=== PATIENT | male | born 1955 | race Caucasian/White ===

== ENCOUNTER → 2016-06-13 | Outpatient (CLI) | payer BC ==
[~2016-06-13] MED LIST: ALBU1AER9 INH; ALLO100T PO; AMLH/550 PO; ASPI81TA28 PO; ATOR-24 PO; CHOL1000 PO; CLOP1TAB15 PO; GLC500 PO; LVMI SC; MELO7.5T5 PO; METO25TA3 PO; MULT-506 PO; NTRGSL/4 UT; NVLGI/PEN SC; VALS320T PO
[2016-06-13 12:22] LABS: BASO % 0.7 %; BASO ABS # 0.06 K/uL (0-0.2); COMPLETE YES; EOS % 3.4 %; HEMATOCRIT 40.4 % (42-52); IG% 0.4 %; LYMPH ABS # 2.65 K/uL (1.2-3.4); MEAN CELL VOLUME 89.4 fL (80-100); MEAN CORPUSCULAR HEMOGLOBIN 29.6 pg (25-34); MEAN CORPUSCULAR HGB CONC 33.2 g/dl (32-36); MEAN PLATELET VOLUME 10.9 fL (7.4-10.4); MONO % 8.9 %; NEUT % 57.6 %; PLATELET COUNT 237 K/uL (130-400); RED BLOOD COUNT 4.52 M/uL (4.7-6.1); WHITE BLOOD COUNT 9.15 K/uL (4.8-10.8)
[2016-06-13 12:54] LABS: ESTIMATED AVERAGE GLUCOSE 220 mg/dl; HA1C FLAG Normal (Normal)
[2016-06-13 13:14] LABS: ALT/SGPT 28 U/L (12-78); AST/SGOT 17 U/L (15-37); BLOOD UREA NITROGEN 23 mg/dl (7-18); BUN/CREATININE RATIO 19.4 (10-20); CALCIUM 8.9 mg/dl (8.5-10.1); CARBON DIOXIDE 30 mmol/L (21-32); CHLORIDE 103 mmol/L (98-107); CHOLESTEROL 147 mg/dl (0-200); GLUCOSE 266 mg/dl (70-99); POTASSIUM 4.8 mmol/L (3.5-5.1); SODIUM 139 mmol/L (136-145); TRIGLYCERIDES 235 mg/dl (0-150); VERY LOW DENSITY LIPOPROT CALC 47 mg/dl
[2016-06-13 13:19] LABS: ALKALINE PHOSPHATASE 118 U/L (45-117); CHOLESTEROL/HDL RATIO 3.6; FERRITIN 101.1 ng/ml (8.0-388.0); HDL CHOLESTEROL 41 mg/dl; LDL CHOLESTEROL CALCULATED 59 mg/dl; TOTAL IRON BINDING CAPACITY 211 mcg/dl (250-450)
== END | disposition home or self-care (01) ==
LOC: C.LABBFT 08:28
PROVIDERS: ATTEND Internal Medicine
DX: E11.65 Type 2 diabetes mellitus with hyperglycemia (principal); Z11.59 Encounter for screening for other viral diseases; D64.9 Anemia, unspecified; I25.10 Atherosclerotic heart disease of native coronary artery without angina pectoris

== ENCOUNTER → 2016-10-17 | Outpatient (CLI) | payer BC ==
[2016-10-17 09:54] LABS: ESTIMATED AVERAGE GLUCOSE 206 mg/dl; HA1C FLAG Normal (Normal)
== END | disposition home or self-care (01) ==
LOC: C.LAB1850 07:49
PROVIDERS: ATTEND Nurse Practitioner Family
DX: E11.65 Type 2 diabetes mellitus with hyperglycemia (principal)

== ENCOUNTER → 2016-11-19 | Outpatient (CLI) | payer BC ==
[~2016-11-19] VITALS: Ht 171.5 cm; Wt 139.0 kg
[2016-11-19 12:27] VITALS: BP 125/80; PULSE 92; Ht 171.5 cm; Wt 139.0 kg
== END | disposition home or self-care (01) ==
LOC: C.NEUR 12:00
PROVIDERS: ATTEND Internal Medicine Pulmonary Disease
DX: G47.30 Sleep apnea, unspecified (principal); R09.02 Hypoxemia; I27.2 Other secondary pulmonary hypertension; M19.90 Unspecified osteoarthritis, unspecified site; N40.0 Benign prostatic hyperplasia without lower urinary tract symptoms; I25.10 Atherosclerotic heart disease of native coronary artery without angina pectoris; I50.9 Heart failure, unspecified; E11.9 Type 2 diabetes mellitus without complications; E78.5 Hyperlipidemia, unspecified; I10 Essential (primary) hypertension; I25.5 Ischemic cardiomyopathy; Z87.442 Personal history of urinary calculi; E66.9 Obesity, unspecified; Z90.89 Acquired absence of other organs; Z98.61 Coronary angioplasty status; Z83.3 Family history of diabetes mellitus; Z82.49 Family history of ischemic heart disease and other diseases of the circulatory system; Z80.42 Family history of malignant neoplasm of prostate; M10.9 Gout, unspecified

== ENCOUNTER → 2017-02-12 | Outpatient (CLI) | payer BC ==
[~2017-02-12] MED LIST changes: +ALL60 PO; +APIX1TAB3 PO; +BENZ100C7 PO; +CEFT1INJ26 IV; +CRDCD180 PO; +DVN80 PO; +FURO-85 PO; +INSDGIPEN SC; +INSU32MI13 SQ; +LCTX PO; +LSX40 PO; +MCRK20 PO; +METF-841 PO; +METO-479 PO; +MGNO400 PO; +PRED1SUS17 OPL; +TRIA1SPR4 NAE; +VNTHFA/IN INH
[2017-02-12 12:28] LABS: BASO % 0.7 %; BASO ABS # 0.07 K/uL (0-0.2); EOS % 3.5 %; EOS ABS # 0.36 K/uL (0-0.5); HEMATOCRIT 40.5 % (42-52); HEMOGLOBIN 13.2 g/dL (14.0-18.0); IG# 0.04 K/uL (0.00-0.02); LYMPH % 27.1 %; LYMPH ABS # 2.81 K/uL (1.2-3.4); MEAN CELL VOLUME 90.6 fL (80-100); MEAN CORPUSCULAR HEMOGLOBIN 29.5 pg (25-34); MEAN CORPUSCULAR HGB CONC 32.6 g/dl (32-36); MEAN PLATELET VOLUME 10.5 fL (7.4-10.4); MONO % 8.9 %; MONO ABS # 0.92 K/uL (0.11-0.59); NEUT % 59.4 %; NEUT ABS # 6.18 K/uL (1.4-6.5); PLATELET COUNT 264 K/uL (130-400); RED CELL DISTRIBUTION WIDTH CV 14.8 % (11.5-14.5); RED CELL DISTRIBUTION WIDTH SD 48.9 fL (36.4-46.3); WHITE BLOOD COUNT 10.38 K/uL (4.8-10.8)
[2017-02-12 13:15] LABS: HEMOGLOBIN A1C 8.8 % (4.5-5.6)
== END | disposition home or self-care (01) ==
LOC: C.LABBFT 07:54
PROVIDERS: ATTEND Nurse Practitioner Family
DX: Z12.5 Encounter for screening for malignant neoplasm of prostate (principal); D72.829 Elevated white blood cell count, unspecified; E11.65 Type 2 diabetes mellitus with hyperglycemia

== ENCOUNTER 2017-06-19 12:51 | Inpatient (IN) | payer BC ==
[~2017-06-19] VITALS: Ht 172.7 cm; Wt 126.6 kg
[~2017-06-19 12:51] MED LIST changes: -ALL60 PO; -APIX1TAB3 PO; -BENZ100C7 PO; -CEFT1INJ26 IV; -CRDCD180 PO; -DVN80 PO; -FURO-85 PO; -INSDGIPEN SC; -INSU32MI13 SQ; -LCTX PO; -LSX40 PO; -MCRK20 PO; -METF-841 PO; -METO-479 PO; -MGNO400 PO; -PRED1SUS17 OPL; -TRIA1SPR4 NAE; -VNTHFA/IN INH
[2017-06-19] MEDS ORDERED: SODIUM CHLORIDE 0.9% 1000ML 1,000 ML IV STA ×2 (13:15→14:35)
[2017-06-19] MEDS ORDERED: KETOROLAC TROMETHAMINE 30 MG/ML VIAL IV STA (13:20)
[2017-06-19] MEDS ORDERED: OPTIRAY 320 IV PRN (13:30)
[2017-06-19 13:56] LABS: BASO % 0.2 %; BASO ABS # 0.03 K/uL (0-0.2); EOS % 0.1 %; EOS ABS # 0.01 K/uL (0-0.5); HEMATOCRIT 37.1 % (42-52); HEMOGLOBIN 13.2 g/dL (14.0-18.0); IG# 0.07 K/uL (0.00-0.02); LYMPH ABS # 2.12 K/uL (1.2-3.4); MEAN CELL VOLUME 86.5 fL (80-100); MEAN CORPUSCULAR HEMOGLOBIN 30.8 pg (25-34); MEAN CORPUSCULAR HGB CONC 35.6 g/dl (32-36); MONO ABS # 1.27 K/uL (0.11-0.59); NEUT % 75.2 %; NEUT ABS # 10.65 K/uL (1.4-6.5); PLATELET COUNT 216 K/uL (130-400); RED CELL DISTRIBUTION WIDTH CV 15.9 % (11.5-14.5); RED CELL DISTRIBUTION WIDTH SD 50.4 fL (36.4-46.3); WHITE BLOOD COUNT 14.15 K/uL (4.8-10.8)
[2017-06-19 14:06] LABS: ISTAT CREATININE 1.3 mg/dl (0.6-1.3); ISTAT IONIZED CALCIUM 1.18 mmol/l (1.12-1.32); ISTAT POTASSIUM 3.9 mEq/L (3.3-5.0)
[2017-06-19] MEDS ORDERED: PRED1SUS17 OPL (14:07)
[2017-06-19] MEDS ORDERED: METF-841 PO (14:07)
[2017-06-19] MEDS ORDERED: AMLH/550 PO (14:07)
[2017-06-19] MEDS ORDERED: FURO-85 PO (14:07)
[2017-06-19] MEDS ORDERED: VNTHFA/IN INH (14:08)
[2017-06-19 14:15] LABS: ALBUMIN 2.9 gm/dl (3.4-5.0); CALCIUM 9.6 mg/dl (8.5-10.1); CREATININE 1.37 mg/dl (0.60-1.40); POTASSIUM 3.9 mmol/L (3.5-5.1)
--- NOTE | 2017-06-19 14:17 | DIAGNOSTIC IMAGING REPORT ---
CHEST ONE VIEW PORTABLE HISTORY: fever COMPARISON: Chest 01/29/2013. FINDINGS: There are low lung volumes. The heart remains top normal in size. Mild central pulmonary vascular congestion without overt edema. No focal lung consolidations. No pleural effusions. No pneumothorax. IMPRESSION: Mild central pulmonary vascular congestion without overt edema. Electronically signed by: Vinicius Gaitan M.D. 06/19/2017 2:16 PM Dictated Date/Time: 06/19/2017 2:07 PM
[2017-06-19 14:23] LABS: CKMB 4.8 ng/ml (0.5-3.6); TOTAL PROTEIN 7.8 gm/dl (6.4-8.2)
[2017-06-19 14:27] LABS: INFLUENZA B ANTIGEN Neg for Influ B (NEG)
[2017-06-19] MEDS ORDERED: LEVAQUIN 750MG / 150ML D5W IV STA (14:28)
--- NOTE | 2017-06-19 14:42 | DIAGNOSTIC IMAGING REPORT ---
CT SCAN OF THE CHEST WITH IV CONTRAST CLINICAL HISTORY: Trauma. Fall with left-sided chest wall pain. COMPARISON STUDY: Chest x-ray dated 06/19/2017. Chest CT dated 01/29/2013. TECHNIQUE: Following the IV administration of 103 cc of Optiray 320, CT scan of the thorax was performed from the thoracic inlet to the upper abdomen. Images are reviewed in the axial, sagittal, and coronal planes. IV contrast was administered without complication. A dose lowering technique was utilized adhering to the principles of ALARA. CT DOSE: 1127.07 mGy.cm FINDINGS: Thyroid: Imaged portions of the thyroid gland are normal in size and attenuation. Thoracic aorta: There is atherosclerotic calcification of the thoracic aorta, which is normal in caliber and demonstrates standard 3-vessel arch anatomy. No dissection is seen. Pulmonary vasculature: The pulmonary trunk is normal in caliber. There are no filling defects identified in the central pulmonary vessels to indicate pulmonary embolus. Note that this examination was not protocoled for evaluation of the pulmonary arteries. Heart: The heart is mildly enlarged and without pericardial effusion. The coronary arteries are densely calcified. Lungs and pleural spaces: The trachea and central airways are clear. There is no airspace consolidation, pleural effusion, or pneumothorax. Numerous tiny scattered calcified granulomas are observed. There is a 9 mm right lower lobe pulmonary nodule seen on image #175. Mild air trapping is present in the upper lobes. Mediastinum: There is no mediastinal hematoma or lymphadenopathy. Shante: Clear. Axillae: There is no axillary lymphadenopathy. Upper abdomen: There is a small hiatal hernia. The liver appears steatotic. Skeletal structures: The skeletal structures are osteopenic. The bony thorax appears intact. Advanced arthritic change is seen in the shoulders. Mild degenerative change is noted throughout the thoracic spine. No lytic or blastic bony lesions are seen. IMPRESSION: 1. There is no airspace consolidation, pleural effusion, or pneumothorax. 2. No acute posttraumatic abnormality is identified. 3. Mild cardiomegaly. 4. There is a 9 mm pathologically indeterminant right lower lobe pulmonary nodule. This was not clearly seen on the 2013 examination; however, pleural effusions on the prior study may have obscured this region. Follow-up as per the Fleischner criteria is recommended. See below. 5. Additional findings as above. Please refer to below summary of Fleischner criteria recommendations for follow-up of incidental CT nodules (H MacMahon, Guidelines for management of small pulmonary nodules detected on CT scans: A statement from the Fleischner Society, Radiology 237: [id number].) SOLID NODULES Solitary nodule size: <6 mm * low risk patients: no follow-up needed * high risk patients: optional CT at 12 months Solitary nodule size: 6-8 mm * low risk patients: follow-up at 6-12 months, then consider further follow-up at 18-24 months * high risk patients: initial follow-up CT at 6-12 months and then at 18-24 months if no change Solitary nodule size: >8 mm * either low or high risk patients - consider follow-up CT at 3 months, and/or CT-PET, and/or biopsy Multiple nodules size: <6 mm * low risk patients: no routine follow-up * high risk patients: optional CT at 12 months Multiple nodules size: 6-8 mm * low risk patients: follow-up at 3-6 months, then consider further follow-up at 18-24 months * high risk patients: follow-up at 3-6 months, then at 18-24 months if no change Multiple nodules size: >8 mm * low risk patients: follow-up at 3-6 months, then consider further follow-up at 18-24 months * high risk patients: follow-up at 3-6 months, then at 18-24 months if no change Note: newly detected indeterminate nodule in persons 35 years of age or older. * low risk patients: minimal or absent history of smoking and/or other known risk factors * high risk patients: history of smoking or of other known risk factors (e.g. first degree relative with lung cancer, or exposure to asbestos, radon, uranium) * if a nodule up to 8 mm is partly solid or is ground glass further follow-up is required after 24 months to exclude possible slow growing adenocarcinoma (JUAN) SUBSOLID NODULES Solitary pure ground-glass nodule * nodule size <6 mm - no CT follow-up required * nodule size >=6 mm - follow-up CT at 6-12 months, then every 2 years until 5 years Solitary part-solid nodule * nodule size <6 mm - no CT follow-up required * nodule size >=6 mm - follow-up CT at 3-6 months. If unchanged, and solid component remains <6 mm, then annual follow-up for 5 years Multiple subsolid nodules * nodule size <6 mm - follow-up CT at 3-6 months, consider further follow-up at 2 and 4 years if stable * nodule size >=6 mm - follow-up CT at 3-6 months, subsequent management based on the most suspicious nodule(s) Electronically signed by: Howard Conrad M.D. 06/19/2017 2:41 PM Dictated Date/Time: 06/19/2017 2:32 PM
[2017-06-19] MEDS ORDERED: MAGNESIUM HYDROXIDE SUSP 30 ML UDC PO PRN (15:45)
[2017-06-19] MEDS ORDERED: POLYETHYLENE (MIRALAX) 17 GM PACK PO PRN (15:45)
[2017-06-19] MEDS ORDERED: GLUCOSE 40% GEL 15 GM TUBE PO PRN (15:45)
[2017-06-19] MEDS ORDERED: ALUMINUM/MAGNESIUM/SIMETH (MAALOX MAX) 30 ML UDC PO PRN (15:45)
[2017-06-19] MEDS ORDERED: GLUCOSE 10 TABS/TUBE PO PRN (15:45)
[2017-06-19] MEDS ORDERED: NITROGLYCERIN 0.4 MG SL PER TAB CHARGE SL PRN (15:45)
[2017-06-19] MEDS ORDERED: GLUCAGON FOR INJ 1 MG VIAL SQ PRN (15:45)
[2017-06-19] MEDS ORDERED: ALBUTEROL HFA 8 GM INHALER INH PRN (15:45)
[2017-06-19] MEDS ORDERED: ZOLPIDEM TARTRATE 5 MG TAB PO PRN ×2 (15:45)
[2017-06-19] MEDS ORDERED: NITROGLYCERIN 0.4 MG SL PER TAB CHARGE UT PRN (15:45)
[2017-06-19] MEDS ORDERED: DEXTROSE 50% 50 ML SYR IV PRN (15:45)
--- NOTE | 2017-06-19 16:39 | History and Physical ---
History & Physical Date & Time of Service: Jun 19, 2017 at 16:26 Chief Complaint: Dizziness,High Temp,Shingles Primary Care Physician: Loki Matias M.D. History of Present Illness Source: patient, family, spouse 61 years old man with past medical history of diabetes mellitus, hypertension, obstructive sleep apnea, dyslipidemia, diastolic congestive heart failure, CVA and recent shingles 2 weeks ago. 4 days ago patient started having productive cough with yellowish sputum. Intermittent high-grade fever up to 103 at home. Denies any significant shortness of breath, diarrhea, blood in the stool, burning sensation in the urine or blood. About 2 weeks ago he was treated for scalp shingles that might have affected his left eye, as per patient he received all the appropriate treatment oral and eyedrops. Due to his intermittent fever and cough patient started having generalized weakness. Last night he tried to use the bathroom and he fell in the bathtub and states therefore few hours. Patient is not aware of what happened. He is not sure if he passed out or lost consciousness. But he remembers waking up after that and dragging himself back to bed. Denies any focal weakness or tingling or numbness. His brought him to the ER today and he was found to have A. fib new onset with rapid ventricular response. 57 y/o M with PMH significant for DM, HTN, recently dx DEANDRE, and hyperlipidemia, who was admitted on 01/29 for SOB. Visual disturbances: Consult neurology and Order MRI, Continue Heparin gtt for now SOB: Diastolic CHF exacerbation, improved with additional lasix dosing last night WBC WNL, afebrile CXR neg + ddimer with CTA neg for PE CTA does show mild pleural effusion with clinical findings suggestive of CHF given orthopnea and increasing ZULETA, LE swelling, scant crackles Trop elevated at 0.75 without EKG changes, serials essentially the same BNP slightly elevated at 361 ECHO with EF 20-25% and wall motion abnormalities that are difficult to fully assess given pt's body habitus Cardiology is planning for cath today given dye received prior to admission for CTA. Med adjustments noted LDL is surprisingly WNL at 62 with HDL 40 DM: BS stable Monitor on home insulin, SSI, restart metformin HTN: Stable, continue home meds DEANDRE: Awaiting CPAP at home Discussed importance of treating this daily with pt, who is in agreement Able to tolerate overnight Past Medical/Surgical History Medical Problems: (1) A-fib (2) A-fib (3) Acute coronary syndrome (4) Diabetes (5) High cholesterol (6) Hypertension (7) Hypoglycemia (8) Kidney stones (9) Shortness of breath (10) SOB (shortness of breath) Family History Diabetes mellitus FH: cancer Hypertension Social History Smoking Status: Former Smoker Drug Use: none Immunizations History of Influenza Vaccine: No History of Tetanus Vaccine?: Yes History of Pneumococcal: No History of Hepatitis B Vaccine: No Allergies Coded Allergies: No Known Allergies (Verified , 01/25/16) Home Medications Scheduled Allopurinol (Zyloprim), 100 MG PO QAM Amiloride/Hctz (Amiloride/Hydrochlorothia 5-50 mg), 1 TAB PO DAILY Aspirin (Aspirin Ec), 81 MG PO HS Atorvastatin (Lipitor), 40 MG PO HS Cholecalciferol (Vitamin D3), 2,000 TAB PO QAM Clopidogrel (Plavix), 75 MG PO QAM Furosemide (Lasix), 20 MG PO DAILY Insulin Aspart (Novolog Flexpen), UNITS SC UD Meloxicam (Mobic), 7.5 MG PO BID Metformin HCl (Metformin HCl ER), 1,000 MG PO BID Metoprolol Succ (Toprol Xl) (Toprol-Xl), 25 MG PO QAM Multivitamin (Multivitamin), 1 TAB PO QAM Prednisolone Acetate (Ophth) (Prednisolone Acetate), 1 DROP OPL QID Valsartan (Diovan), 320 MG PO QAM Scheduled PRN Albuterol Hfa (Ventolin Hfa), 2 PUFFS INH Q4 PRN for SOB/Wheezing Nitroglycerin (Nitrostat), 0.4 MG UT PRN PRN for Chest Pain Review of Systems Review of system Constitutional: Positive for fatigue, high-grade fever and chills Eyes: no blurring of vision / no eye pain / no discharge / no redness ENT: no hearing loss / no epistaxis /no swallowing problems Respiratory: Positive for productive cough as mentioned in HPI/ no SOB / no hemoptysis Cardiovascular: no Chest pain / no lower extremity edema / no palpitation Abdomen: no pain / no nausea / no vomiting / no constipation Musculoskeletal: no joint pain / no muscle pain / no joint swelling Genitourinary: no dysuria / no incontinence / no urinary retention Neurologic: no focal weakness / no numbness/tingling / no ataxia, positive for syncope and slight confusion Psychiatric: no depression symptoms / no anxiety / no insomnia Endocrine: no excessive thirst / no excessive urination Hematologic: no abnormal bleeding / no bruising / no LN swelling Skin: No rash / no pallor Physical Exam Vital Signs Date Time Temp Pulse Resp B/P (MAP) Pulse Ox O2 Delivery O2 Flow Rate FiO2 06/19/17 16:01 120/76 06/19/17 15:51 124 40 06/19/17 15:31 103/70 06/19/17 15:21 104 33 06/19/17 15:01 105/78 06/19/17 14:51 191 38 92 06/19/17 14:38 101/75 06/19/17 14:02 100/72 06/19/17 13:51 122 26 86 06/19/17 13:37 101 06/19/17 12:52 36.8 93 20 106/67 98 Room Air Physical examination General patient appears to be in mild acute distress HEENT: Atraumatic , normocephalic /no jaundice /no pallor /anicteric /no dry mucous membrane /normal external ear inspection Neck: Supple /no swelling /central trach Heart: S1/S2 irregular irregularity/no murmur Lungs: Clear to auscultation bilaterally/normal chest with expansion/no rhonchi/ no rales/no wheezing/no use of accessory muscles of respiration Abdomen: Soft/nontender/no guarding/no rebound/no organomegaly/no pulsatile mass Musculoskeletal: No swelling/no edema/no tenderness/normal range of motion Neuro exam: Awake alert oriented 3 but slightly forgetful and slightly confused about the sequence of events/cranial nerves II through XII appear to be intact/sensation intact/moves all extremities/no abnormal movements Psychiatric evaluation: No depressed mood/normal affect Skin: No rash on exposed skin area/no erythema Extremity: Normal pulse/no pitting edema/no clubbing or cyanosis Endocrine/lymphatic: No obvious lymphadenopathy /no lymphedema Diagnostics Laboratory Results Results Past 24 Hours Test 06/19/17 13:30 06/19/17 13:51 06/19/17 13:55 06/19/17 14:00 Range/Units White Blood Count 14.15 4.8-10.8 K/uL Red Blood Count 4.29 4.7-6.1 M/uL Hemoglobin 13.2 14.0-18.0 g/dL Hematocrit 37.1 42-52 % Mean Corpuscular Volume 86.5 80-100 fL Mean Corpuscular Hemoglobin 30.8 25-34 pg Mean Corpuscular Hemoglobin Concent 35.6 32-36 g/dl Platelet Count 216 130-400 K/uL Mean Platelet Volume 10.0 7.4-10.4 fL Neutrophils (%) (Auto) 75.2 % Lymphocytes (%) (Auto) 15.0 % Monocytes (%) (Auto) 9.0 % Eosinophils (%) (Auto) 0.1 % Basophils (%) (Auto) 0.2 % Neutrophils # (Auto) 10.65 1.4-6.5 K/uL Lymphocytes # (Auto) 2.12 1.2-3.4 K/uL Monocytes # (Auto) 1.27 0.11-0.59 K/uL Eosinophils # (Auto) 0.01 0-0.5 K/uL Basophils # (Auto) 0.03 0-0.2 K/uL RDW Standard Deviation 50.4 36.4-46.3 fL RDW Coefficient of Variation 15.9 11.5-14.5 % Immature Granulocyte % (Auto) 0.5 % Immature Granulocyte # (Auto) 0.07 0.00-0.02 K/uL Prothrombin Time 10.5 9.0-12.0 SECONDS Prothromb Time International Ratio 1.0 0.9-1.1 Sodium Level 133 136-145 mmol/L Potassium Level 3.9 3.5-5.1 mmol/L Chloride Level 97 98-107 mmol/L Carbon Dioxide Level 29 21-32 mmol/L Anion Gap 7.0 14.0 16-25 mmol/L Blood Urea Nitrogen 20 7-18 mg/dl Creatinine 1.37 0.60-1.40 mg/dl Est Creatinine Clear Calc Drug Dose 64.3 ml/min Estimated GFR () 63.2 Estimated GFR (Non- 54.5 BUN/Creatinine Ratio 14.5 10-20 Random Glucose 114 70-99 mg/dl Calcium Level 9.6 8.5-10.1 mg/dl Magnesium Level 1.4 1.8-2.4 mg/dl Total Bilirubin 0.6 0.2-1 mg/dl Direct Bilirubin 0.2 0-0.2 mg/dl Aspartate Amino Transf (AST/SGOT) 30 15-37 U/L Alanine Aminotransferase (ALT/SGPT) 37 12-78 U/L Alkaline Phosphatase 94 45-117 U/L Total Creatine Kinase 532 39-308 U/L Creatine Kinase MB 4.8 0.5-3.6 ng/ml Creatine Kinase MB Ratio 0.9 0-3.0 Troponin I 0.475 0-0.045 ng/ml Total Protein 7.8 6.4-8.2 gm/dl Albumin 2.9 3.4-5.0 gm/dl Bedside Lactic Acid Venous 2.21 0.90-1.70 mmol/L Bedside Hemoglobin 12.6 14.0-18.0 g/dl Bedside Hematocrit 37 42-52 % Bedside Sodium 134 135-144 mEq/L Bedside Potassium 3.9 3.3-5.0 mEq/L Bedside Chloride 95 101-112 mEq/L Bedside Total CO2 30 24-31 mEq/l Bedside Blood Urea Nitrogen 21 7-18 mg/dl Bedside Creatinine 1.3 0.6-1.3 mg/dl Bedside Glucose (other) 128 70-99 mg/dl Bedside Ionized Calcium (Fabiola) 1.18 1.12-1.32 mmol/l Influenza Type A Antigen Neg for Influ A NEG Influenza Type B Antigen Neg for Influ B NEG Test 06/19/17 14:20 Range/Units Urine Color DK YELLOW Urine Appearance CLEAR CLEAR Urine pH 5.0 4.5-7.5 Urine Specific [place] 1.032 1.000-1.030 Urine Protein NEG NEG Urine Glucose (UA) 3+ NEG Urine Ketones TRACE NEG Urine Occult Blood NEG NEG Urine Nitrite NEG NEG Urine Bilirubin NEG NEG Urine Urobilinogen NEG NEG Urine Leukocyte Esterase NEG NEG Urine WBC (Auto) 1-5 0-5 /hpf Urine RBC (Auto) 0-4 0-4 /hpf Urine Hyaline Casts (Auto) 1-5 0-5 /lpf Urine Epithelial Cells (Auto) 5-10 0-5 /lpf Urine Bacteria (Auto) NEG NEG Microbiology Results 06/19/17 Blood Culture, Received Pending 06/19/17 Blood Culture, Received Pending Diagnostic Radiology CT chest showed right lower lobe pulmonary nodule 9 mm EKG EKG showed new onset atrial fibrillation with ST-T wave changes Impression Assessment and Plan 61 years old man with past medical history of diabetes mellitus, hypertension, obstructive sleep apnea, dyslipidemia, diastolic congestive heart failure, CVA and recent shingles 2 weeks ago. 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 difficile Fall/generalized weakness IV fluid hydration Hold blood pressure meds Physical and occupational therapy evaluation Diabetes mellitus type 2 Hold oral hypoglycemics Start patient on sliding scale insulin Obstructive sleep apnea Patient can use his CPAP machine, he uses 2 L of oxygen at night with it His will bring the machine today DVT prophylaxis heparin drip for atrial fibrillation Discussed CODE STATUS status with patient and his , patient is full code Resuscitation Status VTE Prophylaxis Will order VTE Prophylaxis: Yes
[2017-06-19] MEDS ORDERED: HEPARIN SOD 5000 UNIT/0.5 ML CARP ONE (17:22)
[2017-06-19] MEDS ORDERED: HEPARIN 25000 UNIT/500 ML D5W ONE (17:22)
[2017-06-19] MEDS ORDERED: MAGNESIUM OXIDE 400 MG TAB PO ONE (17:30)
--- NOTE | 2017-06-19 17:50 | DIAGNOSTIC IMAGING REPORT ---
CT OF THE HEAD WITHOUT CONTRAST CLINICAL HISTORY: FALL / TRAUMA COMPARISON STUDY: Head CT February 03, 2013. CT DOSE: 687.98 mGy.cm TECHNIQUE: Helical axial images of the head were obtained without IV contrast. Automated exposure control was utilized for the study. A dose lowering technique was utilized adhering to the principles of ALARA. FINDINGS: No acute intracranial hemorrhage, midline shift or mass effect is present. Ventricular system is normal. The basilar cisterns are patent. There are no extra-axial collections. An old infarct within the right occipital lobe is again noted. There are no findings to suggest acute dural sinus thrombosis or acute territorial infarct. Mild white matter hypodensity likely reflect small vessel disease. There is no calvarial fracture. IMPRESSION: 1. No acute intracranial findings. 2. No calvarial fracture. 3. Old right occipital lobe infarct. Electronically signed by: Jeremiah Davis M.D. 06/19/2017 5:49 PM Dictated Date/Time: 06/19/2017 5:46 PM
[2017-06-19] MEDS: INSULIN ASPART 100 UNITS/ML 3 ML PEN SC SCH ×2 (18:30→21:00)
[2017-06-19 18:37] VITALS: BMI 44.6
[2017-06-19 18:41] VITALS: BP 149/74; PULSE 104; TEMP 38.3; O2SAT 90
[2017-06-19] MEDS: ONDANSETRON INJ 2 MG/ML 2 ML VIAL IV PRN (19:08)
[2017-06-19] MEDS: SODIUM CHLORIDE 0.9% 1000ML 1,000 ML IV SCH (19:11)
[2017-06-19] MEDS: PrednisoLONE ACET 1% OP SUSP 5 ML BTL OPL SCH ×2 (19:12→22:21)
--- NOTE | 2017-06-19 19:24 | EMERGENCY ROOM VISIT NOTE ---
History Report prepared by Db: Cezar Hamm Under the Supervision of: Dr. Jose Tate D.O. First contact with patient: 13:02 Chief Complaint: FEVER Stated Complaint: DIZZINESS,HIGH TEMP,SHINGLES History of Present Illness The patient is a 61 year old male who presents to the Emergency Room with complaints of constant pain to the left side of his chest that began last night following a falling accident. The patient states that he fell last night while trying to use the restroom and believes that the fall was due to him being weak secondary to the high fever he has had. The pain in the left chest is worsened with movement on the left arm/shoulder. The at bedside notes that the fever was 103.8 at its worse. During the fall he also injured the right ankle. The patient was nauseous yesterday and has been trying to vomit, but only dry heaves. This nausea is resolved at this point. He is coughing, which has been present for several days. The patient notes that he had Shingles 3 weeks ago. This was present on the left side of his head and in the left eye. 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 He is on PLAVIX currently. Source of History: patient Onset: Last night Position: chest (left) Symptom Intensity: 103.8 severity of fever. Quality: other (Pain from traumatic fall) Timing: constant Modifying Factors (Worsening): movement (of left arm and shoulder) Associated Symptoms: + fevers, + nausea Review of Systems See HPI for pertinent positives & negatives. A total of 10 systems reviewed and were otherwise negative. Past Medical & Surgical Medical Problems: (1) A-fib (2) A-fib (3) Diabetes (4) Heart disease Diabetes Heart disease Family History Diabetes mellitus FH: cancer Hypertension Social History Smoking Status: Former Smoker Alcohol Use: none Drug Use: none Current/Historical Medications Scheduled Allopurinol (Zyloprim), 100 MG PO QAM Amiloride/Hctz (Amiloride/Hydrochlorothia 5-50 mg), 1 TAB PO DAILY Aspirin (Aspirin Ec), 81 MG PO HS Atorvastatin (Lipitor), 40 MG PO HS Cholecalciferol (Vitamin D3), 2,000 TAB PO QAM Clopidogrel (Plavix), 75 MG PO QAM Furosemide (Lasix), 20 MG PO DAILY Insulin Aspart (Novolog Flexpen), UNITS SC UD Meloxicam (Mobic), 7.5 MG PO BID Metformin HCl (Metformin HCl ER), 1,000 MG PO BID Metoprolol Succ (Toprol Xl) (Toprol-Xl), 25 MG PO QAM Multivitamin (Multivitamin), 1 TAB PO QAM Prednisolone Acetate (Ophth) (Prednisolone Acetate), 1 DROP OPL QID Valsartan (Diovan), 320 MG PO QAM Scheduled PRN Albuterol Hfa (Ventolin Hfa), 2 PUFFS INH Q4 PRN for SOB/Wheezing Nitroglycerin (Nitrostat), 0.4 MG UT PRN PRN for Chest Pain Allergies Coded Allergies: No Known Allergies (Verified , 01/25/16) Physical Exam Vital Signs Date Time Temp Pulse Resp B/P (MAP) Pulse Ox O2 Delivery O2 Flow Rate FiO2 06/19/17 15:31 103/70 06/19/17 15:21 104 33 06/19/17 15:01 105/78 06/19/17 14:51 191 38 92 06/19/17 14:38 101/75 06/19/17 14:02 100/72 06/19/17 13:51 122 26 86 06/19/17 13:37 101 06/19/17 12:52 36.8 93 20 106/67 98 Room Air Physical Exam GENERAL: Sitting up in bed, alert, ill-appearing, dry non-productive cough, well nourished, moderately distress, non-toxic EYE EXAM: normal conjunctiva. OROPHARYNX: no exudate, no erythema, lips, buccal mucosa, and tongue normal and mucous membranes are moist NECK: supple, no nuchal rigidity, no adenopathy, non-tender CHEST: TTP over left side LUNGS: Clear to auscultation. Normal chest wall mechanics. Dry non-productive cough. HEART: Tachycardic and irregularly irregular. no murmurs, S1 normal and S2 normal ABDOMEN: abdomen soft, non-tender, normo-active bowel sounds, no masses, no rebound or guarding. BACK: Back is symmetrical on inspection and there is no deformity, no midline tenderness, no CVA tenderness. SKIN: no rashes and no bruising UPPER EXTREMITIES: upper extremities are grossly normal. LOWER EXTREMITIES: There is mild erythema just above the right ankle. The right second toe is with surrounding erythema. NEURO EXAM: Normal sensorium, cranial nerves II-XII grossly intact, normal speech, no gross weakness of arms, no gross weakness of legs. Medical Decision & Procedures ER Provider Diagnostic Interpretation: Radiology results as stated below per my review and the radiologist's interpretation: CT SCAN OF THE CHEST WITH IV CONTRAST CLINICAL HISTORY: Trauma. Fall with left-sided chest wall pain. COMPARISON STUDY: Chest x-ray dated 06/19/2017. Chest CT dated 01/29/2013. TECHNIQUE: Following the IV administration of 103 cc of Optiray 320, CT scan of the thorax was performed from the thoracic inlet to the upper abdomen. Images are reviewed in the axial, sagittal, and coronal planes. IV contrast was administered without complication. A dose lowering technique was utilized adhering to the principles of ALARA. CT DOSE: 1127.07 mGy.cm FINDINGS: Thyroid: Imaged portions of the thyroid gland are normal in size and attenuation. Thoracic aorta: There is atherosclerotic calcification of the thoracic aorta, which is normal in caliber and demonstrates standard 3-vessel arch anatomy. No dissection is seen. Pulmonary vasculature: The pulmonary trunk is normal in caliber. There are no filling defects identified in the central pulmonary vessels to indicate pulmonary embolus. Note that this examination was not protocoled for evaluation of the pulmonary arteries. Heart: The heart is mildly enlarged and without pericardial effusion. The coronary arteries are densely calcified. Lungs and pleural spaces: The trachea and central airways are clear. There is no airspace consolidation, pleural effusion, or pneumothorax. Numerous tiny scattered calcified granulomas are observed. There is a 9 mm right lower lobe pulmonary nodule seen on image #175. Mild air trapping is present in the upper lobes. Mediastinum: There is no mediastinal hematoma or lymphadenopathy. Shante: Clear. Axillae: There is no axillary lymphadenopathy. Upper abdomen: There is a small hiatal hernia. The liver appears steatotic. Skeletal structures: The skeletal structures are osteopenic. The bony thorax appears intact. Advanced arthritic change is seen in the shoulders. Mild degenerative change is noted throughout the thoracic spine. No lytic or blastic bony lesions are seen. IMPRESSION: 1. There is no airspace consolidation, pleural effusion, or pneumothorax. 2. No acute posttraumatic abnormality is identified. 3. Mild cardiomegaly. 4. There is a 9 mm pathologically indeterminant right lower lobe pulmonary nodule. This was not clearly seen on the 2013 examination; however, pleural effusions on the prior study may have obscured this region. Follow-up as per the Fleischner criteria is recommended. See below. 5. Additional findings as above. Please refer to below summary of Fleischner criteria recommendations for follow-up of incidental CT nodules (Taty Medrano, Guidelines for management of small pulmonary nodules detected on CT scans: A statement from the Fleischner Society, Radiology 237: [phone].) SOLID NODULES Solitary nodule size: <6 mm * low risk patients: no follow-up needed * high risk patients: optional CT at 12 months Solitary nodule size: 6-8 mm * low risk patients: follow-up at 6-12 months, then consider further follow-up at 18-24 months * high risk patients: initial follow-up CT at 6-12 months and then at 18-24 months if no change Solitary nodule size: >8 mm * either low or high risk patients - consider follow-up CT at 3 months, and/or CT-PET, and/or biopsy Multiple nodules size: <6 mm * low risk patients: no routine follow-up * high risk patients: optional CT at 12 months Multiple nodules size: 6-8 mm * low risk patients: follow-up at 3-6 months, then consider further follow-up at 18-24 months * high risk patients: follow-up at 3-6 months, then at 18-24 months if no change Multiple nodules size: >8 mm * low risk patients: follow-up at 3-6 months, then consider further follow-up at 18-24 months * high risk patients: follow-up at 3-6 months, then at 18-24 months if no change Note: newly detected indeterminate nodule in persons 35 years of age or older. * low risk patients: minimal or absent history of smoking and/or other known risk factors * high risk patients: history of smoking or of other known risk factors (e.g. first degree relative with lung cancer, or exposure to asbestos, radon, uranium) * if a nodule up to 8 mm is partly solid or is ground glass further follow-up is required after 24 months to exclude possible slow growing adenocarcinoma (JUAN) SUBSOLID NODULES Solitary pure ground-glass nodule * nodule size <6 mm - no CT follow-up required * nodule size >=6 mm - follow-up CT at 6-12 months, then every 2 years until 5 years Solitary part-solid nodule * nodule size <6 mm - no CT follow-up required * nodule size >=6 mm - follow-up CT at 3-6 months. If unchanged, and solid component remains <6 mm, then annual follow-up for 5 years Multiple subsolid nodules * nodule size <6 mm - follow-up CT at 3-6 months, consider further follow-up at 2 and 4 years if stable * nodule size >=6 mm - follow-up CT at 3-6 months, subsequent management based on the most suspicious nodule(s) Electronically signed by: Howard Conrad M.D. 06/19/2017 2:41 PM Dictated Date/Time: 06/19/2017 2:32 PM CHEST ONE VIEW PORTABLE HISTORY: fever COMPARISON: Chest 01/29/2013. FINDINGS: There are low lung volumes. The heart remains top normal in size. Mild central pulmonary vascular congestion without overt edema. No focal lung consolidations. No pleural effusions. No pneumothorax. IMPRESSION: Mild central pulmonary vascular congestion without overt edema. Electronically signed by: Vinicius Gaitan M.D. 06/19/2017 2:16 PM Dictated Date/Time: 06/19/2017 2:07 PM Laboratory Results 06/19/17 13:30 Red Blood Count 4.29, Mean Corpuscular Volume 86.5, Mean Corpuscular Hemoglobin 30.8, Mean Corpuscular Hemoglobin Concent 35.6, Mean Platelet Volume 10.0, Neutrophils (%) (Auto) 75.2, Lymphocytes (%) (Auto) 15.0, Monocytes (%) (Auto) 9.0, Eosinophils (%) (Auto) 0.1, Basophils (%) (Auto) 0.2, Neutrophils # (Auto) 10.65, Lymphocytes # (Auto) 2.12, Monocytes # (Auto) 1.27, Eosinophils # (Auto) 0.01, Basophils # (Auto) 0.03 06/19/17 13:30 Test 06/19/17 13:30 06/19/17 13:51 06/19/17 13:55 06/19/17 14:00 White Blood Count 14.15 K/uL (4.8-10.8) Red Blood Count 4.29 M/uL (4.7-6.1) Hemoglobin 13.2 g/dL (14.0-18.0) Hematocrit 37.1 % (42-52) Mean Corpuscular Volume 86.5 fL (80-100) Mean Corpuscular Hemoglobin 30.8 pg (25-34) Mean Corpuscular Hemoglobin Concent 35.6 g/dl (32-36) Platelet Count 216 K/uL (130-400) Mean Platelet Volume 10.0 fL (7.4-10.4) Neutrophils (%) (Auto) 75.2 % Lymphocytes (%) (Auto) 15.0 % Monocytes (%) (Auto) 9.0 % Eosinophils (%) (Auto) 0.1 % Basophils (%) (Auto) 0.2 % Neutrophils # (Auto) 10.65 K/uL (1.4-6.5) Lymphocytes # (Auto) 2.12 K/uL (1.2-3.4) Monocytes # (Auto) 1.27 K/uL (0.11-0.59) Eosinophils # (Auto) 0.01 K/uL (0-0.5) Basophils # (Auto) 0.03 K/uL (0-0.2) RDW Standard Deviation 50.4 fL (36.4-46.3) RDW Coefficient of Variation 15.9 % (11.5-14.5) Immature Granulocyte % (Auto) 0.5 % Immature Granulocyte # (Auto) 0.07 K/uL (0.00-0.02) Prothrombin Time 10.5 SECONDS (9.0-12.0) Prothromb Time International Ratio 1.0 (0.9-1.1) Est Creatinine Clear Calc Drug Dose 64.3 ml/min Estimated GFR () 63.2 Estimated GFR (Non- 54.5 BUN/Creatinine Ratio 14.5 (10-20) Calcium Level 9.6 mg/dl (8.5-10.1) Magnesium Level 1.4 mg/dl (1.8-2.4) Total Bilirubin 0.6 mg/dl (0.2-1) Direct Bilirubin 0.2 mg/dl (0-0.2) Aspartate Amino Transf (AST/SGOT) 30 U/L (15-37) Alanine Aminotransferase (ALT/SGPT) 37 U/L (12-78) Alkaline Phosphatase 94 U/L (45-117) Total Creatine Kinase 532 U/L (39-308) Creatine Kinase MB 4.8 ng/ml (0.5-3.6) Creatine Kinase MB Ratio 0.9 (0-3.0) Troponin I 0.475 ng/ml (0-0.045) Total Protein 7.8 gm/dl (6.4-8.2) Albumin 2.9 gm/dl (3.4-5.0) Procalcitonin 0.39 ng/ml (0-0.5) Thyroxine (T4) 6.0 mcg/dl (4.5-10.9) Bedside Lactic Acid Venous 2.21 mmol/L (0.90-1.70) Bedside Hemoglobin 12.6 g/dl (14.0-18.0) Bedside Hematocrit 37 % (42-52) Bedside Sodium 134 mEq/L (135-144) Bedside Potassium 3.9 mEq/L (3.3-5.0) Bedside Chloride 95 mEq/L (101-112) Bedside Total CO2 30 mEq/l (24-31) Anion Gap 14.0 mmol/L (16-25) Bedside Blood Urea Nitrogen 21 mg/dl (7-18) Bedside Creatinine 1.3 mg/dl (0.6-1.3) Bedside Glucose (other) 128 mg/dl (70-99) Bedside Ionized Calcium (Fabiola) 1.18 mmol/l (1.12-1.32) Influenza Type A Antigen Neg for Influ A (NEG) Influenza Type B Antigen Neg for Influ B (NEG) Test 06/19/17 14:20 Urine Color DK YELLOW Urine Appearance CLEAR (CLEAR) Urine pH 5.0 (4.5-7.5) Urine Specific [place] 1.032 (1.000-1.030) Urine Protein NEG (NEG) Urine Glucose (UA) 3+ (NEG) Urine Ketones TRACE (NEG) Urine Occult Blood NEG (NEG) Urine Nitrite NEG (NEG) Urine Bilirubin NEG (NEG) Urine Urobilinogen NEG (NEG) Urine Leukocyte Esterase NEG (NEG) Urine WBC (Auto) 1-5 /hpf (0-5) Urine RBC (Auto) 0-4 /hpf (0-4) Urine Hyaline Casts (Auto) 1-5 /lpf (0-5) Urine Epithelial Cells (Auto) 5-10 /lpf (0-5) Urine Bacteria (Auto) NEG (NEG) Laboratory results per my review. Medications Administered Medications (Trade) Dose Ordered Sig/Wojciech Route Start Time Stop Time Status Last Admin Dose Admin Sodium Chloride 1,000 ml @ 999 mls/hr Q1H1M STAT IV 06/19/17 13:15 06/19/17 14:15 DC 06/19/17 13:59 999 MLS/HR Ketorolac Tromethamine (Toradol Inj) 10 mg NOW STAT IV 06/19/17 13:20 06/19/17 13:21 DC 06/19/17 14:36 10 MG Levofloxacin (Levaquin / D5W) 750 mg NOW STAT IV 06/19/17 14:28 06/19/17 14:30 DC 06/19/17 14:28 750 MG Sodium Chloride 1,000 ml @ 75 mls/hr [id number] IV 06/19/17 15:36 07/19/17 15:35 06/19/17 19:11 75 MLS/HR Ondansetron HCl (Zofran Inj) 4 mg Q6H PRN IV 06/19/17 15:45 07/19/17 15:44 06/19/17 19:08 4 MG ECG Per My Interpretation Indication: chest pain, weakness Rate (beats per minute): 108 Rhythm: atrial fibrillation (RVR) Findings: nonspecific-ST abn (Lateral), PAC, Q waves (Septal), other (LAD) Comparison ECG Date: 01/31/2013 Change: A-fib is new ED Course ED COURSE: Vital signs were reviewed and showed normal vitals. The patients medical record was reviewed The above diagnostic studies were performed and reviewed. ED treatments and interventions as stated above. 1304: The patient was evaluated in room C12B. A complete history and physical examination was performed. 1315: Ordered Sodium Chloride 1000 mL @ 999 mL/hr IV. 1320: Ordered Toradol 10 mg IV. 1419: I checked on the patient at this time he is doing well. 1428: Ordered Levofloxacin 750 mg IV. 1435: Ordered Sodium Chloride 1000 mL @ 999 mL/hr IV. 1458: I discussed the case with Dr. [place] [facility] [place] He will evaluate the patient for further treatment 1503: Upon reevaluation, the patient is resting in bed.I discussed my findings with the patient and he understands and agrees with the treatment plan. Based on the patients age, coexisting illnesses, exam and lab findings the decision to treat as an inpatient was made. The patient remained stable while under my care. The patient appeared well at the time of discharge. Medical Decision Differential diagnosis includes etiologies such as sepsis, UTI, pneumonia, metabolic, electrolyte abnormalities, cardiac sources, intracerebral event, toxicologic, neurologic, as well as others were entertained. Pt is a 61 y/o with fevers and recurrent fall along with a cough. Denies RAM. WBC 14 along with mild elevated trop and new Afib w/ RVR. HR controls with fluids in the 100s. UA neg and flu neg. CXR unremarkable along with CT for fall. Favor elevated trop 2/2 demand and infection. No signs of meningitis. Given Levaquin and fluids. Admitted to IM. Medication Reconcilliation Current Medication List: was personally reviewed by me Blood Pressure Screening Patient's blood pressure: Normal blood pressure Consults Time Called: [phone] Consulting Physician: Dr. Destiny STROUD Hospitalist Returned Call: [phone] I discussed the case with Dr. Destiny STROUD Hospitalist. He will evaluate the patient for further treatment Impression Primary Impression: Bronchitis Additional Impressions: Cellulitis of toe Leukocytosis Elevated troponin Scribe Attestation The scribe's documentation has been prepared under my direction and personally reviewed by me in its entirety. I confirm that the note above accurately reflects all work, treatment, procedures, and medical decision making performed by me. Departure Information Dispostion Being Evaluated By Hospitalist Referrals Loki Matias M.D. (PCP) Patient Instructions My [facility] Problem Qualifiers Additional Impressions: Cellulitis of toe Laterality: unspecified laterality Qualified Codes: L03.039 - Cellulitis of unspecified toe Leukocytosis Leukocytosis type: unspecified Qualified Codes: D72.829 - Elevated white blood cell count, unspecified
[2017-06-19 19:35] VITALS: BP 122/76; PULSE 103; TEMP 38.6; O2SAT 92
[2017-06-19] MEDS: ACETAMINOPHEN 325 MG TAB PO PRN (19:57)
[2017-06-19] MEDS: LACTOBACILLUS ACIDOPHILUS (FLORANEX) TAB PO SCH (19:57)
[2017-06-19] MEDS ORDERED: VANCOMYCIN CONSULT ACTIVE PRN (20:45)
[2017-06-19] MEDS ORDERED: ASPIRIN 81 MG ECTAB PO SCH (21:00)
[2017-06-19] MEDS ORDERED: VANCOMYCIN IV 2,750 MG in SODIUM CHLORIDE 0.9% 500ML 500 ML IV ONE (21:30)
[2017-06-19 22:00] VITALS: TEMP 37.3
[2017-06-19] MEDS: ATORVASTATIN 20 MG TAB PO SCH (22:22)
[2017-06-19] MEDS: HEPARIN 25,000 UNIT/500ML D5W 500 ML IV SCH (22:30)
[2017-06-19 23:40] VITALS: BP 138/92; PULSE 110; TEMP 37.8; O2SAT 98
[2017-06-19 23:58] LABS: PTT PATIENT 35.5 SECONDS (21.0-31.0)
[2017-06-20] VITALS (10 sets, daily range): BP systolic 108–152; BP diastolic 69–83; PULSE 101–191; TEMP 36.6–39.4; O2SAT 90–95; Ht 172.7 cm; Wt 126.6 kg
[2017-06-20] MEDS ORDERED: HEPARIN IV BOLUS 4,500 UNIT in SYRINGE 0 ML IV ONE ×2 (03:00→09:30)
[2017-06-20 03:45] LABS: BASO % 0.3 %; BASO ABS # 0.04 K/uL (0-0.2); EOS % 0.1 %; EOS ABS # 0.01 K/uL (0-0.5); HEMATOCRIT 34.2 % (42-52); HEMOGLOBIN 11.7 g/dL (14.0-18.0); IG# 0.08 K/uL (0.00-0.02); LYMPH % 14.5 %; LYMPH ABS # 2.16 K/uL (1.2-3.4); MEAN CORPUSCULAR HEMOGLOBIN 29.8 pg (25-34); MEAN CORPUSCULAR HGB CONC 34.2 g/dl (32-36); MEAN PLATELET VOLUME 10.4 fL (7.4-10.4); MONO % 13.5 %; MONO ABS # 2.01 K/uL (0.11-0.59); NEUT % 71.1 %; NEUT ABS # 10.56 K/uL (1.4-6.5); PLATELET COUNT 187 K/uL (130-400); RED CELL DISTRIBUTION WIDTH CV 15.9 % (11.5-14.5); RED CELL DISTRIBUTION WIDTH SD 51.1 fL (36.4-46.3); WHITE BLOOD COUNT 14.86 K/uL (4.8-10.8)
[2017-06-20 04:19] LABS: ALBUMIN 2.4 gm/dl (3.4-5.0); CALCIUM 8.8 mg/dl (8.5-10.1); CREATININE 1.23 mg/dl (0.60-1.40); POTASSIUM 4.4 mmol/L (3.5-5.1)
[2017-06-20] MEDS ORDERED: PNEUMOCOCCAL POLYSACCHARIDES 25 MCG/0.5 ML VIAL/SYR IM. ONE (04:30)
[2017-06-20] MEDS ORDERED: PNEUMOCOCCAL ADMINISTRATION CHARGE ONE (04:30)
[2017-06-20 04:56] LABS: TOTAL PROTEIN 6.8 gm/dl (6.4-8.2)
[2017-06-20] MEDS: SODIUM CHLORIDE 0.9% 1000ML 1,000 ML IV SCH ×2 (04:56→21:30)
[2017-06-20 07:18] LABS: HEMOGLOBIN A1C 8.5 % (4.5-5.6)
[2017-06-20] MEDS: INSULIN ASPART 100 UNITS/ML 3 ML PEN SC SCH ×4 (08:25→21:41)
[2017-06-20] MEDS: ACETAMINOPHEN 325 MG TAB PO PRN ×2 (08:26→15:46)
--- NOTE | 2017-06-20 08:26 | Clinical Documentation Query ---
MUNIRA Segovia : CLINICAL DOCUMENTATION QUERIES QUERY 1 OF 4 Patient is a 61 year old male admitted for evaluation of left sided chest pain that began after a fall. Noted to be febrile to 103.8 F at home in the presence of a cough productive of yellow sputum. ED evaluation revealed new onset atrial fibrillation with RVR. In addition to fever and tachycardia, patient was tachypneic with neutrophilic leukocytosis with elevated granulocytes and lactic acidemia. Documentation included "SIRS present on admission/ cough/productive sputum /Fever ". SIRS due to a suspected infection has no meaning in ICD 10 coding languange. If this is meant to be sepsis (SIRS + infection), explicit documentation should occur. Thank you. In your clinical opinion is this patient being managed for: (x ) Sepsis, POA, due to pneumonia and Staph bacteremia ( ) Not Agree ( ) Other explanation of clinical findings (Please Explain. If no explanation given, this would be considered a no response.) ( ) Unable to determine ( ) Need to Discuss (Please call CDS via extension or qliq. If no interaction occurs this is considered a no response.) The medical record reflects the following clinical findings, treatment, and risk factors. Clinical Indicators: As above Treatment: Sputum culture, radiology, IV antibiotics, serial labs, vitals, telemetry Risk Factors: Age, DM, CVA history QUERY 2 OF 4 H&P documentation includes the following: Please note that the following documentation was "cut and pasted" verbatim from a 2012 admission. WBC demonstrates leukocytosis. He was febrile. Chest radiograph demonstrated mild pulmonary vascular congestion. No CT of the chest performed (or D-Dimer). Reported trop incorrect. No BNP performed. No Lasix administered. EKG with changes of new onset Afib with RVR. Echo with LVEF of 20-25% on this visit with documentation of "chronic diastolic CHF". As appropriate, please eliminate the following documentation from the record. SOB: Diastolic CHF exacerbation, improved with additional lasix dosing last night WBC WNL, afebrile CXR neg + ddimer with CTA neg for PE CTA does show mild pleural effusion with clinical findings suggestive of CHF given orthopnea and increasing ZULETA, LE swelling, scant crackles Trop elevated at 0.75 without EKG changes, serials essentially the same BNP slightly elevated at 361 ECHO with EF 20-25% and wall motion abnormalities that are difficult to fully assess given pt's body habitus Cardiology is planning for cath today given dye received prior to admission for CTA. Med adjustments noted LDL is surprisingly WNL at 62 with HDL 40 YIKES! That is not in my current notes-Dr. Maher QUERY 3 OF 4 BMI noted to be 44.7 kg/m*m. In order to capture this clinical data, a diagnosis related to this must be explicitly documented by the provider. As appropriate, consider documentation as suggested below. Thank you. In your clinical opinion is this patient being managed for: (x ) Obesity, BMI 44.7 kg/m*m ( ) Not Agree ( ) Other explanation of clinical findings (Please Explain. If no explanation given, this would be considered a no response.) ( ) Unable to determine ( ) Need to Discuss (Please call CDS via extension or qliq. If no interaction occurs this is considered a no response.) The medical record reflects the following clinical findings, treatment, and risk factors. Clinical Indicators: As above Treatment: Diabetes diet Risk Factors: DM, caloric intake > caloric expenditure QUERY 4 OF 4 Admission CK, CK-MB, and troponin of 532, 4.8, and 0.475. EKG read as atrial fibrillation with RVR, non-specific ST abnormalities laterally, septal Q waves. He is on Heparin IV, Lopressor, Plavix, and being monitored on telemetry with a pending cardiology consultation and echocardiogram. As appropriate, consider capture of this clinical information as suggested below. Thank you. In your clinical opinion is this patient being managed for: (x ) Myocardial demand ischemia versus Type 2 NV ( ) Not Agree ( ) Other explanation of clinical findings (Please Explain. If no explanation given, this would be considered a no response.) ( ) Unable to determine ( ) Need to Discuss (Please call CDS via extension or qliq. If no interaction occurs this is considered a no response.) The medical record reflects the following clinical findings, treatment, and risk factors. Clinical Indicators: As above Treatment: He is on Heparin IV, Lopressor, Plavix, and being monitored on telemetry with a pending cardiology consultation and echocardiogram Risk Factors: Age, hypertension, hyperlipidemia, known CAD, gender, atrial fibrillation with RVR, known CAD, possible sepsis, DM Please clarify and document your clinical opinion in the progress notes and discharge summary. Terms such as "probable", "suspected", "likely", "questionable", "possible", or "still to be ruled out" are acceptable. IF IN AGREEMENT, YOU MUST DOCUMENT ABOVE DIAGNOSTIC STATEMENT IN DAILY PROGRESS NOTES AND DISCHARGE SUMMARY. This document is not part of the patient's record. Thank You, Aldo Caldwell RN [phone]
[2017-06-20] MEDS: LACTOBACILLUS ACIDOPHILUS (FLORANEX) TAB PO SCH ×3 (08:27→16:54)
[2017-06-20] MEDS: PrednisoLONE ACET 1% OP SUSP 5 ML BTL OPL SCH ×4 (08:27→21:26)
[2017-06-20] MEDS: CLOPIDOGREL BISULFATE 75 MG TAB PO SCH (08:28)
[2017-06-20] MEDS: ALLOPURINOL 100 MG TAB PO SCH (08:29)
[2017-06-20 08:36] LABS: PTT PATIENT 39.4 SECONDS (21.0-31.0)
[2017-06-20] MEDS ORDERED: METOPROLOL SUCC 25MG EXT REL TAB PO SCH (09:00)
[2017-06-20] MEDS ORDERED: PERFLUTREN LIPID MICROSPHERE (DEFINITY) IV ONE (10:17)
--- NOTE | 2017-06-20 11:55 | CARDIOLOGY CONSULTATION ---
DATE OF CONSULTATION: 06/20/2017 REQUESTING PHYSICIAN: Fahad Zuñiga M.D. SUPPLY CHAIN INTERN: Bob Flores D.O., [facility]. REASON FOR CONSULTATION: New-onset atrial fibrillation with rapid ventricular response. Dear Dr. Dixon, Thank you for requesting cardiology consultation on Chris with regards to his new-onset atrial fibrillation. As you know, he is a very pleasant 61-year-old gentleman, who over the last 2 weeks was diagnosed with shingles on his scalp which subsequently led to shingles across his face and ocular shingles as well. He has been evaluated by dermatology and ophthalmology and was treated with antiviral agents. He describes over the last 2 weeks, feeling quite poorly. He is having fevers and chills and rigors. He has been eating very little and he notes all he has been able to drink has been some water. He has felt so poorly that he has been for the most part in bed. If he sits in a chair, he feels lightheaded and dizzy. He has had at least 2 falls, one in a chair where he became weak and lightheaded and dizzy, the second episode which led him to the Emergency Room, involved him going to the bathroom, he was sitting on the toilet. He notes while sitting there, he became lightheaded and dizzy and he fell forward and hit his chest on the tub. He was down for an extended period of time and he is unsure how long it was. He notes he did not hit his head. He has chest discomfort since the fall, but before the fall, he denied any chest pain or chest pressure. He today in the hospital denies any lightheadedness or dizziness. He is still diaphoretic. He denies any shortness of breath, PND or orthopnea. He sleeps with CPAP and oxygen on a regular basis. He has had a cough over the last number of days. He notes he is starting to bring up some greenish sputum. He still feels warm. He denies any lower extremity edema. In fact, he notes his weight has been declining as he has not been eating very much. He denies any bleeding, bruising, dark stools or black stools. He denies any TIA or stroke like symptoms. The rest of review of system is otherwise negative. PAST MEDICAL HISTORY: 1. Ischemic cardiomyopathy with an ejection fraction in the range of 45% with hypokinesis of the basal inferior, inferolateral and anterolateral cano. 2. Dilated right ventricle, normal RV function. 3. Type 2 diastolic dysfunction with elevated left atrial pressures by echo, 08/2016. 4. Coronary artery disease, status post cardiac catheterization, 02/01/2013 with a 30-40% narrowing in the proximal RCA; severe aneurysmal diffusely diseased mid RCA with a 75% stenosis and a 95% stenosis in the distal RCA; luminal irregularities of a nondominant circ which is then totally occluded after the AV groove. 5. LAD disease with a 70% ostial lesion in a small diagonal branch. 6. Morbid obesity. 7. Diabetes mellitus type 2. 8. Hypertension. 9. Hyperlipidemia. 10. History of renal stones. 11. Left lower quadrant visual field cut secondary to a stroke during his cardiac catheterization in 2012. 12. Shingles. 13. Sleep apnea and obesity hypoventilation syndrome, tolerating CPAP with O2. MEDICATIONS: Reviewed in the inpatient chart. ALLERGIES: No known drug allergies. 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 He lives with his . He denies any tobacco or alcohol. FAMILY HISTORY: Dad of prostate cancer. Mom had hypertension. PHYSICAL EXAMINATION: GENERAL: He is awake, alert, oriented x3. He does appear diaphoretic. VITAL SIGNS: His heart rate is 132, respirations 26, blood pressure 108/80. He is 93% on 2 liters. HEENT: Mildly reduced carotid upstrokes, no evidence of carotid bruits. Jugular venous pressure could not be assessed due to his neck size. His sclerae is anicteric. His hearing is normal. LUNGS: Clear to auscultation bilaterally. No rales, rhonchi or wheezing. HEART: Irregular rate and rhythm. No appreciable murmurs, rubs or gallops. His PMI could not be palpated due to his chest wall size. ABDOMEN: Soft, nontender, nondistended. Positive bowel sounds. EXTREMITIES: No clubbing, cyanosis or edema. PSYCHIATRIC: His affect appeared appropriate. LABORATORY STUDIES: White count of 14.86, hemoglobin 11.7, platelet count of 187. Troponin is trending down from 0.475 to 0.372. Hemoglobin A1c is 8.5. Sodium 132, BUN 17, creatinine 1.23. PTT is 39.4. Rapid flu is negative. Head CT was negative for an acute bleed. CT of his chest, no evidence of pulmonary emboli, mild cardiomegaly without pericardial effusions, 9 mm right lower lobe nodule. IMPRESSION: 1. New-onset atrial fibrillation with rapid ventricular response with a CHADS2-VASc score of 4. 2. Ischemic cardiomyopathy with an ejection fraction in the range of 45% with wall motion abnormalities as discussed above from 08/2016. 3. Type 2 diastolic dysfunction with elevated left atrial pressures. 4. Cardiac catheterization, 02/01/2013, as discussed above, for medical therapy given his previous stroke with his cardiac catheterization in 2012. 5. Recent episode of shingles with associated fevers, chills and rigors. 6. Hypertension. As I discussed with Chris, at this point, he seems asymptomatic with regards to his atrial fibrillation. He has no palpitations or heart failure symptoms. I would recommend a rate control strategy. We will increase his metoprolol and change to 25 mg t.i.d. and it can be up titrated as necessary to control his heart rate, hopefully as his fever improves, his heart rate will come down as well. Given his elevated CHADS2-VASc score, he does need to be anticoagulated. At this point, I would stop his aspirin as he should not be on triple therapy. He was started on heparin. He should remain on Plavix. Once he is stable, his heparin can be switched to NOAC like apixaban 5 mg twice a day. An echocardiogram will be attempted as was discussed with the director television, he has an extremely difficult study even with the use of contrast. His last echo from 08/2016 is discussed above. If we are trying to assess for endocarditis, his echo will be incredibly difficult. He is currently on antibiotics, although he continues to have fevers. We will continue to follow him with you. I will sign him out to the [facility] cardiology group over the weekend as I am not production quality analyst. Thank you for allowing us to participate in his care.
--- NOTE | 2017-06-20 11:59 | Pharmacy Progress Note ---
Pharmacy Abx Initial Consult Date of Service Jun 20, 2017. Pharmacy Dosing Scope Date of Consult: 06/20/17 Consultation requested by: Dr. Zuñiga Pharmacy is consulted to initiate Vancomycin IV dosing therapy, order appropriate labs and adjust drug dose/frequency. Objective Height (Feet): 5 Height (Inches): 8.00 Weight (Kilograms): 133.200 Vital Signs (Past 12Hrs) Vital Signs Past 12 Hours Date Time Temp Pulse Resp B/P (MAP) Pulse Ox O2 Delivery O2 Flow Rate FiO2 06/20/17 09:30 37.9 06/20/17 07:35 39.4 132 26 108/80 (89) 93 Nasal Cannula 2.0 06/20/17 04:00 36.6 103 20 152/69 (96) 91 BiPAP 06/20/17 04:00 Room Air 06/20/17 00:00 Room Air Lab Results (24Hrs) Laboratory Tests (24 Hours) Test 06/19/17 13:30 06/20/17 03:35 Procalcitonin 0.39 ng/ml (0-0.5) Total Creatine Kinase 532 U/L (39-308) H Lactic Acid Level 2.0 mmol/L (0.4-2.0) White Blood Count 14.86 K/uL (4.8-10.8) H Red Blood Count 3.93 M/uL (4.7-6.1) L Hemoglobin 11.7 g/dL (14.0-18.0) L Hematocrit 34.2 % (42-52) L Mean Corpuscular Volume 87.0 fL (80-100) Mean Corpuscular Hemoglobin 29.8 pg (25-34) Mean Corpuscular Hemoglobin Concent 34.2 g/dl (32-36) Platelet Count 187 K/uL (130-400) Mean Platelet Volume 10.4 fL (7.4-10.4) Neutrophils (%) (Auto) 71.1 % Lymphocytes (%) (Auto) 14.5 % Monocytes (%) (Auto) 13.5 % Eosinophils (%) (Auto) 0.1 % Basophils (%) (Auto) 0.3 % Neutrophils # (Auto) 10.56 K/uL (1.4-6.5) H Lymphocytes # (Auto) 2.16 K/uL (1.2-3.4) Monocytes # (Auto) 2.01 K/uL (0.11-0.59) H Eosinophils # (Auto) 0.01 K/uL (0-0.5) Basophils # (Auto) 0.04 K/uL (0-0.2) Micro Results Date/Time Source Procedure Growth Status 06/19/17 13:43 Blood Blood Culture Pending Received 06/19/17 13:30 Blood Blood Culture - Preliminary Gram Positive Cocci Resulted Assessment & Plan Assessment 61 year old male presented with fever, fatigue, and productive sputum. * Chest CT negative for pneumonia. Patient started on Levaquin for bronchitis. * Vancomycin IV was added to regimen last evening. * 1/2 BC resulted as GPC Plan Vanc + Levaquin for treatment of GPC bacteremia, bronchitis. Vancomycin IV * Loading dose: 2750 mg (20.7 mg/kg) * Maintenance dose: 1500 mg IV (11 mg/kg) every 12 hours * Less than traditional dose selected due to accumulation of drug with BMI ~ 44.7 * Goal trough level for possible bacteremia : 15 to 20 mcg/mL * Trough level will be ordered if vancomycin is continued beyond 48 hours * currently ordered with indication of EMPIRIC and will d/c after 49 hours Levaquin - not pharmacy consult Pharmacy will continue to follow and will adjust dose/frequency as necessary. Thank you.
[2017-06-20] MEDS: VANCOMYCIN IV 1,500 MG in SODIUM CHLORIDE 0.9% 500ML 500 ML IV SCH (12:33)
[2017-06-20] MEDS: METOPROLOL TARTRATE 25 MG TAB PO SCH ×2 (12:34→21:27)
--- NOTE | 2017-06-20 13:10 | ECHOCARDIOGRAM REPORT ---
*NOTICE TO RECEIVING [employer] This information is strictly Confidential and protected under [place] law. [place] law prohibits you from making any further disclosure of this information unless further disclosure is expressly permitted by the written consent of the person to whom it pertains or is authorized by law. A general authorization for the release of medical or other information is not sufficient for this purpose. Hospital accepts no responsibility if the information is made available to any other person, INCLUDING THE PATIENT. Interpretation Summary * Name: KARISSA STEPHENS Study Date: 06/20/2017 10:01 AM BP: 152/69 mmHg * Patient Location: C.2T\S\E220\S\1 HR: 144 * : 1955 (M/d/yyyy) Gender: Male Height: 60 in * Age: 61 yrs Ethnicity: CA Weight: 288 lb * Ordering Physician: Fahad Spencer * Referring Physician: Self, Referred * Performed By: Tomeka Forrest RDCS * * Reason For Study: Atrial Fibrillation * BSA: 2.2 m2 * -- Conclusions -- * Image quality was limited * The patient was in rapid atrial fibrillation during the study * Grossly, the overall LV systolic function appears to be mildly reduced. * There is not appear to be severe valvular disease * The left atrium is mildly dilated. Procedure Details * A complete two-dimensional transthoracic echocardiogram was performed (2D, M-mode, Doppler and color flow Doppler). * The study was technically difficult. * There were technical limitations due to patient'spoor positioning * A contrast injection of Definity was performed to improve assessment of LV function. * Contrast was injected into an intravenous site in the left arm. * One vial of Definity ultrasound contrast was diluted in normal saline to a total volume of 10 ml. A total of '2' ml of solution was administered during imaging. * Lot # [id number] of Definity utilized for procedure. * Expiration date . * The attending nurse who injected the contrast agent was Loki Bennett RN. Left Ventricle * The left ventricle is grossly normal size. * Ejection Fraction = 45-50%. Right Ventricle * The right ventricle is not well visualized. Atria * The left atrium is mildly dilated. Mitral Valve * The mitral valve is grossly normal. * There is no mitral regurgitation noted. Tricuspid Valve * The tricuspid valve is not well visualized. Aortic Valve * The aortic valve is not well visualized. * There is no significant aortic regurgitation. Pulmonic Valve * The pulmonic valve is not well visualized. MMode 2D Measurements and Calculations LVIDd 5.0 cm LVIDs 3.6 cm FS 27.3 % EDV(Teich) 115.6 ml ESV(Teich) 54.5 ml EF(Teich) 52.9 % EDV(cubed) 121.5 ml ESV(cubed) 46.7 ml EF(cubed) 61.5 % SV(Teich) 61.1 ml SI(Teich) 28.0 ml/m\S\2 SV(cubed) 74.7 ml SI(cubed) 34.3 ml/m\S\2 Ao root diam 2.9 cm Ao root area 6.8 cm\S\2 LA dimension 4.3 cm LA/Ao 1.5 LVAd ap4 49.0 cm\S\2 LVLd ap4 10.0 cm EDV(MOD-sp4) 200.5 ml EDV(sp4-el) 203.9 ml LVAs ap4 31.9 cm\S\2 LVLs ap4 8.7 cm ESV(MOD-sp4) 99.2 ml ESV(sp4-el) 99.3 ml EF(MOD-sp4) 50.5 % EF(sp4-el) 51.3 % LVAd ap2 41.4 cm\S\2 LVLd ap2 9.9 cm EDV(MOD-sp2) 139.8 ml EDV(sp2-el) 146.3 ml LVAs ap2 26.5 cm\S\2 LVLs ap2 8.5 cm ESV(MOD-sp2) 70.4 ml ESV(sp2-el) 69.7 ml EF(MOD-sp2) 49.7 % EF(sp2-el) 52.4 % LVLd %diff -0.53 % EDV(MOD-bp) 166.9 ml LVLs %diff -2.08 % ESV(MOD-bp) 83.5 ml EF(MOD-bp) 50.0 % SV(MOD-sp4) 101.4 ml SI(MOD-sp4) 46.5 ml/m\S\2 SV(MOD-sp2) 69.4 ml SI(MOD-sp2) 31.9 ml/m\S\2 SV(MOD-bp) 83.5 ml SI(MOD-bp) 38.3 ml/m\S\2 SV(sp4-el) 104.6 ml SI(sp4-el) 48.0 ml/m\S\2 SV(sp2-el) 76.6 ml SI(sp2-el) 35.1 ml/m\S\2 Doppler Measurements and Calculations MV E max thaddeus 101.2 cm/sec MV dec time 0.16 sec Ao V2 max 152.4 cm/sec Ao max PG 9.4 mmHg Ao max PG (full) 4.4 mmHg LV V1 max PG 5.0 mmHg LV V1 max 111.1 cm/sec PA V2 max 78.3 cm/sec PA max PG 2.5 mmHg TR max thaddeus 98.9 cm/sec
[2017-06-20] MEDS ORDERED: LEVOFLOXACIN / D5W 500 MG in PREMIXED IN D5W 100 ML IV SCH (14:00)
[2017-06-20] MEDS: HEPARIN 25,000 UNIT/500ML D5W 500 ML IV SCH (15:11)
[2017-06-20 15:51] LABS: PTT PATIENT 46.4 SECONDS (21.0-31.0)
[2017-06-20] MEDS ORDERED: HEPARIN IV BOLUS 3,000 UNIT in SYRINGE 0 ML IV ONE (16:30)
[2017-06-20] MEDS ORDERED: LIDODERM (LIDOCAINE) PATCH 5% TD ONE (17:31)
[2017-06-20 18:37] LABS: INFLUENZA A PCR Neg for Influ A (NEG); INFLUENZA B PCR Neg for Influ B (NEG)
--- NOTE | 2017-06-20 20:38 | Hospitalist Progress Note ---
Hospitalist Progress Note Date of Service Jun 20, 2017. (Bhavya Angeles PA-C) Subjective Pt evaluation today including: conversation w/ patient, conversation w/ family , physical exam, chart review, lab review, review of studies, review of inpatient medication list Patient seen and evaluated. Remains in A Fib with RVR but will trend down to low 100s. Still running fevers. However looks generally well. Is having a cough and will treat for pneumonia. Having some L sided chest pain and coughing a lot with deep breaths which is worsening his pain. Constitutional: + fever, No chills Respiratory: + cough, No shortness of breath Cardiovascular: + chest pain (L sided) Abdomen: No pain, No nausea Musculoskeletal: No swelling, No calf pain Male : No dysuria Heme: No abnormal bleeding/bruising Skin: No rash (Bhavya Angeles, PHIC) Medications Current Inpatient Medications Medications (Trade) Dose Ordered Sig/Wojciech Route Start Time Stop Time Status Last Admin Dose Admin Ioversol (Optiray 320) 100 ml UD PRN IV 06/19/17 13:30 06/23/17 13:29 Albuterol (Ventolin Hfa Inhaler) 2 puffs Q4 PRN INH 06/19/17 15:45 07/19/17 15:44 Allopurinol (Zyloprim Tab) 100 mg QAM PO 06/20/17 09:00 07/20/17 08:59 06/20/17 08:29 100 MG Atorvastatin Calcium (Lipitor Tab) 40 mg HS PO 06/19/17 21:00 07/19/17 20:59 06/19/17 22:22 40 MG Clopidogrel Bisulfate (plAVix TAB) 75 mg QAM PO 06/20/17 09:00 07/20/17 08:59 06/20/17 08:28 75 MG Prednisolone Acetate (Pred Forte 1% Oph Susp) 1 drops QID OPL 06/19/17 17:00 06/26/17 16:59 06/20/17 16:54 1 DROPS Sodium Chloride 1,000 ml @ 75 mls/hr [id number] IV 06/19/17 15:36 07/19/17 15:35 06/19/17 19:11 75 MLS/HR Acetaminophen (Tylenol Tab) 650 mg Q4H PRN PO 06/19/17 15:45 07/19/17 15:44 06/20/17 15:46 650 MG Al Hydrox/Mg Hydrox/Simethicone (Maalox Max Susp) 15 ml Q4H PRN PO 06/19/17 15:45 07/19/17 15:44 Magnesium Hydroxide (Milk Of Magnesia Susp) 30 ml Q12H PRN PO 06/19/17 15:45 07/19/17 15:44 Zolpidem Tartrate (Ambien Tab) 5 mg HSZ PRN PO 06/19/17 15:45 07/19/17 15:44 Zolpidem Tartrate (Ambien Tab) 5 mg HSZ PRN PO 06/19/17 15:45 07/19/17 15:44 Ondansetron HCl (Zofran Inj) 4 mg Q6H PRN IV 06/19/17 15:45 07/19/17 15:44 06/19/17 19:08 4 MG Nitroglycerin (Nitrostat Tab) 0.4 mg UD PRN SL 06/19/17 15:45 07/19/17 15:44 Polyethylene (Miralax Powder Packet) 17 gm DAILY PRN PO 06/19/17 15:45 07/19/17 15:44 Insulin Aspart (novoLOG ASPART) SLIDING SCALE If C... ACHS SC 06/19/17 18:30 07/19/17 18:29 06/20/17 16:57 9 UNITS Glucose (Glucose 40% Gel) 15-30 GRAMS 15 GRAMS... UD PRN PO 06/19/17 15:45 07/19/17 15:44 Glucose (Glucose Chew Tab) 4-8 Tablets 4 Tabl... UD PRN PO 06/19/17 15:45 07/19/17 15:44 Dextrose (Dextrose 50% 50ML Syringe) 25-50ML OF 50% DW IV FOR... UD PRN IV 06/19/17 15:45 07/19/17 15:44 Glucagon (Glucagon Inj) 1 mg UD PRN SQ 06/19/17 15:45 07/19/17 15:44 Lactobacillus Acidophilus (Floranex Tab) 4 tab TIDM PO 06/19/17 17:56 07/19/17 17:59 06/20/17 16:54 4 TAB Levofloxacin 500 mg/Prmx 100 ml @ 100 mls/hr Q24H IV 06/20/17 14:00 06/25/17 14:59 06/20/17 15:46 100 MLS/HR Heparin Sodium/ Dextrose 500 ml @ 28 mls/hr [id number] IV 06/19/17 19:45 07/19/17 19:44 06/20/17 15:11 26 MLS/HR Miscellaneous Information (Consult) 1 ea UD PRN N/A 06/19/17 20:45 07/19/17 20:44 Metoprolol Tartrate (Lopressor Tab) 25 mg TID PO 06/20/17 14:00 07/20/17 13:59 06/20/17 12:34 25 MG Vancomycin HCl 1500 mg/Sodium Chloride 530 ml @ 200 mls/hr Q12H IV 06/20/17 12:00 06/21/17 21:30 06/20/17 12:33 200 MLS/HR Insulin Glargine (Lantus Solostar Pen) 12 units BID SC 06/20/17 21:00 07/20/17 20:59 Lidocaine (Lidoderm Patch 5%) 1 patch QAM TD 06/21/17 09:00 07/21/17 08:59 Miscellaneous (Remove Lidoderm Patch) 1 ea DAILY@21 N/A 06/20/17 23:00 07/20/17 22:59 (Bhavya Angeles, PAAkilahC) Objective Vital Signs Date Time Temp Pulse Resp B/P (MAP) Pulse Ox O2 Delivery O2 Flow Rate FiO2 06/20/17 20:01 37.1 06/20/17 19:01 38.0 121 24 118/83 (95) 95 Room Air 06/20/17 17:02 37.2 06/20/17 16:00 Nasal Cannula 2.0 06/20/17 15:34 39.4 191 22 122/78 (93) 92 Nasal Cannula 3.0 06/20/17 12:00 Nasal Cannula 2.0 06/20/17 11:25 37.9 114 20 115/70 (85) 90 Room Air 06/20/17 09:30 37.9 06/20/17 08:00 Nasal Cannula 2.0 06/20/17 07:35 39.4 132 26 108/80 (89) 93 Nasal Cannula 2.0 06/20/17 04:00 36.6 103 20 152/69 (96) 91 BiPAP 06/20/17 04:00 Room Air 06/20/17 00:00 Room Air 06/19/17 23:40 37.8 110 20 138/92 (107) 98 BiPAP 06/19/17 22:00 37.3 (Bhavya Angeles PA-C) Physical Exam General Appearance: WD/WN, no apparent distress Eyes: sclerae normal ENT: hearing grossly normal Neck: supple, no JVD, trachea midline Respiratory/Chest: no respiratory distress, no accessory muscle use, + crackles (fine at bases b/l - difficulty exam 2/2 coughing) Cardiovascular: + irregularly irregular Abdomen: normal bowel sounds, non tender, soft Extremities: no pedal edema, no calf tenderness Neurologic/Psychiatric: alert, oriented x 3 (Bhavya Angeles PA-C) Laboratory Results Last 24 Hours Test 06/19/17 21:27 06/19/17 23:32 06/20/17 03:35 06/20/17 04:38 Troponin I 0.445 ng/ml 0.427 ng/ml Activated Partial Thromboplast Time 35.5 SECONDS Partial Thromboplastin Ratio 1.4 White Blood Count 14.86 K/uL Red Blood Count 3.93 M/uL Hemoglobin 11.7 g/dL Hematocrit 34.2 % Mean Corpuscular Volume 87.0 fL Mean Corpuscular Hemoglobin 29.8 pg Mean Corpuscular Hemoglobin Concent 34.2 g/dl Platelet Count 187 K/uL Mean Platelet Volume 10.4 fL Neutrophils (%) (Auto) 71.1 % Lymphocytes (%) (Auto) 14.5 % Monocytes (%) (Auto) 13.5 % Eosinophils (%) (Auto) 0.1 % Basophils (%) (Auto) 0.3 % Neutrophils # (Auto) 10.56 K/uL Lymphocytes # (Auto) 2.16 K/uL Monocytes # (Auto) 2.01 K/uL Eosinophils # (Auto) 0.01 K/uL Basophils # (Auto) 0.04 K/uL RDW Standard Deviation 51.1 fL RDW Coefficient of Variation 15.9 % Immature Granulocyte % (Auto) 0.5 % Immature Granulocyte # (Auto) 0.08 K/uL Sodium Level 132 mmol/L Potassium Level 4.4 mmol/L Chloride Level 97 mmol/L Carbon Dioxide Level 28 mmol/L Anion Gap 7.0 mmol/L Blood Urea Nitrogen 17 mg/dl Creatinine 1.23 mg/dl Est Creatinine Clear Calc Drug Dose 81.9 ml/min Estimated GFR () 72.0 Estimated GFR (Non- 62.1 BUN/Creatinine Ratio 14.1 Random Glucose 215 mg/dl Estimated Average Glucose 197 mg/dl Hemoglobin A1c 8.5 % Lactic Acid Level 2.0 mmol/L Calcium Level 8.8 mg/dl Total Bilirubin 0.6 mg/dl Aspartate Amino Transf (AST/SGOT) 27 U/L Alanine Aminotransferase (ALT/SGPT) 32 U/L Alkaline Phosphatase 83 U/L Total Protein 6.8 gm/dl Albumin 2.4 gm/dl Globulin 4.4 gm/dl Albumin/Globulin Ratio 0.5 Triglycerides Level 85 mg/dl Cholesterol Level 66 mg/dl HDL Cholesterol 34 mg/dl LDL Cholesterol, Calculated 15 mg/dl VLDL Cholesterol, Calculated 17 mg/dl Cholesterol/HDL Ratio 1.9 Bedside Glucose 199 mg/dl Test 06/20/17 06:51 06/20/17 08:04 06/20/17 08:10 06/20/17 11:29 Bedside Glucose 247 mg/dl 324 mg/dl Troponin I 0.372 ng/ml Activated Partial Thromboplast Time 39.4 SECONDS Partial Thromboplastin Ratio 1.5 Test 06/20/17 15:23 06/20/17 16:18 06/20/17 17:50 06/20/17 20:03 Activated Partial Thromboplast Time 46.4 SECONDS Partial Thromboplastin Ratio 1.8 Troponin I 0.360 ng/ml Bedside Glucose 292 mg/dl Influenza Type A (RT-PCR) Neg for Influ A Influenza Type B (RT-PCR) Neg for Influ B (Bhavya Angeles, PAAkilahC) Assessment and Plan 61 years old man with past medical history of diabetes mellitus, hypertension, obstructive sleep apnea, dyslipidemia, diastolic congestive heart failure, CVA and recent shingles 2 weeks ago. Presented with fever, generalized fatigue, fall and yellow productive sputum, was found in ED to have positive troponin and new onset atrial fibrillation New Onset Atrial Fibrillation with RVR: Asymptomatic - Elevated troponins related to demand from RVR however trending down - no CP other than musculoskeletal from fall - Heparin gtt currently - did discuss long-term anticoagulation and stated he never had to think about this and will give him time to take in the information -- Did check Rx for Eliquis and will be no co-pay and no authorization necessary - Stop ASA and continue Plavix 75 mg daily - Metoprolol 25 mg TID and will increase as necessary - Cardiology following - recommendations given as above SIRS - Possible Viral? Pneumonia? - No direct source identified however continues to be febrile with leukocytosis ; BCx x 1 with gram + cocci and will obtain new cultures - Area of recent shingles without cellulitis; small scab on top of head but healing - Procalcitonin negative - Levofloxacin 500 mg daily and Vancomycin Chronic Diastolic CHF: - Will need to monitor for volume overload - appearing rather compensated at this time Fall with Generalized Weakness 2/2 Infection vs RVR: - Lidocaine patch for rib pain T2DM with Hyperglycemia: - Hold Metformin and cover with Lantus 12 units BID and SSI DEANDRE on CPAP: - May use own CPAP DVT Prophylaxis: Heparin Code Status: FULL RESUSCITATION Continued [facility] stay due to: multiple IV medications needed Discharge planning: home (Bhavya Angeles PA-C) Reviewed: Pt Seen/Exam by Me (Conchita Maher MD) History Physician Warning Coordination Meteorologist Supervision Note: I interviewed and examined the patient. Discussed with PRANAV Angeles and agree with findings and plan as documented in the note. Any exceptions or clarifications are listed here: Pt having a lot of productive sputum, some pain in left chest wall with coughing. Remains in Afib on tele Vitals and tele reviewed NAD, resting with CPAP on irreg irreg no mgr, rates mildly tachycardic +crackles at left base, otherwise fairly clear, breathing unlabored Ext no edema 61 yo male here with SIRS, likely LLL PNA, rapid a-fib -check CXR in AM to see if PNA fluffs out but seems to be most likely source -BCxs need to be followed to see if contaminant or true infection continue Vanc and Levaquin for now -follow CBC -continue metoprolol increased dose, heparin gtt for Afib, appreciate Cardiology consult Documented By: Conchita Maher (Conchita Maher MD) Assessment/Plan This patient is a 61-year-old male with past medical history of diabetes mellitus type II, hypertension, obstructive sleep apnea on CPAP, dyslipidemia, chronic diastolic congestive heart failure, CVA and recent shingles 2 weeks ago. Presented with fever, sepsis, generalized fatigue, fall and yellow productive sputum, was found in ED to have positive troponin and new onset atrial fibrillation. New Onset Atrial Fibrillation with RVR/Demand ischemia: still with uncontrolled rates, remains on heparin gtt - Elevated troponins related to demand from RVR however trending down - no CP other than musculoskeletal from fall - dc Heparin gtt and start Eliquis tonight - Stop ASA and continue Plavix 75 mg daily so as to avoid triple therapy - continue Metoprolol 25 mg TID and will increase as necessary - Cardiology following - recommendations appreciated-consider digoxin vs increasing metoprolol dose Sepsis/LLL pneumonia/acute hypoxic respiratory failure/Staphylococcus aureus bacteremia-all of his household contacts had a recent viral illness and he started having fevers 1 week ago along with cold symptoms. His fevers then worsened and cough has progressively worsened with productive sputum. Growing Staphylococcus aureus in 1 out of 2 blood culture sets from admission, repeat blood culture so far no growth. Chest CT on admission without pneumonia, however after IV fluid hydration, chest x-ray this morning has fluffed out a left lower lobe pneumonia. Possibly has a Staphylococcus aureus post viral pneumonia. Leukocytosis actually slightly worse today at 16 up from 14. Fevers are starting to defervesce. He is weaned off oxygen. Area of recent shingles without cellulitis; small scab on top of head but healing so not likely to be the source Procalcitonin negative interestingly -Follow-up sensitivity and blood cultures and follow repeat blood cultures -Continue treatment with Levaquin but increase to 750 mg IV daily for pneumonia dosing, continue vancomycin until sensitivities back on the Staphylococcus aureus -Consult infectious disease for Staph bacteremia-appreciate further recommendations -Transthoracic echocardiogram with poor visualization of the valves-consider KHALIDA to rule out SBE- will discuss with cardiology -Follow CBC -start tessalon pearls for cough, Mucinex to break up sputum -start Levalbuterol nebs for wheezing -encouraged deep breathing as he is splinting on exam Chest wall pain-s/p fall with contusion -continue tylenol prn pain, lidocaine patch Chronic combined Systolic and Diastolic CHF:ECHO with mildly reduced LV function but poor images - Will need to monitor for volume overload - appearing rather compensated at this time Fall with Generalized Weakness 2/2 Infection/Sepsis vs RVR: - treating both as above -PT/OT evals T2DM with Hyperglycemia:improved today - Holding Metformin and covering with Lantus 12 units BID and SSI DEANDRE on CPAP: - May use own CPAP DVT Prophylaxis: Heparin gtt, Eliquis Code Status: FULL RESUSCITATION (Conchita Maher MD)
[2017-06-20] MEDS: ATORVASTATIN 20 MG TAB PO SCH (21:27)
[2017-06-20] MEDS: INSULIN GLARGINE SOLOSTAR 100 UNITS/ML 3 ML PEN SC SCH (21:41)
[2017-06-20 23:21] LABS: PTT PATIENT 52.7 SECONDS (21.0-31.0)
[2017-06-21] VITALS (9 sets, daily range): BP systolic 91–158; BP diastolic 51–94; PULSE 98–167; TEMP 36.8–37.9; O2SAT 89–97
[2017-06-21] MEDS: VANCOMYCIN IV 1,500 MG in SODIUM CHLORIDE 0.9% 500ML 500 ML IV SCH ×2 (01:00→13:19)
[2017-06-21 06:13] LABS: BASO % 0.2 %; BASO ABS # 0.03 K/uL (0-0.2); EOS % 0.1 %; EOS ABS # 0.01 K/uL (0-0.5); HEMATOCRIT 32.2 % (42-52); HEMOGLOBIN 10.7 g/dL (14.0-18.0); IG# 0.08 K/uL (0.00-0.02); LYMPH % 11.7 %; LYMPH ABS # 1.88 K/uL (1.2-3.4); MEAN CELL VOLUME 86.3 fL (80-100); MEAN CORPUSCULAR HEMOGLOBIN 28.7 pg (25-34); MEAN CORPUSCULAR HGB CONC 33.2 g/dl (32-36); MEAN PLATELET VOLUME 9.9 fL (7.4-10.4); MONO % 8.1 %; NEUT % 79.4 %; NEUT ABS # 12.74 K/uL (1.4-6.5); PLATELET COUNT 199 K/uL (130-400); RED CELL DISTRIBUTION WIDTH CV 16.3 % (11.5-14.5); RED CELL DISTRIBUTION WIDTH SD 51.6 fL (36.4-46.3); WHITE BLOOD COUNT 16.04 K/uL (4.8-10.8)
[2017-06-21 06:41] LABS: PTT PATIENT 49.9 SECONDS (21.0-31.0)
[2017-06-21 06:50] LABS: CALCIUM 8.5 mg/dl (8.5-10.1); CREATININE 1.15 mg/dl (0.60-1.40); POTASSIUM 3.9 mmol/L (3.5-5.1)
[2017-06-21] MEDS: INSULIN ASPART 100 UNITS/ML 3 ML PEN SC SCH ×4 (08:48→21:35)
[2017-06-21] MEDS: LACTOBACILLUS ACIDOPHILUS (FLORANEX) TAB PO SCH ×3 (08:49→17:28)
[2017-06-21] MEDS: INSULIN GLARGINE SOLOSTAR 100 UNITS/ML 3 ML PEN SC SCH ×2 (08:49→21:34)
[2017-06-21] MEDS: PrednisoLONE ACET 1% OP SUSP 5 ML BTL OPL SCH ×4 (08:50→21:24)
[2017-06-21] MEDS: METOPROLOL TARTRATE 25 MG TAB PO SCH ×3 (08:50→21:28)
[2017-06-21] MEDS: ALLOPURINOL 100 MG TAB PO SCH (08:51)
[2017-06-21] MEDS: CLOPIDOGREL BISULFATE 75 MG TAB PO SCH (08:51)
[2017-06-21] MEDS: LIDODERM (LIDOCAINE) PATCH 5% TD SCH (08:53)
--- NOTE | 2017-06-21 09:51 | DIAGNOSTIC IMAGING REPORT ---
CHEST 2 VIEWS ROUTINE CLINICAL HISTORY: fever, r/o pneumonia fever COMPARISON STUDY: 06/19/2017 FINDINGS: Small parenchymal infiltrate left base. Mild stable cardiomegaly. Lungs otherwise appear clear. IMPRESSION: Small parenchymal infiltrate left base. The above report was generated using voice recognition software. It may contain grammatical, syntax or spelling errors. Electronically signed by: Tom Hays M.D. 06/21/2017 9:50 AM Dictated Date/Time: 06/21/2017 9:50 AM
[2017-06-21] MEDS: MAGNESIUM SULFATE 1GM / D5W 100 ML IV SCH ×2 (10:16→12:20)
--- NOTE | 2017-06-21 10:59 | Cardiology Follow-Up ---
Subjective Date of Service: Jun 21, 2017. Pt evaluation today including: conversation w/ patient, physical exam, chart review, lab review, review of studies, review of inpatient medication list History of Present Illness This morning the patient claims to be feeling well. He states that his breathing is adequate. He has no symptoms of orthopnea and felt quite comfortable breathing lying flat in bed. He is not aware of any palpitations or rapid heartbeats. He has not describe any chest discomfort other than that associated with his initial injury in the left axilla area. He has been ambulatory around the room to a slight degree. He has an element of dyspnea associated with activity. Social History Smoking Status: Former Smoker History of Alcohol Use: No Review of Systems Respiratory: + cough, No shortness of breath Cardiac: + chest pain (L sided) Objective Vital Signs Past 12 Hours Date Time Temp Pulse Resp B/P (MAP) Pulse Ox O2 Delivery O2 Flow Rate FiO2 06/21/17 09:00 36.8 105/65 (78) 06/21/17 08:00 Nasal Cannula 2.0 06/21/17 07:41 37.7 100 18 91/58 (69) 89 CPAP 06/21/17 04:28 36.9 125 20 103/51 (68) 97 BiPAP 06/21/17 04:00 CPAP 06/20/17 23:59 CPAP 06/20/17 23:10 37.1 101 18 114/74 (87) 94 BiPAP Last Recorded Weight-Kilograms: 133.200 Physical Exam The patient is alert and oriented. Mood and affect appeared normal. He answered all questions appropriately. Obese HEENT: Pupils are equal and reactive to light and accommodation. Extraocular movements are intact. The sclerae are anicteric. Neuro: Cranial nerves intact Neck: Patient's neck is supple. He has palpable carotid pulses bilaterally without bruits on auscultation. There is no evidence of jugular venous distention. The thyroid is not enlarged. Lungs: Clear to auscultation bilaterally. He has good air movement without use of accessory muscles. No rales wheezes or rhonchi. Cardiac: Heart demonstrates an irregular rate and rhythm. Normal S1 and S2. No murmurs on examination. Pulses: The patient has palpable radial pulses bilaterally that are equal in intensity Extremities: There was no evidence of hypoperfusion. There is no cyanosis or clubbing. Mild peripheral edema bilateral. Skin: I did not appreciate any rashes on examination today. Data Laboratory Results: Last 24 Hours Test 06/20/17 11:29 06/20/17 15:23 06/20/17 16:18 06/20/17 17:50 Bedside Glucose 324 mg/dl 292 mg/dl Activated Partial Thromboplast Time 46.4 SECONDS Partial Thromboplastin Ratio 1.8 Troponin I 0.360 ng/ml Influenza Type A (RT-PCR) Neg for Influ A Influenza Type B (RT-PCR) Neg for Influ B Test 06/20/17 19:59 06/20/17 20:30 06/20/17 22:42 06/21/17 05:59 Bedside Glucose 320 mg/dl Lyme Disease IgG Antibody NEG Lyme Disease IgM Antibody NEG Activated Partial Thromboplast Time 52.7 SECONDS 49.9 SECONDS Partial Thromboplastin Ratio 2.0 1.9 White Blood Count 16.04 K/uL Red Blood Count 3.73 M/uL Hemoglobin 10.7 g/dL Hematocrit 32.2 % Mean Corpuscular Volume 86.3 fL Mean Corpuscular Hemoglobin 28.7 pg Mean Corpuscular Hemoglobin Concent 33.2 g/dl Platelet Count 199 K/uL Mean Platelet Volume 9.9 fL Neutrophils (%) (Auto) 79.4 % Lymphocytes (%) (Auto) 11.7 % Monocytes (%) (Auto) 8.1 % Eosinophils (%) (Auto) 0.1 % Basophils (%) (Auto) 0.2 % Neutrophils # (Auto) 12.74 K/uL Lymphocytes # (Auto) 1.88 K/uL Monocytes # (Auto) 1.30 K/uL Eosinophils # (Auto) 0.01 K/uL Basophils # (Auto) 0.03 K/uL RDW Standard Deviation 51.6 fL RDW Coefficient of Variation 16.3 % Immature Granulocyte % (Auto) 0.5 % Immature Granulocyte # (Auto) 0.08 K/uL Sodium Level 131 mmol/L Potassium Level 3.9 mmol/L Chloride Level 99 mmol/L Carbon Dioxide Level 25 mmol/L Anion Gap 7.0 mmol/L Blood Urea Nitrogen 16 mg/dl Creatinine 1.15 mg/dl Est Creatinine Clear Calc Drug Dose 87.7 ml/min Estimated GFR () 78.1 Estimated GFR (Non- 67.4 BUN/Creatinine Ratio 13.6 Random Glucose 189 mg/dl Calcium Level 8.5 mg/dl Magnesium Level 1.4 mg/dl Test 06/21/17 06:51 Bedside Glucose 187 mg/dl Imaging: Chest x-ray today did not reveal any evidence of pulmonary edema Telemetry reviewed: Atrial fibrillation with poorly controlled rates Echocardiogram yesterday was difficult to interpret due to image quality. Slightly reduced LV systolic function without notable valvular heart disease Assessment and Plan 1. Atrial fibrillation: Patient is asymptomatic. He has received 3 doses metoprolol tartrate since yesterday evening. We may need to be more aggressive with respect to his beta-lalo dose. Additionally, we could add digoxin. Diltiazem appears to be relatively contraindicated due to his mild ischemic cardiomyopathy. He has been maintained on heparin infusion currently. This could easily be switched to oral anticoagulation at the discretion of the primary team. 2. Ischemic cardiomyopathy: He appears to be well compensated currently. No evidence pulmonary vascular congestion on exam. No symptoms of orthopnea. 3. Coronary artery disease: Patient does have very mildly elevated cardiac biomarkers. This is in the setting of fever and rapid heart rates. I do not feel this represents an acute coronary syndrome. Control of his heart rate and supportive care is indicated.
[2017-06-21] MEDS ORDERED: VANCOMYCIN TROUGH ONE (11:30)
[2017-06-21] MEDS ORDERED: LEVOFLOXACIN / D5W 750 MG in PREMIXED IN D5W 150 ML IV SCH (14:00)
[2017-06-21] MEDS ORDERED: BENZONATATE 100MG CAP PO ONE (15:17)
--- NOTE | 2017-06-21 15:18 | Hospitalist Progress Note ---
Hospitalist Progress Note Date of Service Jun 21, 2017. Subjective Pt evaluation today including: conversation w/ patient, conversation w/ family , conversation w/ [employer] infrastructure consultant (Infectious disease, cardiology) Patient has complaints of a bad cough that causes pain in the left side of his chest where he hit it on the bathtub the other day. He had some rapid A. fib to the 160s at times in the last 24 hours, but currently is improved, some PVCs. Remains febrile but temperatures are starting to decrease. He is growing Staphylococcus aureus on his blood cultures with sensitivity still pending. All Other Systems: Reviewed and Negative Objective Vital Signs Date Time Temp Pulse Resp B/P (MAP) Pulse Ox O2 Delivery O2 Flow Rate FiO2 06/21/17 11:38 37.6 110 18 104/71 (82) 91 Room Air 06/21/17 09:00 36.8 105/65 (78) 06/21/17 08:00 Nasal Cannula 2.0 06/21/17 07:41 37.7 100 18 91/58 (69) 89 CPAP 06/21/17 04:28 36.9 125 20 103/51 (68) 97 BiPAP 06/21/17 04:00 CPAP 06/20/17 23:59 CPAP 06/20/17 23:10 37.1 101 18 114/74 (87) 94 BiPAP 06/20/17 20:01 37.1 06/20/17 20:00 Nasal Cannula 2.0 06/20/17 19:01 38.0 121 24 118/83 (95) 95 Room Air 06/20/17 17:02 37.2 06/20/17 16:00 Nasal Cannula 2.0 06/20/17 15:34 39.4 191 22 122/78 (93) 92 Nasal Cannula 3.0 Physical Exam General Appearance: WD/WN, no apparent distress, + obese Eyes: normal inspection, sclerae normal ENT: hearing grossly normal Neck: trachea midline Respiratory/Chest: no respiratory distress, no accessory muscle use, + decreased breath sounds (Diminished throughout with mild expiratory wheezes scattered, positive crackles at the left base) Cardiovascular: no murmur, + tachycardia (Mild), + irregularly irregular Abdomen: normal bowel sounds, non tender, soft Extremities: normal inspection, no pedal edema, no calf tenderness Neurologic/Psychiatric: alert, normal mood/affect, oriented x 3 Skin: normal color, warm/dry, no rash Laboratory Results Last 24 Hours Test 06/20/17 15:23 06/20/17 16:18 06/20/17 17:50 06/20/17 19:59 Activated Partial Thromboplast Time 46.4 SECONDS Partial Thromboplastin Ratio 1.8 Troponin I 0.360 ng/ml Bedside Glucose 292 mg/dl 320 mg/dl Influenza Type A (RT-PCR) Neg for Influ A Influenza Type B (RT-PCR) Neg for Influ B Test 06/20/17 20:30 06/20/17 22:42 06/21/17 05:59 06/21/17 06:51 Lyme Disease IgG Antibody NEG Lyme Disease IgM Antibody NEG Activated Partial Thromboplast Time 52.7 SECONDS 49.9 SECONDS Partial Thromboplastin Ratio 2.0 1.9 White Blood Count 16.04 K/uL Red Blood Count 3.73 M/uL Hemoglobin 10.7 g/dL Hematocrit 32.2 % Mean Corpuscular Volume 86.3 fL Mean Corpuscular Hemoglobin 28.7 pg Mean Corpuscular Hemoglobin Concent 33.2 g/dl Platelet Count 199 K/uL Mean Platelet Volume 9.9 fL Neutrophils (%) (Auto) 79.4 % Lymphocytes (%) (Auto) 11.7 % Monocytes (%) (Auto) 8.1 % Eosinophils (%) (Auto) 0.1 % Basophils (%) (Auto) 0.2 % Neutrophils # (Auto) 12.74 K/uL Lymphocytes # (Auto) 1.88 K/uL Monocytes # (Auto) 1.30 K/uL Eosinophils # (Auto) 0.01 K/uL Basophils # (Auto) 0.03 K/uL RDW Standard Deviation 51.6 fL RDW Coefficient of Variation 16.3 % Immature Granulocyte % (Auto) 0.5 % Immature Granulocyte # (Auto) 0.08 K/uL Sodium Level 131 mmol/L Potassium Level 3.9 mmol/L Chloride Level 99 mmol/L Carbon Dioxide Level 25 mmol/L Anion Gap 7.0 mmol/L Blood Urea Nitrogen 16 mg/dl Creatinine 1.15 mg/dl Est Creatinine Clear Calc Drug Dose 87.7 ml/min Estimated GFR () 78.1 Estimated GFR (Non- 67.4 BUN/Creatinine Ratio 13.6 Random Glucose 189 mg/dl Calcium Level 8.5 mg/dl Magnesium Level 1.4 mg/dl Bedside Glucose 187 mg/dl Test 06/21/17 11:10 06/21/17 11:14 Bedside Glucose 286 mg/dl Vancomycin Level Trough 11.3 mcg/ml Diagnostic Results Chest x-ray images personally reviewed by me today and shows left lower lobe infiltrate Assessment and Plan This patient is a 61-year-old male with past medical history of diabetes mellitus type II, hypertension, obstructive sleep apnea on CPAP, dyslipidemia, chronic diastolic congestive heart failure, CVA and recent shingles 2 weeks ago. Presented with fever, sepsis, generalized fatigue, fall and yellow productive sputum, was found in ED to have positive troponin and new onset atrial fibrillation. New Onset Atrial Fibrillation with RVR/Demand ischemia: still with uncontrolled rates, remains on heparin gtt - Elevated troponins related to demand from RVR however trending down - no CP other than musculoskeletal from fall - dc Heparin gtt and start Eliquis tonight - Stop ASA and continue Plavix 75 mg daily so as to avoid triple therapy - continue Metoprolol 25 mg TID and will increase as necessary - Cardiology following - recommendations appreciated-consider digoxin vs increasing metoprolol dose Sepsis/LLL pneumonia/acute hypoxic respiratory failure/Staphylococcus aureus bacteremia-all of his household contacts had a recent viral illness and he started having fevers 1 week ago along with cold symptoms. His fevers then worsened and cough has progressively worsened with productive sputum. Growing Staphylococcus aureus in 1 out of 2 blood culture sets from admission, repeat blood culture so far no growth. Chest CT on admission without pneumonia, however after IV fluid hydration, chest x-ray this morning has fluffed out a left lower lobe pneumonia. Possibly has a Staphylococcus aureus post viral pneumonia. Leukocytosis actually slightly worse today at 16 up from 14. Fevers are starting to defervesce. He is weaned off oxygen. Area of recent shingles without cellulitis; small scab on top of head but healing so not likely to be the source Procalcitonin negative interestingly -Follow-up sensitivity and blood cultures and follow repeat blood cultures -Continue treatment with Levaquin but increase to 750 mg IV daily for pneumonia dosing, continue vancomycin until sensitivities back on the Staphylococcus aureus -Consult infectious disease for Staph bacteremia-appreciate further recommendations -Transthoracic echocardiogram with poor visualization of the valves-consider KHALIDA to rule out SBE- will discuss with cardiology -Follow CBC -start tessalon pearls for cough, Mucinex to break up sputum -start Levalbuterol nebs for wheezing -encouraged deep breathing as he is splinting on exam Chest wall pain-s/p fall with contusion -continue tylenol prn pain, lidocaine patch Chronic combined Systolic and Diastolic CHF:ECHO with mildly reduced LV function but poor images - Will need to monitor for volume overload - appearing rather compensated at this time Fall with Generalized Weakness 2/2 Infection/Sepsis vs RVR: - treating both as above -PT/OT evals T2DM with Hyperglycemia:improved today - Holding Metformin and covering with Lantus 12 units BID and SSI DEANDRE on CPAP: - May use own CPAP DVT Prophylaxis: Heparin gtt, Eliquis Code Status: FULL RESUSCITATION
--- NOTE | 2017-06-21 15:53 | Pharmacy Progress Note ---
Pharmacy Antibiotic Prog Note Date of Service Jun 21, 2017. Subjective The patient is currently receiving vancomycin 1500 mg iv q 12 hrs The patient is currently on day # 3 of IV therapy. Objective Height (Feet): 5 Height (Inches): 8.00 Weight (Kilograms): 133.200 Levels: Item Value Date Time Vancomycin Level Trough 11.3 mcg/ml 06/21/17 1114 Lab Results (24hrs): Test 06/20/17 17:50 06/20/17 20:30 06/20/17 22:42 06/21/17 05:59 Influenza Type A (RT-PCR) Neg for Influ A (NEG) Influenza Type B (RT-PCR) Neg for Influ B (NEG) Lyme Disease IgG Antibody NEG (NEG) Lyme Disease IgM Antibody NEG (NEG) Activated Partial Thromboplast Time 52.7 SECONDS (21.0-31.0) 49.9 SECONDS (21.0-31.0) Partial Thromboplastin Ratio 2.0 1.9 White Blood Count 16.04 K/uL (4.8-10.8) Red Blood Count 3.73 M/uL (4.7-6.1) Hemoglobin 10.7 g/dL (14.0-18.0) Hematocrit 32.2 % (42-52) Mean Corpuscular Volume 86.3 fL (80-100) Mean Corpuscular Hemoglobin 28.7 pg (25-34) Mean Corpuscular Hemoglobin Concent 33.2 g/dl (32-36) Platelet Count 199 K/uL (130-400) Mean Platelet Volume 9.9 fL (7.4-10.4) Neutrophils (%) (Auto) 79.4 % Lymphocytes (%) (Auto) 11.7 % Monocytes (%) (Auto) 8.1 % Eosinophils (%) (Auto) 0.1 % Basophils (%) (Auto) 0.2 % Neutrophils # (Auto) 12.74 K/uL (1.4-6.5) Lymphocytes # (Auto) 1.88 K/uL (1.2-3.4) Monocytes # (Auto) 1.30 K/uL (0.11-0.59) Eosinophils # (Auto) 0.01 K/uL (0-0.5) Basophils # (Auto) 0.03 K/uL (0-0.2) RDW Standard Deviation 51.6 fL (36.4-46.3) RDW Coefficient of Variation 16.3 % (11.5-14.5) Immature Granulocyte % (Auto) 0.5 % Immature Granulocyte # (Auto) 0.08 K/uL (0.00-0.02) Sodium Level 131 mmol/L (136-145) Potassium Level 3.9 mmol/L (3.5-5.1) Chloride Level 99 mmol/L (98-107) Carbon Dioxide Level 25 mmol/L (21-32) Anion Gap 7.0 mmol/L (3-11) Blood Urea Nitrogen 16 mg/dl (7-18) Creatinine 1.15 mg/dl (0.60-1.40) Est Creatinine Clear Calc Drug Dose 87.7 ml/min Estimated GFR () 78.1 Estimated GFR (Non- 67.4 BUN/Creatinine Ratio 13.6 (10-20) Random Glucose 189 mg/dl (70-99) Calcium Level 8.5 mg/dl (8.5-10.1) Magnesium Level 1.4 mg/dl (1.8-2.4) Test 06/21/17 06:51 06/21/17 11:10 06/21/17 11:14 Bedside Glucose 187 mg/dl (70-99) 286 mg/dl (70-99) Vancomycin Level Trough 11.3 mcg/ml (SEE COMMENT) Micro Results: Item Value Date Time Blood Culture Received 06/20/172035 Blood Pending Blood Culture Received 06/20/172031 Blood Pending Blood Culture - Preliminary Resulted 06/19/17 1343 Blood NO GROWTH TO DATE. Blood Culture - Preliminary Resulted 06/19/17 1330 Blood Staphylococcus Aureus MRSA DNA Surveillance Screen - Final Complete 06/20/17 1650 Nasal Specimen Negative for MRSA by DNA Probe Assessment & Plan Patient started on vancomycin and levaquin for possible pneumonia, now with 1/2 blood cultures positive for staph aureus prelim - sensitivities pending. Repeat blood cultures are pending. ID is consulted to follow the patient. Vancomycin: * Trough level today came back subtherapeutic at ~11 mcg/ml (goal 15-20 mcg/ml for bacteremia) - level drawn slightly before steady state, so true trough may be slightly higher * Will adjust vancomycin to 1750 mg iv q 12 hrs to achieve a slightly higher trough level * Will plan to obtain a trough prior to the 2200 dose on 06/22 to ensure therapeutic - will monitor closely, patient at risk for drug accumulation due to elevated BMI >35 kg/m2 Pharmacy will continue to follow and will adjust dose/frequency as necessary. Thank you
[2017-06-21] MEDS ORDERED: LEVALBUTEROL 1.25MG/3ML NEB INH ONE (16:27)
--- NOTE | 2017-06-21 17:42 | Medical Consult ---
Consultation Date of Consultation: Jun 21, 2017. Attending Physician: Conchita Maher MD Reason for Consultation: Fever, unknown source, Staph bacteremia History of Present Illness 61-year-old male with history of diabetes mellitus, hypertension, sleep apnea, diastolic congestive heart failure, prior CVA, was well until several weeks ago when he developed herpes zoster involving his left forehead and eye. He was treated with Valtrex, but subsequently developed fever as high as 103, increasing weakness, and cough. Symptoms worsened, patient fell in the bathtub , and was brought to the hospital for further management. He was found to be in atrial fibrillation with rapid response. Now being seen by Cardiology for rate control. Patient now with positive blood culture from admission cultures, growing Staph aureus, sensitivities pending. Patient currently receiving IV vancomycin. Apart from his recent zoster, no obvious recent skin infections. Has had echocardiogram which was poor study, no obvious significant valvular disease seen. Past Medical/Surgical History Medical Problems: (1) Bronchitis Status: Acute (2) Cellulitis of toe Status: Acute (3) Diabetes Status: Chronic (4) Elevated troponin Status: Acute (5) Heart disease Status: Chronic (6) Leukocytosis Status: Acute Medical Problems: (1) A-fib (2) A-fib (3) Diabetes (4) Heart disease Family History Diabetes mellitus FH: cancer Hypertension Social History Smoking Status: Former Smoker Drug Use: none Allergies Coded Allergies: No Known Allergies (Verified , 01/25/16) Current Inpatient Medications Current Inpatient Medications Medications (Trade) Dose Ordered Sig/Wojciech Route Start Time Stop Time Status Last Admin Dose Admin Ioversol (Optiray 320) 100 ml UD PRN IV 06/19/17 13:30 06/23/17 13:29 Albuterol (Ventolin Hfa Inhaler) 2 puffs Q4 PRN INH 06/19/17 15:45 07/19/17 15:44 Allopurinol (Zyloprim Tab) 100 mg QAM PO 06/20/17 09:00 07/20/17 08:59 06/21/17 08:51 100 MG Atorvastatin Calcium (Lipitor Tab) 40 mg HS PO 06/19/17 21:00 07/19/17 20:59 06/20/17 21:27 40 MG Clopidogrel Bisulfate (plAVix TAB) 75 mg QAM PO 4/27/18 09:00 07/20/17 08:59 06/21/17 08:51 75 MG Prednisolone Acetate (Pred Forte 1% Oph Susp) 1 drops QID OPL 06/19/17 17:00 06/26/17 16:59 06/21/17 17:29 1 DROPS Acetaminophen (Tylenol Tab) 650 mg Q4H PRN PO 06/19/17 15:45 07/19/17 15:44 06/20/17 15:46 650 MG Al Hydrox/Mg Hydrox/Simethicone (Maalox Max Susp) 15 ml Q4H PRN PO 06/19/17 15:45 07/19/17 15:44 Magnesium Hydroxide (Milk Of Magnesia Susp) 30 ml Q12H PRN PO 06/19/17 15:45 07/19/17 15:44 Zolpidem Tartrate (Ambien Tab) 5 mg HSZ PRN PO 06/19/17 15:45 07/19/17 15:44 Zolpidem Tartrate (Ambien Tab) 5 mg HSZ PRN PO 06/19/17 15:45 07/19/17 15:44 Ondansetron HCl (Zofran Inj) 4 mg Q6H PRN IV 06/19/17 15:45 07/19/17 15:44 06/19/17 19:08 4 MG Nitroglycerin (Nitrostat Tab) 0.4 mg UD PRN SL 06/19/17 15:45 07/19/17 15:44 Polyethylene (Miralax Powder Packet) 17 gm DAILY PRN PO 06/19/17 15:45 07/19/17 15:44 Insulin Aspart (novoLOG ASPART) SLIDING SCALE If C... ACHS SC 06/19/17 18:30 07/19/17 18:29 06/21/17 17:31 4 UNITS Glucose (Glucose 40% Gel) 15-30 GRAMS 15 GRAMS... UD PRN PO 06/19/17 15:45 07/19/17 15:44 Glucose (Glucose Chew Tab) 4-8 Tablets 4 Tabl... UD PRN PO 06/19/17 15:45 07/19/17 15:44 Dextrose (Dextrose 50% 50ML Syringe) 25-50ML OF 50% DW IV FOR... UD PRN IV 06/19/17 15:45 5/26/18 15:44 Glucagon (Glucagon Inj) 1 mg UD PRN SQ 06/19/17 15:45 07/19/17 15:44 Lactobacillus Acidophilus (Floranex Tab) 4 tab TIDM PO 06/19/17 17:56 07/19/17 17:59 06/21/17 17:28 4 TAB Heparin Sodium/ Dextrose 500 ml @ 28 mls/hr [id number] IV 06/19/17 19:45 06/21/17 21:00 06/20/17 15:11 26 MLS/HR Miscellaneous Information (Consult) 1 ea UD PRN N/A 06/19/17 20:45 07/19/17 20:44 Metoprolol Tartrate (Lopressor Tab) 25 mg TID PO 06/20/17 14:00 07/20/17 13:59 06/21/17 14:52 25 MG Insulin Glargine (Lantus Solostar Pen) 12 units BID SC 06/20/17 21:00 07/20/17 20:59 06/21/17 08:49 12 UNITS Lidocaine (Lidoderm Patch 5%) 1 patch QAM TD 06/21/17 09:00 07/21/17 08:59 06/21/17 08:53 1 PATCH Miscellaneous (Remove Lidoderm Patch) 1 ea DAILY@21 N/A 06/20/17 23:00 07/20/17 22:59 06/20/17 00:30 1 EA Levofloxacin 750 mg/Prmx 150 ml @ 100 mls/hr Q24H IV 06/21/17 14:00 06/26/17 15:29 06/21/17 16:07 100 MLS/HR Benzonatate (Tessalon Perles Cap) 100 mg TID PO 06/21/17 21:00 07/21/17 20:59 Vancomycin HCl 1750 mg/Sodium Chloride 535 ml @ 200 mls/hr Q12H IV 06/21/17 22:00 07/04/17 21:59 Levalbuterol (Xopenex 1.25MG/ 3ML Neb) 1.25 mg Q6R INH 06/21/17 21:00 07/21/17 20:59 Guaifenesin (Mucinex Contr Rel Tab) 1,200 mg Q12 PO 06/21/17 21:00 07/21/17 20:59 Apixaban (Eliquis Tab) 5 mg BID PO 06/21/17 21:00 07/21/17 20:59 Review of Systems Constitutional: + fever, + chills, + weakness Eyes: + redness ENT: No problem reported Respiratory: + cough, + shortness of breath Cardiovascular: No problem reported Abdomen: No problem reported Musculoskeletal: No problem reported Genitourinary - Male: No problem reported Neurologic: No problem reported Psychiatric: No problem reported Endocrine: No problem reported Hematologic / Lymphatic: No problem reported Integumentary: No problem reported Allergic / Immunologic: No problem reported Physical Exam Date Time Temp Pulse Resp B/P (MAP) Pulse Ox O2 Delivery O2 Flow Rate FiO2 06/21/17 16:00 Room Air 06/21/17 15:42 37.6 167 22 117/66 (83) 93 Room Air 06/21/17 12:00 Nasal Cannula 2.0 06/21/17 11:38 37.6 110 18 104/71 (82) 91 Room Air 06/21/17 09:00 36.8 105/65 (78) 06/21/17 08:00 Nasal Cannula 2.0 06/21/17 07:41 37.7 100 18 91/58 (69) 89 CPAP 06/21/17 04:28 36.9 125 20 103/51 (68) 97 BiPAP 06/21/17 04:00 CPAP 06/20/17 23:59 CPAP 06/20/17 23:10 37.1 101 18 114/74 (87) 94 BiPAP 06/20/17 20:01 37.1 06/20/17 20:00 Nasal Cannula 2.0 06/20/17 19:01 38.0 121 24 118/83 (95) 95 Room Air General Appearance: WD/WN, no apparent distress Head: normocephalic, atraumatic Eyes: normal inspection, EOMI, sclerae normal ENT: normal ENT inspection, hearing grossly normal, pharynx normal Neck: supple, no adenopathy, thyroid normal, trachea midline Respiratory/Chest: chest non-tender, no respiratory distress, no accessory muscle use, + rales (Left base) Cardiovascular: no gallop, no murmur, + irregularly irregular Abdomen/GI: normal bowel sounds, non tender, soft, no organomegaly Back: normal inspection, no CVA tenderness Extremities/Musculoskelatal: no calf tenderness, normal capillary refill, non- tender Neurologic/Psych: alert, normal mood/affect, oriented x 3 Skin: normal color, warm/dry, no rash Lymphatic: no adenopathy Laboratory Results Date/Time Source Procedure Growth Status 06/20/17 20:36 Blood Blood Culture Pending Received 06/20/17 20:32 Blood Blood Culture Pending Received Last 24 Hours Test 06/20/17 17:50 06/20/17 19:59 06/20/17 20:30 06/20/17 22:42 Influenza Type A (RT-PCR) Neg for Influ A Influenza Type B (RT-PCR) Neg for Influ B Bedside Glucose 320 mg/dl Lyme Disease IgG Antibody NEG Lyme Disease IgM Antibody NEG Activated Partial Thromboplast Time 52.7 SECONDS Partial Thromboplastin Ratio 2.0 Test 06/21/17 05:59 06/21/17 06:51 06/21/17 11:10 06/21/17 11:14 White Blood Count 16.04 K/uL Red Blood Count 3.73 M/uL Hemoglobin 10.7 g/dL Hematocrit 32.2 % Mean Corpuscular Volume 86.3 fL Mean Corpuscular Hemoglobin 28.7 pg Mean Corpuscular Hemoglobin Concent 33.2 g/dl Platelet Count 199 K/uL Mean Platelet Volume 9.9 fL Neutrophils (%) (Auto) 79.4 % Lymphocytes (%) (Auto) 11.7 % Monocytes (%) (Auto) 8.1 % Eosinophils (%) (Auto) 0.1 % Basophils (%) (Auto) 0.2 % Neutrophils # (Auto) 12.74 K/uL Lymphocytes # (Auto) 1.88 K/uL Monocytes # (Auto) 1.30 K/uL Eosinophils # (Auto) 0.01 K/uL Basophils # (Auto) 0.03 K/uL RDW Standard Deviation 51.6 fL RDW Coefficient of Variation 16.3 % Immature Granulocyte % (Auto) 0.5 % Immature Granulocyte # (Auto) 0.08 K/uL Activated Partial Thromboplast Time 49.9 SECONDS Partial Thromboplastin Ratio 1.9 Sodium Level 131 mmol/L Potassium Level 3.9 mmol/L Chloride Level 99 mmol/L Carbon Dioxide Level 25 mmol/L Anion Gap 7.0 mmol/L Blood Urea Nitrogen 16 mg/dl Creatinine 1.15 mg/dl Est Creatinine Clear Calc Drug Dose 87.7 ml/min Estimated GFR () 78.1 Estimated GFR (Non- 67.4 BUN/Creatinine Ratio 13.6 Random Glucose 189 mg/dl Calcium Level 8.5 mg/dl Magnesium Level 1.4 mg/dl Bedside Glucose 187 mg/dl 286 mg/dl Vancomycin Level Trough 11.3 mcg/ml Test 06/21/17 16:30 Bedside Glucose 243 mg/dl RUN DATE: 06/21/17 [facility] LAB PAGE 1 RUN TIME: 1202 Specimen Inquiry PATIENT: KARISSA STEPHENS LOC: [facility] U # : [id number] AGE/SX: 61/M ROOM: E220 REG : 06/19/[address]: Conchita Maher MD : [id number] BED: 1 DIS : STATUS: ADM IN TLOC: SPEC #: [id number] GABRIELLA: 06/19/17 STATUS: RES REQ #: [id number] RECD: 06/19/17135 [facility] DR: Jose Tate DO SOURCE: BLOOD ENTR: 06/19/17-[address] [facility] [address]: Loki Matias M.D. [facility]: ORDERED: BLOOD CULTURE Procedure Result Verified Site BLD CULT Preliminary 06/21/17-1202 Organism 1 STAPHYLOCOCCUS AUREUS SENS SENSITIVITY TO FOLLOW Phoned Positive Blood Culture Gram Stain Report to LOKI KHAN on 06/20/17 At 1115 By [facility]. Results were verbalized back to [facility]. [~ rep ct add3]] CHEST 2 VIEWS ROUTINE CLINICAL HISTORY: fever, r/o pneumonia fever COMPARISON STUDY: 06/19/2017 FINDINGS: Small parenchymal infiltrate left base. Mild stable cardiomegaly. Lungs otherwise appear clear. IMPRESSION: Small parenchymal infiltrate left base. The above report was generated using voice recognition software. It may contain grammatical, syntax or spelling errors. Electronically signed by: Tom Hays M.D. 06/21/2017 9:50 AM Dictated Date/Time: 06/21/2017 9:50 AM Assessment & Plan 61-year-old male with Staph aureus bacteremia, possible sources include secondary infection of recent shingles or possible secondary bacterial infection of viral respiratory tract infection. Otherwise no localizing signs or symptoms. Patient will be continued on vancomycin, I will add cefazolin pending sensitivities results. Follow-up blood cultures are pending. Will adjust once final culture results are available. I suspect patient will require KHALIDA to better define potential valvular disease. Will discuss with all involved. Will follow.
[2017-06-21] MEDS: LEVALBUTEROL 1.25MG/3ML NEB INH SCH (18:50)
[2017-06-21] MEDS: CEFAZOLIN IV 2,000 MG in SYRINGE 0 ML IV SCH (19:25)
[2017-06-21] MEDS: APIXABAN 2.5 MG TAB PO SCH (21:28)
[2017-06-21] MEDS: BENZONATATE 100MG CAP PO SCH (21:29)
[2017-06-21] MEDS: GUAIFENESIN 600 MG TABCR PO SCH (21:29)
[2017-06-21] MEDS: ATORVASTATIN 20 MG TAB PO SCH (21:30)
[2017-06-21] MEDS: VANCOMYCIN IV 1,750 MG in SODIUM CHLORIDE 0.9% 500ML 500 ML IV SCH (22:38)
[2017-06-21] MEDS: ACETAMINOPHEN 325 MG TAB PO PRN (23:50)
[2017-06-22] VITALS (15 sets, daily range): BP systolic 96–131; BP diastolic 65–92; PULSE 78–208; TEMP 36.9–37.7; O2SAT 89–99
[2017-06-22] MEDS: LEVALBUTEROL 1.25MG/3ML NEB INH SCH ×5 (02:20→20:08)
[2017-06-22] MEDS: CEFAZOLIN IV 2,000 MG in SYRINGE 0 ML IV SCH ×3 (03:13→18:29)
[2017-06-22] MEDS ORDERED: HEPARIN 25000 UNIT/500 ML D5W ONE (03:40)
[2017-06-22] MEDS: HEPARIN 25,000 UNIT/500ML D5W 500 ML IV SCH (03:43)
[2017-06-22 06:04] LABS: HEMATOCRIT 30.2 % (42-52); HEMOGLOBIN 10.1 g/dL (14.0-18.0); MEAN CELL VOLUME 86.5 fL (80-100); MEAN CORPUSCULAR HEMOGLOBIN 28.9 pg (25-34); MEAN CORPUSCULAR HGB CONC 33.4 g/dl (32-36); MEAN PLATELET VOLUME 9.7 fL (7.4-10.4); PLATELET COUNT 215 K/uL (130-400); RED CELL DISTRIBUTION WIDTH CV 16.2 % (11.5-14.5); RED CELL DISTRIBUTION WIDTH SD 51.2 fL (36.4-46.3); WHITE BLOOD COUNT 12.07 K/uL (4.8-10.8)
[2017-06-22 06:18] LABS: PTT PATIENT 44.3 SECONDS (21.0-31.0)
[2017-06-22 06:35] LABS: CREATININE 1.13 mg/dl (0.60-1.40)
[2017-06-22] MEDS: INSULIN ASPART 100 UNITS/ML 3 ML PEN SC SCH ×4 (08:04→21:48)
[2017-06-22] MEDS: INSULIN GLARGINE SOLOSTAR 100 UNITS/ML 3 ML PEN SC SCH ×2 (08:05→21:47)
[2017-06-22] MEDS: APIXABAN 2.5 MG TAB PO SCH ×2 (08:07→21:38)
[2017-06-22] MEDS: PrednisoLONE ACET 1% OP SUSP 5 ML BTL OPL SCH ×4 (08:07→21:37)
[2017-06-22] MEDS: LACTOBACILLUS ACIDOPHILUS (FLORANEX) TAB PO SCH ×3 (08:07→17:21)
[2017-06-22] MEDS: METOPROLOL TARTRATE 25 MG TAB PO SCH (08:08)
[2017-06-22] MEDS: GUAIFENESIN 600 MG TABCR PO SCH ×2 (08:08→21:41)
[2017-06-22] MEDS: CLOPIDOGREL BISULFATE 75 MG TAB PO SCH (08:08)
[2017-06-22] MEDS: BENZONATATE 100MG CAP PO SCH ×3 (08:08→21:42)
[2017-06-22] MEDS: ALLOPURINOL 100 MG TAB PO SCH (08:09)
[2017-06-22] MEDS: LIDODERM (LIDOCAINE) PATCH 5% TD SCH (08:09)
[2017-06-22] MEDS: VANCOMYCIN IV 1,750 MG in SODIUM CHLORIDE 0.9% 500ML 500 ML IV SCH (09:21)
[2017-06-22 09:27] LABS: CALCIUM 8.3 mg/dl (8.5-10.1); CREATININE 1.15 mg/dl (0.60-1.40); POTASSIUM 3.8 mmol/L (3.5-5.1)
[2017-06-22] MEDS ORDERED: POTASSIUM CHLORIDE 20 MEQ TABCR PO STA (09:37)
[2017-06-22] MEDS: MAGNESIUM SULFATE 1GM / D5W 100 ML IV SCH ×2 (10:22→11:17)
[2017-06-22] MEDS ORDERED: SACCHAROMYCES BOUL (FLORASTOR) 250 MG CAP PO ONE (12:59)
[2017-06-22] MEDS ORDERED: HYDROCODONE/HOMATROPINE SYRUP 5MG/1.5MG 5ML UDP PO PRN (13:00)
--- NOTE | 2017-06-22 13:03 | Hospitalist Progress Note ---
Hospitalist Progress Note Date of Service Jun 22, 2017. Subjective Pt evaluation today including: conversation w/ patient Still having profuse cough that throws him into coughing fits. Says the Rm Calderon helped a little bit. No further fevers now. Remains in rapid atrial fibrillation on telemetry. Denies chest pain other than the musculoskeletal chest pain from his fall that hurts every time he coughs. He and his note that he has gained weight and feels like he is filling up with fluid. All Other Systems: Reviewed and Negative Objective Vital Signs Date Time Temp Pulse Resp B/P (MAP) Pulse Ox O2 Delivery O2 Flow Rate FiO2 06/22/17 12:03 37.7 208 18 124/75 (91) 99 Nasal Cannula 06/22/17 12:00 Room Air 06/22/17 08:00 Room Air 06/22/17 07:53 37.5 119 18 131/92 (105) 95 Room Air 06/22/17 07:01 85 20 97 Nasal Cannula 3.0 06/22/17 04:28 36.9 186 24 114/73 (87) 97 Nasal Cannula 3.0 06/22/17 04:00 97 Nasal Cannula 3.0 100 06/22/17 02:20 92 22 97 Nasal Cannula 3.0 06/22/17 00:02 37.5 105 20 96/65 (75) 06/22/17 00:01 96 Room Air 2.0 06/21/17 23:42 37.4 98 20 135/94 (108) 93 Room Air 06/21/17 20:00 96 Nasal Cannula 2.0 06/21/17 19:33 37.9 101 22 158/84 (108) 96 Nasal Cannula 2.0 100 06/21/17 18:54 103 22 97 Nasal Cannula 3.0 06/21/17 16:00 Room Air 06/21/17 15:42 37.6 167 22 117/66 (83) 93 Room Air Physical Exam General Appearance: + mild distress (With coughing), + obese Eyes: normal inspection, sclerae normal ENT: hearing grossly normal Neck: trachea midline Respiratory/Chest: no accessory muscle use, + decreased breath sounds (At the bases), + crackles (At the left base) Cardiovascular: no murmur, + tachycardia, + irregularly irregular Abdomen: normal bowel sounds, non tender, soft Extremities: no calf tenderness, + swelling (Trace pitting edema in the legs bilaterally) Neurologic/Psychiatric: alert, normal mood/affect, oriented x 3 Skin: normal color, warm/dry, no rash Laboratory Results Last 24 Hours Test 06/21/17 16:30 06/21/17 20:05 06/22/17 05:54 06/22/17 07:00 Bedside Glucose 243 mg/dl 308 mg/dl 194 mg/dl White Blood Count 12.07 K/uL Red Blood Count 3.49 M/uL Hemoglobin 10.1 g/dL Hematocrit 30.2 % Mean Corpuscular Volume 86.5 fL Mean Corpuscular Hemoglobin 28.9 pg Mean Corpuscular Hemoglobin Concent 33.4 g/dl RDW Standard Deviation 51.2 fL RDW Coefficient of Variation 16.2 % Platelet Count 215 K/uL Mean Platelet Volume 9.7 fL Activated Partial Thromboplast Time 44.3 SECONDS Partial Thromboplastin Ratio 1.7 Creatinine 1.13 mg/dl Est Creatinine Clear Calc Drug Dose 86.3 ml/min Estimated GFR () 79.7 Estimated GFR (Non- 68.8 Test 06/22/17 08:40 06/22/17 11:28 Sodium Level 130 mmol/L Potassium Level 3.8 mmol/L Chloride Level 97 mmol/L Carbon Dioxide Level 24 mmol/L Anion Gap 9.0 mmol/L Blood Urea Nitrogen 17 mg/dl Creatinine 1.15 mg/dl Est Creatinine Clear Calc Drug Dose 88.9 ml/min Estimated GFR () 78.1 Estimated GFR (Non- 67.4 BUN/Creatinine Ratio 14.6 Random Glucose 221 mg/dl Calcium Level 8.3 mg/dl Magnesium Level 1.6 mg/dl Bedside Glucose 238 mg/dl Assessment and Plan This patient is a 61-year-old male with past medical history of diabetes mellitus type II, hypertension, obstructive sleep apnea on CPAP, dyslipidemia, chronic diastolic congestive heart failure, CVA and recent shingles 2 weeks ago. Presented with fever, sepsis, generalized fatigue, fall and yellow productive sputum, was found in ED to have positive troponin and new onset atrial fibrillation. New Onset Atrial Fibrillation with RVR/myocardial demand ischemia: still with uncontrolled rates, now on Eliquis for anticoagulation - Elevated troponins related to demand from RVR however trending down - no CP other than musculoskeletal from fall -Continue Eliquis 5 mg's p.o. twice daily - Stopped ASA and continue Plavix 75 mg daily so as to avoid triple therapy -Discussed with cardiology today-increase metoprolol to 50 mg p.o. twice daily and start diltiazem drip - Cardiology following - recommendations appreciated Sepsis POA/LLL pneumonia/acute hypoxic respiratory failure/Staphylococcus aureus bacteremia-all of his household contacts had a recent viral illness and he started having fevers 1 week ago along with cold symptoms. His fevers then worsened and cough has progressively worsened with productive sputum. Growing Staphylococcus aureus in 1 out of 2 blood culture sets from admission, repeat blood culture again with Staphylococcus species. Chest CT on admission without pneumonia, however after IV fluid hydration, a repeat chest x-ray 2 days later has fluffed out a left lower lobe pneumonia. Possibly has a Staphylococcus aureus post viral pneumonia. Leukocytosis finally improving. Fevers are starting to defervesce. He is weaned off oxygen. Area of recent shingles without cellulitis; small scab on top of head but healing so not likely to be the source Procalcitonin negative, interestingly -Follow-up sensitivity and blood cultures and follow repeat blood cultures again on 06/22 -Continue Levaquin 750 mg IV daily for pneumonia dosing, can consider discontinuing vancomycin but will discuss with ID, continue Ancef as per ID -Consult infectious disease for Staph bacteremia-appreciate further recommendations -Transthoracic echocardiogram with poor visualization of the valves-consider KHALIDA to rule out SBE- discussed with cardiology-will wait until heart rate under better control for better visualization -Follow CBC -Increase Tessalon pearls for cough to 200 mg 3 times daily, continue Mucinex to break up sputum -Add Hycodan as needed at bedtime for cough -start Levalbuterol nebs for wheezing -encouraged deep breathing as he is splinting on exam Chest wall pain-s/p fall with contusion -continue tylenol prn pain, lidocaine patch Acute on chronic combined Systolic and Diastolic CHF:ECHO with mildly reduced LV function but poor images. Now weight is up and appears to be volume overloaded -We will give Lasix 20 mg IV 1 now -Restart home Lasix 20 mrem p.o. daily Fall with Generalized Weakness 2/2 Infection/Sepsis vs RVR: - treating both as above -PT/OT evals T2DM with Hyperglycemia:improved today - Holding Metformin and covering with Lantus 12 units BID and SSI DEANDRE on CPAP: - May use own CPAP Obesity, BMI 44.7 -Encouraged weight loss Pulmonary nodule-seen on CT-needs follow-up CT as per guidelines DVT Prophylaxis: Eliquis Disposition-remain on telemetry due to rapid atrial fibrillation Code Status: FULL RESUSCITATION
[2017-06-22] MEDS ORDERED: FUROSEMIDE INJ 20 MG in SYRINGE 0 ML IV ONE (13:15)
[2017-06-22] MEDS ORDERED: DILTIAZEM BOLUS / DRIP IV STA (13:38)
--- NOTE | 2017-06-22 13:44 | Cardiology Follow-Up ---
Subjective Date of Service: Jun 22, 2017. Pt evaluation today including: conversation w/ patient, conversation w/ family , physical exam, chart review, lab review, review of studies, review of inpatient medication list, conversation w/ attending History of Present Illness Patient's primary complaint this morning is coughing. He has have persistent coughing fits which make him notably short of breath. He has been ambulatory to the bathroom and back with some assistance. He has continued dyspnea. He has not report dizziness or lightheadedness. He does have some left-sided chest discomfort that he attributes to his recent injury. It is difficult for him to take a deep breath as a result. Social History Smoking Status: Former Smoker History of Alcohol Use: No Review of Systems Respiratory: + cough, No shortness of breath Cardiac: + chest pain (L sided) Objective Vital Signs Past 12 Hours Date Time Temp Pulse Resp B/P (MAP) Pulse Ox O2 Delivery O2 Flow Rate FiO2 06/22/17 12:03 37.7 208 18 124/75 (91) 99 Nasal Cannula 06/22/17 12:00 Room Air 06/22/17 08:00 Room Air 06/22/17 07:53 37.5 119 18 131/92 (105) 95 Room Air 06/22/17 07:01 85 20 97 Nasal Cannula 3.0 06/22/17 04:28 36.9 186 24 114/73 (87) 97 Nasal Cannula 3.0 06/22/17 04:00 97 Nasal Cannula 3.0 100 06/22/17 02:20 92 22 97 Nasal Cannula 3.0 Last Recorded Weight-Kilograms: 136.500 Physical Exam The patient is alert and oriented. Mood and affect appeared normal. He answered all questions appropriately. Obese HEENT: Pupils are equal and reactive to light and accommodation. Extraocular movements are intact. The sclerae are anicteric. Neuro: Cranial nerves intact Neck: Patient's neck is supple. He has palpable carotid pulses bilaterally without bruits on auscultation. There is no evidence of jugular venous distention. The thyroid is not enlarged. Lungs: Poor inspiratory effort due to splinting. Some expiratory wheezing. Cardiac: Heart demonstrates an irregular rate and rhythm. Normal S1 and S2. No murmurs on examination. Pulses: The patient has palpable radial pulses bilaterally that are equal in intensity Extremities: There was no evidence of hypoperfusion. There is no cyanosis or clubbing. Mild peripheral edema bilateral. Skin: I did not appreciate any rashes on examination today. Data Laboratory Results: Last 24 Hours Test 06/21/17 16:30 06/21/17 20:05 06/22/17 05:54 06/22/17 07:00 Bedside Glucose 243 mg/dl 308 mg/dl 194 mg/dl White Blood Count 12.07 K/uL Red Blood Count 3.49 M/uL Hemoglobin 10.1 g/dL Hematocrit 30.2 % Mean Corpuscular Volume 86.5 fL Mean Corpuscular Hemoglobin 28.9 pg Mean Corpuscular Hemoglobin Concent 33.4 g/dl RDW Standard Deviation 51.2 fL RDW Coefficient of Variation 16.2 % Platelet Count 215 K/uL Mean Platelet Volume 9.7 fL Activated Partial Thromboplast Time 44.3 SECONDS Partial Thromboplastin Ratio 1.7 Creatinine 1.13 mg/dl Est Creatinine Clear Calc Drug Dose 86.3 ml/min Estimated GFR () 79.7 Estimated GFR (Non- 68.8 Test 06/22/17 08:40 06/22/17 11:28 Sodium Level 130 mmol/L Potassium Level 3.8 mmol/L Chloride Level 97 mmol/L Carbon Dioxide Level 24 mmol/L Anion Gap 9.0 mmol/L Blood Urea Nitrogen 17 mg/dl Creatinine 1.15 mg/dl Est Creatinine Clear Calc Drug Dose 88.9 ml/min Estimated GFR () 78.1 Estimated GFR (Non- 67.4 BUN/Creatinine Ratio 14.6 Random Glucose 221 mg/dl Calcium Level 8.3 mg/dl Magnesium Level 1.6 mg/dl Bedside Glucose 238 mg/dl Telemetry reviewed: Atrial fibrillation with rapid ventricular rate Assessment and Plan 1. Atrial fibrillation: He does not have symptoms related to the primary arrhythmia. He will be very difficult for him to spontaneously convert given his acute and worsening illness. Also has associated high ventricular rates due to coughing fits, dyspnea and a high adrenergic state. In attempt to provide better rate control I think initiating and diltiazem infusion today may be helpful. He could be transitioned to oral calcium channel blockers. This is less than ideal in the setting of a mild cardiomyopathy, but may provide more acute heart rate control and re-evaluated in the outpatient setting once he is feeling better. 2. Ischemic cardiomyopathy: He appears to be well compensated currently. No evidence pulmonary vascular congestion on exam. No symptoms of orthopnea. He is continue on a daily dose of Lasix 3. Coronary artery disease: Patient does have very mildly elevated cardiac biomarkers. Will attempt to provide better rate control with diltiazem infusion lowering his chance for ongoing ischemia. 4. Bacteremia: Patient may have a pneumonia. Hospitalist service and Infectious Disease regulatory consultant feel that a KHALIDA should be performed in order to look for valvular lesions. I think this can be deferred until the patient's pulmonary status has improved.
[2017-06-22] MEDS ORDERED: DILTIAZEM HCL 5 MG/ML 5 ML VIAL BOLUS/OMNI IV SCH (14:00)
[2017-06-22] MEDS: DILTIAZEM HCL INJ 125 MG in DEXTROSE 5% 100ML IV PRN (14:02)
[2017-06-22] MEDS ORDERED: VANCOMYCIN TROUGH ONE (21:30)
[2017-06-22] MEDS: ATORVASTATIN 20 MG TAB PO SCH (21:39)
[2017-06-22] MEDS: METOPROLOL TARTRATE 50 MG TAB PO SCH (21:40)
[2017-06-23] VITALS (14 sets, daily range): BP systolic 102–122; BP diastolic 67–75; PULSE 77–104; TEMP 36.6–37.8; O2SAT 86–98
[2017-06-23] MEDS: ONDANSETRON INJ 2 MG/ML 2 ML VIAL IV PRN (00:27)
[2017-06-23] MEDS: VANCOMYCIN IV 1,750 MG in SODIUM CHLORIDE 0.9% 500ML 500 ML IV SCH ×2 (01:06→11:10)
[2017-06-23] MEDS: LEVALBUTEROL 1.25MG/3ML NEB INH SCH ×4 (02:00→19:33)
[2017-06-23] MEDS: ACETAMINOPHEN 325 MG TAB PO PRN (03:31)
[2017-06-23] MEDS: CEFAZOLIN IV 2,000 MG in SYRINGE 0 ML IV SCH ×3 (03:31→19:43)
[2017-06-23] MEDS: DILTIAZEM HCL INJ 125 MG in DEXTROSE 5% 100ML IV PRN (03:54)
[2017-06-23 07:08] LABS: BASO % 0.2 %; BASO ABS # 0.03 K/uL (0-0.2); EOS % 0.8 %; HEMATOCRIT 29.2 % (42-52); HEMOGLOBIN 9.8 g/dL (14.0-18.0); IG# 0.08 K/uL (0.00-0.02); LYMPH % 14.1 %; LYMPH ABS # 1.76 K/uL (1.2-3.4); MEAN CELL VOLUME 86.1 fL (80-100); MEAN CORPUSCULAR HEMOGLOBIN 28.9 pg (25-34); MEAN CORPUSCULAR HGB CONC 33.6 g/dl (32-36); MEAN PLATELET VOLUME 10.1 fL (7.4-10.4); MONO % 8.4 %; MONO ABS # 1.05 K/uL (0.11-0.59); NEUT % 75.9 %; NEUT ABS # 9.48 K/uL (1.4-6.5); PLATELET COUNT 265 K/uL (130-400); RED CELL DISTRIBUTION WIDTH CV 16.2 % (11.5-14.5); RED CELL DISTRIBUTION WIDTH SD 51.2 fL (36.4-46.3)
[2017-06-23 07:45] LABS: CALCIUM 8.4 mg/dl (8.5-10.1); CREATININE 1.1 mg/dl (0.60-1.40); POTASSIUM 4.1 mmol/L (3.5-5.1)
[2017-06-23] MEDS: LACTOBACILLUS ACIDOPHILUS (FLORANEX) TAB PO SCH ×2 (08:08→11:56)
[2017-06-23] MEDS: GUAIFENESIN 600 MG TABCR PO SCH ×2 (08:08→21:12)
[2017-06-23] MEDS: CLOPIDOGREL BISULFATE 75 MG TAB PO SCH (08:08)
[2017-06-23] MEDS: BENZONATATE 100MG CAP PO SCH ×3 (08:09→21:13)
[2017-06-23] MEDS: INSULIN ASPART 100 UNITS/ML 3 ML PEN SC SCH ×4 (08:10→21:17)
[2017-06-23] MEDS: INSULIN GLARGINE SOLOSTAR 100 UNITS/ML 3 ML PEN SC SCH ×2 (08:11→21:16)
[2017-06-23] MEDS: SACCHAROMYCES BOUL (FLORASTOR) 250 MG CAP PO SCH (08:12)
[2017-06-23] MEDS: FUROSEMIDE 20 MG TAB PO SCH (08:12)
[2017-06-23] MEDS: PrednisoLONE ACET 1% OP SUSP 5 ML BTL OPL SCH ×4 (08:13→21:10)
[2017-06-23] MEDS: APIXABAN 2.5 MG TAB PO SCH ×2 (08:13→21:11)
[2017-06-23] MEDS: METOPROLOL TARTRATE 50 MG TAB PO SCH ×2 (08:14→21:12)
[2017-06-23] MEDS: LIDODERM (LIDOCAINE) PATCH 5% TD SCH (08:14)
[2017-06-23] MEDS: ALLOPURINOL 100 MG TAB PO SCH (08:15)
[2017-06-23] MEDS ORDERED: MAGNESIUM SULFATE 1GM / D5W 100 ML IV STA (08:20)
--- NOTE | 2017-06-23 09:39 | Cardiology Follow-Up ---
Subjective General Date of Service: Jun 23, 2017. Pt evaluation today including: conversation w/ patient, chart review, lab review, review of studies History of Present Illness The patient is a 61 year old male Allergies Coded Allergies: No Known Allergies (Verified , 01/25/16) Social History Smoking Status: Never Smoker Hx Tobacco Use In Past Year?: No Hx Alcohol Use - Type And Amou: No Hx Substance Use - Type And Am: No Problem List Medical Problems: (1) Bronchitis Status: Acute (2) Cellulitis of toe Status: Acute (3) Diabetes Status: Chronic (4) Elevated troponin Status: Acute (5) Heart disease Status: Chronic (6) Leukocytosis Status: Acute Review of Systems Respiratory: + cough, + sputum, + wheezing, No shortness of breath, No dyspnea at rest Cardiac: + chest pain, No edema, No palpitations Physical Exam Vital Signs Last Vital Signs Documentation Date Time Temp Pulse Resp B/P (MAP) Pulse Ox O2 Delivery O2 Flow Rate FiO2 06/23/17 08:14 36.7 97 18 119/71 (87) 93 Room Air 06/23/17 04:00 3.0 06/22/17 04:00 100 Physical Exam Constitutional: General Apperance: heathly-appearing Level of Distress: acutely ill Psychiatric: Mental Status: active & alert, normal mood Lungs: Auscultation: inspiratory wheezing, expiratory wheezing, rhonchi Cardiovascular: Heart Auscultation: no murmurs, no rubs, no gallops, irregular rate rhythm Extremities: no edema Assessment and Plan Assessment and Plan Impressions: 1) New onset Afib--asymptomatic 2) MSSA bacteremia 3) recent episode of scalp and ocular shingles PRIOR CARDIAC HX: 1. Ischemic cardiomyopathy with an ejection fraction in the range of 45% with hypokinesis of the basal inferior, inferolateral and anterolateral cano. 2. Dilated right ventricle, normal RV function. 3. Type 2 diastolic dysfunction with elevated left atrial pressures by echo, 08/2016. 4. Coronary artery disease, status post cardiac catheterization, 02/01/2013 with a 30-40% narrowing in the proximal RCA; severe aneurysmal diffusely diseased mid RCA with a 75% stenosis and a 95% stenosis in the distal RCA; luminal irregularities of a nondominant circ which is then totally occluded after the AV groove. 5. LAD disease with a 70% ostial lesion in a small diagonal branch. Switch cardizem to 30mg PO Q6 and may need higher dose as BP allows Continue BB Apixaban and Plavix If needs KHALIDA will need to be done with anesthesia when stable and they should be consulted prior given his chest wall size and known DEANDRE ?? option if we repeat blood cultures and they are negative then just Tx with 6 weeks of antibiotics Laboratory Results Last 24 Hours Test 06/22/17 11:28 06/22/17 16:13 06/22/17 20:02 06/22/17 21:33 Bedside Glucose 238 mg/dl 257 mg/dl 267 mg/dl Vancomycin Level Trough 14.1 mcg/ml Test 06/23/17 06:28 06/23/17 06:41 06/23/17 06:44 White Blood Count 12.50 K/uL Red Blood Count 3.39 M/uL Hemoglobin 9.8 g/dL Hematocrit 29.2 % Mean Corpuscular Volume 86.1 fL Mean Corpuscular Hemoglobin 28.9 pg Mean Corpuscular Hemoglobin Concent 33.6 g/dl Platelet Count 265 K/uL Mean Platelet Volume 10.1 fL Neutrophils (%) (Auto) 75.9 % Lymphocytes (%) (Auto) 14.1 % Monocytes (%) (Auto) 8.4 % Eosinophils (%) (Auto) 0.8 % Basophils (%) (Auto) 0.2 % Neutrophils # (Auto) 9.48 K/uL Lymphocytes # (Auto) 1.76 K/uL Monocytes # (Auto) 1.05 K/uL Eosinophils # (Auto) 0.10 K/uL Basophils # (Auto) 0.03 K/uL RDW Standard Deviation 51.2 fL RDW Coefficient of Variation 16.2 % Immature Granulocyte % (Auto) 0.6 % Immature Granulocyte # (Auto) 0.08 K/uL Sodium Level 130 mmol/L Potassium Level 4.1 mmol/L Chloride Level 98 mmol/L Carbon Dioxide Level 24 mmol/L Anion Gap 8.0 mmol/L Blood Urea Nitrogen 19 mg/dl Creatinine 1.10 mg/dl Est Creatinine Clear Calc Drug Dose 93.5 ml/min Estimated GFR () 82.4 Estimated GFR (Non- 71.1 BUN/Creatinine Ratio 17.5 Random Glucose 223 mg/dl Calcium Level 8.4 mg/dl Magnesium Level 1.8 mg/dl Bedside Glucose 245 mg/dl
[2017-06-23] MEDS: DILTIAZEM HCL 30 MG TAB PO SCH ×3 (11:56→23:51)
--- NOTE | 2017-06-23 16:59 | Hospitalist Progress Note ---
Hospitalist Progress Note Date of Service Jun 23, 2017. Subjective Pt evaluation today including: conversation w/ patient, conversation w/ family Cough is improved today. Telemetry with Aristides escobar with improved rates and weaned off diltiazem drip after starting p.o. diltiazem this morning. He feels like he is wheezing less. His notes that he is more alert today. He feels like he is not urinating that much today and swelling is only minimally improved. Constitutional: No fever (But some low-grade temperatures) All Other Systems: Reviewed and Negative Objective Vital Signs Date Time Temp Pulse Resp B/P (MAP) Pulse Ox O2 Delivery O2 Flow Rate FiO2 06/23/17 16:00 92 Room Air 06/23/17 15:35 36.7 86 20 109/67 (81) 98 Nasal Cannula 3.0 06/23/17 14:23 86 20 86 Room Air 06/23/17 12:00 92 Room Air 06/23/17 11:29 36.7 90 18 102/71 (81) 94 3.0 06/23/17 08:14 36.7 97 18 119/71 (87) 93 Room Air 06/23/17 08:00 92 Room Air 06/23/17 04:00 92 Room Air 3.0 06/23/17 03:17 37.8 93 18 109/71 (84) 92 06/23/17 00:01 93 Room Air 3.0 06/22/17 23:39 37.2 180 18 124/86 (99) 95 Room Air 06/22/17 20:08 78 20 93 Room Air 06/22/17 20:00 92 Room Air 3.0 06/22/17 19:26 37.7 84 20 131/82 (98) 89 Room Air Physical Exam General Appearance: WD/WN, no apparent distress, + obese Eyes: normal inspection, sclerae normal ENT: pharynx normal (No thrush) Neck: trachea midline Respiratory/Chest: no respiratory distress, no accessory muscle use, + pertinent finding (Improved breath sounds today, only a few faint expiratory wheezes, positive crackles at left base) Cardiovascular: no murmur, + irregularly irregular (With normal rate) Abdomen: normal bowel sounds, non tender, soft Extremities: no calf tenderness, + swelling (2+ pitting edema to the knees bilaterally) Neurologic/Psychiatric: alert, normal mood/affect, oriented x 3 Skin: normal color, warm/dry, no rash Laboratory Results Last 24 Hours Test 06/22/17 20:02 06/22/17 21:33 06/23/17 06:28 06/23/17 06:41 Bedside Glucose 267 mg/dl Vancomycin Level Trough 14.1 mcg/ml White Blood Count 12.50 K/uL Red Blood Count 3.39 M/uL Hemoglobin 9.8 g/dL Hematocrit 29.2 % Mean Corpuscular Volume 86.1 fL Mean Corpuscular Hemoglobin 28.9 pg Mean Corpuscular Hemoglobin Concent 33.6 g/dl Platelet Count 265 K/uL Mean Platelet Volume 10.1 fL Neutrophils (%) (Auto) 75.9 % Lymphocytes (%) (Auto) 14.1 % Monocytes (%) (Auto) 8.4 % Eosinophils (%) (Auto) 0.8 % Basophils (%) (Auto) 0.2 % Neutrophils # (Auto) 9.48 K/uL Lymphocytes # (Auto) 1.76 K/uL Monocytes # (Auto) 1.05 K/uL Eosinophils # (Auto) 0.10 K/uL Basophils # (Auto) 0.03 K/uL RDW Standard Deviation 51.2 fL RDW Coefficient of Variation 16.2 % Immature Granulocyte % (Auto) 0.6 % Immature Granulocyte # (Auto) 0.08 K/uL Sodium Level 130 mmol/L Potassium Level 4.1 mmol/L Chloride Level 98 mmol/L Carbon Dioxide Level 24 mmol/L Anion Gap 8.0 mmol/L Blood Urea Nitrogen 19 mg/dl Creatinine 1.10 mg/dl Est Creatinine Clear Calc Drug Dose 93.5 ml/min Estimated GFR () 82.4 Estimated GFR (Non- 71.1 BUN/Creatinine Ratio 17.5 Random Glucose 223 mg/dl Calcium Level 8.4 mg/dl Magnesium Level 1.8 mg/dl Test 06/23/17 06:44 06/23/17 11:13 06/23/17 16:26 Bedside Glucose 245 mg/dl 301 mg/dl 268 mg/dl Assessment and Plan This patient is a 61-year-old male with past medical history of diabetes mellitus type II, hypertension, obstructive sleep apnea on CPAP, dyslipidemia, chronic diastolic congestive heart failure, CVA and recent shingles 2 weeks ago. Presented with fever, sepsis, generalized fatigue, fall, and yellow productive sputum, was found in ED to have positive troponin and new onset atrial fibrillation. New Onset Atrial Fibrillation with RVR/myocardial demand ischemia: Rates finally controlled and weaned off diltiazem drip, now on Eliquis for anticoagulation - Elevated troponins related to demand from RVR and then trended downward no CP other than musculoskeletal from fall -Continue Eliquis 5 mg's p.o. twice daily for anticoagulation - Stopped ASA and continue Plavix 75 mg daily so as to avoid triple therapy -Continue metoprolol 50 mg p.o. twice daily -Weaned off diltiazem drip and now on diltiazem 30 mg p.o. every 6 hours - Cardiology following - recommendations appreciated Sepsis POA/LLL pneumonia/acute hypoxic respiratory failure/Staphylococcus aureus bacteremia-all of his household contacts had a recent viral illness and he started having fevers 1 week ago along with cold symptoms. His fevers then worsened and cough has progressively worsened with productive sputum. Growing MSSA in 1 out of 2 blood culture sets from admission, repeat blood culture again with Staphylococcus species, sensitivity pending. Chest CT on admission without pneumonia, however after IV fluid hydration, a repeat chest x-ray 2 days later has fluffed out a left lower lobe pneumonia. Possibly has a Staphylococcus aureus post viral pneumonia. Leukocytosis still present and stable from yesterday but improved since admission. Fevers have subsided. Off and on oxygen. Area of recent shingles without cellulitis; small scab on top of head but healing so not likely to be the source Procalcitonin negative, interestingly -Follow-up sensitivity and blood cultures and follow repeat blood cultures again on 06/22 which are no growth to date -Discontinued Levaquin -Will discontinue vancomycin after discussion with infectious disease today -Continue Ancef and will need for at least 2 weeks, possibly 6 weeks if has SBE -Consult infectious disease for Staph bacteremia-appreciate further recommendations -Transthoracic echocardiogram with poor visualization of the valves-consider KHALIDA to rule out SBE-cardiology aware and hopefully this can be accomplished in the next couple of days but cardiology recommends general anesthesia due to DEANDRE -Follow CBC -Continue Tessalon pearls for cough, continue Mucinex to break up sputum -Continue Hycodan as needed at bedtime for cough -Continue levalbuterol nebs for wheezing Chest wall pain-s/p fall with contusion-improving -continue tylenol prn pain, lidocaine patch Acute on chronic combined Systolic and Diastolic CHF:ECHO with mildly reduced LV function but poor images. Now weight is up and appears to be volume overloaded. Had a good response to IV Lasix yesterday, but still 8 L positive and still with lower extremity edema -will again give Lasix 20 mg IV 1 now -Continue Lasix 20 mg p.o. every morning -Can eventually restart his amiloride/HCTZ and valsartan if blood pressures will allow, but will hold off for now given recent increase in metoprolol and adding diltiazem Fall with Generalized Weakness 2/2 Infection/Sepsis vs RVR: - treating both as above -PT/OT evals T2DM with Hyperglycemia, hyperglycemia persists today - Holding Metformin and covering with Lantus and will increase to 15 units BID and SSI was tightened today DEANDRE on CPAP: - May use own CPAP Obesity, BMI 46 -Encouraged weight loss Pulmonary nodule-seen on CT-needs follow-up CT as per guidelines DVT Prophylaxis: Eliquis Disposition-remain on telemetry due to rapid atrial fibrillation Code Status: FULL RESUSCITATION
[2017-06-23] MEDS ORDERED: FUROSEMIDE INJ 20 MG in SYRINGE 0 ML IV ONE (17:00)
--- NOTE | 2017-06-23 20:01 | Infectious Disease Progress Nt ---
Progress Note Date of Service Jun 23, 2017. Subjective Pt evaluation today including: conversation w/ patient, physical exam, chart review, lab review, review of studies, conversation w/ senior consultant, review of inpatient medication list Patient states the cough and shortness of breath has improved somewhat. Remains afebrile. Cultures have grown methicillin sensitive Staph aureus. Follow-up blood cultures are pending. All Other Systems: Reviewed and Negative Medications Current Inpatient Medications Medications (Trade) Dose Ordered Sig/Wojciech Route Start Time Stop Time Status Last Admin Dose Admin Albuterol (Ventolin Hfa Inhaler) 2 puffs Q4 PRN INH 06/19/17 15:45 07/19/17 15:44 Allopurinol (Zyloprim Tab) 100 mg QAM PO 06/20/17 09:00 07/20/17 08:59 06/23/17 08:15 100 MG Atorvastatin Calcium (Lipitor Tab) 40 mg HS PO 06/19/17 21:00 07/19/17 20:59 06/22/17 21:39 40 MG Clopidogrel Bisulfate (plAVix TAB) 75 mg QAM PO 06/20/17 09:00 07/20/17 08:59 06/23/17 08:08 75 MG Prednisolone Acetate (Pred Forte 1% Oph Susp) 1 drops QID OPL 06/19/17 17:00 06/26/17 16:59 06/23/17 17:04 1 DROPS Acetaminophen (Tylenol Tab) 650 mg Q4H PRN PO 06/19/17 15:45 07/19/17 15:44 06/23/17 03:31 650 MG Al Hydrox/Mg Hydrox/Simethicone (Maalox Max Susp) 15 ml Q4H PRN PO 06/19/17 15:45 07/19/17 15:44 Magnesium Hydroxide (Milk Of Magnesia Susp) 30 ml Q12H PRN PO 06/19/17 15:45 07/19/17 15:44 Ondansetron HCl (Zofran Inj) 4 mg Q6H PRN IV 06/19/17 15:45 07/19/17 15:44 06/23/17 00:27 4 MG Nitroglycerin (Nitrostat Tab) 0.4 mg UD PRN SL 06/19/17 15:45 07/19/17 15:44 Polyethylene (Miralax Powder Packet) 17 gm DAILY PRN PO 06/19/17 15:45 07/19/17 15:44 Insulin Aspart (novoLOG ASPART) SLIDING SCALE If C... ACHS SC 06/19/17 18:30 07/19/17 18:29 06/23/17 16:15 13 UNITS Glucose (Glucose 40% Gel) 15-30 GRAMS 15 GRAMS... UD PRN PO 06/19/17 15:45 07/19/17 15:44 Glucose (Glucose Chew Tab) 4-8 Tablets 4 Tabl... UD PRN PO 06/19/17 15:45 07/19/17 15:44 Dextrose (Dextrose 50% 50ML Syringe) 25-50ML OF 50% DW IV FOR... UD PRN IV 06/19/17 15:45 07/19/17 15:44 Glucagon (Glucagon Inj) 1 mg UD PRN SQ 06/19/17 15:45 07/19/17 15:44 Lidocaine (Lidoderm Patch 5%) 1 patch QAM TD 06/21/17 09:00 07/21/17 08:59 06/23/17 08:14 1 PATCH Miscellaneous (Remove Lidoderm Patch) 1 ea DAILY@21 N/A 06/20/17 23:00 07/20/17 22:59 06/20/17 00:30 1 EA Levalbuterol (Xopenex 1.25MG/ 3ML Neb) 1.25 mg Q6R INH 06/21/17 21:00 07/21/17 20:59 06/23/17 19:33 1.25 MG Guaifenesin (Mucinex Contr Rel Tab) 1,200 mg Q12 PO 06/21/17 21:00 07/21/17 20:59 06/23/17 08:08 1,200 MG Apixaban (Eliquis Tab) 5 mg BID PO 06/21/17 21:00 07/21/17 20:59 06/23/17 08:13 5 MG Cefazolin Sodium 2000 mg/Syringe 15 ml @ 3.75 mls/ min Q8H IV 06/21/17 19:00 07/05/17 18:59 06/23/17 19:43 3.75 MLS/MIN Furosemide (Lasix Tab) 20 mg DAILY PO 06/23/17 09:00 07/23/17 08:59 06/23/17 08:12 20 MG Hydrocodone Bit/ Homatropine Methylb (Hycodan Syrup) 5 ml Q6H PRN PO 06/22/17 13:00 07/06/17 12:59 Saccharomyces Boulardii (Florastor Cap) 250 mg DAILY PO 06/23/17 09:00 07/23/17 08:59 06/23/17 08:12 250 MG Benzonatate (Tessalon Perles Cap) 200 mg TID PO 06/22/17 14:00 07/21/17 20:59 06/23/17 13:46 200 MG Metoprolol Tartrate (Lopressor Tab) 50 mg BID PO 06/22/17 21:00 07/20/17 13:59 06/23/17 08:14 50 MG Diltiazem HCl 125 mg/Dextrose 125 ml @ 0 mls/hr Q0M PRN IV 06/22/17 14:00 07/22/17 13:59 06/23/17 03:54 5 MLS/HR Diltiazem HCl (Cardizem Tab) 30 mg Q6 PO 06/23/17 12:00 07/23/17 11:59 06/23/17 17:04 30 MG Insulin Glargine (Lantus Solostar Pen) 15 units BID SC 06/23/17 21:00 07/20/17 20:59 Objective Vital Signs Date Time Temp Pulse Resp B/P (MAP) Pulse Ox O2 Delivery O2 Flow Rate FiO2 06/23/17 19:36 36.6 104 22 122/72 (89) 97 Nasal Cannula 3.0 06/23/17 19:33 77 22 90 Nasal Cannula 3.0 06/23/17 16:00 92 Room Air 06/23/17 15:35 36.7 86 20 109/67 (81) 98 Nasal Cannula 3.0 06/23/17 14:23 86 20 86 Room Air 06/23/17 12:00 92 Room Air 06/23/17 11:29 36.7 90 18 102/71 (81) 94 3.0 06/23/17 08:14 36.7 97 18 119/71 (87) 93 Room Air 06/23/17 08:00 92 Room Air 06/23/17 04:00 92 Room Air 3.0 06/23/17 03:17 37.8 93 18 109/71 (84) 92 06/23/17 00:01 93 Room Air 3.0 06/22/17 23:39 37.2 180 18 124/86 (99) 95 Room Air 06/22/17 20:08 78 20 93 Room Air 06/22/17 20:00 92 Room Air 3.0 Physical Exam General Appearance: WD/WN, no apparent distress Eyes: normal inspection, EOMI, sclerae normal ENT: normal ENT inspection, pharynx normal Neck: supple, no adenopathy, thyroid normal, trachea midline Respiratory/Chest: chest non-tender, no respiratory distress, no accessory muscle use, + rales, + wheezing Cardiovascular: no gallop, no murmur, + irregularly irregular Abdomen: normal bowel sounds, non tender, soft, no organomegaly Extremities: non-tender, normal inspection, normal capillary refill Neurologic/Psychiatric: alert, oriented x 3 Skin: normal color, warm/dry, + pertinent finding (Resolving zoster left forehead) Lymphatic: no adenopathy Laboratory Results Last 24 Hours Test 06/22/17 20:02 06/22/17 21:33 06/23/17 06:28 06/23/17 06:41 Bedside Glucose 267 mg/dl Vancomycin Level Trough 14.1 mcg/ml White Blood Count 12.50 K/uL Red Blood Count 3.39 M/uL Hemoglobin 9.8 g/dL Hematocrit 29.2 % Mean Corpuscular Volume 86.1 fL Mean Corpuscular Hemoglobin 28.9 pg Mean Corpuscular Hemoglobin Concent 33.6 g/dl Platelet Count 265 K/uL Mean Platelet Volume 10.1 fL Neutrophils (%) (Auto) 75.9 % Lymphocytes (%) (Auto) 14.1 % Monocytes (%) (Auto) 8.4 % Eosinophils (%) (Auto) 0.8 % Basophils (%) (Auto) 0.2 % Neutrophils # (Auto) 9.48 K/uL Lymphocytes # (Auto) 1.76 K/uL Monocytes # (Auto) 1.05 K/uL Eosinophils # (Auto) 0.10 K/uL Basophils # (Auto) 0.03 K/uL RDW Standard Deviation 51.2 fL RDW Coefficient of Variation 16.2 % Immature Granulocyte % (Auto) 0.6 % Immature Granulocyte # (Auto) 0.08 K/uL Sodium Level 130 mmol/L Potassium Level 4.1 mmol/L Chloride Level 98 mmol/L Carbon Dioxide Level 24 mmol/L Anion Gap 8.0 mmol/L Blood Urea Nitrogen 19 mg/dl Creatinine 1.10 mg/dl Est Creatinine Clear Calc Drug Dose 93.5 ml/min Estimated GFR () 82.4 Estimated GFR (Non- 71.1 BUN/Creatinine Ratio 17.5 Random Glucose 223 mg/dl Calcium Level 8.4 mg/dl Magnesium Level 1.8 mg/dl Test 06/23/17 06:44 06/23/17 11:13 06/23/17 16:26 Bedside Glucose 245 mg/dl 301 mg/dl 268 mg/dl Assessment and Plan 61-year-old male with methicillin sensitive Staph aureus bacteremia, possible sources include secondary infection of recent shingles or possible secondary bacterial infection of viral respiratory tract infection. Otherwise no localizing signs or symptoms. Patient will be continued on cefazolin. Discussed need for KHALIDA to determine length of IV antibiotics, hopefully to be able to obtain this in the near future. Will follow.
[2017-06-23] MEDS: ATORVASTATIN 20 MG TAB PO SCH (21:11)
[2017-06-24] VITALS (14 sets, daily range): BP systolic 111–132; BP diastolic 61–76; PULSE 63–110; TEMP 36.6–37.4; O2SAT 87–96
[2017-06-24] MEDS: LEVALBUTEROL 1.25MG/3ML NEB INH SCH ×4 (02:20→19:09)
[2017-06-24] MEDS: CEFAZOLIN IV 2,000 MG in SYRINGE 0 ML IV SCH ×3 (03:08→19:39)
[2017-06-24] MEDS: DILTIAZEM HCL 30 MG TAB PO SCH (05:44)
[2017-06-24 06:41] LABS: BASO % 0.5 %; BASO ABS # 0.06 K/uL (0-0.2); EOS % 1.2 %; EOS ABS # 0.16 K/uL (0-0.5); HEMATOCRIT 30.6 % (42-52); HEMOGLOBIN 10.4 g/dL (14.0-18.0); IG# 0.13 K/uL (0.00-0.02); LYMPH ABS # 1.86 K/uL (1.2-3.4); MEAN CORPUSCULAR HEMOGLOBIN 29.2 pg (25-34); MEAN PLATELET VOLUME 9.9 fL (7.4-10.4); MONO % 6.4 %; MONO ABS # 0.85 K/uL (0.11-0.59); NEUT % 76.9 %; NEUT ABS # 10.22 K/uL (1.4-6.5); PLATELET COUNT 312 K/uL (130-400); RED CELL DISTRIBUTION WIDTH CV 16.1 % (11.5-14.5); RED CELL DISTRIBUTION WIDTH SD 50.5 fL (36.4-46.3); WHITE BLOOD COUNT 13.28 K/uL (4.8-10.8)
[2017-06-24 07:21] LABS: CALCIUM 8.3 mg/dl (8.5-10.1); CREATININE 1.13 mg/dl (0.60-1.40); POTASSIUM 3.7 mmol/L (3.5-5.1)
[2017-06-24] MEDS: METOPROLOL TARTRATE 50 MG TAB PO SCH ×2 (07:27→22:31)
[2017-06-24] MEDS: SACCHAROMYCES BOUL (FLORASTOR) 250 MG CAP PO SCH (07:28)
[2017-06-24] MEDS: FUROSEMIDE 20 MG TAB PO SCH (07:28)
[2017-06-24] MEDS: BENZONATATE 100MG CAP PO SCH ×3 (07:28→22:32)
[2017-06-24] MEDS: GUAIFENESIN 600 MG TABCR PO SCH ×2 (07:28→22:30)
[2017-06-24] MEDS: APIXABAN 2.5 MG TAB PO SCH ×2 (07:29→22:31)
[2017-06-24] MEDS: CLOPIDOGREL BISULFATE 75 MG TAB PO SCH (07:29)
[2017-06-24] MEDS: ALLOPURINOL 100 MG TAB PO SCH (07:29)
[2017-06-24] MEDS: PrednisoLONE ACET 1% OP SUSP 5 ML BTL OPL SCH ×4 (07:30→22:29)
[2017-06-24] MEDS: INSULIN ASPART 100 UNITS/ML 3 ML PEN SC SCH ×4 (07:32→21:05)
[2017-06-24] MEDS: LIDODERM (LIDOCAINE) PATCH 5% TD SCH (07:33)
[2017-06-24] MEDS: INSULIN GLARGINE SOLOSTAR 100 UNITS/ML 3 ML PEN SC SCH ×2 (07:33→22:34)
[2017-06-24] MEDS ORDERED: POTASSIUM CHLORIDE 20 MEQ TABCR PO STA (07:55)
[2017-06-24] MEDS ORDERED: FUROSEMIDE INJ 20 MG in SYRINGE 0 ML IV ONE (08:00)
[2017-06-24] MEDS: MAGNESIUM SULFATE 1GM / D5W 100 ML IV SCH ×2 (08:47→09:07)
--- NOTE | 2017-06-24 10:00 | Cardiology Follow-Up ---
Subjective General Date of Service: June 24, 2017. Pt evaluation today including: conversation w/ patient, chart review, lab review, review of studies, conversation w/ [employer] consultant History of Present Illness The patient is a 61 year old male Allergies Coded Allergies: No Known Allergies (Verified , 01/25/16) Social History Smoking Status: Never Smoker Hx Tobacco Use In Past Year?: No Hx Alcohol Use - Type And Amou: No Hx Substance Use - Type And Am: No Problem List Medical Problems: (1) Bronchitis Status: Acute (2) Cellulitis of toe Status: Acute (3) Diabetes Status: Chronic (4) Elevated troponin Status: Acute (5) Heart disease Status: Chronic (6) Leukocytosis Status: Acute Review of Systems Respiratory: + cough, + dyspnea on exertion, No shortness of breath, No dyspnea at rest Cardiac: + edema, No chest pain, No palpitations Additional ROS Details: Feels better Concern over right second toe with redness over last three months Physical Exam Vital Signs Last Vital Signs Documentation Date Time Temp Pulse Resp B/P (MAP) Pulse Ox O2 Delivery O2 Flow Rate FiO2 06/24/17 08:00 92 Room Air 06/24/17 07:06 37.3 106 23 121/76 (91) 06/24/17 04:00 2.0 06/22/17 04:00 100 Physical Exam Constitutional: General Apperance: heathly-appearing Level of Distress: acutely ill Psychiatric: Mental Status: active & alert, normal mood Lungs: Auscultation: inspiratory wheezing, expiratory wheezing, rhonchi Cardiovascular: Heart Auscultation: no murmurs, no rubs, no gallops, irregular rate rhythm Abdomen: Bowel Sounds: normal Inspection & Palpation: soft, non-distended, no tenderness, guarding & rebound Extremities: edema (mild) Assessment and Plan Assessment and Plan Impressions: 1) New onset Afib--asymptomatic 2) MSSA bacteremia 3) recent episode of scalp and ocular shingles PRIOR CARDIAC HX: 1. Ischemic cardiomyopathy with an ejection fraction in the range of 45% with hypokinesis of the basal inferior, inferolateral and anterolateral cano. 2. Dilated right ventricle, normal RV function. 3. Type 2 diastolic dysfunction with elevated left atrial pressures by echo, 08/2016. 4. Coronary artery disease, status post cardiac catheterization, 02/01/2013 with a 30-40% narrowing in the proximal RCA; severe aneurysmal diffusely diseased mid RCA with a 75% stenosis and a 95% stenosis in the distal RCA; luminal irregularities of a nondominant circ which is then totally occluded after the AV groove. 5. LAD disease with a 70% ostial lesion in a small diagonal branch. Switch cardizem to CD 180mg daily Continue BB Apixaban and Plavix Agree with dose IV lasix Plan KHALIDA tomorrow with anesthesia in the [facility] at 7 am NPO after MN Risks and benefits of KHALIDA discussed in detail with the patient and consent signed Will need to adjust lantus PM dose while NPO discussed toe with Primary service Laboratory Results Last 24 Hours Test 06/23/17 11:13 06/23/17 16:26 06/23/17 20:11 06/24/17 06:27 Bedside Glucose 301 mg/dl 268 mg/dl 259 mg/dl White Blood Count 13.28 K/uL Red Blood Count 3.56 M/uL Hemoglobin 10.4 g/dL Hematocrit 30.6 % Mean Corpuscular Volume 86.0 fL Mean Corpuscular Hemoglobin 29.2 pg Mean Corpuscular Hemoglobin Concent 34.0 g/dl Platelet Count 312 K/uL Mean Platelet Volume 9.9 fL Neutrophils (%) (Auto) 76.9 % Lymphocytes (%) (Auto) 14.0 % Monocytes (%) (Auto) 6.4 % Eosinophils (%) (Auto) 1.2 % Basophils (%) (Auto) 0.5 % Neutrophils # (Auto) 10.22 K/uL Lymphocytes # (Auto) 1.86 K/uL Monocytes # (Auto) 0.85 K/uL Eosinophils # (Auto) 0.16 K/uL Basophils # (Auto) 0.06 K/uL RDW Standard Deviation 50.5 fL RDW Coefficient of Variation 16.1 % Immature Granulocyte % (Auto) 1.0 % Immature Granulocyte # (Auto) 0.13 K/uL Sodium Level 130 mmol/L Potassium Level 3.7 mmol/L Chloride Level 97 mmol/L Carbon Dioxide Level 27 mmol/L Anion Gap 7.0 mmol/L Blood Urea Nitrogen 20 mg/dl Creatinine 1.13 mg/dl Est Creatinine Clear Calc Drug Dose 91.1 ml/min Estimated GFR () 79.7 Estimated GFR (Non- 68.8 BUN/Creatinine Ratio 17.6 Random Glucose 214 mg/dl Calcium Level 8.3 mg/dl Magnesium Level 1.7 mg/dl Test 06/24/17 07:12 Bedside Glucose 224 mg/dl
--- NOTE | 2017-06-24 10:23 | Hospitalist Progress Note ---
Hospitalist Progress Note Date of Service June 24, 2017. Subjective Pt evaluation today including: conversation w/ patient, conversation w/ coding consultant (Cardiology, infectious disease) Patient feeling much improved today. Cough is less, he is weaned off oxygen. Telemetry with rate controlled A. fib. Remains afebrile. He does report today that he has had an issue with his right toe with callus that was debrided about 3 weeks ago. He has noted increased swelling and pain in the last couple of days. Respiratory: + cough Abdomen: No diarrhea All Other Systems: Reviewed and Negative Objective Vital Signs Date Time Temp Pulse Resp B/P (MAP) Pulse Ox O2 Delivery O2 Flow Rate FiO2 06/24/17 08:00 92 Room Air 06/24/17 07:06 37.3 106 23 121/76 (91) 96 Room Air 06/24/17 06:57 92 20 88 Room Air 06/24/17 04:00 93 Room Air 2.0 06/24/17 03:38 37.4 63 22 125/61 (82) 91 Room Air 06/24/17 02:20 81 20 87 Room Air 06/24/17 00:02 93 Nasal Cannula 2.0 06/23/17 23:38 37.4 98 23 117/75 (89) 93 Room Air 06/23/17 20:00 95 Nasal Cannula 2.0 06/23/17 19:36 36.6 104 22 122/72 (89) 97 Nasal Cannula 3.0 06/23/17 19:33 77 22 90 Nasal Cannula 3.0 06/23/17 16:00 92 Room Air 06/23/17 15:35 36.7 86 20 109/67 (81) 98 Nasal Cannula 3.0 06/23/17 14:23 86 20 86 Room Air 06/23/17 12:00 92 Room Air 06/23/17 11:29 36.7 90 18 102/71 (81) 94 3.0 Physical Exam General Appearance: WD/WN, no apparent distress, + obese Eyes: normal inspection, sclerae normal ENT: hearing grossly normal Neck: trachea midline Respiratory/Chest: no respiratory distress (Overall much improved air movement throughout), no accessory muscle use, + crackles (At the left base), + wheezing (A few scattered expiratory wheezes) Cardiovascular: no murmur, + irregularly irregular (With normal rate) Abdomen: normal bowel sounds, non tender, soft Extremities: + swelling (Legs with 1+ pitting edema bilaterally; right second toe with edema, erythema to the MTP joint and distally, distal toe with crusted callus formation, medial surface with small bloody drainage and scab formation, no purulent drainage) Neurologic/Psychiatric: alert, normal mood/affect, oriented x 3 Skin: normal color, warm/dry Laboratory Results Last 24 Hours Test 06/23/17 11:13 06/23/17 16:26 06/23/17 20:11 06/24/17 06:27 Bedside Glucose 301 mg/dl 268 mg/dl 259 mg/dl White Blood Count 13.28 K/uL Red Blood Count 3.56 M/uL Hemoglobin 10.4 g/dL Hematocrit 30.6 % Mean Corpuscular Volume 86.0 fL Mean Corpuscular Hemoglobin 29.2 pg Mean Corpuscular Hemoglobin Concent 34.0 g/dl Platelet Count 312 K/uL Mean Platelet Volume 9.9 fL Neutrophils (%) (Auto) 76.9 % Lymphocytes (%) (Auto) 14.0 % Monocytes (%) (Auto) 6.4 % Eosinophils (%) (Auto) 1.2 % Basophils (%) (Auto) 0.5 % Neutrophils # (Auto) 10.22 K/uL Lymphocytes # (Auto) 1.86 K/uL Monocytes # (Auto) 0.85 K/uL Eosinophils # (Auto) 0.16 K/uL Basophils # (Auto) 0.06 K/uL RDW Standard Deviation 50.5 fL RDW Coefficient of Variation 16.1 % Immature Granulocyte % (Auto) 1.0 % Immature Granulocyte # (Auto) 0.13 K/uL Sodium Level 130 mmol/L Potassium Level 3.7 mmol/L Chloride Level 97 mmol/L Carbon Dioxide Level 27 mmol/L Anion Gap 7.0 mmol/L Blood Urea Nitrogen 20 mg/dl Creatinine 1.13 mg/dl Est Creatinine Clear Calc Drug Dose 91.1 ml/min Estimated GFR () 79.7 Estimated GFR (Non- 68.8 BUN/Creatinine Ratio 17.6 Random Glucose 214 mg/dl Calcium Level 8.3 mg/dl Magnesium Level 1.7 mg/dl Test 06/24/17 07:12 Bedside Glucose 224 mg/dl Assessment and Plan This patient is a 61-year-old male with past medical history of diabetes mellitus type II, hypertension, obstructive sleep apnea on CPAP, dyslipidemia, chronic diastolic congestive heart failure, CVA and recent shingles 2 weeks ago. Presented with fever, sepsis, generalized fatigue, fall, and yellow productive sputum, was found in ED to have positive troponin and new onset atrial fibrillation. New Onset Atrial Fibrillation with RVR/myocardial demand ischemia: Rates finally controlled and weaned off diltiazem drip and on p.o. diltiazem, now on Eliquis for anticoagulation - Elevated troponins related to demand from RVR and then trended downward no CP other than musculoskeletal from fall -Continue Eliquis 5 mg p.o. twice daily for anticoagulation - Stopped ASA and continue Plavix 75 mg daily so as to avoid triple therapy -Continue metoprolol 50 mg p.o. twice daily -Weaned off diltiazem drip and now on diltiazem 30 mg p.o. every 6 hours- cardiology plans to switch him to long-acting diltiazem today - Cardiology following - recommendations appreciated -Replace magnesium and potassium as needed Sepsis POA/LLL pneumonia/acute hypoxic respiratory failure/Staphylococcus aureus bacteremia/right second toe infection-all of his household contacts had a recent viral illness and he started having fevers 1 week ago along with cold symptoms. His fevers then worsened and cough has progressively worsened with productive sputum. Growing MSSA in 1 out of 2 blood culture sets from admission , repeat blood culture again with Staphylococcus species, sensitivity pending. Chest CT on admission without pneumonia, however after IV fluid hydration, a repeat chest x-ray 2 days later has fluffed out a left lower lobe pneumonia. Possibly has a Staphylococcus aureus post viral pneumonia, versus seeded from staph bacteremia with source of right toe infection. Leukocytosis still present and worsening again to 13 K from yesterday but improved since admission. Fevers have subsided. Off and on oxygen. Area of recent shingles without cellulitis; small scab on top of head but healing so not likely to be the source. Right second toe seems to be the source. Procalcitonin negative, interestingly Overall much improved from a respiratory standpoint -Follow-up sensitivity and blood cultures and follow repeat blood cultures again on 06/22 which are no growth to date -Discontinued Levaquin for pneumonia as is likely staph -discontinued vancomycin after sensitivities came back as MSSA -Check x-ray of right toe, consult orthopedics to see about debridement of the toe -Continue Ancef and will need for at least 2 weeks, possibly 6 weeks if has SBE -Consult infectious disease for Staph bacteremia-appreciate further recommendations -Transthoracic echocardiogram with poor visualization of the valves -Plan for KHALIDA tomorrow morning to rule out SBE -Follow CBC -Continue Tessalon pearls for cough, continue Mucinex to break up sputum -Continue Hycodan as needed at bedtime for cough -Continue levalbuterol nebs for wheezing Chest wall pain-s/p fall with contusion-improving -continue tylenol prn pain, lidocaine patch Acute on chronic combined Systolic and Diastolic CHF:ECHO with mildly reduced LV function but poor images. Now weight is up again and remains volume overloaded. Not as good of a response to IV Lasix yesterday, and still 8 L positive and still with lower extremity edema -will again give Lasix 20 mg IV 1 now -Continue Lasix 20 mg p.o. every morning and dose with IV Lasix as needed -Can eventually restart his amiloride/HCTZ and valsartan if blood pressures will allow, but will hold off for now given recent increase in metoprolol and adding diltiazem Fall with Generalized Weakness 2/2 Infection/Sepsis vs RVR: - treating both as above -PT/OT evals T2DM with Hyperglycemia, hyperglycemia persists today but improved from yesterday - Holding Metformin and covering with Lantus and will increase to 15 units BID and SSI was tightened DEANDRE on CPAP: - May use own CPAP Obesity, BMI 46 -Encouraged weight loss Pulmonary nodule-seen on CT-needs follow-up CT as per guidelines DVT Prophylaxis: Eliquis Disposition-remain on telemetry due to rapid atrial fibrillation Code Status: FULL RESUSCITATION
--- NOTE | 2017-06-24 11:58 | DIAGNOSTIC IMAGING REPORT ---
RIGHT SECOND TOE 3 VIEWS CLINICAL HISTORY: Second toe infection. FINDINGS: 3 views of the right second toe are obtained. No prior studies are available for comparison at the time of dictation. The skeletal structures are well mineralized. No fracture is seen. No bony erosion or periostitis is identified. The second metatarsophalangeal and interphalangeal joints appear preserved. Soft tissue edema is noted in the toe and imaged forefoot. No radiodense foreign body is identified. IMPRESSION: Soft tissues swelling with no acute bony abnormality identified. Electronically signed by: Howard Conrad M.D. 06/24/2017 11:56 AM Dictated Date/Time: 06/24/2017 11:55 AM
[2017-06-24] MEDS: DILTIAZEM HCL 180 MG CAPCR PO SCH (13:22)
--- NOTE | 2017-06-24 14:59 | Infectious Disease Progress Nt ---
Progress Note Date of Service June 24, 2017. Subjective Pt evaluation today including: conversation w/ patient, physical exam, chart review, lab review, review of studies, conversation w/ enterprise resource planning consultant Patient feeling somewhat better with less shortness of breath. Complaining of increasing pain and redness of right 2nd toe over last day or 2. No fever. All Other Systems: Reviewed and Negative Medications Reported Home Medications Medications Dose Route/Sig Max Daily Dose Days Date Category Dose Instructions Ventolin Hfa (Albuterol) 200 Puffs/72399 Mcg Aers 2 Puffs INH Q4 PRN 06/19/17 Reported Prednisolone Acetate (Prednisolone Acetate (Ophth)) 1 % Manjula 1 Drop OPL QID 10 06/19/17 Reported LEFT EYE ONLY FOR ONE WEEK. Lasix (Furosemide) 20 Mg Tab 20 Mg PO DAILY 06/19/17 Reported TAKE DAILY IF NEEDED FOR 30 DAYS Metformin HCl ER (Metformin HCl) 1,000 Mg Tab 1,000 Mg PO BID 06/19/17 Reported Amiloride/Hydrochlorothia 5-50 mg (Amiloride/HCTZ) 1 Ea Tab 1 Tab PO DAILY 06/19/17 Reported Nitrostat (Nitroglycerin) 0.4 Mg Tab 0.4 Mg UT PRN PRN 01/11/16 Reported Lipitor (Atorvastatin Calcium) 40 Mg Tab 40 Mg PO HS 01/11/16 Reported Toprol-Xl (Metoprolol Succinate) 25 Mg Tabcr 25 Mg PO QAM 01/11/16 Reported Diovan (Valsartan) 320 Mg Tab 320 Mg PO QAM 01/11/16 Reported Vitamin D3 (Cholecalciferol) 1,000 Unit Tab 2,000 Tab PO QAM 01/11/16 Reported Mobic (Meloxicam) 7.5 Mg Tab 7.5 Mg PO BID 01/11/16 Reported Novolog Flexpen (Insulin Aspart) 100 Units/Ml Inj Units SC UD 01/11/16 Reported 34 UNITS QAM 34 UNITS NOON 37 UNITS QPM ALL + SLIDING SCALE Plavix (Clopidogrel Bisulfate) 75 Mg Tab 75 Mg PO QAM 01/11/16 Reported Multivitamin (Multivitamins) Tab 1 Tab PO QAM 01/29/13 Reported Aspirin Ec (Aspirin) 81 Mg Tab 81 Mg PO HS 01/29/13 Reported Zyloprim (Allopurinol) 100 Mg Tab 100 Mg PO QAM 01/29/13 Reported Objective Vital Signs Date Time Temp Pulse Resp B/P (MAP) Pulse Ox O2 Delivery O2 Flow Rate FiO2 06/24/17 14:19 74 15 94 Room Air 06/24/17 12:00 92 Room Air 06/24/17 11:00 36.6 88 20 111/70 (84) 93 Room Air 06/24/17 08:00 92 Room Air 06/24/17 07:06 37.3 106 23 121/76 (91) 96 Room Air 06/24/17 06:57 92 20 88 Room Air 06/24/17 04:00 93 Room Air 2.0 06/24/17 03:38 37.4 63 22 125/61 (82) 91 Room Air 06/24/17 02:20 81 20 87 Room Air 06/24/17 00:02 93 Nasal Cannula 2.0 06/23/17 23:38 37.4 98 23 117/75 (89) 93 Room Air 06/23/17 20:00 95 Nasal Cannula 2.0 06/23/17 19:36 36.6 104 22 122/72 (89) 97 Nasal Cannula 3.0 06/23/17 19:33 77 22 90 Nasal Cannula 3.0 06/23/17 16:00 92 Room Air 06/23/17 15:35 36.7 86 20 109/67 (81) 98 Nasal Cannula 3.0 Physical Exam General Appearance: WD/WN, no apparent distress Eyes: normal inspection, EOMI, sclerae normal ENT: normal ENT inspection, pharynx normal Neck: supple, no adenopathy, thyroid normal, trachea midline Respiratory/Chest: chest non-tender, lungs clear, normal breath sounds, no respiratory distress Cardiovascular: no gallop, no murmur, + irregularly irregular Abdomen: normal bowel sounds, non tender, soft, no organomegaly Extremities: non-tender, no calf tenderness Neurologic/Psychiatric: alert, oriented x 3 Skin: normal color, no rash, + pertinent finding (Right 2nd toe erythema and swelling) Lymphatic: no adenopathy Laboratory Results Last 24 Hours Test 06/23/17 16:26 06/23/17 20:11 06/24/17 06:27 06/24/17 07:12 Bedside Glucose 268 mg/dl 259 mg/dl 224 mg/dl White Blood Count 13.28 K/uL Red Blood Count 3.56 M/uL Hemoglobin 10.4 g/dL Hematocrit 30.6 % Mean Corpuscular Volume 86.0 fL Mean Corpuscular Hemoglobin 29.2 pg Mean Corpuscular Hemoglobin Concent 34.0 g/dl Platelet Count 312 K/uL Mean Platelet Volume 9.9 fL Neutrophils (%) (Auto) 76.9 % Lymphocytes (%) (Auto) 14.0 % Monocytes (%) (Auto) 6.4 % Eosinophils (%) (Auto) 1.2 % Basophils (%) (Auto) 0.5 % Neutrophils # (Auto) 10.22 K/uL Lymphocytes # (Auto) 1.86 K/uL Monocytes # (Auto) 0.85 K/uL Eosinophils # (Auto) 0.16 K/uL Basophils # (Auto) 0.06 K/uL RDW Standard Deviation 50.5 fL RDW Coefficient of Variation 16.1 % Immature Granulocyte % (Auto) 1.0 % Immature Granulocyte # (Auto) 0.13 K/uL Sodium Level 130 mmol/L Potassium Level 3.7 mmol/L Chloride Level 97 mmol/L Carbon Dioxide Level 27 mmol/L Anion Gap 7.0 mmol/L Blood Urea Nitrogen 20 mg/dl Creatinine 1.13 mg/dl Est Creatinine Clear Calc Drug Dose 91.1 ml/min Estimated GFR () 79.7 Estimated GFR (Non- 68.8 BUN/Creatinine Ratio 17.6 Random Glucose 214 mg/dl Calcium Level 8.3 mg/dl Magnesium Level 1.7 mg/dl Test 06/24/17 11:13 Bedside Glucose 328 mg/dl Assessment and Plan 61-year-old male with methicillin sensitive Staph aureus bacteremia, possible sources include toe infection versus secondary infection of recent shingles. Patient be continued on IV cefazolin and. KHALIDA tomorrow. Will follow.
[2017-06-24] MEDS: ATORVASTATIN 20 MG TAB PO SCH (22:30)
--- NOTE | 2017-06-24 22:34 | DIAGNOSTIC IMAGING REPORT ---
R LOWER EXT NONJOINT WITHOUT HISTORY: 61 years-old Male ULCER ON TOE chronic ulcer of the second toe. COMPARISON: Radiograph of same day TECHNIQUE: Multiplanar multisequence MRI of the right forefoot was obtained without the use of contrast. FINDINGS: The axial sequences are markedly motion degraded. Axial PD series are nearly nondiagnostic. There is a large T2 hyperintense T1 hypointense lesion involving the lateral plantar margin of the first metatarsal head suggesting a large subcortical cyst with circumscribed sclerotic margins measuring 1.4 x 1.1 x 1.1 cm. Mild first MTP joint degenerative changes with moderate degenerative changes about the hallux sesamoids with the adjacent metatarsal head. There is flexion involving the majority of the interphalangeal joints throughout. There is moderate bone marrow edema involving the second distal phalanx nicely seen on image 18 of series 5 with preserved T1 marrow signal. No acute fracture identified. Mild joint space narrowing with marginal spurring involves the metatarsal and interphalangeal joints. There is extensive subcutaneous edema about the imaged foot which is most pronounced dorsally. Moderate subcutaneous edema about the second digit with 6 mm skin ulcer along the distal margin. No drainable fluid collections. Moderate to extensive edema is noted throughout the intrinsic musculature of the foot. Imaged flexor and extensor tendons appear intact as seen. Lisfranc ligament is identified and appears to be intact. No osteochondral defect of the talar dome. Mild subcortical cystic changes of the medial malleolus and subtalar joint. Small subtalar joint effusion. IMPRESSION: 1. Motion degraded exam. 2. 6 mm skin ulcer of the distal second toe with moderate subcutaneous edema. Additionally, there is moderate bone marrow edema of the second distal phalanx with preserved T1 marrow signal suggesting reactive changes without evidence of osteomyelitis at this time. 3. Extensive subcutaneous edema about the foot, most pronounced dorsally with moderate to extensive edema throughout the intrinsic musculature. Findings are suspicious for cellulitis with myositis. Lymphedema or venous stasis are additional differential considerations. 4. Large T2 hyperintense focus of the first metatarsal head suggests a subcortical cyst. 5. Small subtalar joint effusion. The above report was generated using voice recognition software. It may contain grammatical, syntax or spelling errors. Electronically signed by: Harrison Zhang M.D. 06/24/2017 10:32 PM Dictated Date/Time: 06/24/2017 10:20 PM
[2017-06-25] VITALS (17 sets, daily range): BP systolic 91–130; BP diastolic 57–90; PULSE 57–110; TEMP 36.7–37.2; O2SAT 90–97
[2017-06-25] MEDS: LEVALBUTEROL 1.25MG/3ML NEB INH SCH ×4 (01:45→18:48)
[2017-06-25] MEDS: CEFAZOLIN IV 2,000 MG in SYRINGE 0 ML IV SCH ×3 (02:58→19:31)
[2017-06-25 06:29] LABS: HEMATOCRIT 30.1 % (42-52); HEMOGLOBIN 10.4 g/dL (14.0-18.0); MEAN CELL VOLUME 86.2 fL (80-100); MEAN CORPUSCULAR HEMOGLOBIN 29.8 pg (25-34); MEAN CORPUSCULAR HGB CONC 34.6 g/dl (32-36); MEAN PLATELET VOLUME 9.6 fL (7.4-10.4); PLATELET COUNT 383 K/uL (130-400); RED CELL DISTRIBUTION WIDTH CV 16.3 % (11.5-14.5); RED CELL DISTRIBUTION WIDTH SD 51.1 fL (36.4-46.3); WHITE BLOOD COUNT 15.05 K/uL (4.8-10.8)
[2017-06-25 07:08] LABS: CALCIUM 8.2 mg/dl (8.5-10.1); CREATININE 1.1 mg/dl (0.60-1.40); POTASSIUM 3.9 mmol/L (3.5-5.1)
[2017-06-25 07:23] LABS: BASO % 0.4 %; BASO ABS # 0.06 K/uL (0-0.2); EOS % 1.6 %; EOS ABS # 0.24 K/uL (0-0.5); IG# 0.18 K/uL (0.00-0.02); LYMPH % 15.2 %; LYMPH ABS # 2.29 K/uL (1.2-3.4); MONO % 5.7 %; MONO ABS # 0.86 K/uL (0.11-0.59); NEUT % 75.9 %; NEUT ABS # 11.42 K/uL (1.4-6.5)
[2017-06-25] MEDS ORDERED: PROPOFOL IV EMULSION 10 MG/ML 20 ML VIAL ONE (07:41)
[2017-06-25] MEDS ORDERED: LIDOCAINE HCL 2% 2 ML VIAL (20MG/ML) ONE (07:41)
--- NOTE | 2017-06-25 07:45 | Cardiology Procedure Brief Nt ---
Preliminary Cardiology Note Procedure Date June 25, 2017. Pre-Procedure Diagnosis MSSA Bacteremia R/O Endocarditis Post-Procedure Diagnosis No evidence of vegetations Procedure(s) Performed KHALIDA Painting Machine Operator Sandra Applied Statistician(s) none Estimated Blood Loss none Medication(s) Anesthesia provided by the anesthesia dept Preliminary Findings No vegetations Moderate LV dysfunction Recommendations none Specimens none Complication(s) None (Patient had bloody sputum on floor prior to procedure. Mouth was free of blood pre procedure. Probe passed easily. No blood in suction or on probe at end of procedure.) Disposition
--- NOTE | 2017-06-25 07:55 | Cardiology Follow-Up ---
Subjective General Date of Service: June 25, 2017. Pt evaluation today including: conversation w/ patient, chart review, lab review, review of studies History of Present Illness The patient is a 61 year old male Allergies Coded Allergies: No Known Allergies (Verified , 01/25/16) Social History Smoking Status: Never Smoker Hx Tobacco Use In Past Year?: No Hx Alcohol Use - Type And Amou: No Hx Substance Use - Type And Am: No Problem List Medical Problems: (1) Bronchitis Status: Acute (2) Cellulitis of toe Status: Acute (3) Diabetes Status: Chronic (4) Elevated troponin Status: Acute (5) Heart disease Status: Chronic (6) Leukocytosis Status: Acute Review of Systems Respiratory: + cough, + wheezing, + hemoptysis, No shortness of breath, No dyspnea at rest Cardiac: + edema, No chest pain, No palpitations Additional ROS Details: Blood tinge sputum this am prior to KHALIDA Physical Exam Vital Signs Last Vital Signs Documentation Date Time Temp Pulse Resp B/P (MAP) Pulse Ox O2 Delivery O2 Flow Rate FiO2 06/25/17 07:35 85 18 110/57 96 Nasal Cannula 6 06/25/17 06:55 36.9 06/22/17 04:00 100 Physical Exam Constitutional: General Apperance: heathly-appearing Level of Distress: acutely ill Psychiatric: Mental Status: active & alert, normal mood Lungs: Respiratory effort: no dyspnea Auscultation: expiratory wheezing Cardiovascular: Heart Auscultation: no murmurs, no rubs, no gallops, irregular rate rhythm Abdomen: Bowel Sounds: normal Inspection & Palpation: soft, non-distended, no tenderness, guarding & rebound Extremities: edema (moderate) Assessment and Plan Assessment and Plan Impressions: 1) New onset Afib--asymptomatic 2) MSSA bacteremia 3) recent episode of scalp and ocular shingles PRIOR CARDIAC HX: 1. Ischemic cardiomyopathy with an ejection fraction in the range of 45% with hypokinesis of the basal inferior, inferolateral and anterolateral cano. 2. Dilated right ventricle, normal RV function. 3. Type 2 diastolic dysfunction with elevated left atrial pressures by echo, 08/2016. 4. Coronary artery disease, status post cardiac catheterization, 02/01/2013 with a 30-40% narrowing in the proximal RCA; severe aneurysmal diffusely diseased mid RCA with a 75% stenosis and a 95% stenosis in the distal RCA; luminal irregularities of a nondominant circ which is then totally occluded after the AV groove. 5. LAD disease with a 70% ostial lesion in a small diagonal branch. cardizem to CD 180mg daily Continue BB Apixaban and Plavix Switch lasix to IV today KHALIDA w/o vegetations; LVEF moderately reduced NPO until 11 am then cold liquids -- if tolerated then can eat discussed with Primary service Laboratory Results Last 24 Hours Test 06/24/17 11:13 06/24/17 15:46 06/24/17 20:50 06/25/17 06:19 Bedside Glucose 328 mg/dl 237 mg/dl 320 mg/dl White Blood Count 15.05 K/uL Red Blood Count 3.49 M/uL Hemoglobin 10.4 g/dL Hematocrit 30.1 % Mean Corpuscular Volume 86.2 fL Mean Corpuscular Hemoglobin 29.8 pg Mean Corpuscular Hemoglobin Concent 34.6 g/dl Platelet Count 383 K/uL Mean Platelet Volume 9.6 fL Neutrophils (%) (Auto) 75.9 % Lymphocytes (%) (Auto) 15.2 % Monocytes (%) (Auto) 5.7 % Eosinophils (%) (Auto) 1.6 % Basophils (%) (Auto) 0.4 % Neutrophils # (Auto) 11.42 K/uL Lymphocytes # (Auto) 2.29 K/uL Monocytes # (Auto) 0.86 K/uL Eosinophils # (Auto) 0.24 K/uL Basophils # (Auto) 0.06 K/uL RDW Standard Deviation 51.1 fL RDW Coefficient of Variation 16.3 % Immature Granulocyte % (Auto) 1.2 % Immature Granulocyte # (Auto) 0.18 K/uL Toxic Granulation 1+ Echinocytes 1+ Erythrocyte Sedimentation Rate 80 mm/hr Sodium Level 132 mmol/L Potassium Level 3.9 mmol/L Chloride Level 98 mmol/L Carbon Dioxide Level 27 mmol/L Anion Gap 6.0 mmol/L Blood Urea Nitrogen 17 mg/dl Creatinine 1.10 mg/dl Est Creatinine Clear Calc Drug Dose 93.5 ml/min Estimated GFR () 82.4 Estimated GFR (Non- 71.1 BUN/Creatinine Ratio 15.0 Random Glucose 234 mg/dl Calcium Level 8.2 mg/dl Magnesium Level 1.8 mg/dl C-Reactive Protein 13.90 mg/dl
[2017-06-25] MEDS ORDERED: FUROSEMIDE INJ 40 MG in SYRINGE 0 ML IV ONE (08:00)
--- NOTE | 2017-06-25 08:03 | Anesthesiology Progress Note ---
Anesthesia Post Op Note Date & Time June 25, 2017 at 08:03 Vital Signs Pain Intensity: 0.0 Vital Signs Past 12 Hours Date Time Temp Pulse Resp B/P (MAP) Pulse Ox O2 Delivery O2 Flow Rate FiO2 06/25/17 07:57 37 99 18 122/76 (91) 97 Room Air 06/25/17 07:52 37 99 18 130/76 (94) 97 Room Air 06/25/17 07:42 37 93 18 106/72 (83) 97 Room Air 06/25/17 07:35 85 18 110/57 96 Nasal Cannula 6 06/25/17 07:30 105 20 115/71 97 Nasal Cannula 6 06/25/17 07:25 108 20 107/73 97 Nasal Cannula 6 06/25/17 07:20 110 20 130/84 97 Nasal Cannula 6 06/25/17 06:55 36.9 57 18 117/84 (95) 92 Room Air 06/25/17 06:51 57 20 92 Room Air 06/25/17 04:00 CPAP 3.0 06/25/17 03:48 36.7 93 22 110/85 (93) 97 BiPAP 06/25/17 01:48 90 21 91 BiPAP/CPAP 3.0 06/25/17 00:01 CPAP 3.0 06/24/17 23:38 37.3 88 22 132/71 (91) 93 BiPAP Notes Mental Status: alert / awake / arousable, participated in evaluation Pt Amnestic to Procedure: Yes Nausea / Vomiting: adequately controlled Pain: adequately controlled Airway Patency, RR, SpO2: stable & adequate BP & HR: stable & adequate Hydration State: stable & adequate Anesthetic Complications: no major complications apparent
[2017-06-25] MEDS: INSULIN ASPART 100 UNITS/ML 3 ML PEN SC SCH ×4 (08:19→20:41)
[2017-06-25] MEDS: INSULIN GLARGINE SOLOSTAR 100 UNITS/ML 3 ML PEN SC SCH ×2 (08:20→20:42)
[2017-06-25] MEDS: PrednisoLONE ACET 1% OP SUSP 5 ML BTL OPL SCH ×4 (08:21→20:35)
[2017-06-25] MEDS: LIDODERM (LIDOCAINE) PATCH 5% TD SCH (09:00)
[2017-06-25] MEDS ORDERED: GUAIFENESIN/CODEINE 100MG/10MG 5ML UDC PO PRN (11:00)
[2017-06-25] MEDS: ALLOPURINOL 100 MG TAB PO SCH (11:06)
[2017-06-25] MEDS: FUROSEMIDE 20 MG TAB PO SCH (11:06)
[2017-06-25] MEDS: DILTIAZEM HCL 180 MG CAPCR PO SCH (11:06)
[2017-06-25] MEDS: CLOPIDOGREL BISULFATE 75 MG TAB PO SCH (11:06)
[2017-06-25] MEDS: BENZONATATE 100MG CAP PO SCH ×3 (11:06→20:33)
[2017-06-25] MEDS: SACCHAROMYCES BOUL (FLORASTOR) 250 MG CAP PO SCH (11:07)
[2017-06-25] MEDS: APIXABAN 2.5 MG TAB PO SCH ×2 (11:07→20:34)
[2017-06-25] MEDS: METOPROLOL TARTRATE 50 MG TAB PO SCH ×2 (11:07→20:34)
[2017-06-25] MEDS ORDERED: POTASSIUM CHLORIDE 20 MEQ TABCR PO ONE (11:15)
[2017-06-25] MEDS ORDERED: FEXOFENADINE HCL 60 MG TAB PO ONE (11:15)
[2017-06-25] MEDS ORDERED: TRIAMCINOLONE ACET NASAL SPRAY 10.8ML BTL NAE ONE (11:15)
--- NOTE | 2017-06-25 13:00 | Podiatry Progress Note ---
Subjective Date of Service June 25, 2017. Subjective Pt evaluation today including: conversation w/ patient Pain: No pain to right 2nd digit He denies any o/n events. Denies any NVFC at today's visit. Review of Systems Constitutional: + fever, + chills, + sweats All Other Systems: Reviewed and Negative Objective Vital Signs Date Time Temp Pulse Resp B/P (MAP) Pulse Ox O2 Delivery O2 Flow Rate FiO2 06/25/17 10:55 37.2 99 18 119/70 (86) 90 2.0 06/25/17 08:00 92 Room Air 06/25/17 08:00 36.8 104 20 120/68 (85) 91 Room Air 104 06/25/17 07:57 37 99 18 122/76 (91) 97 Room Air 06/25/17 07:52 37 99 18 130/76 (94) 97 Room Air 06/25/17 07:42 37 93 18 106/72 (83) 97 Room Air 06/25/17 07:35 85 18 110/57 96 Nasal Cannula 6 06/25/17 07:30 105 20 115/71 97 Nasal Cannula 6 06/25/17 07:25 108 20 107/73 97 Nasal Cannula 6 06/25/17 07:20 110 20 130/84 97 Nasal Cannula 6 06/25/17 06:55 36.9 57 18 117/84 (95) 92 Room Air 06/25/17 06:51 57 20 92 Room Air 06/25/17 04:00 CPAP 3.0 06/25/17 03:48 36.7 93 22 110/85 (93) 97 BiPAP 06/25/17 01:48 90 21 91 BiPAP/CPAP 3.0 06/25/17 00:01 CPAP 3.0 06/24/17 23:38 37.3 88 22 132/71 (91) 93 BiPAP 06/24/17 20:00 Room Air 06/24/17 19:34 36.9 110 22 129/75 (93) 93 Room Air 06/24/17 19:12 97 20 91 Room Air 06/24/17 16:00 Nasal Cannula 2.0 06/24/17 15:41 37.2 105 22 118/70 (86) 93 Nasal Cannula 3.0 06/24/17 14:19 74 15 94 Room Air 5/1/18 12:00 92 Room Air Physical Exam General Appearance: no apparent distress Comments: Neurovascular status unchanged from previous visit Right second digit wound in place negative MRI for any concern of osteomyelitis there is reactive marrow edema present likely due to hammertoe deformity. Wound appears stable at this point no significant changes. Cellulitis is well controlled at this time. No purulence malodor caliber or proximal streaking are noted to the right second digit. Laboratory Results Last 24 Hours Test 06/24/17 15:46 06/24/17 20:50 06/25/17 06:19 06/25/17 11:16 Bedside Glucose 237 mg/dl 320 mg/dl 272 mg/dl White Blood Count 15.05 K/uL Red Blood Count 3.49 M/uL Hemoglobin 10.4 g/dL Hematocrit 30.1 % Mean Corpuscular Volume 86.2 fL Mean Corpuscular Hemoglobin 29.8 pg Mean Corpuscular Hemoglobin Concent 34.6 g/dl Platelet Count 383 K/uL Mean Platelet Volume 9.6 fL Neutrophils (%) (Auto) 75.9 % Lymphocytes (%) (Auto) 15.2 % Monocytes (%) (Auto) 5.7 % Eosinophils (%) (Auto) 1.6 % Basophils (%) (Auto) 0.4 % Neutrophils # (Auto) 11.42 K/uL Lymphocytes # (Auto) 2.29 K/uL Monocytes # (Auto) 0.86 K/uL Eosinophils # (Auto) 0.24 K/uL Basophils # (Auto) 0.06 K/uL RDW Standard Deviation 51.1 fL RDW Coefficient of Variation 16.3 % Immature Granulocyte % (Auto) 1.2 % Immature Granulocyte # (Auto) 0.18 K/uL Toxic Granulation 1+ Echinocytes 1+ Erythrocyte Sedimentation Rate 80 mm/hr Sodium Level 132 mmol/L Potassium Level 3.9 mmol/L Chloride Level 98 mmol/L Carbon Dioxide Level 27 mmol/L Anion Gap 6.0 mmol/L Blood Urea Nitrogen 17 mg/dl Creatinine 1.10 mg/dl Est Creatinine Clear Calc Drug Dose 93.5 ml/min Estimated GFR () 82.4 Estimated GFR (Non- 71.1 BUN/Creatinine Ratio 15.0 Random Glucose 234 mg/dl Calcium Level 8.2 mg/dl Magnesium Level 1.8 mg/dl C-Reactive Protein 13.90 mg/dl Assessment and Plan Right second toe cellulitis -Suspicious for source of sepsis. -Cultures of wound still pending, taken last PM after thorough bedside debridement -MRI negative for any osteomyelitis at this time -No plans for surgical intervention -Begin Betadine wet-to-dry dressings with daily changes at this time. Further plans for more aggressive wound therapy in the outpatient setting. -Once final recommendations are made for antibiosis patient is clear for discharge from podiatry standpoint. He should follow-up with me within 1 week of discharge from the hospital. -Please feel free to contact me directly at [phone] with further questions Continued [facility] stay due to: multiple IV medications needed Discharge planning: home
--- NOTE | 2017-06-25 19:59 | Progress Note ---
Subjective Date of Service: June 25, 2017. Subjective Pt evaluation today including: conversation w/ patient, physical exam, chart review, lab review, review of studies (KHALIDA, MRI foot), review of inpatient medication list Pain: denies; has significant neuropathy in feet PO Intake: normal Voiding: no voiding problems tele with uncontrolled a. fib rates his biggest complaint is that of cough, present "for months" he admits to post-nasal drip has significant LE edema - states it is at or near baseline does not have diabetic shoes reports "I have no feeling" in my feet Problem List Medical Problems: (1) Bronchitis Status: Acute (2) Cellulitis of toe Status: Acute (3) Diabetes Status: Chronic (4) Elevated troponin Status: Acute (5) Heart disease Status: Chronic (6) Leukocytosis Status: Acute Review of Systems Constitutional: No fever, No chills Respiratory: + cough, + wheezing, + dyspnea on exertion, No sputum Cardiac: + orthopnea, + edema, No chest pain Abdomen: No pain, No diarrhea Objective Vital Signs Date Time Temp Pulse Resp B/P (MAP) Pulse Ox O2 Delivery O2 Flow Rate FiO2 06/25/17 19:28 37.2 101 20 130/90 (103) 92 Room Air 06/25/17 18:49 98 20 91 Room Air 06/25/17 16:00 Nasal Cannula 2.0 06/25/17 16:00 37.0 97 26 91/62 (72) 96 Nasal Cannula 2.0 06/25/17 14:11 75 20 93 Room Air 06/25/17 12:00 93 06/25/17 12:00 92 Room Air 06/25/17 10:55 37.2 99 18 119/70 (86) 90 2.0 06/25/17 08:00 92 Room Air 06/25/17 08:00 36.8 104 20 120/68 (85) 91 Room Air 104 06/25/17 07:57 37 99 18 122/76 (91) 97 Room Air 06/25/17 07:52 37 99 18 130/76 (94) 97 Room Air 06/25/17 07:42 37 93 18 106/72 (83) 97 Room Air 06/25/17 07:35 85 18 110/57 96 Nasal Cannula 6 06/25/17 07:30 105 20 115/71 97 Nasal Cannula 6 06/25/17 07:25 108 20 107/73 97 Nasal Cannula 6 06/25/17 07:20 110 20 130/84 97 Nasal Cannula 6 06/25/17 06:55 36.9 57 18 117/84 (95) 92 Room Air 06/25/17 06:51 57 20 92 Room Air 06/25/17 04:00 CPAP 3.0 06/25/17 03:48 36.7 93 22 110/85 (93) 97 BiPAP 06/25/17 01:48 90 21 91 BiPAP/CPAP 3.0 06/25/17 00:01 CPAP 3.0 06/24/17 23:38 37.3 88 22 132/71 (91) 93 BiPAP 06/24/17 20:00 Room Air Physical Exam General Appearance: no apparent distress, + obese, + pertinent finding ( coughing) ENT: + nasal congestion, + pharyngeal erythema Neck: + JVD Respiratory/Chest: no respiratory distress, no accessory muscle use, + crackles (bases), + wheezing (extensive b/l ) Cardiovascular: no murmur, + tachycardia, + irregularly irregular Abdomen: normal bowel sounds, non tender, soft, no organomegaly Extremities: + pedal edema (2-3+ b/l legs/feet) Neurologic/Psychiatric: alert, oriented x 3 Skin: + pertinent finding (right 2nd toe - distal ulceration, bone NOT visible ; no purulence; no cellulitis; hammertoe/neuropathic changes most toes b/l feet) Laboratory Results Last 24 Hours Test 06/24/17 20:50 06/25/17 06:00 06/25/17 06:19 06/25/17 11:16 Bedside Glucose 320 mg/dl 235 mg/dl 272 mg/dl White Blood Count 15.05 K/uL Red Blood Count 3.49 M/uL Hemoglobin 10.4 g/dL Hematocrit 30.1 % Mean Corpuscular Volume 86.2 fL Mean Corpuscular Hemoglobin 29.8 pg Mean Corpuscular Hemoglobin Concent 34.6 g/dl Platelet Count 383 K/uL Mean Platelet Volume 9.6 fL Neutrophils (%) (Auto) 75.9 % Lymphocytes (%) (Auto) 15.2 % Monocytes (%) (Auto) 5.7 % Eosinophils (%) (Auto) 1.6 % Basophils (%) (Auto) 0.4 % Neutrophils # (Auto) 11.42 K/uL Lymphocytes # (Auto) 2.29 K/uL Monocytes # (Auto) 0.86 K/uL Eosinophils # (Auto) 0.24 K/uL Basophils # (Auto) 0.06 K/uL RDW Standard Deviation 51.1 fL RDW Coefficient of Variation 16.3 % Immature Granulocyte % (Auto) 1.2 % Immature Granulocyte # (Auto) 0.18 K/uL Toxic Granulation 1+ Echinocytes 1+ Erythrocyte Sedimentation Rate 80 mm/hr Sodium Level 132 mmol/L Potassium Level 3.9 mmol/L Chloride Level 98 mmol/L Carbon Dioxide Level 27 mmol/L Anion Gap 6.0 mmol/L Blood Urea Nitrogen 17 mg/dl Creatinine 1.10 mg/dl Est Creatinine Clear Calc Drug Dose 93.5 ml/min Estimated GFR () 82.4 Estimated GFR (Non- 71.1 BUN/Creatinine Ratio 15.0 Random Glucose 234 mg/dl Calcium Level 8.2 mg/dl Magnesium Level 1.8 mg/dl C-Reactive Protein 13.90 mg/dl Test 06/25/17 16:26 Bedside Glucose 245 mg/dl Assessment and Plan 61yo male - 1. staph aureus (MSSA) septicemia - likely source is the right 2nd toe. Remains on ancef which will cover the staph as well as strep that has grown from culture yesterday (taken by podiatry from the toe). KHALIDA w/o evidence of endocarditis. Most recent blood cultures are negative and he remains afebrile. Appreciate ID, cardiology, podiatry, wound care consultations. 2. right 2nd toe ulceration - no evidence of osteomyelitis on MRI scan. s/p debridement by podiatry 06/24/17. s/p local wound care today by wound care team 06/25/17. Needs diabetic shoes after discharge. 3. acute/chronic systolic/diastolic CHF - agree with IV lasix. Daily weights, fluid restriction, etc. Cont BB. 4. uncontrolled T2DM - increase lantus to 20 units BID. Adjust novolog w/ meals. 5. morbid obesity with BMI 46. 6. LLL pneumonia, community-acquired - previously received 3 days of levaquin; now on ancef. Uncertain if this would provide adequate coverage for lungs. If need be could broaden the ancef to rocephin but will leave ancef for now. 7. CAD - cont statin, plavix, BB. No ischemic sx's at this time. 8. rapid a. fib - defer management to cardiology; remains on BB, CCB, and eliquis. 9. hyponatremia - likely 2nd to diuretic usage; daily BMP. 10. DEANDRE - BIPAP. 11. hyperlipidemia - statin agent. 12. HTN - controlled with current meds. 13. chronic cough - could be due to pulmonary edema, LLL pneumonia, and/or post -nasal drip. Add kym 60mg BID Add nasal steroid Diurese Nebs q6h Robitussin ac q6h prn cough 14. needs PT, OT 15. elevated troponin - likely myocardial demand ischemia in setting of #1 above Continued [facility] stay due to: multiple IV medications needed Discharge planning: uncertain
[2017-06-25] MEDS: ATORVASTATIN 20 MG TAB PO SCH (20:33)
[2017-06-25] MEDS: FEXOFENADINE HCL 60 MG TAB PO SCH (20:33)
[2017-06-26] VITALS (10 sets, daily range): BP systolic 104–136; BP diastolic 67–86; PULSE 47–98; TEMP 36.6–36.9; O2SAT 79–98
[2017-06-26] MEDS: LEVALBUTEROL 1.25MG/3ML NEB INH SCH ×4 (01:58→19:15)
[2017-06-26] MEDS: CEFAZOLIN IV 2,000 MG in SYRINGE 0 ML IV SCH ×3 (02:27→20:24)
[2017-06-26 06:49] LABS: CALCIUM 8.5 mg/dl (8.5-10.1); CREATININE 1.1 mg/dl (0.60-1.40); POTASSIUM 3.8 mmol/L (3.5-5.1)
[2017-06-26] MEDS: CLOPIDOGREL BISULFATE 75 MG TAB PO SCH (07:47)
[2017-06-26] MEDS: BENZONATATE 100MG CAP PO SCH ×3 (07:48→20:24)
[2017-06-26] MEDS: POTASSIUM CHLORIDE 20 MEQ TABCR PO SCH (07:48)
[2017-06-26] MEDS: ALLOPURINOL 100 MG TAB PO SCH (07:48)
[2017-06-26] MEDS: DILTIAZEM HCL 180 MG CAPCR PO SCH (07:48)
[2017-06-26] MEDS: METOPROLOL TARTRATE 50 MG TAB PO SCH ×2 (07:49→20:25)
[2017-06-26] MEDS: SACCHAROMYCES BOUL (FLORASTOR) 250 MG CAP PO SCH (07:49)
[2017-06-26] MEDS: TRIAMCINOLONE ACET NASAL SPRAY 10.8ML BTL NAE SCH (07:49)
[2017-06-26] MEDS: FEXOFENADINE HCL 60 MG TAB PO SCH ×2 (07:49→20:26)
[2017-06-26] MEDS: PrednisoLONE ACET 1% OP SUSP 5 ML BTL OPL SCH ×2 (07:49→13:00)
[2017-06-26] MEDS: APIXABAN 2.5 MG TAB PO SCH ×2 (07:50→20:26)
[2017-06-26] MEDS: INSULIN ASPART 100 UNITS/ML 3 ML PEN SC SCH ×4 (07:54→20:32)
[2017-06-26] MEDS: LIDODERM (LIDOCAINE) PATCH 5% TD SCH (07:57)
[2017-06-26] MEDS: INSULIN GLARGINE SOLOSTAR 100 UNITS/ML 3 ML PEN SC SCH ×2 (07:57→20:33)
[2017-06-26] MEDS: METFORMIN HCL 500 MG TAB PO SCH ×2 (08:23→17:25)
--- NOTE | 2017-06-26 08:56 | Cardiology Follow-Up ---
Subjective General Date of Service: June 26, 2017. Pt evaluation today including: conversation w/ patient, chart review, lab review, review of studies History of Present Illness The patient is a 61 year old male Allergies Coded Allergies: No Known Allergies (Verified , 01/25/16) Social History Smoking Status: Never Smoker Hx Tobacco Use In Past Year?: No Hx Alcohol Use - Type And Amou: No Hx Substance Use - Type And Am: No Problem List Medical Problems: (1) Bronchitis Status: Acute (2) Cellulitis of toe Status: Acute (3) Diabetes Status: Chronic (4) Elevated troponin Status: Acute (5) Heart disease Status: Chronic (6) Leukocytosis Status: Acute Review of Systems Respiratory: + cough, No shortness of breath, No dyspnea at rest Cardiac: + edema, No chest pain, No palpitations Physical Exam Vital Signs Last Vital Signs Documentation Date Time Temp Pulse Resp B/P (MAP) Pulse Ox O2 Delivery O2 Flow Rate FiO2 06/26/17 08:00 92 Room Air 06/26/17 08:00 36.6 87 18 119/86 (97) 2.0 87 06/22/17 04:00 100 Physical Exam Constitutional: General Apperance: heathly-appearing Level of Distress: acutely ill Psychiatric: Mental Status: active & alert, normal mood Lungs: Respiratory effort: no dyspnea Auscultation: expiratory wheezing Cardiovascular: Heart Auscultation: no murmurs, no rubs, no gallops, irregular rate rhythm Abdomen: Bowel Sounds: normal Inspection & Palpation: soft, non-distended, no tenderness, guarding & rebound Extremities: edema (moderate) Assessment and Plan Assessment and Plan Impressions: 1) New onset Afib--asymptomatic 2) MSSA bacteremia 3) recent episode of scalp and ocular shingles PRIOR CARDIAC HX: 1. Ischemic cardiomyopathy with an ejection fraction in the range of 45% with hypokinesis of the basal inferior, inferolateral and anterolateral cano. 2. Dilated right ventricle, normal RV function. 3. Type 2 diastolic dysfunction with elevated left atrial pressures by echo, 08/2016. 4. Coronary artery disease, status post cardiac catheterization, 02/01/2013 with a 30-40% narrowing in the proximal RCA; severe aneurysmal diffusely diseased mid RCA with a 75% stenosis and a 95% stenosis in the distal RCA; luminal irregularities of a nondominant circ which is then totally occluded after the AV groove. 5. LAD disease with a 70% ostial lesion in a small diagonal branch. cardizem to CD 180mg daily Continue BB Apixaban and Plavix Switch lasix to IV today again--watch serum NA KHALIDA w/o vegetations; LVEF moderately reduced Laboratory Results Last 24 Hours Test 06/25/17 11:16 06/25/17 16:26 06/25/17 20:36 06/26/17 05:43 Bedside Glucose 272 mg/dl 245 mg/dl 279 mg/dl Sodium Level 130 mmol/L Potassium Level 3.8 mmol/L Chloride Level 96 mmol/L Carbon Dioxide Level 28 mmol/L Anion Gap 6.0 mmol/L Blood Urea Nitrogen 18 mg/dl Creatinine 1.10 mg/dl Est Creatinine Clear Calc Drug Dose 93.7 ml/min Estimated GFR () 82.4 Estimated GFR (Non- 71.1 BUN/Creatinine Ratio 15.9 Random Glucose 237 mg/dl Calcium Level 8.5 mg/dl Magnesium Level 2.0 mg/dl Test 06/26/17 06:53 Bedside Glucose 233 mg/dl
[2017-06-26] MEDS ORDERED: FUROSEMIDE INJ 40 MG in SYRINGE 0 ML IV ONE (09:30)
[2017-06-26] MEDS ORDERED: FUROSEMIDE INJ 20 MG in SYRINGE 0 ML IV ONE (17:00)
[2017-06-26] MEDS ORDERED: POTASSIUM CHLORIDE 20 MEQ TABCR PO ONE (17:00)
[2017-06-26] MEDS: ACETAMINOPHEN 325 MG TAB PO PRN (19:10)
--- NOTE | 2017-06-26 20:17 | Progress Note ---
Subjective Date of Service: June 26, 2017. Subjective Pt evaluation today including: conversation w/ patient, physical exam, chart review, lab review, conversation w/ project management consultant (ID (Dr Marie)), review of inpatient medication list Pain: none reported PO Intake: improving Voiding: no voiding problems tele with rate-controlled a fib overnight he states "I feel a lot better" just overall feels better w/ more energy and better constitution no fevers/chills still with coughing "fits" but these are less frequent and not as severe nonproductive Problem List Medical Problems: (1) Bronchitis Status: Acute (2) Cellulitis of toe Status: Acute (3) Diabetes Status: Chronic (4) Elevated troponin Status: Acute (5) Heart disease Status: Chronic (6) Leukocytosis Status: Acute Review of Systems Constitutional: No fever, No chills Respiratory: + dyspnea on exertion, + hemoptysis (1x in the last 24 hours), No dyspnea at rest Cardiac: + orthopnea, + edema, No chest pain Abdomen: No pain, No diarrhea Objective Vital Signs Date Time Temp Pulse Resp B/P (MAP) Pulse Ox O2 Delivery O2 Flow Rate FiO2 06/26/17 19:15 56 18 95 Nasal Cannula 3.0 06/26/17 18:36 36.9 82 16 136/78 (97) 90 06/26/17 16:00 Room Air 2.0 06/26/17 14:17 47 18 92 Room Air 06/26/17 12:00 92 Room Air 06/26/17 11:18 36.9 86 20 104/67 (79) 97 Nasal Cannula 3.0 06/26/17 08:00 92 Room Air 06/26/17 08:00 36.6 87 18 119/86 (97) 98 Nasal Cannula 2.0 87 06/26/17 07:20 56 18 91 Nasal Cannula 3.0 06/26/17 04:00 Nasal Cannula 3.0 06/26/17 03:35 36.7 91 23 113/74 (87) 98 Nasal Cannula 3.0 06/26/17 01:59 98 20 79 Room Air 06/25/17 23:59 92 Nasal Cannula 3.0 06/25/17 23:03 37.1 84 20 119/77 (91) 92 Nasal Cannula 3.0 Physical Exam General Appearance: no apparent distress, + obese ENT: pharynx normal Neck: + JVD Respiratory/Chest: no respiratory distress, no accessory muscle use, + wheezing (extensive b/l ) Cardiovascular: no gallop, + irregularly irregular Abdomen: normal bowel sounds, non tender, soft, no organomegaly Extremities: + pedal edema, + swelling (2-3+ b/l, maybe slightly better than previous) Neurologic/Psychiatric: alert, oriented x 3 Skin: + pertinent finding (right 2nd toe - distal tip ulcer stable, no drainage , no erythema) Laboratory Results Last 24 Hours Test 06/25/17 20:36 06/26/17 05:43 06/26/17 06:53 06/26/17 11:40 Bedside Glucose 279 mg/dl 233 mg/dl 239 mg/dl Sodium Level 130 mmol/L Potassium Level 3.8 mmol/L Chloride Level 96 mmol/L Carbon Dioxide Level 28 mmol/L Anion Gap 6.0 mmol/L Blood Urea Nitrogen 18 mg/dl Creatinine 1.10 mg/dl Est Creatinine Clear Calc Drug Dose 93.7 ml/min Estimated GFR () 82.4 Estimated GFR (Non- 71.1 BUN/Creatinine Ratio 15.9 Random Glucose 237 mg/dl Calcium Level 8.5 mg/dl Magnesium Level 2.0 mg/dl Test 06/26/17 16:13 Bedside Glucose 141 mg/dl Assessment and Plan 61yo male - 1. staph aureus (MSSA) septicemia - likely source is the right 2nd toe. Remains on ancef which will cover the staph as well as strep that has grown from 2nd toe culture obtained by podiatry. KHALIDA w/o evidence of endocarditis. Most recent blood cultures are negative and he remains afebrile. Appreciate ID, cardiology, podiatry, wound care consultations. Spoke with Dr. Marie - plan is for 2 weeks of IV ancef (or rocephin), first day would be date of initial negative blood culture (today is thus day #). 2. right 2nd toe ulceration - no evidence of osteomyelitis on MRI scan. s/p debridement by podiatry 06/24/17. s/p local wound care by wound care team. Needs diabetic shoes after discharge. Spoke with podiatry today - appreciate their input and assistance. 3. acute/chronic systolic/diastolic CHF - cont diuresis. Received 40mg IV this am; will give additional 20mg this afternoon at 1700. K/mag supplementation & daily labs. 4. uncontrolled T2DM - increase lantus to 25 units BID. Add back metformin 1gm BID. Cont novolog w/ meals. 5. morbid obesity with BMI 46. 6. LLL pneumonia, community-acquired - previously received 3 days of levaquin; now on ancef. Uncertain if this would provide adequate coverage for lungs. If need be could broaden the ancef to rocephin but will leave ancef for now. Consider repeat cxr in am given his severe cough. 7. CAD - cont statin, plavix, BB. No ischemic sx's at this time. 8. rapid a. fib - improved; remains on BB, CCB, and eliquis. Appreciate cardiology input. 9. hyponatremia - likely 2nd to diuretic usage; daily BMP. 10. DEANDRE - BIPAP. 11. hyperlipidemia - statin agent. 12. HTN - controlled with current meds. 13. chronic cough - likely multifactorial from pulmonary edema, LLL pneumonia, and/or post-nasal drip. Cont kym 60mg BID, nasal steroid, lasix diuresis, nebs, robitussin ac prn. 14. elevated troponin - likely myocardial demand ischemia in setting of #1 above. consent for midline PICC line obtained for #1 above attempted to call pt's today - phone rang, no answer, went to answering machine but I could not leave message will try again tomorrow Continued [facility] stay due to: multiple IV medications needed Discharge planning: uncertain
[2017-06-26] MEDS: ATORVASTATIN 20 MG TAB PO SCH (20:26)
--- NOTE | 2017-06-26 20:51 | Infectious Disease Progress Nt ---
Progress Note Date of Service June 26, 2017. Subjective Pt evaluation today including: conversation w/ patient, physical exam, chart review, lab review, review of studies, conversation w/ commercial sales consultant, review of inpatient medication list Patient feeling better today. More energy. Remains afebrile. All Other Systems: Reviewed and Negative Medications Current Inpatient Medications Medications (Trade) Dose Ordered Sig/Wojciech Route Start Time Stop Time Status Last Admin Dose Admin Albuterol (Ventolin Hfa Inhaler) 2 puffs Q4 PRN INH 06/19/17 15:45 07/19/17 15:44 Allopurinol (Zyloprim Tab) 100 mg QAM PO 06/20/17 09:00 07/20/17 08:59 06/26/17 07:48 100 MG Atorvastatin Calcium (Lipitor Tab) 40 mg HS PO 06/19/17 21:00 07/19/17 20:59 06/26/17 20:26 40 MG Clopidogrel Bisulfate (plAVix TAB) 75 mg QAM PO 06/20/17 09:00 07/20/17 08:59 06/26/17 07:47 75 MG Acetaminophen (Tylenol Tab) 650 mg Q4H PRN PO 06/19/17 15:45 07/19/17 15:44 06/26/17 19:10 650 MG Al Hydrox/Mg Hydrox/Simethicone (Maalox Max Susp) 15 ml Q4H PRN PO 06/19/17 15:45 07/19/17 15:44 Magnesium Hydroxide (Milk Of Magnesia Susp) 30 ml Q12H PRN PO 06/19/17 15:45 07/19/17 15:44 Ondansetron HCl (Zofran Inj) 4 mg Q6H PRN IV 06/19/17 15:45 07/19/17 15:44 06/23/17 00:27 4 MG Nitroglycerin (Nitrostat Tab) 0.4 mg UD PRN SL 06/19/17 15:45 07/19/17 15:44 Polyethylene (Miralax Powder Packet) 17 gm DAILY PRN PO 06/19/17 15:45 07/19/17 15:44 Insulin Aspart (novoLOG ASPART) SLIDING SCALE If C... ACHS SC 06/19/17 18:30 07/19/17 18:29 06/26/17 20:32 5 UNITS Glucose (Glucose 40% Gel) 15-30 GRAMS 15 GRAMS... UD PRN PO 06/19/17 15:45 07/19/17 15:44 Glucose (Glucose Chew Tab) 4-8 Tablets 4 Tabl... UD PRN PO 06/19/17 15:45 07/19/17 15:44 Dextrose (Dextrose 50% 50ML Syringe) 25-50ML OF 50% DW IV FOR... UD PRN IV 06/19/17 15:45 07/19/17 15:44 Glucagon (Glucagon Inj) 1 mg UD PRN SQ 06/19/17 15:45 07/19/17 15:44 Lidocaine (Lidoderm Patch 5%) 1 patch QAM TD 06/21/17 09:00 07/21/17 08:59 06/23/17 08:14 1 PATCH Miscellaneous (Remove Lidoderm Patch) 1 ea DAILY@21 N/A 06/20/17 23:00 07/20/17 22:59 06/25/17 20:35 1 EA Levalbuterol (Xopenex 1.25MG/ 3ML Neb) 1.25 mg Q6R INH 06/21/17 21:00 07/21/17 20:59 06/26/17 19:15 1.25 MG Apixaban (Eliquis Tab) 5 mg BID PO 06/21/17 21:00 07/21/17 20:59 06/26/17 20:26 5 MG Cefazolin Sodium 2000 mg/Syringe 15 ml @ 3.75 mls/ min Q8H IV 06/21/17 19:00 07/05/17 18:59 06/26/17 20:24 3.75 MLS/MIN Furosemide (Lasix Tab) 20 mg DAILY PO 06/23/17 09:00 07/23/17 08:59 Future Hold 06/25/17 11:06 20 MG Hydrocodone Bit/ Homatropine Methylb (Hycodan Syrup) 5 ml Q6H PRN PO 06/22/17 13:00 07/06/17 12:59 Saccharomyces Boulardii (Florastor Cap) 250 mg DAILY PO 06/23/17 09:00 07/23/17 08:59 06/26/17 07:49 250 MG Benzonatate (Tessalon Perles Cap) 200 mg TID PO 06/22/17 14:00 07/21/17 20:59 06/26/17 20:24 200 MG Metoprolol Tartrate (Lopressor Tab) 50 mg BID PO 06/22/17 21:00 07/20/17 13:59 06/26/17 20:25 50 MG Diltiazem HCl (Cardizem Cd Cap) 180 mg QAM PO 06/24/17 13:30 07/24/17 13:29 06/26/17 07:48 180 MG Fexofenadine HCl (Daniella Tab) 60 mg BID PO 06/25/17 21:00 07/25/17 20:59 06/26/17 20:26 60 MG Triamcinolone Acetonide (Nasacort Allergy 24hr) 2 sprays DAILY UJDY 06/26/17 09:00 07/26/17 08:59 06/26/17 07:49 2 SPRAYS Codeine Phosphate/ Guaifenesin (Robitussin-AC Sugar Free Syrup) 5 ml Q6H PRN PO 06/25/17 11:00 07/25/17 10:59 Potassium Chloride (Klor-Con Tab) 20 meq QAM PO 06/26/17 09:00 07/26/17 08:59 06/26/17 07:48 20 MEQ Insulin Glargine (Lantus Solostar Pen) 25 units BID SC 06/26/17 09:00 07/20/17 20:59 06/26/17 20:33 25 UNITS Metformin HCl (Glucophage Tab) 1,000 mg BIDM PO 06/26/17 08:00 07/26/17 07:59 06/26/17 17:25 1,000 MG Objective Vital Signs Date Time Temp Pulse Resp B/P (MAP) Pulse Ox O2 Delivery O2 Flow Rate FiO2 06/26/17 19:15 56 18 95 Nasal Cannula 3.0 06/26/17 18:36 36.9 82 16 136/78 (97) 90 06/26/17 16:00 Room Air 2.0 06/26/17 14:17 47 18 92 Room Air 06/26/17 12:00 92 Room Air 06/26/17 11:18 36.9 86 20 104/67 (79) 97 Nasal Cannula 3.0 06/26/17 08:00 92 Room Air 06/26/17 08:00 36.6 87 18 119/86 (97) 98 Nasal Cannula 2.0 87 06/26/17 07:20 56 18 91 Nasal Cannula 3.0 06/26/17 04:00 Nasal Cannula 3.0 06/26/17 03:35 36.7 91 23 113/74 (87) 98 Nasal Cannula 3.0 06/26/17 01:59 98 20 79 Room Air 06/25/17 23:59 92 Nasal Cannula 3.0 06/25/17 23:03 37.1 84 20 119/77 (91) 92 Nasal Cannula 3.0 Physical Exam General Appearance: WD/WN, no apparent distress Eyes: normal inspection, EOMI, sclerae normal ENT: normal ENT inspection, pharynx normal Neck: supple, no adenopathy, thyroid normal, trachea midline Respiratory/Chest: chest non-tender, lungs clear, normal breath sounds, no respiratory distress Cardiovascular: no gallop, no murmur, + irregularly irregular Abdomen: normal bowel sounds, non tender, soft, no organomegaly Extremities: non-tender, no calf tenderness Neurologic/Psychiatric: alert, oriented x 3 Skin: normal color, no rash, + pertinent finding (Right 2nd toe improved) Lymphatic: no adenopathy Laboratory Results Last 24 Hours Test 06/26/17 05:43 06/26/17 06:53 06/26/17 11:40 06/26/17 16:13 Sodium Level 130 mmol/L Potassium Level 3.8 mmol/L Chloride Level 96 mmol/L Carbon Dioxide Level 28 mmol/L Anion Gap 6.0 mmol/L Blood Urea Nitrogen 18 mg/dl Creatinine 1.10 mg/dl Est Creatinine Clear Calc Drug Dose 93.7 ml/min Estimated GFR () 82.4 Estimated GFR (Non- 71.1 BUN/Creatinine Ratio 15.9 Random Glucose 237 mg/dl Calcium Level 8.5 mg/dl Magnesium Level 2.0 mg/dl Bedside Glucose 233 mg/dl 239 mg/dl 141 mg/dl Test 06/26/17 20:29 Bedside Glucose 208 mg/dl Assessment and Plan 61-year-old male with methicillin sensitive Staph aureus bacteremia, likely a source is infection of right 2nd toe, mali negative for obvious endocarditis. Would give 2 weeks of IV antibiotics. Will continue to follow.
[2017-06-27] VITALS (9 sets, daily range): BP systolic 100–148; BP diastolic 63–92; PULSE 69–109; TEMP 36.6–37.2; O2SAT 90–97
[2017-06-27] MEDS: LEVALBUTEROL 1.25MG/3ML NEB INH SCH ×4 (01:40→19:00)
[2017-06-27] MEDS: CEFAZOLIN IV 2,000 MG in SYRINGE 0 ML IV SCH ×3 (04:07→19:11)
[2017-06-27 06:13] LABS: BASO % 0.2 %; BASO ABS # 0.03 K/uL (0-0.2); EOS % 2.2 %; EOS ABS # 0.27 K/uL (0-0.5); HEMATOCRIT 29.2 % (42-52); HEMOGLOBIN 9.7 g/dL (14.0-18.0); IG# 0.15 K/uL (0.00-0.02); LYMPH % 14.4 %; MEAN CELL VOLUME 88.2 fL (80-100); MEAN CORPUSCULAR HEMOGLOBIN 29.3 pg (25-34); MEAN CORPUSCULAR HGB CONC 33.2 g/dl (32-36); MEAN PLATELET VOLUME 9.2 fL (7.4-10.4); MONO % 6.2 %; MONO ABS # 0.78 K/uL (0.11-0.59); NEUT % 75.8 %; NEUT ABS # 9.49 K/uL (1.4-6.5); PLATELET COUNT 441 K/uL (130-400); RED CELL DISTRIBUTION WIDTH CV 16.6 % (11.5-14.5); RED CELL DISTRIBUTION WIDTH SD 52.8 fL (36.4-46.3); WHITE BLOOD COUNT 12.52 K/uL (4.8-10.8)
[2017-06-27 06:49] LABS: CALCIUM 8.4 mg/dl (8.5-10.1); CREATININE 1.03 mg/dl (0.60-1.40)
--- NOTE | 2017-06-27 07:53 | DIAGNOSTIC IMAGING REPORT ---
CHEST 2 VIEWS ROUTINE CLINICAL HISTORY: ?LLL pneumonia, CHF COMPARISON STUDY: 06/21/2017 FINDINGS: Mild stable cardiomegaly. Slight prominence of basilar parenchymal markings. Mid and upper lungs are clear. Mild stable cardia megaly. IMPRESSION: Improving parenchymal infiltrate left base. Minimal residual. The above report was generated using voice recognition software. It may contain grammatical, syntax or spelling errors. Electronically signed by: Tom Hays M.D. 06/27/2017 7:52 AM Dictated Date/Time: 06/27/2017 7:50 AM
[2017-06-27] MEDS ORDERED: FUROSEMIDE INJ 40 MG in SYRINGE 0 ML IV ONE (08:20)
[2017-06-27] MEDS: INSULIN GLARGINE SOLOSTAR 100 UNITS/ML 3 ML PEN SC SCH ×2 (09:07→21:06)
[2017-06-27] MEDS: INSULIN ASPART 100 UNITS/ML 3 ML PEN SC SCH ×4 (09:07→20:58)
[2017-06-27] MEDS: MAGNESIUM SULFATE 1GM / D5W 100 ML IV SCH ×2 (09:08→11:27)
[2017-06-27] MEDS: TRIAMCINOLONE ACET NASAL SPRAY 10.8ML BTL NAE SCH (09:08)
[2017-06-27] MEDS: APIXABAN 2.5 MG TAB PO SCH ×2 (09:09→21:04)
[2017-06-27] MEDS: FEXOFENADINE HCL 60 MG TAB PO SCH ×2 (09:09→21:04)
[2017-06-27] MEDS: SACCHAROMYCES BOUL (FLORASTOR) 250 MG CAP PO SCH (09:09)
[2017-06-27] MEDS: POTASSIUM CHLORIDE 20 MEQ TABCR PO SCH (09:10)
[2017-06-27] MEDS: BENZONATATE 100MG CAP PO SCH ×3 (09:10→21:03)
[2017-06-27] MEDS: LIDODERM (LIDOCAINE) PATCH 5% TD SCH (09:11)
[2017-06-27] MEDS: DILTIAZEM HCL 180 MG CAPCR PO SCH (09:11)
[2017-06-27] MEDS: ALLOPURINOL 100 MG TAB PO SCH (09:11)
[2017-06-27] MEDS: METOPROLOL TARTRATE 50 MG TAB PO SCH ×2 (09:11→21:03)
[2017-06-27] MEDS: CLOPIDOGREL BISULFATE 75 MG TAB PO SCH (09:11)
--- NOTE | 2017-06-27 09:21 | TEE ---
*NOTICE TO RECEIVING REPUBL[employer] AGENCY This information is strictly Confidential and protected under [place] law. [place] law prohibits you from making any further disclosure of this information unless further disclosure is expressly permitted by the written consent of the person to whom it pertains or is authorized by law. A general authorization for the release of medical or other information is not sufficient for this purpose. Hospital accepts no responsibility if the information is made available to any other person, INCLUDING THE PATIENT. Interpretation Summary * Name: KARISSA STEPHENS Study Date: 06/25/2017 06:50 AM BP: 130/84 mmHg * Patient Location: C.2T\S\E220\S\1 HR: 127 * : 1955 (M/d/yyyy) Gender: Male Height: 68 in * Age: 61 yrs Ethnicity: CA Weight: 304 lb * Ordering Physician: Bob Flores * Referring Physician: Self, Referred * Performed By: Danielle Falcon RDCS * * Reason For Study: Endocarditis * BSA: 2.4 m2 * -- Conclusions -- * The left ventricle is normal in size. * There is normal left ventricular wall thickness. * There is mild to moderate mitral regurgitation. * The basal inferior and basal inferolateral cano are thin and akinetic. * The rest of the LV is globally hypokinetic. * LVEF 35-40% * The right ventricular systolic function is qualitatively normal. * Dilated RV size * The left atrium is moderately dilated. * No evidence of LA or LINDA thrombus. * Low LINDA velocities. * Grade 2 plaque throuhout the aorta * No evidence of vegetations on any of the valves. Procedure Details * The transesophageal portion of this study was personally supervised by the undersigned interpreting physician. * The study was performed in Cardiac Catheterization Lab. * Time out was conducted by the physician, nurse, and anesthesia technician with positive identification of patient and procedure. * Informed consent for Transesophageal Echocardiogram was obtained prior to the procedure. * An intravenous line was placed. A topical anesthetic agent was used for oropharangeal anesthesia. A bite block was inserted. * Sedation performed by the anesthesia department. * The patient's vital signs, including blood pressure, heart rate, pulse oximetry and cardiac rhythm were monitored throughout the procedure . * The posterior oropharynx was anesthetized using a topical anesthetic spray. A bite guard was inserted. * A multifrequency, multiplane transesopheageal echocardiographic endoscope was inserted and manipulated in the standard fashion to achieve multiplane views. * The transesophageal probe was passed without difficulty. * The usual views were obtained; basal, mid-esophageal, transgastric and aortic views. * The patient tolerated the procedure well without evidence of orophangeal or esophageal trauma. * A 2D transesophageal echocardiogram with spectral and color flow Doppler was performed. * Probe #3 utilized for procedure. Start time- 722 End time- 733 220 Propofol used for procedure. 40 lidocane used for procedure. * A 2D transesophageal echocardiogram with Doppler and color flow Doppler was performed. Left Ventricle * The left ventricle is normal in size. * There is normal left ventricular wall thickness. * The basal inferior and basal inferolateral cano are thin and akinetic. The rest of the LV is globally hypokinetic. LVEF 35-40% Right Ventricle * Dilated RV size * The right ventricular systolic function is qualitatively normal. Atria * The left atrium is moderately dilated. * No evidence of LA or LINDA thrombus. Low LINDA velocities. * Right atrial size is normal. Mitral Valve * The mitral valve is grossly normal. * There is mild to moderate mitral regurgitation. Tricuspid Valve * The tricuspid valve is not well visualized, but is grossly normal. * There is mild tricuspid regurgitation. Aortic Valve * The aortic valve is trileaflet. * No aortic regurgitation is present. Pulmonic Valve * The pulmonic valve is not well seen, but is grossly normal. * Trace pulmonic valvular regurgitation. Great Vessels * The aortic root is normal size. * Ascending aorta of normal dimension * Grade 2 plaque throuhout the aorta Pericardium * The pericardium appears normal.
[2017-06-27] MEDS: MAGNESIUM OXIDE 400 MG TAB PO SCH ×2 (11:27→21:03)
[2017-06-27] MEDS: METFORMIN HCL 500 MG TAB PO SCH ×2 (11:28→16:52)
--- NOTE | 2017-06-27 20:47 | DIAGNOSTIC IMAGING REPORT ---
R EXTREMITY NONVASCULAR LIMITED HISTORY: 61 years-old Male ?hematoma RUE; ?pseudoaneurysm acute hematoma of the right upper extremity COMPARISON: None available TECHNIQUE: Multiple real-time sonographic images of the right upper extremity were obtained assessing grayscale appearance and color flow FINDINGS: There is a heterogeneous mixed echogenicity lesion within the bicipital distribution measuring 7.5 x 2.6 cm in a parallel orientation which appears to be intramuscular. No definite pseudoaneurysm identified. IMPRESSION: 7.5 cm heterogeneous lesion within the right bicipital distribution suggests hematoma. The above report was generated using voice recognition software. It may contain grammatical, syntax or spelling errors. Electronically signed by: Harrison Zhang M.D. 06/27/2017 8:45 PM Dictated Date/Time: 06/27/2017 8:44 PM
[2017-06-27] MEDS: ATORVASTATIN 20 MG TAB PO SCH (21:03)
--- NOTE | 2017-06-27 21:48 | Progress Note ---
Subjective Date of Service: June 27, 2017. Subjective Pt evaluation today including: conversation w/ patient, physical exam, chart review, lab review, review of studies (u/s of right arm), review of inpatient medication list Pain: right upper arm from PICC line attempt; very sore PO Intake: normal Voiding: no voiding problems tele with a. fib, most rates <100 main complaint is that of right arm - see above feels much better with less cough states he walked in hallway with therapy and "did fine" - feels he can return home no fever Problem List Medical Problems: (1) Bronchitis Status: Acute (2) Cellulitis of toe Status: Acute (3) Diabetes Status: Chronic (4) Elevated troponin Status: Acute (5) Heart disease Status: Chronic (6) Leukocytosis Status: Acute Review of Systems Constitutional: No fever, No chills Respiratory: + cough, + wheezing, + dyspnea on exertion, No sputum, No dyspnea at rest, No hemoptysis Cardiac: No chest pain Abdomen: No pain, No nausea, No diarrhea Objective Vital Signs Date Time Temp Pulse Resp B/P (MAP) Pulse Ox O2 Delivery O2 Flow Rate FiO2 06/27/17 20:00 Nasal Cannula 2.0 06/27/17 19:02 36.8 86 18 100/63 (75) 96 Nasal Cannula 3.0 06/27/17 19:01 93 18 96 Room Air 06/27/17 16:00 Room Air 06/27/17 15:31 92 18 133/84 (100) 96 Nasal Cannula 3.0 06/27/17 14:07 87 18 93 Room Air 06/27/17 12:00 Room Air 06/27/17 11:17 37.2 87 22 124/79 (94) 92 Room Air 06/27/17 08:00 Room Air 06/27/17 07:08 109 20 90 Nasal Cannula 3.0 06/27/17 04:03 36.6 95 22 126/92 (103) 96 Nasal Cannula 3.0 06/27/17 04:00 Nasal Cannula 3.0 06/27/17 01:40 69 20 97 Nasal Cannula 3.0 06/27/17 00:01 Nasal Cannula 3.0 06/26/17 23:29 36.7 78 24 125/80 (95) 98 Nasal Cannula 3.0 Physical Exam General Appearance: no apparent distress, + obese ENT: pharynx normal Neck: no JVD Respiratory/Chest: no respiratory distress, no accessory muscle use, + crackles (left base), + wheezing (mild exp) Cardiovascular: no gallop, no murmur, + irregularly irregular Abdomen: normal bowel sounds, non tender, soft, no organomegaly Extremities: + pedal edema, + swelling (2+ b/l ) Neurologic/Psychiatric: alert, oriented x 3 Skin: + pertinent finding (suspected hematoma over right anterior upper arm; tender to touch; ecchymoses same region; right 2nd toe - clean, no cellulitis, no drainage) Laboratory Results Last 24 Hours Test 06/27/17 06:05 06/27/17 07:04 06/27/17 11:19 06/27/17 16:36 White Blood Count 12.52 K/uL Red Blood Count 3.31 M/uL Hemoglobin 9.7 g/dL Hematocrit 29.2 % Mean Corpuscular Volume 88.2 fL Mean Corpuscular Hemoglobin 29.3 pg Mean Corpuscular Hemoglobin Concent 33.2 g/dl Platelet Count 441 K/uL Mean Platelet Volume 9.2 fL Neutrophils (%) (Auto) 75.8 % Lymphocytes (%) (Auto) 14.4 % Monocytes (%) (Auto) 6.2 % Eosinophils (%) (Auto) 2.2 % Basophils (%) (Auto) 0.2 % Neutrophils # (Auto) 9.49 K/uL Lymphocytes # (Auto) 1.80 K/uL Monocytes # (Auto) 0.78 K/uL Eosinophils # (Auto) 0.27 K/uL Basophils # (Auto) 0.03 K/uL RDW Standard Deviation 52.8 fL RDW Coefficient of Variation 16.6 % Immature Granulocyte % (Auto) 1.2 % Immature Granulocyte # (Auto) 0.15 K/uL Sodium Level 135 mmol/L Potassium Level 4.0 mmol/L Chloride Level 100 mmol/L Carbon Dioxide Level 31 mmol/L Anion Gap 4.0 mmol/L Blood Urea Nitrogen 17 mg/dl Creatinine 1.03 mg/dl Est Creatinine Clear Calc Drug Dose 99.6 ml/min Estimated GFR () 89.2 Estimated GFR (Non- 76.9 BUN/Creatinine Ratio 16.1 Random Glucose 187 mg/dl Calcium Level 8.4 mg/dl Magnesium Level 1.6 mg/dl Bedside Glucose 197 mg/dl 270 mg/dl 74 mg/dl Assessment and Plan 61yo male - 1. staph aureus (MSSA) septicemia - source -- 2nd toe ulceration on right foot. Remains on ancef which will cover the staph as well as strep that has grown from 2nd toe culture obtained by podiatry. Change to rocephin 2gm daily tomorrow and complete the course with it. KHALIDA w/o evidence of endocarditis. Most recent blood cultures are negative and he remains afebrile. Appreciate ID, cardiology, podiatry, wound care consultations. Spoke with Dr. Marie - plan is for 2 weeks of IV abx; today is day #). 2. right 2nd toe ulceration - no evidence of osteomyelitis on MRI scan. s/p debridement by podiatry 06/24/17. s/p local wound care by wound care team. Needs diabetic shoes after discharge. 3. acute/chronic systolic/diastolic CHF - improving. cont diuresis. lasix 40mg IV x 1 again this am hold po lasix. 4. uncontrolled T2DM - improving but still uncontrolled; increase lantus to 30 units BID. Cont metformin 1gm BID. Cont novolog w/ meals. 5. morbid obesity with BMI 46. 6. LLL pneumonia, community-acquired - stable on cxr today. 7. CAD - cont statin, plavix, BB. No ischemic sx's at this time. 8. rapid a. fib - improved; remains on BB, CCB, and eliquis. Appreciate cardiology input. 9. hyponatremia - resolved. 10. DEANDRE - BIPAP. 11. hyperlipidemia - statin agent. 12. HTN - controlled with current meds. 13. chronic cough - likely multifactorial from pulmonary edema, LLL pneumonia, and/or post-nasal drip. Cont kym 60mg BID, nasal steroid, lasix diuresis, nebs, robitussin ac prn. 14. elevated troponin - likely myocardial demand ischemia in setting of #1 above. 15. hematoma, right arm - u/s confirmed - no evidence of pseudoaneurysm. cold packs x 48 hours then switch to heat elevated arm social work aware of IV abx for home maybe home this weekend? Continued [facility] stay due to: multiple IV medications needed Discharge planning: home with home health, home with IV medication
[2017-06-28] VITALS (10 sets, daily range): BP systolic 103–142; BP diastolic 68–85; PULSE 69–94; TEMP 36.5–37.1; O2SAT 92–97
[2017-06-28] MEDS: ACETAMINOPHEN 325 MG TAB PO PRN ×2 (00:56→18:06)
[2017-06-28] MEDS: LEVALBUTEROL 1.25MG/3ML NEB INH SCH ×4 (01:51→19:05)
[2017-06-28 06:04] LABS: HEMATOCRIT 29.9 % (42-52); HEMOGLOBIN 9.8 g/dL (14.0-18.0); MEAN CELL VOLUME 88.5 fL (80-100); MEAN CORPUSCULAR HGB CONC 32.8 g/dl (32-36); MEAN PLATELET VOLUME 8.9 fL (7.4-10.4); PLATELET COUNT 493 K/uL (130-400); RED CELL DISTRIBUTION WIDTH CV 16.8 % (11.5-14.5); RED CELL DISTRIBUTION WIDTH SD 53.4 fL (36.4-46.3); WHITE BLOOD COUNT 10.77 K/uL (4.8-10.8)
[2017-06-28 06:37] LABS: CALCIUM 8.5 mg/dl (8.5-10.1); CREATININE 0.95 mg/dl (0.60-1.40); POTASSIUM 3.7 mmol/L (3.5-5.1)
[2017-06-28] MEDS ORDERED: FUROSEMIDE INJ 40 MG in SYRINGE 0 ML IV ONE ×2 (07:45→16:30)
[2017-06-28] MEDS: CEFTRIAXONE SOD INJ 2,000 MG in DEXTROSE 5% 50ML 50 ML IV SCH (08:40)
[2017-06-28] MEDS: INSULIN ASPART 100 UNITS/ML 3 ML PEN SC SCH ×4 (08:49→20:56)
[2017-06-28] MEDS: METOPROLOL TARTRATE 50 MG TAB PO SCH ×2 (08:53→20:58)
[2017-06-28] MEDS: MAGNESIUM OXIDE 400 MG TAB PO SCH ×2 (08:53→20:58)
[2017-06-28] MEDS: BENZONATATE 100MG CAP PO SCH ×3 (08:53→20:57)
[2017-06-28] MEDS: POTASSIUM CHLORIDE 20 MEQ TABCR PO SCH (08:53)
[2017-06-28] MEDS: METFORMIN HCL 500 MG TAB PO SCH ×2 (08:54→16:40)
[2017-06-28] MEDS: APIXABAN 2.5 MG TAB PO SCH ×2 (08:54→20:58)
[2017-06-28] MEDS: CLOPIDOGREL BISULFATE 75 MG TAB PO SCH (08:54)
[2017-06-28] MEDS: DILTIAZEM HCL 180 MG CAPCR PO SCH (08:54)
[2017-06-28] MEDS: TRIAMCINOLONE ACET NASAL SPRAY 10.8ML BTL NAE SCH (08:55)
[2017-06-28] MEDS: FEXOFENADINE HCL 60 MG TAB PO SCH ×2 (08:55→20:57)
[2017-06-28] MEDS: SACCHAROMYCES BOUL (FLORASTOR) 250 MG CAP PO SCH (08:55)
[2017-06-28] MEDS: ALLOPURINOL 100 MG TAB PO SCH (08:55)
[2017-06-28] MEDS: LIDODERM (LIDOCAINE) PATCH 5% TD SCH (08:56)
[2017-06-28] MEDS: MAGNESIUM SULFATE 1GM / D5W 100 ML IV SCH ×2 (09:31→11:11)
[2017-06-28] MEDS: INSULIN GLARGINE SOLOSTAR 100 UNITS/ML 3 ML PEN SC SCH ×2 (09:32→20:59)
[2017-06-28] MEDS ORDERED: POTASSIUM CHLORIDE 20 MEQ TABCR PO ONE (16:30)
[2017-06-28] MEDS: ATORVASTATIN 20 MG TAB PO SCH (20:58)
--- NOTE | 2017-06-28 22:12 | Progress Note ---
Subjective Date of Service: June 28, 2017. Subjective Pt evaluation today including: conversation w/ patient, physical exam, chart review, lab review Pain: right arm but improved with cool packs PO Intake: eating 100% meals Voiding: no voiding problems tele - a. fib controlled cough/dyspnea much improved mainly using oxygen w/ sleep only feels good anxious to get home states baseline dry weight is 300 pounds - he is at that weight today Problem List Medical Problems: (1) Bronchitis Status: Acute (2) Cellulitis of toe Status: Acute (3) Diabetes Status: Chronic (4) Elevated troponin Status: Acute (5) Heart disease Status: Chronic (6) Leukocytosis Status: Acute Review of Systems Constitutional: No fever, No chills Respiratory: + cough, No dyspnea on exertion, No dyspnea at rest Cardiac: + edema, No chest pain, No orthopnea, No PND Abdomen: No pain, No diarrhea Objective Vital Signs Date Time Temp Pulse Resp B/P (MAP) Pulse Ox O2 Delivery O2 Flow Rate FiO2 06/28/17 20:00 Nasal Cannula 3.0 Humidified Air 06/28/17 19:35 37.1 91 19 103/73 (83) 96 Nasal Cannula 3.0 06/28/17 19:05 69 18 92 Nasal Cannula 3.0 06/28/17 16:00 Nasal Cannula 3.0 06/28/17 15:37 36.7 88 22 119/68 (85) 94 Room Air 06/28/17 14:21 83 18 95 Nasal Cannula 3.0 06/28/17 12:00 Nasal Cannula 3.0 06/28/17 11:17 36.6 79 20 113/69 (84) 97 Nasal Cannula 3.0 06/28/17 08:00 Nasal Cannula 3.0 06/28/17 07:30 36.5 94 20 142/83 (102) 93 Room Air 06/28/17 07:07 82 18 94 Nasal Cannula 3.0 06/28/17 04:41 36.6 85 20 126/85 (99) 96 Room Air 06/28/17 04:00 Nasal Cannula 2.0 06/28/17 01:51 85 18 96 Room Air 06/28/17 00:00 Nasal Cannula 2.0 06/27/17 23:48 36.7 74 22 148/77 (100) 96 Nasal Cannula 3.0 Physical Exam General Appearance: no apparent distress, + obese ENT: pharynx normal Neck: + JVD Respiratory/Chest: no respiratory distress, no accessory muscle use, + crackles (slight faint rales bases), + pertinent finding (wheezing markedly improved) Cardiovascular: no gallop, + irregularly irregular Abdomen: normal bowel sounds, non tender, soft, no organomegaly Extremities: + pedal edema (2+ b/l ), + pertinent finding (right arm - hematoma unchanged in size; not as tender to touch today) Neurologic/Psychiatric: alert, oriented x 3 Skin: + pertinent finding (right 2nd toe - no cellulitis, shallow ulcer clean, no drainage) Laboratory Results Last 24 Hours Test 06/28/17 05:56 06/28/17 06:39 06/28/17 11:36 06/28/17 16:14 White Blood Count 10.77 K/uL Red Blood Count 3.38 M/uL Hemoglobin 9.8 g/dL Hematocrit 29.9 % Mean Corpuscular Volume 88.5 fL Mean Corpuscular Hemoglobin 29.0 pg Mean Corpuscular Hemoglobin Concent 32.8 g/dl RDW Standard Deviation 53.4 fL RDW Coefficient of Variation 16.8 % Platelet Count 493 K/uL Mean Platelet Volume 8.9 fL Sodium Level 136 mmol/L Potassium Level 3.7 mmol/L Chloride Level 99 mmol/L Carbon Dioxide Level 31 mmol/L Anion Gap 6.0 mmol/L Blood Urea Nitrogen 16 mg/dl Creatinine 0.95 mg/dl Est Creatinine Clear Calc Drug Dose 108.0 ml/min Estimated GFR () 98.3 Estimated GFR (Non- 84.9 BUN/Creatinine Ratio 16.3 Random Glucose 164 mg/dl Calcium Level 8.5 mg/dl Magnesium Level 1.7 mg/dl Bedside Glucose 176 mg/dl 206 mg/dl 115 mg/dl Test 06/28/17 20:45 Bedside Glucose 142 mg/dl Assessment and Plan 61yo male - 1. staph aureus (MSSA) septicemia - source -- 2nd toe ulceration on right foot. Day #7 / 14 of abx (currently on rocephin 2 gm daily). KHALIDA w/o evidence of endocarditis. Most recent blood cultures are negative and he remains afebrile. Appreciate ID, cardiology, podiatry, wound care consultations. 2. right 2nd toe ulceration - no evidence of osteomyelitis on MRI scan. s/p debridement by podiatry 06/24/17. s/p local wound care by wound care team. Needs diabetic shoes after discharge. 3. acute/chronic systolic/diastolic CHF - improving nicely. give lasix 40mg IV BID today and reassess in am. 4. uncontrolled T2DM - finally improving after increase in lantus to 30 units BID. Cont metformin 1gm BID. Cont novolog w/ meals. 5. morbid obesity with BMI 46. 6. LLL pneumonia, community-acquired - finish rocephin course. 7. CAD - cont statin, plavix, BB. No ischemic sx's at this time. 8. a. fib - remains on BB, CCB, and eliquis. Appreciate cardiology input. Overall control is very good. 9. hyponatremia - resolved. 10. DEANDRE - BIPAP. 11. hyperlipidemia - statin agent. 12. HTN - controlled with current meds. 13. chronic cough - likely multifactorial from pulmonary edema, LLL pneumonia, and/or post-nasal drip. Cont kym 60mg BID, nasal steroid, lasix diuresis, nebs, robitussin ac prn. 14. elevated troponin - likely myocardial demand ischemia in setting of #1 above. 15. hematoma, right arm - u/s confirmed - no evidence of pseudoaneurysm. cold packs x 48 hours then switch to heat elevate the arm social work aware of IV abx for home left message for 06/28/17 home tomorrow if euvolemic?? Continued [facility] stay due to: multiple IV medications needed Discharge planning: home with home health, home with IV medication
[2017-06-29] VITALS (9 sets, daily range): BP systolic 124–152; BP diastolic 78–88; PULSE 71–90; TEMP 36.6–37; O2SAT 91–98
[2017-06-29] MEDS: LEVALBUTEROL 1.25MG/3ML NEB INH SCH ×4 (01:47→19:59)
[2017-06-29 07:09] LABS: CALCIUM 8.7 mg/dl (8.5-10.1); CREATININE 0.89 mg/dl (0.60-1.40)
[2017-06-29] MEDS: LIDODERM (LIDOCAINE) PATCH 5% TD SCH (07:32)
[2017-06-29] MEDS: INSULIN ASPART 100 UNITS/ML 3 ML PEN SC SCH ×4 (07:43→21:00)
[2017-06-29] MEDS: TRIAMCINOLONE ACET NASAL SPRAY 10.8ML BTL NAE SCH (07:44)
[2017-06-29] MEDS: INSULIN GLARGINE SOLOSTAR 100 UNITS/ML 3 ML PEN SC SCH ×2 (07:44→21:05)
[2017-06-29] MEDS: POTASSIUM CHLORIDE 20 MEQ TABCR PO SCH (07:44)
[2017-06-29] MEDS: BENZONATATE 100MG CAP PO SCH ×3 (07:44→20:58)
[2017-06-29] MEDS: CEFTRIAXONE SOD INJ 2,000 MG in DEXTROSE 5% 50ML 50 ML IV SCH (07:44)
[2017-06-29] MEDS: DILTIAZEM HCL 180 MG CAPCR PO SCH (07:45)
[2017-06-29] MEDS: SACCHAROMYCES BOUL (FLORASTOR) 250 MG CAP PO SCH (07:45)
[2017-06-29] MEDS: FEXOFENADINE HCL 60 MG TAB PO SCH ×2 (07:45→20:59)
[2017-06-29] MEDS: ALLOPURINOL 100 MG TAB PO SCH (07:45)
[2017-06-29] MEDS: METOPROLOL TARTRATE 50 MG TAB PO SCH ×2 (07:45→20:58)
[2017-06-29] MEDS: CLOPIDOGREL BISULFATE 75 MG TAB PO SCH (07:45)
[2017-06-29] MEDS: MAGNESIUM OXIDE 400 MG TAB PO SCH ×2 (07:45→20:58)
[2017-06-29] MEDS: APIXABAN 2.5 MG TAB PO SCH ×2 (07:46→20:58)
[2017-06-29] MEDS: METFORMIN HCL 500 MG TAB PO SCH ×2 (07:46→17:02)
[2017-06-29] MEDS ORDERED: FUROSEMIDE INJ 40 MG in SYRINGE 0 ML IV ONE (09:30)
[2017-06-29] MEDS: ACETAMINOPHEN 325 MG TAB PO PRN (09:53)
[2017-06-29] MEDS ORDERED: FUROSEMIDE INJ 60 MG in SYRINGE 0 ML IV SCH (17:00)
[2017-06-29] MEDS ORDERED: POTASSIUM CHLORIDE 20 MEQ TABCR PO ONE (17:00)
[2017-06-29] MEDS: ATORVASTATIN 20 MG TAB PO SCH (20:59)
--- NOTE | 2017-06-30 00:43 | Progress Note ---
Subjective Date of Service: June 29, 2017. Subjective Pt evaluation today including: conversation w/ patient, conversation w/ family (, at bedside), physical exam, chart review, lab review, review of inpatient medication list Pain: right arm feeling much better PO Intake: 100% of meals Voiding: no voiding problems tele with NSR this am has had runs of a. fib but even so they have been rate-controlled feels good; cough/dyspnea/wheezing all improved o2 sats in RA about 90% this am thinks that his weight was about 290 pounds recently at home, not 300 pounds she also thinks his feet are usually not swelled, but he states they always are Problem List Medical Problems: (1) Bronchitis Status: Acute (2) Cellulitis of toe Status: Acute (3) Diabetes Status: Chronic (4) Elevated troponin Status: Acute (5) Heart disease Status: Chronic (6) Leukocytosis Status: Acute Review of Systems Constitutional: No fever, No chills Respiratory: + cough, + wheezing, + dyspnea on exertion, No sputum, No dyspnea at rest, No hemoptysis Cardiac: + edema, No chest pain Abdomen: No pain, No diarrhea Objective Vital Signs Date Time Temp Pulse Resp B/P (MAP) Pulse Ox O2 Delivery O2 Flow Rate FiO2 06/29/17 23:59 Nasal Cannula 3.0 06/29/17 23:30 36.7 86 20 127/83 (98) 94 Nasal Cannula 2.0 06/29/17 19:59 72 16 98 Nasal Cannula 2.0 06/29/17 19:43 Nasal Cannula 2.0 06/29/17 16:00 Nasal Cannula 2.0 06/29/17 14:28 71 16 98 Nasal Cannula 2.0 06/29/17 14:03 36.8 90 18 124/78 (93) 94 Room Air 06/29/17 12:00 Nasal Cannula 2.0 06/29/17 11:57 37.0 88 22 140/85 (103) 97 Nasal Cannula 2.0 06/29/17 08:00 Nasal Cannula 2.0 06/29/17 08:00 Nasal Cannula 2.0 06/29/17 07:03 81 18 98 Nasal Cannula 3.0 06/29/17 06:22 36.8 85 22 148/88 (108) 91 Nasal Cannula 3.0 06/29/17 04:44 36.6 85 20 152/79 (103) 94 Nasal Cannula 3.0 06/29/17 04:00 Nasal Cannula 3.0 Humidified Air 06/29/17 01:47 79 18 92 Nasal Cannula 3.0 Physical Exam General Appearance: no apparent distress, + obese ENT: pharynx normal Neck: + JVD Respiratory/Chest: no respiratory distress, no accessory muscle use, + rales ( minimal bases), + wheezing (minimal end-exp) Cardiovascular: regular rate, rhythm, no gallop Abdomen: normal bowel sounds, non tender, soft, no organomegaly Extremities: + pedal edema (2+ b/l, worse right leg) Neurologic/Psychiatric: alert, oriented x 3 Skin: + pertinent finding (right 2nd toe ulceration clean, no odor, no drainage ; no surrounding cellulitis ) Comments: right arm hematoma much better today - less swelling, less warmth, less tenderness; left arm PICC clean Laboratory Results Last 24 Hours Test 06/29/17 06:02 06/29/17 07:21 06/29/17 11:35 06/29/17 16:39 Sodium Level 135 mmol/L Potassium Level 4.0 mmol/L Chloride Level 100 mmol/L Carbon Dioxide Level 32 mmol/L Anion Gap 3.0 mmol/L Blood Urea Nitrogen 12 mg/dl Creatinine 0.89 mg/dl Est Creatinine Clear Calc Drug Dose 110.2 ml/min Estimated GFR () 105.5 Estimated GFR (Non- 91.0 BUN/Creatinine Ratio 13.7 Random Glucose 166 mg/dl Calcium Level 8.7 mg/dl Magnesium Level 1.9 mg/dl Bedside Glucose 179 mg/dl 240 mg/dl 228 mg/dl Test 06/29/17 18:47 06/29/17 20:18 Bedside Glucose 215 mg/dl 140 mg/dl Assessment and Plan 61yo male - 1. staph aureus (MSSA) septicemia - source -- 2nd toe ulceration on right foot. Day #8 / 14 of abx (currently on rocephin 2 gm daily). KHALIDA w/o evidence of endocarditis. Most recent blood cultures are negative and he remains afebrile. Appreciate ID, cardiology, podiatry, wound care consultations. 2. right 2nd toe ulceration - no evidence of osteomyelitis on MRI scan. s/p debridement by podiatry 06/24/17. s/p local wound care by wound care team. Needs diabetic shoes after discharge. 3. acute/chronic systolic/diastolic CHF - improving nicely. lasix 40mg IV BID today reassess clinically and with labs tomorrow PO lasix on hold dry weight is somewhere between 290-300 pounds - uncertain of specific level 4. uncontrolled T2DM - cont lantus to 30 units BID. Cont metformin 1gm BID. Cont novolog w/ meals. re-adjust insulins if still with fsb's >200 5. morbid obesity with BMI 42 6. LLL pneumonia, community-acquired - finish rocephin course. 7. CAD - cont statin, plavix, BB. No ischemic sx's at this time. 8. a. fib - remains on BB, CCB, and eliquis. Appreciate cardiology input. Overall control is very good. He fluctuates between rate-controlled a. fib and NSR. 9. hyponatremia - resolved. 10. DEANDRE - uses NC O2 at night-time 11. hyperlipidemia - statin agent. 12. HTN - controlled with current meds. 13. chronic cough - likely multifactorial from pulmonary edema, LLL pneumonia, and/or post-nasal drip. Cont kym 60mg BID, nasal steroid, lasix diuresis, nebs, robitussin ac prn. 14. elevated troponin - likely myocardial demand ischemia in setting of #1 above. 15. hematoma, right arm - u/s confirmed - no evidence of pseudoaneurysm. IMPROVING. This occurred after PICC line attempt in that arm. switch to heat today elevate the arm social work aware of IV abx for home left message for 06/28/17 and updated her at bedside today transfer to med/surg can d/c home once he is euvolemic or close to such Continued [facility] stay due to: multiple IV medications needed Discharge planning: home with home health, home with IV medication
[2017-06-30 02:06] VITALS: PULSE 72; O2SAT 93
[2017-06-30] MEDS: LEVALBUTEROL 1.25MG/3ML NEB INH SCH ×3 (02:06→14:18)
[2017-06-30 05:37] LABS: CALCIUM 9.2 mg/dl (8.5-10.1); CREATININE 0.99 mg/dl (0.60-1.40); POTASSIUM 4.1 mmol/L (3.5-5.1)
[2017-06-30 07:18] VITALS: PULSE 78; O2SAT 96
[2017-06-30] MEDS ORDERED: MAGNESIUM SULFATE 1GM / D5W 100 ML IV STA (07:44)
[2017-06-30] MEDS: DILTIAZEM HCL 180 MG CAPCR PO SCH (08:22)
[2017-06-30] MEDS: FEXOFENADINE HCL 60 MG TAB PO SCH (08:22)
[2017-06-30] MEDS: LACTOBACILLUS ACIDOPHILUS (FLORANEX) TAB PO SCH ×2 (08:22→12:23)
[2017-06-30] MEDS: METOPROLOL TARTRATE 50 MG TAB PO SCH ×2 (08:22→16:55)
[2017-06-30] MEDS: MAGNESIUM OXIDE 400 MG TAB PO SCH (08:22)
[2017-06-30] MEDS: APIXABAN 2.5 MG TAB PO SCH (08:22)
[2017-06-30] MEDS: ALLOPURINOL 100 MG TAB PO SCH (08:22)
[2017-06-30] MEDS: METFORMIN HCL 500 MG TAB PO SCH (08:22)
[2017-06-30] MEDS: POTASSIUM CHLORIDE 20 MEQ TABCR PO SCH (08:22)
[2017-06-30] MEDS: BENZONATATE 100MG CAP PO SCH ×2 (08:23→14:30)
[2017-06-30] MEDS: CLOPIDOGREL BISULFATE 75 MG TAB PO SCH (08:23)
[2017-06-30] MEDS: INSULIN ASPART 100 UNITS/ML 3 ML PEN SC SCH ×2 (08:32→12:23)
[2017-06-30] MEDS: TRIAMCINOLONE ACET NASAL SPRAY 10.8ML BTL NAE SCH (08:33)
[2017-06-30] MEDS: INSULIN GLARGINE SOLOSTAR 100 UNITS/ML 3 ML PEN SC SCH (08:33)
[2017-06-30] MEDS: LIDODERM (LIDOCAINE) PATCH 5% TD SCH (08:33)
[2017-06-30] MEDS: CEFTRIAXONE SOD INJ 2,000 MG in DEXTROSE 5% 50ML 50 ML IV SCH (09:51)
[2017-06-30 11:48] VITALS: BP 141/88; PULSE 85; TEMP 36.9; O2SAT 92
[2017-06-30 14:20] VITALS: PULSE 60; O2SAT 94
[2017-06-30 15:10] VITALS: BP 132/74; PULSE 85; TEMP 37; O2SAT 94
[2017-06-30] MEDS ORDERED: CEFT1INJ26 IV (15:10)
[2017-06-30] MEDS ORDERED: FUROSEMIDE 40 MG TAB PO ONE (15:15)
[2017-06-30] MEDS ORDERED: LSX40 PO (15:37)
[2017-06-30] MEDS ORDERED: CRDCD180 PO (15:37)
[2017-06-30] MEDS ORDERED: BENZ100C7 PO (15:37)
[2017-06-30] MEDS ORDERED: APIX1TAB3 PO (15:37)
[2017-06-30] MEDS ORDERED: LCTX PO (15:37)
[2017-06-30] MEDS ORDERED: METO-479 PO (15:37)
[2017-06-30] MEDS ORDERED: MGNO400 PO (15:37)
[2017-06-30] MEDS ORDERED: DVN80 PO (15:37)
[2017-06-30] MEDS ORDERED: INSDGIPEN SC (15:37)
[2017-06-30] MEDS ORDERED: TRIA1SPR4 NAE (15:37)
[2017-06-30] MEDS ORDERED: INSU32MI13 SQ (15:37)
[2017-06-30] MEDS ORDERED: NVLGI/PEN SC (15:37)
[2017-06-30] MEDS ORDERED: ALL60 PO (15:37)
[2017-06-30] MEDS ORDERED: MCRK20 PO (15:37)
--- NOTE | 2017-06-30 15:45 | Discharge Instructions ---
Discharge Instructions Date of Service June 30, 2017. Admission Reason for Admission: Rapid atrial fibrillation Discharge Discharge Diagnosis / Problem: Rapid atrial fibrillation, staph bacteremia Discharge Goals Goal(s): Improve disease control, Diagnostic testing, Therapeutic intervention Activity Recommendations Activity Limitations: as noted below Exercise/Sports Limitations: gradually increase as tolerated Shower/Bathe: no limitations . Instructions / Follow-Up Instructions / Follow-Up You were admitted with a rapid irregular heartbeat called atrial fibrillation. You were also started on medications to help control your rapid heartbeat. Some of your other heart medication doses were also adjusted. You were also placed on a blood thinner called Eliquis to help prevent you from having a stroke. He was found to have bacteria growing in your bloodstream from your infected toe, as well as a pneumonia in the left lung. He was treated with antibiotics and should continue the IV antibiotics at home for 5 more days. Please follow-up with Dr. Flores as scheduled for you on 07/09/17 at 2:40 PM. Please follow-up with your family doctor, as well as the manager of hospital within 1 week as scheduled. Call your Primary Care doctor if any of the following symptoms or problems start or get worse: * Shortness of breath or difficulty breathing * Wake up at night short of breath * Chest pain * Cough * Swelling of your hands, feet, or legs * More fatigued or tired with your normal activity * Palpitations - sudden fast heart beats WEIGHT * Weigh yourself every morning after using the bathroom. * Use the same scale. * Wear the same amount of clothing. * Write your weight down on a chart. * Call your Primary Care doctor if you gain more than 2-3 pounds in 1-2 days. MEDICATIONS * Use this discharge instruction sheet for medication instructions. * Take your medications at the time your doctor ordered. * Do not skip a dose of your medicines. * If you miss a dose of medicine, take it as soon as possible, but DO NOT DOUBLE A DOSE. * Read your medicine information when you get home. * Know all of the side effects of your medicine. If in doubt, ask your pharmacist * Call your Primary Care doctor's office if you have any side effects. * Be sure all of your doctors know what medicine and herbs you take (including cold, flu, and herbal medicine). Take the following with you to your follow-up doctor appointments: * Weight Chart * Medication List * List of questions Do not drink excessive alcohol, beer or wine. Current Hospital Diet Patient's current hospital diet: Diabetes Type 2 Diet Discharge Diet Recommended Diet: Low Sodium Diet (2gm Na), Diabetes Type 2 Diet Fluid Restriction: 1800 ml (7 cups) Procedures Procedures Performed: Debridement of right second toe Transesophageal echocardiogram Transthoracic echocardiogram Chest x-ray MRI foot Right upper extremity ultrasound X-ray toes CT chest CT head Pending Studies Studies pending at discharge: no Laboratory Results Hemoglobin A1c Test 06/20/17 03:35 Range/Units Estimated Average Glucose 197 mg/dl Hemoglobin A1c 8.5 H 4.5-5.6 % Lipid Panel Test 06/20/17 03:35 Range/Units Triglycerides Level 85 0-150 mg/dl Cholesterol Level 66 0-200 mg/dl HDL Cholesterol 34 mg/dl Cholesterol/HDL Ratio 1.9 LDL Cholesterol, Calculated 15 mg/dl Medical Emergencies . Who to Call and When: Call 911 or go to the Emergency Room if: * If at any time you feel your situation is an emergency * You have tightness or pain in your chest that does not go away with rest or Nitroglycerin * You are very short of breath even with rest . Non-Emergent Contact Non-Emergency issues call your: Primary Care Provider, Hospital Librarian . . "Provider Documentation" section prepared by Conchita Maher. .
--- NOTE | 2017-06-30 15:52 | Discharge Summary ---
Discharge Summary Date of Service June 30, 2017. Discharge Summary Admission Date: Jun 19, 2017 at 15:47 Discharge Date: June 30, 2017 Discharge Disposition: Home with services Principal Diagnosis: Rapid atrial fibrillation, Staphylococcus aureus bacteremia, PNA Problems/Secondary Diagnoses: This patient is a 61-year-old male with past medical history of diabetes mellitus type II, hypertension, obstructive sleep apnea on CPAP, dyslipidemia, chronic diastolic congestive heart failure, CVA and recent shingles 2 weeks ago. Presented with fever, sepsis, generalized fatigue, fall, and yellow productive sputum, was found in ED to have positive troponin and new onset atrial fibrillation. New Onset Atrial Fibrillation with RVR/myocardial demand ischemia: Rates finally controlled and weaned off diltiazem drip and on p.o. diltiazem, now on Eliquis for anticoagulation - Elevated troponins related to demand from RVR and then trended downward no CP other than musculoskeletal from fall -Continue Eliquis 5 mg p.o. twice daily for anticoagulation - Stopped ASA and continue Plavix 75 mg daily so as to avoid triple therapy -Continue metoprolol 50 mg p.o. twice daily -Weaned off diltiazem drip and now on diltiazem 30 mg p.o. every 6 hours- cardiology plans to switch him to long-acting diltiazem today - Cardiology following - recommendations appreciated -Replace magnesium and potassium as needed Sepsis POA/LLL pneumonia/acute hypoxic respiratory failure/Staphylococcus aureus bacteremia/right second toe infection-all of his household contacts had a recent viral illness and he started having fevers 1 week ago along with cold symptoms. His fevers then worsened and cough has progressively worsened with productive sputum. Growing MSSA in 1 out of 2 blood culture sets from admission , repeat blood culture again with Staphylococcus species, sensitivity pending. Chest CT on admission without pneumonia, however after IV fluid hydration, a repeat chest x-ray 2 days later has fluffed out a left lower lobe pneumonia. Possibly has a Staphylococcus aureus post viral pneumonia, versus seeded from staph bacteremia with source of right toe infection. Leukocytosis still present and worsening again to 13 K from yesterday but improved since admission. Fevers have subsided. Off and on oxygen. Area of recent shingles without cellulitis; small scab on top of head but healing so not likely to be the source. Right second toe seems to be the source. Procalcitonin negative, interestingly Overall much improved from a respiratory standpoint -Follow-up sensitivity and blood cultures and follow repeat blood cultures again on 06/22 which are no growth to date -Discontinued Levaquin for pneumonia as is likely staph -discontinued vancomycin after sensitivities came back as MSSA -Check x-ray of right toe, consult orthopedics to see about debridement of the toe -Continue Ancef and will need for at least 2 weeks, possibly 6 weeks if has SBE -Consult infectious disease for Staph bacteremia-appreciate further recommendations -Transthoracic echocardiogram with poor visualization of the valves -Plan for KHALIDA tomorrow morning to rule out SBE -Follow CBC -Continue Tessalon pearls for cough, continue Mucinex to break up sputum -Continue Hycodan as needed at bedtime for cough -Continue levalbuterol nebs for wheezing Chest wall pain-s/p fall with contusion-improving -continue tylenol prn pain, lidocaine patch Acute on chronic combined Systolic and Diastolic CHF:ECHO with mildly reduced LV function but poor images. Now weight is up again and remains volume overloaded. Not as good of a response to IV Lasix yesterday, and still 8 L positive and still with lower extremity edema -will again give Lasix 20 mg IV 1 now -Continue Lasix 20 mg p.o. every morning and dose with IV Lasix as needed -Can eventually restart his amiloride/HCTZ and valsartan if blood pressures will allow, but will hold off for now given recent increase in metoprolol and adding diltiazem Fall with Generalized Weakness 2/2 Infection/Sepsis vs RVR: - treating both as above -PT/OT evals T2DM with Hyperglycemia, hyperglycemia persists today but improved from yesterday - Holding Metformin and covering with Lantus and will increase to 15 units BID and SSI was tightened DEANDRE on CPAP: - May use own CPAP Obesity, BMI 46 -Encouraged weight loss Pulmonary nodule-seen on CT-needs follow-up CT as per guidelines DVT Prophylaxis: Eliquis Disposition-remain on telemetry due to rapid atrial fibrillation Code Status: FULL RESUSCITATION Immunizations: Have You Had Influenza Vaccine: No History of Tetanus Vaccine?: Yes History of Pneumococcal: No History of Hepatitis B Vaccine: No Medication Reconciliation New Medications: Apixaban (Eliquis) 5 Mg Tab 5 MG PO BID for 30 Days, #60 TAB Ceftriaxone Sodium (Rocephin) 1 Gm Inj 2 GM IV Q24H for 5 Days Last dose on 07/05/17 at 10:00 Insulin Pen Needle (Bd Pen Needle/Carla/Ultra) 1 Mis Mis EA SQ DAILY, #30 Metoprolol Succinate (Toprol Xl) 100 Mg Tab 100 MG PO QAM for 30 Days, #30 TAB Valsartan (Diovan) 80 Mg Tab 1 TAB PO DAILY for 30 Days, #30 TAB 0 Refills Benzonatate (Benzonatate) 100 Mg Cap 200 MG PO TID PRN for Cough for 7 Days, #42 CAP Diltiazem HCl (Diltiazem HCl ER) 180 Mg Capcr 180 MG PO QAM for 30 Days, #30 CAP Fexofenadine HCl (Fexofenadine HCl) 60 Mg Tab 60 MG PO BID for 30 Days, #60 TAB Furosemide (Furosemide) 40 Mg Tab 40 MG PO QAM for 30 Days, #30 TAB Insulin Glargine (Lantus Solostar) 100 Unit/Ml Inj 30 UNITS SC BID for 30 Days, #1 BOX Lactobacillus Acidophilus (Floranex) 1 Tab Tab 4 TAB PO TIDM for 30 Days, #360 TAB Magnesium Oxide (Magnesium-Oxide) 400 Mg Tab 400 MG PO BID for 30 Days, #60 TAB OTC Potassium Chloride (Klor-Con M20) 20 Meq Tabcr 20 MEQ PO QAM for 30 Days, #30 TAB Triamcinolone Acetonide (Nasal (Nasacort Allergy 24Hr) 55 Mcg/Act Spr 2 SPRAYS JUDY DAILY for 30 Days, #1 BTL Changed Medications: Insulin Aspart (Novolog Flexpen) 100 Units/Ml Inj 15 UNITS SC TIDM for 30 Days (Changed from: UNITS; UD; 34 UNITS QAM 34 UNITS NOON 37 UNITS QPM ALL + SLIDING SCALE ) PLUS SLIDING SCALE Continued Medications: Albuterol Hfa (Ventolin Hfa) 200 Puffs/37025 Mcg Aers 2 PUFFS INH Q4 PRN for SOB/Wheezing, #1 INHALER Allopurinol (Zyloprim) 100 Mg Tab 100 MG PO QAM Amiloride/Hctz (Amiloride/Hydrochlorothia 5-50 mg) 1 Ea Tab 1 TAB PO DAILY Atorvastatin (Lipitor) 40 Mg Tab 40 MG PO HS Cholecalciferol (Vitamin D3) 1,000 Unit Tab 2000 TAB PO QAM Clopidogrel (Plavix) 75 Mg Tab 75 MG PO QAM Metformin HCl (Metformin HCl ER) 1,000 Mg Tab 1000 MG PO BID Multivitamin (Multivitamin) Tab 1 TAB PO QAM Nitroglycerin (Nitrostat) 0.4 Mg Tab 0.4 MG UT PRN PRN for Chest Pain Discontinued Medications: Aspirin (Aspirin Ec) 81 Mg Tab 81 MG PO HS Furosemide (Lasix) 20 Mg Tab 20 MG PO DAILY, TAB TAKE DAILY IF NEEDED FOR 30 DAYS Meloxicam (Mobic) 7.5 Mg Tab 7.5 MG PO BID Metoprolol Succ (Toprol Xl) (Toprol-Xl) 25 Mg Tabcr 25 MG PO QAM Prednisolone Acetate (Ophth) (Prednisolone Acetate) 1 % Manjula 1 DROP OPL QID for 10 Days, BTL LEFT EYE ONLY FOR ONE WEEK. Valsartan (Diovan) 320 Mg Tab 320 MG PO QAM Discharge Exam Patient feeling very well, not short of breath except with long periods of ambulation. Denies chest pain. Feels that his leg swelling is decreased from before. Remains afebrile. Review of Systems: Constitutional: No fever Eyes: No problem reported ENT: No problem reported Respiratory: + dyspnea on exertion Cardiovascular: No problem reported Abdomen: No problem reported Musculoskeletal: No problem reported Genitourinary - Male: No problem reported Neurologic: No problem reported Psychiatric: No problem reported Endocrine: No problem reported Hematologic / Lymphatic: No problem reported Integumentary: No problem reported Physical Exam: General Appearance: WD/WN, no apparent distress, + obese Eyes: normal inspection, sclerae normal ENT: hearing grossly normal Neck: trachea midline Respiratory/Chest: lungs clear, normal breath sounds, no respiratory distress, no accessory muscle use Cardiovascular: regular rate, rhythm, + systolic murmur, + pertinent finding (2+ pitting edema of the legs to the knees bilaterally improved from previous) Abdomen / GI: normal bowel sounds, non tender, soft Extremities: + pertinent finding (Right second toe with minimal edema, no erythema, dressing clean dry and intact) Neurologic/Psychiatric: alert, normal mood/affect, oriented x 3 Skin: no rash Hospital Course This patient is a 61-year-old male with past medical history of diabetes mellitus type II, hypertension, obstructive sleep apnea on CPAP, dyslipidemia, chronic diastolic congestive heart failure, CVA and recent shingles 2 weeks ago. Presented with fever, sepsis, generalized fatigue, fall, and yellow productive sputum, was found in ED to have positive troponin and new onset atrial fibrillation. New Onset Atrial Fibrillation with RVR/myocardial demand ischemia: Rates finally controlled and weaned off diltiazem drip and on p.o. diltiazem, now on Eliquis for anticoagulation - Elevated troponins related to demand from RVR and then trended downward no CP other than musculoskeletal from fall -Continue Eliquis 5 mg p.o. twice daily for anticoagulation - Stopped ASA and continue Plavix 75 mg daily so as to avoid triple therapy -Continue metoprolol 50 mg p.o. twice daily -Weaned off diltiazem drip and now on diltiazem 30 mg p.o. every 6 hours- cardiology plans to switch him to long-acting diltiazem today - Cardiology following - recommendations appreciated -Replace magnesium and potassium as needed Sepsis POA/LLL pneumonia/acute hypoxic respiratory failure/Staphylococcus aureus bacteremia/right second toe infection-all of his household contacts had a recent viral illness and he started having fevers 1 week ago along with cold symptoms. His fevers then worsened and cough has progressively worsened with productive sputum. Growing MSSA in 1 out of 2 blood culture sets from admission , repeat blood culture again with Staphylococcus species, sensitivity pending. Chest CT on admission without pneumonia, however after IV fluid hydration, a repeat chest x-ray 2 days later has fluffed out a left lower lobe pneumonia. Possibly has a Staphylococcus aureus post viral pneumonia, versus seeded from staph bacteremia with source of right toe infection. Leukocytosis still present and worsening again to 13 K from yesterday but improved since admission. Fevers have subsided. Off and on oxygen. Area of recent shingles without cellulitis; small scab on top of head but healing so not likely to be the source. Right second toe seems to be the source. Procalcitonin negative, interestingly Overall much improved from a respiratory standpoint -Follow-up sensitivity and blood cultures and follow repeat blood cultures again on 06/22 which are no growth to date -Discontinued Levaquin for pneumonia as is likely staph -discontinued vancomycin after sensitivities came back as MSSA -Check x-ray of right toe, consult orthopedics to see about debridement of the toe -Continue Ancef and will need for at least 2 weeks, possibly 6 weeks if has SBE -Consult infectious disease for Staph bacteremia-appreciate further recommendations -Transthoracic echocardiogram with poor visualization of the valves -Plan for KHALIDA tomorrow morning to rule out SBE -Follow CBC -Continue Tessalon pearls for cough, continue Mucinex to break up sputum -Continue Hycodan as needed at bedtime for cough -Continue levalbuterol nebs for wheezing Chest wall pain-s/p fall with contusion-improving -continue tylenol prn pain, lidocaine patch Acute on chronic combined Systolic and Diastolic CHF:ECHO with mildly reduced LV function but poor images. Now weight is up again and remains volume overloaded. Not as good of a response to IV Lasix yesterday, and still 8 L positive and still with lower extremity edema -will again give Lasix 20 mg IV 1 now -Continue Lasix 20 mg p.o. every morning and dose with IV Lasix as needed -Can eventually restart his amiloride/HCTZ and valsartan if blood pressures will allow, but will hold off for now given recent increase in metoprolol and adding diltiazem Fall with Generalized Weakness 2/2 Infection/Sepsis vs RVR: - treating both as above -PT/OT evals T2DM with Hyperglycemia, hyperglycemia persists today but improved from yesterday - Holding Metformin and covering with Lantus and will increase to 15 units BID and SSI was tightened DEANDRE on CPAP: - May use own CPAP Obesity, BMI 46 -Encouraged weight loss Pulmonary nodule-seen on CT-needs follow-up CT as per guidelines DVT Prophylaxis: Eliquis Disposition-remain on telemetry due to rapid atrial fibrillation Code Status: FULL RESUSCITATION Total Time Spent: Greater than 30 minutes This includes examination of the patient, discharge planning, medication reconciliation, and communication with other providers. Discharge Instructions Please refer to the electronic Patient Visit Report (Discharge Instructions) for additional information. Follow-Up With cardiology within 1-2 weeks With PCP within 1 week With podiatry within 1 week Additional Copies To Bob Flores, ; Trevor Vazquez D.P.M; Loki Matias M.D.
[2017-06-30 15:58] VITALS: BP 132/74; PULSE 85; TEMP 37; O2SAT 94
[2017-07-01] MEDS ORDERED: FUROSEMIDE 40 MG TAB PO SCH (09:00)
== END 2017-06-30 17:16 | disposition home or self-care (01) | DRG 871 ==
LOC: C.EDB 12:52 → C.2T 15:47 → UNDOADMIN 15:47 → ENRESERV 16:04 → C.MED 06-29 13:53
PROVIDERS: ADMIT Internal Medicine; ATTEND Family Medicine
DX: A41.9 Sepsis, unspecified organism (principal); J18.9 Pneumonia, unspecified organism; J96.01 Acute respiratory failure with hypoxia; I50.42 Chronic combined systolic (congestive) and diastolic (congestive) heart failure; Z68.41 Body mass index [BMI] 40.0-44.9, adult; I24.8 Other forms of acute ischemic heart disease; I48.91 Unspecified atrial fibrillation; W19.XXXA Unspecified fall, initial encounter; G47.33 Obstructive sleep apnea (adult) (pediatric); I11.0 Hypertensive heart disease with heart failure; J40 Bronchitis, not specified as acute or chronic; L03.031 Cellulitis of right toe; D72.829 Elevated white blood cell count, unspecified; E78.5 Hyperlipidemia, unspecified; I25.5 Ischemic cardiomyopathy; A49.01 Methicillin susceptible Staphylococcus aureus infection, unspecified site; I25.10 Atherosclerotic heart disease of native coronary artery without angina pectoris; E11.65 Type 2 diabetes mellitus with hyperglycemia; Z79.4 Long term (current) use of insulin; Z86.73 Personal history of transient ischemic attack (TIA), and cerebral infarction without residual deficits; Z79.82 Long term (current) use of aspirin; Z87.891 Personal history of nicotine dependence; Z79.84 Long term (current) use of oral hypoglycemic drugs; Z80.42 Family history of malignant neoplasm of prostate; Z83.3 Family history of diabetes mellitus; Z82.49 Family history of ischemic heart disease and other diseases of the circulatory system

== ENCOUNTER → 2017-07-01 | Day surgery (SDC) | payer BC ==
[~2017-07-01] VITALS: Ht 170.2 cm; Wt 136.2 kg
[~2017-07-01] MED LIST changes: -ALBU1AER9 INH; +ALL60 PO; +ALTEPLASE, RECOMBINANT 1 MG/ML 2 ML VIAL IV PRN; +APIX1TAB3 PO; -ASPI81TA28 PO; +BENZ100C7 PO; +CEFT1INJ26 IV; +CRDCD180 PO; +DVN80 PO; -GLC500 PO; +INSDGIPEN SC; +INSU32MI13 SQ; +LCTX PO; +LSX40 PO; -LVMI SC; +MCRK20 PO; -MELO7.5T5 PO; +METF-841 PO; +METO-479 PO; -METO25TA3 PO; +MGNO400 PO; +TRIA1SPR4 NAE; -VALS320T PO; +VNTHFA/IN INH
[2017-07-01 12:41] VITALS: BP 117/68; PULSE 94; TEMP 36.8; O2SAT 96; Ht 170.2 cm; Wt 136.2 kg
== END | disposition home or self-care (01) ==
LOC: C.MTU 12:28
PROVIDERS: ATTEND Internal Medicine Infectious Disease
DX: A41.2 Sepsis due to unspecified staphylococcus (principal)

== ENCOUNTER → 2017-07-01 | Outpatient (CLI) | payer BC ==
[~2017-07-01] MED LIST changes: -ALTEPLASE, RECOMBINANT 1 MG/ML 2 ML VIAL IV PRN
[2017-07-01 19:48] LABS: HEMATOCRIT 31.9 % (42-52); HEMOGLOBIN 10.4 g/dL (14.0-18.0); MEAN CELL VOLUME 89.9 fL (80-100); MEAN CORPUSCULAR HEMOGLOBIN 29.3 pg (25-34); MEAN CORPUSCULAR HGB CONC 32.6 g/dl (32-36); PLATELET COUNT 528 K/uL (130-400); RED CELL DISTRIBUTION WIDTH CV 16.7 % (11.5-14.5); WHITE BLOOD COUNT 10.84 K/uL (4.8-10.8)
[2017-07-01 19:58] LABS: ALBUMIN 2.4 gm/dl (3.4-5.0); BLOOD UREA NITROGEN 15 mg/dl (7-18); CALCIUM 9.3 mg/dl (8.5-10.1); CARBON DIOXIDE 33 mmol/L (21-32); CREATININE 1.08 mg/dl (0.60-1.40); GLUCOSE 102 mg/dl (70-99); POTASSIUM 3.9 mmol/L (3.5-5.1); SODIUM 138 mmol/L (136-145)
[2017-07-01 20:01] LABS: ALKALINE PHOSPHATASE 98 U/L (45-117); ALT/SGPT 48 U/L (12-78); AST/SGOT 35 U/L (15-37); TOTAL PROTEIN 7.6 gm/dl (6.4-8.2)
== END | disposition home or self-care (01) ==
LOC: C.LABSPEC 09:45
PROVIDERS: ATTEND Internal Medicine Infectious Disease
DX: A04.72 Enterocolitis due to Clostridium difficile, not specified as recurrent (principal)

== ENCOUNTER → 2017-09-29 | Outpatient (CLI) | payer BC ==
[~2017-09-29] MED LIST changes: -APIX1TAB3 PO; -METO-479 PO
[2017-09-29 12:32] LABS: HEMATOCRIT 39.4 % (42-52); HEMOGLOBIN 12.5 g/dL (14.0-18.0); MEAN CELL VOLUME 88.5 fL (80-100); MEAN CORPUSCULAR HEMOGLOBIN 28.1 pg (25-34); MEAN CORPUSCULAR HGB CONC 31.7 g/dl (32-36); MEAN PLATELET VOLUME 10.5 fL (7.4-10.4); PLATELET COUNT 272 K/uL (130-400); RED CELL DISTRIBUTION WIDTH CV 16.1 % (11.5-14.5); WHITE BLOOD COUNT 10.55 K/uL (4.8-10.8)
[2017-09-29 12:55] LABS: HEMOGLOBIN A1C 8.1 % (4.5-5.6)
[2017-09-29 13:03] LABS: ALBUMIN 3.6 gm/dl (3.4-5.0); ALKALINE PHOSPHATASE 124 U/L (45-117); ALT/SGPT 22 U/L (12-78); AST/SGOT 15 U/L (15-37); BLOOD UREA NITROGEN 18 mg/dl (7-18); CALCIUM 9.4 mg/dl (8.5-10.1); CARBON DIOXIDE 32 mmol/L (21-32); CREATININE 1.14 mg/dl (0.60-1.40); GLUCOSE 167 mg/dl (70-99); POTASSIUM 4.1 mmol/L (3.5-5.1); SODIUM 138 mmol/L (136-145); TOTAL PROTEIN 7.5 gm/dl (6.4-8.2)
== END | disposition home or self-care (01) ==
LOC: C.LABBFT 07:51
PROVIDERS: ATTEND Nurse Practitioner
DX: E11.65 Type 2 diabetes mellitus with hyperglycemia (principal)

== ENCOUNTER → 2017-10-08 | Outpatient (CLI) | payer BC ==
--- NOTE | 2017-10-08 09:03 | DIAGNOSTIC IMAGING REPORT ---
CT SCAN OF THE CHEST WITHOUT IV CONTRAST CLINICAL HISTORY: Follow-up pulmonary nodule. COMPARISON STUDY: Chest CT scans dated 06/19/2017 and 01/29/2013. TECHNIQUE: CT scan of the thorax was performed from the thoracic inlet to the upper abdomen. Images are reviewed in the axial, sagittal, and coronal planes. IV contrast was not administered for this examination as per the referring clinician. A dose lowering technique was utilized adhering to the principles of ALARA. CT DOSE: 1039.78 mGy.cm FINDINGS: Thyroid: Imaged portions of the thyroid gland are normal in size and attenuation. Thoracic aorta: There is atherosclerotic calcification of the thoracic aorta, which is normal in caliber and demonstrates standard 3-vessel arch anatomy. Heart: The heart is mildly enlarged and without pericardial effusion. The coronary arteries are densely calcified. Lungs and pleural spaces: Evaluation of the lung parenchyma is modestly degraded by motion artifact. Scattered calcified granulomas are similar to previous, with numerous regular calcifications seen dependently at the lung bases. Subpleural reticulation is noted at both lung bases The trachea and central airways are clear. Clustered foci of nodularity in the right middle lobe seen on image #119 are new from 06/19/2017 and likely inflammatory. The 9 mm right lower lobe nodule seen previously is no longer apparent. No lobar consolidation or pleural effusion is identified. Mediastinum: There is no mediastinal lymphadenopathy. Shante: Not well assessed without IV contrast. Axillae: There is no axillary lymphadenopathy. Upper abdomen: There is a small hiatal hernia. There is evidence of hepatic steatosis. Skeletal structures: The skeletal structures are osteopenic. Advanced arthritic change is present in the shoulders. Degenerative change is also seen throughout the thoracic spine. No lytic or blastic bony lesions are seen. IMPRESSION: 1. There is no lobar consolidation or pleural effusion. 2. The 9 mm right lower lobe pulmonary nodule seen on 06/19/2017 has resolved and was likely on an inflammatory basis. 3. A focus of clustered nodularity right middle lobe is new from 06/19/2017 and likely on an infectious/inflammatory basis. 4. Chronic parenchymal changes are seen at the lung bases. 5. Hepatic steatosis. 6. Mild cardiac enlargement. Electronically signed by: Howard Conrad M.D. 10/08/2017 9:01 AM Dictated Date/Time: 10/08/2017 8:52 AM
== END | disposition home or self-care (01) ==
LOC: C.CTS 08:26
PROVIDERS: ATTEND Internal Medicine
DX: R91.1 Solitary pulmonary nodule (principal); K76.0 Fatty (change of) liver, not elsewhere classified

== ENCOUNTER 2020-08-31 07:55 | Observation (INO) ==
[2020-08-31] MEDS ORDERED: BUPIVACAINE 0.25% 30 ML VIAL ONE ×2 (08:27→08:53)
[2020-08-31] MEDS ORDERED: WATER, STERILE FOR INJ 10 ML VIAL ONE (08:27)
[2020-08-31] MEDS ORDERED: LIDOCAINE 1% LOCAL 20 ML VIAL ONE ×2 (08:27→08:53)
[2020-08-31] MEDS ORDERED: VANCOMYCIN HCL 1000MG/20ML VIAL ONE (08:27)
--- NOTE | 2020-08-31 08:27 | History & Physical Bridge Note ---
Date of Service August 31, 2020 History & Physical Bridge Note I have examined the patient, reviewed the History & Physical and in the interval since the performance of the History & Physical I have noted the following changes of clinical significance: no changes noted
--- NOTE | 2020-08-31 08:28 | Pre Anesthesia Assessment ---
Date of Service August 31, 2020 Pre Sedation Assessment Vital Signs Temp Pulse Resp BP Pulse Ox 08/31/20 08:12 36.6 C 78 22 115/86 96 Cardiovascular + irregularly irregular Respiratory + respiratory effort normal Pre-Sedation Airway Assessment Smoking Status: Never smoker Hx Sleep Apnea: Yes Hx Difficult Intubation: No Short, Thick Neck: Yes Thyromental Distance: < 3.5 Finger Breadths Oral Cavity: + WNL Mallampati Class: III ASA: ASA3 NPO Status Date of Last Intake of Fluids: 08/30/20 Time of Last Intake of Fluids: 21:30 Date of Last Intake of Solid Food: 08/30/20 Time of Last Intake of Solid Foods: 20:30 Procedure Planning Contraindications for Sedation: none Current Medications Reviewed: Yes Notes The planned sedation has been discussed with the patient. Informed Consent was obtained. I have identified the patient, determined the appropriateness of sedation and have assessed the patient immediately prior to the procedure. All medicine(s) and interventions are by my order.
[2020-08-31] MEDS ORDERED: MIDAZOLAM HCL 5 MG/ML 1 ML VIAL ONE (08:41)
[2020-08-31] MEDS ORDERED: fentaNYL citrate 100 MCG/2 ML VIAL ONE (08:41)
[2020-08-31] MEDS ORDERED: oxyCODONE HCL IR 5 MG TAB (IMMEDIATE RELEASE) PO PRN (10:26)
[2020-08-31] MEDS ORDERED: ACETAMINOPHEN 325 MG TAB PO PRN (10:26)
--- NOTE | 2020-08-31 10:26 | Post Anesthesia Assessment ---
Date of Service August 31, 2020 Post Sedation Assessment Vital Signs Temp Pulse Resp BP Pulse Ox 08/31/20 08:12 36.6 C 78 22 115/86 96 Recovery Score Activity: Moves 4 extremities Respiration: Deep Breath/Cough Circulation: +/-20% PreAnes Value Consciousness: Fully Awake Oxygen Saturation: > 92% On Room Air Discharge Sedation Level of Care: Fast Track Phase II Post Sedation Plan On clinical assessment, the patient appears to have tolerated the sedation without complications. Patient is recovering as anticipated. Patient will continue to be monitored by nursing and may be discharged when sedation discharge criteria are met per below protocol. Upon Completions of procedure up to 15 minutes continue every 5 minute vital signs and the P.A.R. score; then discharge to a Phase I or Fast Track to Phase II per the following guidelines: * Discharge Patient to appropriate Phase II area if PAR is 8 or greater or return to pre- procedure baseline. The post - procedure orders will be as directed. * If PAR score is less than 8 or not return to pre-procedure baseline then patient will follow Phase I monitoring till PAR is reached for Phase II. The Phase I may be done in procedure room or may call to secure a Phase I area. * If naloxone or flumazenil are used for reversal, hold in Phase I for continued monitoring from when last reversal dose was given for a minimum of 60 minutes or longer pending the nurse and/or physician discretion of patient condition before discharge to Phase II. Please call the Sedation Physician to re-evaluate and complete post-note for discharge to Phase II area. Do NOT discharge from procedure sedation or Phase 1 until post- sedation evaluation note is complete by procedure /sedation MD Sedation Discharge Instructions to be given to the patient at discharge to home.
--- NOTE | 2020-08-31 10:26 | Electrophysiology Report ---
Date of Service August 31, 2020 Electrophysiology Procedure Electrophysiology Procedure Report procedure performed: Implantation of biventricular ICD staff summer associate: Tristen Monte MD indication: The patient is a 64-year-old gentleman with a history of persistently low ejection fraction. He has [place] heart Association class 2 symptoms. He is on optimal medical therapy. He has an anticipated longevity greater than 1 year. He has not had percutaneous intervention of the coronary in the past 90 days or suffered a myocardial infarction in under 40 days. he also has a QRS complex with a left bundle branch block and duration over 120 milliseconds. Based on this information is felt to be a good candidate for an ICD as primary prevention against sudden cardiac . Left ventricular lead was added for resynchronization therapy. Procedure detail: Patient was informed the risks benefits and alternatives to the intended procedure. He understood which proceed. He was taken to the electrophysiology suite in a fasting state. Conscious sedation was administered per protocol the patient was monitored electrocardiographically throughout today's procedure. The left upper pectoral area was prepped and draped in usual sterile fashion. This area was anesthetized using subcutaneous menstruation of lidocaine solution. An incision was made at the site and carried down to the prepectoralis fascia using sharp dissection. Electrocautery was also employed for dissection as well as for hemostasis. The device pocket was fashioned in the tissues above the pectoralis muscle. Subsequent this maneuver the left axillary vein was accessed twice using modified Seldinger technique. Sheaths were placed over guidewires at this site and initially used to facilitate passage of the right ventricular lead to the right ventricular apex. Adequate sensing threshold parameters were obtained prior to Active fixation of this lead to the endocardial surface. The proximal portion of the lead was then sutured to the prepectoralis fascia using nonabsorbable suture. The remaining sheath was used facilitate passage of the guiding catheter for engagement of the coronary sinus. Once engaged limited coronary sinus venography was performed in order to identify suitable target vessel. Once identified standard catheter and guidewire techniques were employed in order to deliver the pacing lead to the target vessel. Adequate sensing threshold parameters as well as the absence of diaphragmatic stimulation at high output were confirmed prior to removal of the guiding sheath. The proximal portion of lead was then sutured to prepectoralis fascia using nonabsorbable suture. The device pocket was irrigated with an antibiotic solution. The leads were attached to the device and the device and leads and placed in the pocket. The pocket was closed with 3 layers of absorbable suture. Steri-Strips and sterile dressing were applied. The patient tolerated procedure well. There were no immediate complications. Equipment used: New pulse generator: [employer] model number [id number] serial number [id number] S rate atrial port was plugged is the patient is in permanent atrial fibrillation Right ventricular lead: [employer] model number 6935M serial number [id number] coronary sinus lead: [employer] model 4. 298 serial number [id number] measured data right ventricular lead: R-waves measured 13 millivolts. Pacing threshold was 1 volt at 0.5 milliseconds with a pacing impedance of 725 Ohms left ventricular lead: R-waves measured 16 millivolts. Pacing threshold was 1.6 volts at 0.5 milliseconds with a pacing impedance of 507 Ohms impression: Successful implantation of biventricular ICD MN[employer] Electrophysiology codes Pacing Procedure 2: Pacin BiV electrode w/Pacer / ICD implant, add on code ICD Procedure 1: ICD: 98935 Insert single or dual ICD system PG Moderate Sedation Codes Moderate Sedation Codes Procedure 1: Sedation/Anesthesia: 49084 Mod Sedation by the same physician;Init15 Min Child Age 5 & Up Procedure 2: Sedation/Anesthesia: 88937 Mod Sedation by the same physician; Ea [id number] Minutes
[2020-08-31] MEDS ORDERED: GABAPENTIN 100 MG CAP PO PRN (11:56)
[2020-08-31] MEDS ORDERED: ALBUTEROL HFA 8 GM INHALER INH PRN (12:11)
[2020-08-31] MEDS ORDERED: PHARMACY GLYCEMIC MGMT CONSULT SCH (12:20)
[2020-08-31] MEDS ORDERED: GLUCOSE 40% GEL 15 GM TUBE PO PRN (12:30)
[2020-08-31] MEDS ORDERED: GLUCAGON FOR INJ 1 MG VIAL IM PRN (12:30)
[2020-08-31] MEDS ORDERED: GLUCOSE 10 TABS/TUBE PO PRN (12:30)
[2020-08-31] MEDS ORDERED: CARBOHYDRATES FOR HYPOGLYCEMIA PO PRN (12:30)
[2020-08-31] MEDS ORDERED: DEXTROSE 50% 50 ML SYRINGE IV PRN (12:30)
[2020-08-31] MEDS: METOPROLOL SUCC 50MG EXT REL TAB PO SCH (13:21)
[2020-08-31] MEDS: allopurinoL 100 MG TAB PO SCH (13:21)
[2020-08-31] MEDS: MAGNESIUM OXIDE 400 MG TAB PO SCH (13:21)
[2020-08-31] MEDS: FUROSEMIDE 40 MG TAB PO SCH (13:22)
[2020-08-31] MEDS: CLOPIDOGREL BISULFATE 75 MG TAB PO SCH (13:22)
[2020-08-31] MEDS: INSULIN ASPART 100 UNITS/ML 3 ML PEN SC SCH ×3 (13:25→20:30)
--- NOTE | 2020-08-31 14:42 | Pharmacy Report ---
Pharmacy Glycemic Short Note 2 - Date of Service August 31, 2020 - Glycemic Short BSG Results (Last 24 hours): 08/31/20 11:49 POC Glucose 233 H OUTPATIENT ANTIDIABETIC REGIMEN: * Tresiba 100 units SQ HS (pt took last night) * Novolog 26 TID meals * Metformin 1g PO BID * A1c 9.4 08/03/20 ASSESSMENT: * 64 year old male, s/p EP lab, hyperglycemic * Oral agents are not recommended for inpatient use d/t drug interactions, changing PO intake, and difficulty titrating for acute hyper/hypoglycemia. ADA recommends re-initiating outpatient oral agents 1-2 days prior to discharge if/when appropriate if they were held on admission. * Will hold oral agents at this time and utilize SQ basal bolus insulin regimen which is the recommended regimen for inpatient glycemic control, based on home doses and titrate to goal PLAN FOR INPATIENT GLYCEMIC CONTROL: * Hold outpatient oral diabetes medications * Basal insulin * Lantus 100 units SQ HS * Bolus insulin * NovoLog per scale ACHS or Q6hrs while NPO * Goal Range: Low 110 mg/dL - High 140 mg/dL * Correction Factor: 10 mg/dL/unit * Nutritional / Prandial insulin per carb ratio of 1 unit per 3 grams CHO consumed PLAN FOR DISCHARGE: * to be determined
[2020-08-31] MEDS ORDERED: metFORMIN HCL 500 MG TAB PO SCH (17:00)
[2020-08-31] MEDS: ceFAZolin 1000MG 1,000 MG/7.5 ML SYR IV SCH (19:45)
[2020-08-31] MEDS: SACUBITRIL-VALSARTAN 97-103 MG TAB PO SCH (20:29)
[2020-08-31] MEDS ORDERED: METOPROLOL SUCC 25MG EXT REL TAB PO SCH (21:00)
[2020-08-31] MEDS ORDERED: ATORVASTATIN 40 MG TAB PO SCH (21:00)
[2020-08-31] MEDS ORDERED: INSULIN GLARGINE 100 UNIT/ML VIAL SC SCH ×2 (21:00)
[2020-09-01] MEDS: ceFAZolin 1000MG 1,000 MG/7.5 ML SYR IV SCH ×2 (01:26→11:10)
[2020-09-01] MEDS ORDERED: INSULIN ASPART 100 UNITS/ML 3 ML PEN SC SCH (04:30)
--- NOTE | 2020-09-01 06:16 | Electrocardiogram Report ---
Test Reason : Blood Pressure : / mmHG Vent. Rate : 072 BPM Atrial Rate : 000 BPM P-R Int : 000 ms QRS Dur : 140 ms QT Int : 480 ms P-R-T Axes : 000 000 234 degrees QTc Int : 518 ms Ventricular-paced rhythm Abnormal ECG When compared with ECG of 19-JUN-2017 13:42, No significant change Confirmed by Ryan Engle ([id number]) on 09/01/2020 6:16:00 AM Referred By: Avery Monte Confirmed By:Ryan Engle
[2020-09-01] MEDS: METOPROLOL SUCC 50MG EXT REL TAB PO SCH (08:45)
[2020-09-01] MEDS: allopurinoL 100 MG TAB PO SCH (08:46)
[2020-09-01] MEDS: FUROSEMIDE 40 MG TAB PO SCH (08:46)
[2020-09-01] MEDS: MAGNESIUM OXIDE 400 MG TAB PO SCH (08:46)
[2020-09-01] MEDS: CLOPIDOGREL BISULFATE 75 MG TAB PO SCH (08:46)
[2020-09-01] MEDS: SACUBITRIL-VALSARTAN 97-103 MG TAB PO SCH (08:46)
[2020-09-01] MEDS: INSULIN ASPART 100 UNITS/ML 3 ML PEN SC SCH (09:20)
--- NOTE | 2020-09-01 11:00 | XRay Report ---
TWO VIEW CHEST CLINICAL HISTORY: Status post pacemaker implantation. FINDINGS: PA and lateral chest radiographs are compared to study dated 06/19/2017 and correlated with chest CT dated 10/08/2017. A 2-lead cardiac AICD has been implanted and partially obscures the left up per chest. Leads project over the ventricles. The heart is enlarged noting atherosclerotic calcificat ion of the thoracic aorta. The pulmonary vasculature is noncongested. Chronic interstitial thickening is similar to previous. There is bibasilar scarring/atelectasis. No airspace consolidation or pleura l effusion is identified. There is no pneumothorax. The skeletal structures are osteopenic. The bony thorax appears intact. Degenerative change is noted in the shoulders and thoracic spine. IMPRESSION: 1. A 2-lead cardiac AICD has been placed as above. No pneumothorax is seen post procedure. 2. Cardiomegaly with no radiographic evidence of congestive failure. 3. No airspace consolidation or pleural effusion is identified ACT 112: Negative or not required by law. Electronically signed by: Howard Conrad M.D. 09/01/2020 10:59 AM
--- NOTE | 2020-09-01 11:10 | Discharge Summary ---
Date of Service September 01, 2020 Admission HPI Per Admitting Provider the patient is a 64-year-old gentleman with a history of an ischemic cardiomyopathy and permanent atrial fibrillation who was noted to have persistently low ejection fraction despite optimal medical therapy. He continue s to have [place] heart Association class 2-3 symptoms and was felt to be a good candidate for an ICD for primary prevention. He is known to have wide complex QRS was felt to be a good candidate for [employer] based on his symptoms and EKG. Principal Diagnosis q Discharge Exam On the day of discharge the wound was without hematoma. There was a very small skin excoriation. No erythema. No significant ecchymosis. Discharge Data Allergies Allergy/AdvReac Type Severity Reaction Status Date / Time No Known Drug Allergies Allergy Verified 08/08/20 15:02 Procedures Performed Operation Date: 08/31/20 09:00 Actual Procedures p ICD Insertion Single or Dual - Avery Monte MD s Lead LV (No Priopr Implant) - Avery Monte MD s Venogram, Unilateral - Avery Monte MD Ordered Studies 08/31/20 07:15 EP Lab Images for PACS ONCE Hospital Course (1) Ischemic cardiomyopathy: On the day of admission the patient underwent implantation of a biventricular ICD. This involved a right ventricular and coronary sinus lead. No atrial lead was placed as he is currently in permanent atrial fibrillation. Subsequent to the procedure the patient did have some evidence of diaphragmatic stimulation, but this was ameliorated with reprogramming. He continued to have a sense of "thumping" throughout his hospital stay. This was rare and could not be reproduced. This was not suspected to be diaphragmatic stimulation. Possibly a more noticeable contraction of his heartbeat or pacing of the chest wall intermittently. The device was reprogrammed to a longer pulse with in attempt to avoid additional symptoms. On the day of discharge the patient was otherwise feeling well. Device interrogation revealed normal function of both the atrial and ventricular leads. Chest x-ray did not demonstrate any evidence of pneumothorax or complication. Total Time Total Time Spent Total Time Spent (In Minutes): 12 Total Time Includes: Examination of the Patient, Discharge Planning and Medication Reconciliation Discharge Plan Discharge Items Patient Disposition: Home - Self-Care Reason For Visit: Ischemic Cardiomyopathy Discharge Diagnosis: cardiomyopathy Condition on Discharge: Good Activity: Per Instructions section Activity Comment: Do not lift left arm above shoulder behind neck for 6 weeks. Lifting: No more than 10 pounds Bathing: Keep incision dry Bathing Comment: Keep wound dry and Steri-Strips intact until follow-up with Dr Flores Driving/Machine Use: Resume 1 day after discharge Non-emergency contact: Baker Test Call non-emergency contact if: you have any medication questions, your pain is concerning for you, you have a fever, your wound has increased redness and your wound has increased drainage Follow-up/Referrals: Loki Matias III, MD [Primary Care Provider] - Diet: Heart Healthy Addtl Attending Provider Instructions: do not resume Eliquis until September 03 Pending Studies at Discharge: No Stand-Alone Forms: My [facility] Whatser, Smoking Cessation Medications and DC Order Prescriptions: Continued (DME) CPAP Supplies [facility] See Dose Instructions .ROUTE .MEDSUPPLY Qty: 1 RF: 0 furosemide 40 mg tablet 40 mg PO DAILY Qty: 90 RF: 1 (DME) OneTouch Ultra Blue Test Strip Strip See Dose Instructions .ROUTE .MEDSUPPLY Qty: 400 RF: 3 Tresiba FlexTouch U-200 200 unit/mL (3 mL) insulin pen 100 unit SQ HS 90 Days Qty: 45 RF: 3 (DME) pen needle, diabetic [BD Ultra-Fine Short Pen Needle] 31 gauge x 5/16" needle See Dose Instructions .ROUTE .MEDSUPPLY Qty: 400 RF: 3 allopurinol 100 mg tablet See Rx Instructions .ROUTE .COMPLEX Qty: 90 RF: 3 metformin 1,000 mg tablet 1,000 mg PO BID Qty: 180 RF: 3 (DME) lancets [OneTouch UltraSoft Lancets] [facility] See Dose Instructions .ROUTE .MEDSUPPLY Qty: 400 RF: 3 Entresto 97-103 mg tablet 1 tab PO BID RF: 0 nitroglycerin 0.4 mg tablet, sublingual 0.4 mg SL .COMPLEX Qty: 25 RF: 3 furosemide 20 mg tablet 20 mg PO DAILY PRN (Reason: weight gain) Qty: 30 RF: 5 tramadol 100 mg tablet 100 mg PO DAILY RF: 0 atorvastatin 40 mg tablet 40 mg PO HS Qty: 90 RF: 0 loratadine 10 mg tablet 10 mg PO DAILY PRNRF: 0 clopidogrel 75 mg tablet 75 mg PO DAILY Qty: 1 RF: 0 Eliquis 5 mg tablet 5 mg PO BID RF: 0 magnesium oxide 400 mg magnesium capsule 400 mg PO DAILY RF: 0 metoprolol succinate 100 mg tablet extended release 24 hr 100 mg PO DAILY Qty: 30 RF: 0 albuterol sulfate [ProAir HFA] 90 mcg/actuation HFA aerosol inhaler 2 puffs INH Q4H PRNRF: 0 cholecalciferol (vitamin D3) 2,000 unit capsule 2,000 units PO DAILY Qty: 30 RF: 0 gabapentin 100 mg capsule 100 mg PO HS PRNQty: 30 RF: 0 Novolog Flexpen U-100 Insulin 100 unit/mL (3 mL) insulin pen 90 unit SQ .COMPLEX RF: 0 metoprolol succinate 25 mg tablet extended release 24 hr 25 mg PO PM RF: 0 Discharge Orders: Discharge Order (Routine); Ordered 09/01/20 Ordered By: Avery Monte Admission Data Admit Date/Time: 08/31/20 09:23 Attending Provider: Avery Monte Admit Provider: Avery Monte Primary Care Provider: Loki Matias III Coding Level of Care Code 78299 OBS Care - Discharge Diagnoses Ischemic cardiomyopathy I25.5
--- NOTE | 2020-09-01 23:10 | Electrocardiogram Report ---
Test Reason : Blood Pressure : / mmHG Vent. Rate : 111 BPM Atrial Rate : 081 BPM P-R Int : 000 ms QRS Dur : 146 ms QT Int : 304 ms P-R-T Axes : 000 -57 -83 degrees QTc Int : 413 ms Poor data quality, interpretation may be adversely affected Ventricular-paced rhythm Abnormal ECG When compared with ECG of 19-JUN-2017 13:42, Ventricular pacing is now present Confirmed by Ryan Engle ([id number]) on 09/01/2020 11:09:56 PM Referred By: Avery Monte Confirmed By:Ryan Engle
== END 2020-09-01 12:14 | disposition home or self-care (01) ==
LOC: 2S 07:55 → EP 07:55
PROC: EPB.ICD (2020-08-31 09:00)

== ENCOUNTER 2020-11-22 13:33 | Inpatient (IN) ==
[2020-11-22] MEDS ORDERED: dexAMETHasone**PF** 10 MG/ML VIAL IV ONE (14:10)
[2020-11-22 14:31] LABS: Basophils # (auto) 0.02 K/uL (0-0.2); Basophils % (auto) 0.2 %; Eosinophils # (auto) 0.19 K/uL (0-0.5); Eosinophils % (auto) 1.6 %; Hematocrit (blood only) 40.4 % (42-52); Hemoglobin 13.4 g/dL (14.0-18.0); Immature Granulocytes % (auto) 0.8 %; Lymphocytes # (auto) 1.41 K/uL (1.2-3.4); Lymphocytes % (auto) 11.7 %; Mean Corpuscular Hgb Conc 33.2 g/dL (32-36); Mean Corpuscular Volume 87.4 fL (80-100); Mean Platelet Volume 9.9 fL (7.4-10.4); Monocytes # (auto) 0.93 K/uL (0.11-0.59); Monocytes % (auto) 7.7 %; Neutrophils # (auto) 9.45 K/uL (1.4-6.5); Platelet Count 335 K/uL (130-400); RDW Coefficient of Variation 15.9 % (11.5-14.5); RDW Standard Deviation 50.6 fL (36.4-46.3); Red Blood Count 4.62 M/uL (4.7-6.1)
--- NOTE | 2020-11-22 14:33 | XRay Report ---
SINGLE VIEW CHEST CLINICAL HISTORY: Dyspnea FINDINGS: An AP, portable, upright chest radiograph is compared to study dated 09/01/2020. The examinat ion is degraded by portable technique and apical lordotic positioning. A 2-lead cardiac AICD is uncha nged in position. The heart is enlarged noting atherosclerotic calcification of the thoracic aorta. T here is pulmonary vascular congestion with evidence of interstitial edema. Small pleural effusions ar e noted with bibasilar consolidation. No pneumothorax is seen. The skeletal structures are osteopenic . The bony thorax is grossly intact. IMPRESSION: 1. Cardiomegaly and AICD with evidence of congestive failure and interstitial edema. 2. Small pleural effusions with bibasilar consolidation. ACT 112: Negative or not required by law. Electronically signed by: Howard Conrad M.D. 11/22/2020 2:32 PM
[2020-11-22 14:51] LABS: Albumin Level 2.3 gm/dl (3.4-5.0); BUN Creatinine Ratio 23.8 (10-20); Calcium 9.4 mg/dl (8.5-10.1); Creatinine Clr Calc Pharmacy 71.4 ml/min; Est GFR (African American) 64.2 ml/min; Est GFR (Non-African American) 55.4 ml/min; INR 1.1 (0.9-1.1); Magnesium 1.7 mg/dl (1.8-2.4); Partial Thromboplastin Ratio 1.1; Partial Thromboplastin Time 29.1 Seconds (21.0-31.0); Potassium 4.6 mmol/L (3.5-5.1)
[2020-11-22 15:01] LABS: Base Excess VBG 1.6 mEq/L; Oxygen Saturation VBG 66.7 %; pH VBG 7.42 (7.36-7.41)
[2020-11-22 15:03] LABS: Albumin Globulin Ratio 0.4 (0.9-2); Bilirubin,Total 0.7 mg/dl (0.2-1); Globulin 5.3 gm/dl (2.5-4.0); Total Protein 7.6 gm/dl (6.4-8.2); Troponin I 0.304 ng/ml (0-0.045)
[2020-11-22] MEDS: MAGNESIUM SULFATE / D5W 1 GM/100 ML BAG IV SCH ×2 (15:18→17:10)
--- NOTE | 2020-11-22 15:27 | Emergency Department Note ---
Impression & Plan Pneumonia due to 2019 novel coronavirus, CHF (congestive heart failure), Hypoxia ED Provider Note NAME: KARISSA STEPHENS AGE: 65 SEX: M : 1955 ARRIVES VIA: Walk-In INFORMANT: Patient, ED PROVIDER(S): David Marin DO CHIEF COMPLAINT: Shortness of breath HPI: The patient is a 65-year-old male who presented to the emergency department for an evaluation of shortness of breath. The patient has been recently diagnosed with COVID-19. He was exposed to COVID-19 through his significant other who recently tested positive. The patient states he has no cough. He is noticed some shortness of breath especially with exertion. He does note lower extremity swelling but this not new for him. He does have a history of chronic lung use and wears oxygen. He also has a history of coronary artery disease atrial fibrillation and CHF. The patient states he started having worsening symptoms today. He checked his pulse ox and was noted to be low. He presented to the emergency department because of difficulty breathing. He states his symptoms are mildly improved at this time because of rest. He also has increased his supplemental oxygen. ROS: See above HPI for pertinent positives & negatives. A total of 10 systems reviewed and were otherwise negative. PAST MEDICAL HISTORY: See Below PAST SURGICAL HISTORY: See Below FAMILY HISTORY: See Below SOCIAL HISTORY: See Below HOME MEDICATIONS: See Below ALLERGIES: See Below VITALS: See Below PHYSICAL EXAMINATION: GENERAL: The patient is awake and alert. The patient is nonanxious appearing. EYES: The conjunctivae are clear. The pupils are round and reactive. EARS, NOSE, MOUTH AND THROAT: The nose is without any evidence of any deformity. Mucous membranes are moist. Tongue is midline. NECK: The neck is nontender and supple. RESPIRATORY: Diminished breath sounds are noted throughout. Scattered rales were noted in all lung faust. There was mild conversational dyspnea noted. CARDIOVASCULAR: Regular rate and rhythm noted there no murmurs rubs or gallops normal S1 normal S2. GASTROINTESTINAL: The abdomen is soft. Abdomen is nontender. MUSCULOSKELETAL/EXTREMITIES: There is no evidence of gross deformity full range of motion is noted in the hips and shoulders. SKIN: Skin was warm and dry. Pedal edema was noted bilaterally. NEUROLOGIC: Patient is awake alert and oriented x 3. MEDICAL DECISION MAKING: The patient is a six 5-year-old male who presented to the emergency department for an evaluation of shortness of breath. The patient has underlying lung disease which includes CHF as well as oxygen dependency. He recently tested positive for COVID-19 he presented to the emergency department because of ongoing and worsening symptoms. I discussed the patient's laboratory and rad iographic studies with him. I discussed his case with the on-call [facility] hospitalist. They have agreed to evaluate the patient in the emergency department for further management and disposition. The patient was feeling much rest and on supplemental oxygen. Given his age and comorbidities he may not do well. He was given a dose of Decadron. Triage Nursing notes reviewed. Prior medical records reviewed Vital Signs: reviewed and remarkable for hypotension and hypoxia. Differential diagnosis: Reactive airway disease, pneumonia, pneumothorax, COPD, CHF, infections, cardiac ischemia, pulmonary embolism, musculoskeletal, gastrointestinal, as well as other pathologies. ER treatment provided: See below Diagnostics interpreted by me: ECG: EKG was obtained in the emergency department. My interpretation is ventricular paced rhythm at 89 bpm. There were no [place] beats noted. This was compared to a tracing from August [id number]. Paced rhythm was noted on the earli er tracing as well. Cardiac Monitoring: An order was placed for continuous cardiac monitoring. The monitor shows a rate of 70 bpm with paced rhythm. Laboratory studies: As stated above and show below. Imaging studies: See below Consultation(s): I discussed this case with Dr. Latif who is on-call for the [facility] ospitalist group. Past Med/Surg History Medical History Acute coronary syndrome MSSA bacteremia Surgical History History of cardiac catheterization History of colonoscopy (01/25/16) Dr Quintana, 2 tubular adenomas in cecum History of tonsillectomy and adenoidectomy Family History Father Prostate cancer Other Diabetes Hypertension Nephrolithiasis Denies family history of Ovarian cancer Breast cancer Colorectal cancer Social History Smoking Status: Never smoker Second Hand Exposure: No; Hx Alcohol Use: No Hx Substance Use: No Preferred Language: Greenlandic Hearing Ability: Normal Beliefs That Will Affect Care: None marital status: Current Living Situation: Spouse Feels Safe at Home: Yes caffeine: Yes Seatbelt Use: always Assistive Devices: Cane, CPAP and Oxygen - at Night Allergies Allergies Allergy/AdvReac Type Severity Reaction Status Date / Time No Known Drug Allergies Allergy Unknown Verified 11/22/20 16:30 Home Meds Home Medications Medication Instructions Recorded Confirmed albuterol sulfate 90 mcg/actuation 2 puffs INH Q4H PRN gm 09/22/18 11/22/20 aerosol inhaler (ProAir HFA) apixaban 5 mg tablet (Eliquis) 5 mg PO BID 09/22/18 11/22/20 atorvastatin 40 mg tablet 40 mg PO HS #90 tab 09/22/18 11/22/20 cholecalciferol (vitamin D3) 50 2,000 units PO DAILY #30 cap 09/22/18 11/22/20 mcg (2,000 unit) capsule clopidogrel 75 mg tablet 75 mg PO QAM #1 tab 09/22/18 11/22/20 loratadine 10 mg tablet 10 mg PO DAILY PRN tab 09/22/18 11/22/20 magnesium oxide 400 mg PO DAILY cap 09/22/18 11/22/20 metoprolol succinate 100 mg 100 mg PO DAILY #30 tab 09/22/18 11/22/20 tablet,extended release 24 hr sacubitril 97 mg-valsartan 103 mg 1 tab PO BID 10/29/18 11/22/20 tablet (Entresto) gabapentin 100 mg capsule 100 mg PO HS PRN #30 cap 03/26/19 11/22/20 metoprolol succinate 25 mg 25 mg PO PM tab 03/09/20 11/22/20 tablet,extended release 24 hr insulin aspart U-100 100 unit/mL 90 unit SQ .COMPLEX ml 08/03/20 11/22/20 (3 mL) subcutaneous pen (Novolog Flexpen U-100 Insulin aspart) tramadol 100 mg tablet 100 mg PO DAILY 08/03/20 11/22/20 Oxygen Home 09/14/20 11/22/20 allopurinol 100 mg tablet 100 mg PO DAILY 11/22/20 11/22/20 Previous Rx's Medication Instructions Recorded nitroglycerin 0.4 mg sublingual 0.4 mg SL .COMPLEX #25 tab 10/29/18 tablet CPAP Supplies #1 ea 12/17/18 furosemide 40 mg tablet 40 mg PO DAILY #90 tab 12/20/19 blood sugar diagnostic (OneTouch #400 ea 03/24/20 Ultra Blue Test Strip) furosemide 20 mg tablet 20 mg PO DAILY PRN #30 tab 04/03/20 insulin degludec 200 unit/mL (3 100 unit SQ HS 90 Days #45 ml 04/10/20 mL) subcutaneous pen (Tresiba FlexTouch U-200 insulin) BD Ultra-Fine Short Pen Needle 31 #400 ea NS 04/11/20 gauge x 5/16" (pen needle, diabetic) metformin 1,000 mg tablet 1,000 mg PO BID #180 tab 05/29/20 lancets (OneTouch UltraSoft #400 ea 06/29/20 Lancets) mupirocin 2 % topical ointment 1 applic TOPICAL BID #30 g 10/09/20 benzonatate 200 mg capsule 200 mg PO TID PRN #30 cap 11/10/20 hydrocodone-homatropine 5 mg-1.5 5 ml PO Q6H PRN #200 ml 11/17/20 mg/5 mL (5 mL) oral syrup (Hycodan) Results & Data (ED) Vital Signs Vital Signs - 24 hr 11/22/20 13:51 11/22/20 14:12 11/22/20 14:30 Temperature 36.4 C L Temperature Source Skin Pulse Rate 94 H 93 H 89 Pulse Rate from SpO2 Sensor 93 H Respiratory Rate 18 23 25 H Respiratory Effort / Characteristics Blood Pressure 101/63 108/61 99/58 L Blood Pressure Mean 75 76 71 Pulse Oximetry 86 L 92 Oxygen Delivery Method Room Air Oxygen Flow Rate Sepsis Recent Fever Within 48 Hours No Sepsis New/Unexplained Change in Mental Status No Sepsis Action Taken by Nursing No Action Required Oxygen Flow Rate - Titration Pulse Oximetry Post Tiitration 11/22/20 14:37 11/22/20 15:00 11/22/20 15:30 Temperature Temperature Source Pulse Rate 86 81 Pulse Rate from SpO2 Sensor 81 Respiratory Rate 25 H 25 H Respiratory Effort / Characteristics Labored Blood Pressure 93/72 L 95/63 L Blood Pressure Mean 79 73 Pulse Oximetry 89 L 92 Oxygen Delivery Method Nasal Cannula Nasal Cannula Oxygen Flow Rate 3.5 4.5 Sepsis Recent Fever Within 48 Hours Sepsis New/Unexplained Change in Mental Status Sepsis Action Taken by Nursing Oxygen Flow Rate - Titration 4.5 Pulse Oximetry Post Tiitration 93 11/22/20 16:00 11/22/20 16:31 Temperature Temperature Source Pulse Rate 79 78 Pulse Rate from SpO2 Sensor 82 79 Respiratory Rate 17 25 H Respiratory Effort / Characteristics Blood Pressure 74/59 L 103/61 Blood Pressure Mean 64 75 Pulse Oximetry 90 92 Oxygen Delivery Method Nasal Cannula Oxygen Flow Rate 4.5 Sepsis Recent Fever Within 48 Hours Sepsis New/Unexplained Change in Mental Status Sepsis Action Taken by Nursing Oxygen Flow Rate - Titration Pulse Oximetry Post Tiitration Home Medications Current Medication List: was personally reviewed by me Laboratory Data Attestation: I reviewed the patient's lab results. Result diagrams: 11/22/20 14:19 11/22/20 14:19 Lab Results 11/22/20 11/22/20 11/22/20 Range/Units 14:19 14:19 14:19 WBC 12.10 H (4.8-10.8) K/uL RBC 4.62 L (4.7-6.1) M/uL Hgb 13.4 L (14.0-18.0) g/dL Hct 40.4 L (42-52) % MCV 87.4 (80-100) fL MCH 29.0 (25-34) pg MCHC 33.2 (32-36) g/dL RDW Std Deviation 50.6 H (36.4-46.3) fL RDW Coeff of Catarina 15.9 H (11.5-14.5) % Plt Count 335 (130-400) K/uL MPV 9.9 (7.4-10.4) fL Immature Gran % (Auto) 0.8 % Neut % (Auto) 78.0 % Lymph % (Auto) 11.7 % [place] % (Auto) 7.7 % Eos % (Auto) 1.6 % Baso % (Auto) 0.2 % Neut # (Auto) 9.45 H (1.4-6.5) K/uL Lymph # (Auto) 1.41 (1.2-3.4) K/uL [place] # (Auto) 0.93 H (0.11-0.59) K/uL Eos # (Auto) 0.19 (0-0.5) K/uL Baso # (Auto) 0.02 (0-0.2) K/uL Immature Gran # (Auto) 0.10 H (0.00-0.02) K/uL PT 11.0 (9.0-12.0) Seconds INR 1.1 (0.9-1.1) APTT 29.1 (21.0-31.0) Seconds PTT Ratio 1.1 VBG pH (7.36-7.41) VBG pCO2 (38-50) mmHg VBG pO2 mmHg VBG HCO3 mmol/L VBG O2 Saturation % VBG Base Excess mEq/L Barometric Pressure mm/Hg Sodium 135 L (136-145) mmol/L Potassium 4.6 (3.5-5.1) mmol/L Chloride 101 (98-107) mmol/L Carbon Dioxide 27 (21-32) mmol/L Anion Gap 7.0 (3-11) BUN 31 H (7-18) mg/dl Creatinine 1.32 (0.6-1.4) mg/dl Est Cr Clr Drug Dosing 71.4 ml/min Est GFR ( Amer) 64.2 ml/min Est GFR (Non-Af Amer) 55.4 ml/min BUN/Creatinine Ratio 23.8 H (10-20) Glucose 166 H (70-99) mg/dl Calcium 9.4 (8.5-10.1) mg/dl Magnesium 1.7 L (1.8-2.4) mg/dl Total Bilirubin 0.7 (0.2-1) mg/dl AST 25 (15-37) U/L ALT 26 (12-78) U/L Alkaline Phosphatase 108 (45-117) U/L Troponin I 0.304 H* (0-0.045) ng/ml C-Reactive Protein 8.70 H (0-0.29) mg/dl NT-Pro-B Natriuret Pep 2525 H (0-900) pg/ml Total Protein 7.6 (6.4-8.2) gm/dl Albumin 2.3 L (3.4-5.0) gm/dl Globulin 5.3 H (2.5-4.0) gm/dl Albumin/Globulin Ratio 0.4 L (0.9-2) COVID-19 Eval Order SARS-CoV-2 (PCR) (Negative) 11/22/20 11/22/20 11/22/20 Range/Units 14:20 14:20 14:51 WBC (4.8-10.8) K/uL RBC (4.7-6.1) M/uL Hgb (14.0-18.0) g/dL Hct (42-52) % MCV (80-100) fL MCH (25-34) pg MCHC (32-36) g/dL RDW Std Deviation (36.4-46.3) fL RDW Coeff of Catarina (11.5-14.5) % Plt Count (130-400) K/uL MPV (7.4-10.4) fL Immature Gran % (Auto) % Neut % (Auto) % Lymph % (Auto) % [place] % (Auto) % Eos % (Auto) % Baso % (Auto) % Neut # (Auto) (1.4-6.5) K/uL Lymph # (Auto) (1.2-3.4) K/uL [place] # (Auto) (0.11-0.59) K/uL Eos # (Auto) (0-0.5) K/uL Baso # (Auto) (0-0.2) K/uL Immature Gran # (Auto) (0.00-0.02) K/uL PT (9.0-12.0) Seconds INR (0.9-1.1) APTT (21.0-31.0) Seconds PTT Ratio VBG pH 7.42 H (7.36-7.41) VBG pCO2 41 (38-50) mmHg VBG pO2 36 mmHg VBG HCO3 26 mmol/L VBG O2 Saturation 66.7 % VBG Base Excess 1.6 mEq/L Barometric Pressure 732.7 mm/Hg Sodium (136-145) mmol/L Potassium (3.5-5.1) mmol/L Chloride (98-107) mmol/L Carbon Dioxide (21-32) mmol/L Anion Gap (3-11) BUN (7-18) mg/dl Creatinine (0.6-1.4) mg/dl Est Cr Clr Drug Dosing ml/min Est GFR ( Amer) ml/min Est GFR (Non-Af Amer) ml/min BUN/Creatinine Ratio (10-20) Glucose (70-99) mg/dl Calcium (8.5-10.1) mg/dl Magnesium (1.8-2.4) mg/dl Total Bilirubin (0.2-1) mg/dl AST (15-37) U/L ALT (12-78) U/L Alkaline Phosphatase (45-117) U/L Troponin I (0-0.045) ng/ml C-Reactive Protein (0-0.29) mg/dl NT-Pro-B Natriuret Pep (0-900) pg/ml Total Protein (6.4-8.2) gm/dl Albumin (3.4-5.0) gm/dl Globulin (2.5-4.0) gm/dl Albumin/Globulin Ratio (0.9-2) COVID-19 Eval Order Covid19 at [facility] SARS-CoV-2 (PCR) POSITIVE A* (Negative) Administered Medications Discontinued Medications Dexamethasone Sodium Phosphate (DexamethasonePf 10 Mg/Ml Vial) 10 mg IV NOW ONE Stop: 11/22/20 14:11 Last Admin: 11/22/20 14:34 Dose: 10 mg Documented by: [id number] Magnesium Sulfate/Dextrose (Magnesium Sulfate / D5w) 1 gm in 100 mls @ 100 mls/hr IV Q1H PABLO Stop: 11/22/20 16:56 Last Admin: 11/22/20 17:10 Dose: 100 mls/hr Documented by: [id number] Infusion: 11/22/20 17:10 Dose: 100 mls/hr Documented by: [id number] Admin: 11/22/20 15:18 Dose: 100 mls/hr Documented by: [id number] Imaging Data Radiologist's Impression: Chest X-Ray 11/22/20 14:10 SINGLE VIEW CHEST CLINICAL HISTORY: Dyspnea FINDINGS: An AP, portable, upright chest radiograph is compared to study dated 09/01/2020. The examination is degraded by portable technique and apical lordotic positioning. A 2-lead cardiac AICD is unchanged in position. The heart is enlarged noting atherosclerotic calcification of the thoracic aorta. There is pulmonary vascular congestion with evidence of interstitial edema. Small pleural effusions are noted with bibasilar consolidation. No pneumothorax is seen. The skeletal structures are osteopenic. The bony thorax is grossly intact. IMPRESSION: 1. Cardiomegaly and AICD with evidence of congestive failure and interstitial edema. 2. Small pleural effusions with bibasilar consolidation. ACT 112: Negative or not required by law. Electronically signed by: Howard Conrad M.D. 11/22/2020 2:32 PM Discharge Plan Visit Data Chief Complaint: Shortness of Breath/Dyspnea Stated Complaint: COV+, LABORED BREATHING ED Provider: David Marin Discharge Problem: Pneumonia due to 2019 novel coronavirus, CHF (congestive heart failure), Hypoxia Patient Disposition: Admitted As Inpatient Forms Stand Alone Forms: [facility] Prescriptions Prescriptions: No Action (DME) CPAP Supplies Misc See Dose Instructions .ROUTE .MEDSUPPLY Qty: 1 RF: 0 furosemide 40 mg tablet 40 mg PO DAILY Qty: 90 RF: 1 (DME) OneTouch Ultra Blue Test Strip Strip See Dose Instructions .ROUTE .MEDSUPPLY Qty: 400 RF: 3 Tresiba FlexTouch U-200 200 unit/mL (3 mL) insulin pen 100 unit SQ HS 90 Days Qty: 45 RF: 3 (DME) pen needle, diabetic [BD Ultra-Fine Short Pen Needle] 31 gauge x 5/16" needle See Dose Instructions .ROUTE .MEDSUPPLY Qty: 400 RF: 3 metformin 1,000 mg tablet 1,000 mg PO BID Qty: 180 RF: 3 (DME) lancets [OneTouch UltraSoft Lancets] Misc See Dose Instructions .ROUTE .MEDSUPPLY Qty: 400 RF: 3 benzonatate 200 mg capsule 200 mg PO TID PRN (Reason: cough) Qty: 30 RF: 1 hydrocodone-homatropine [Hycodan] 5-1.5 mg/5 mL (5 mL) syrup 5 ml PO Q6H PRN (Reason: cough) Qty: 200 RF: 0 Entresto 97-103 mg tablet 1 tab PO BID RF: 0 nitroglycerin 0.4 mg tablet, sublingual 0.4 mg SL .COMPLEX Qty: 25 RF: 3 (DME) Oxygen Home Liters Per Minute See Rx Instructions .Route RF: 0 furosemide 20 mg tablet 20 mg PO DAILY PRN (Reason: weight gain) Qty: 30 RF: 5 tramadol 100 mg tablet 100 mg PO DAILY RF: 0 mupirocin 2 % ointment 1 applic topical BID Qty: 30 RF: 0 atorvastatin 40 mg tablet 40 mg PO HS Qty: 90 RF: 0 loratadine 10 mg tablet 10 mg PO DAILY PRN (Reason: Allergy Symptoms) RF: 0 clopidogrel 75 mg tablet 75 mg PO QAM Qty: 1 RF: 0 Eliquis 5 mg tablet 5 mg PO BID RF: 0 magnesium oxide 400 mg magnesium capsule 400 mg PO DAILY RF: 0 metoprolol succinate 100 mg tablet extended release 24 hr 100 mg PO DAILY Qty: 30 RF: 0 albuterol sulfate [ProAir HFA] 90 mcg/actuation HFA aerosol inhaler 2 puffs INH Q4H PRN (Reason: Shortness Of Breath Or Wheezing) RF: 0 cholecalciferol (vitamin D3) 2,000 unit capsule 2,000 units PO DAILY Qty: 30 RF: 0 gabapentin 100 mg capsule 100 mg PO HS PRN (Reason: rls) Qty: 30 RF: 0 Novolog Flexpen U-100 Insulin 100 unit/mL (3 mL) insulin pen 90 unit SQ .COMPLEX RF: 0 metoprolol succinate 25 mg tablet extended release 24 hr 25 mg PO PM RF: 0 allopurinol 100 mg tablet 100 mg PO DAILY RF: 0 Referrals Referrals: Loki Matias III, MD [Primary Care Provider] -
--- NOTE | 2020-11-22 16:24 | History & Physical Report ---
Date of Service November 22, 2020 Assessment & Plan (1) Pneumonia due to COVID-19 virus: Plan: Despite clear high risk factors and non-vaccinated status he is doing surprisingly well and feels improving with this illness although requiring 1LPM O2 above his baseline. CRP pending to see if he would benefit from further steroids but given his clinical improvement and diabetes would favor stopping them currently. Mainly needs a bit of optimization of his chronic CHF problems and will hold/reduce Entresto to allow BP to rise enough for increased Lasix dosing to optimize his respiratory system. (2) Acute on chronic combined systolic (congestive) and diastolic (congestive) heart failure: Plan: Hold Entresto to allow BP to rise then will start on Lasix 40mg IV tomorrow Already had 40mg PO today Strict I&Os Daily weights Low Na, fluid restricted diet 1500ml (3) Acute and chronic respiratory failure with hypoxia: Plan: Aim O2 sats > 88% (4) Diabetes type 2, uncontrolled: Plan: HbA1C 9.4 in July, repeat with AM labs Consult pharmacy for glycemic control (5) Severe obstructive sleep apnea: Plan: CPAP HS [id number] (6) Atrial fibrillation: Plan: Permanent, ventricular paced rhythm on EKG Rate controlled with metoprolol Anticoagulation with Eliquis (7) CAD, multiple vessel: Plan: Continue Eliquis, clopidogrel, metoprolol, atorvastatin Holding Entresto as above (8) Ischemic cardiomyopathy: Plan: Continue metoprolol succinate, holding Entresto as above (9) Gout: Plan: Continue allopurinol 100mg PO daily (10) Hypertension: Plan: Relative hypotension in the ER. Hold Entresto but will continue metoprolol succinate (11) BPH (benign prostatic hyperplasia): Plan: On no medications for this Monitor for urine retention Plan: VTE Prophylaxis - Eliquis Diet - Low Na, Heart healthy, fluid restrict 1500ml, T2DM Disposition - admit to PCU Admission and Anticipated Discharge Date Admission Date: November 22, 2020 History of Present Illness Chief Complaint: Shortness of breath Primary Care Provider: Loki Davis chronic hypoxic respiratory failure, severe sleep apnea, pulmonary hypertension, sever nocturnal hypoxia who presents to the ER with known COVID-19 pneumonia and shortness of breath on advice of his PCP office. His initial symptoms started November 08 (diagnosed the following day). Currently on day 15. No prior treatment with monoclonal antibodies but he has been on steroids prescribed by her PCP (although unclear dose or duration). Initially he reports him and his were very sick but he feels he has been slowly improving. Initial symptoms of fever, chills, shortness of breath, cough, mild diarrhea. The nurse from his PCP office called him today and he appeared to be more labored in his breathing therefore was advised to come to the ER. However the patient feels he has been getting better every day. In the ER his CXR is concerning for bilateral viral pneumonia. He is currently requing 4.5LPM O2 to maintain O2 sats (usually on 3LPM at home). He was given 10mg IV dexamethasone. He was referred to Medicine for admission and ongoing management of COVID-19, CHF and hypoxia. Allergies Allergy/AdvReac Type Severity Reaction Status Date / Time No Known Drug Allergies Allergy Unknown Verified 11/22/20 16:30 Home Medications Medication Instructions Recorded Confirmed Type albuterol sulfate 90 mcg/actuation 2 puffs INH Q4H PRN gm 09/22/18 11/22/20 History aerosol inhaler (ProAir HFA) apixaban 5 mg tablet (Eliquis) 5 mg PO BID 09/22/18 11/22/20 History atorvastatin 40 mg tablet 40 mg PO HS #90 tab 09/22/18 11/22/20 History cholecalciferol (vitamin D3) 50 2,000 units PO DAILY #30 cap 09/22/18 11/22/20 History mcg (2,000 unit) capsule clopidogrel 75 mg tablet 75 mg PO QAM #1 tab 09/22/18 11/22/20 History loratadine 10 mg tablet 10 mg PO DAILY PRN tab 09/22/18 11/22/20 History magnesium oxide 400 mg PO DAILY cap 09/22/18 11/22/20 History metoprolol succinate 100 mg 100 mg PO DAILY #30 tab 09/22/18 11/22/20 History tablet,extended release 24 hr nitroglycerin 0.4 mg sublingual 0.4 mg SL .COMPLEX #25 tab 10/29/18 11/22/20 Rx tablet sacubitril 97 mg-valsartan 103 mg 1 tab PO BID 10/29/18 11/22/20 History tablet (Entresto) CPAP Supplies #1 ea 12/17/18 11/22/20 Rx gabapentin 100 mg capsule 100 mg PO HS PRN #30 cap 03/26/19 11/22/20 History furosemide 40 mg tablet 40 mg PO DAILY #90 tab 12/20/19 11/22/20 Rx metoprolol succinate 25 mg 25 mg PO PM tab 03/09/20 11/22/20 History tablet,extended release 24 hr blood sugar diagnostic (OneTouch #400 ea 03/24/20 11/22/20 Rx Ultra Blue Test Strip) furosemide 20 mg tablet 20 mg PO DAILY PRN #30 tab 04/03/20 11/22/20 Rx insulin degludec 200 unit/mL (3 100 unit SQ HS 90 Days #45 ml 04/10/20 11/22/20 Rx mL) subcutaneous pen (Tresiba FlexTouch U-200 insulin) BD Ultra-Fine Short Pen Needle 31 #400 ea NS 04/11/20 10/09/20 Rx gauge x 5/16" (pen needle, diabetic) metformin 1,000 mg tablet 1,000 mg PO BID #180 tab 05/29/20 11/22/20 Rx lancets (OneTouch UltraSoft #400 ea 06/29/20 11/22/20 Rx Lancets) insulin aspart U-100 100 unit/mL 90 unit SQ .COMPLEX ml 08/03/20 11/22/20 History (3 mL) subcutaneous pen (Novolog Flexpen U-100 Insulin aspart) tramadol 100 mg tablet 100 mg PO DAILY 08/03/20 11/22/20 History Oxygen Home 09/14/20 11/22/20 History mupirocin 2 % topical ointment 1 applic TOPICAL BID #30 g 10/09/20 11/22/20 Rx benzonatate 200 mg capsule 200 mg PO TID PRN #30 cap 11/10/20 11/22/20 Rx hydrocodone-homatropine 5 mg-1.5 5 ml PO Q6H PRN #200 ml 11/17/20 11/22/20 Rx mg/5 mL (5 mL) oral syrup (Hycodan) allopurinol 100 mg tablet 100 mg PO DAILY 11/22/20 11/22/20 History Past Med/Surg History Medical History Acute coronary syndrome MSSA bacteremia Surgical History History of cardiac catheterization History of colonoscopy (01/25/16) Dr Quintana, 2 tubular adenomas in cecum History of tonsillectomy and adenoidectomy Family History Father Prostate cancer Other Diabetes Hypertension Nephrolithiasis Denies family history of Ovarian cancer Breast cancer Colorectal cancer Social History Smoking Status: Never smoker Second Hand Exposure: No; Hx Alcohol Use: No Hx Substance Use: No Preferred Language: [place] Hearing Ability: Normal Surgery Consultant Required: No Beliefs That Will Affect Care: None marital status: Current Living Situation: Spouse Other Information That Helps Us Care for You: No Feels Safe at Home: Yes Safety Concerns: Feels Safe At This Time caffeine: Yes Seatbelt Use: always Assistive Devices: Cane, Denture - Upper, Glasses and Oxygen - Continuous Review of Systems Review of Systems: All systems reviewed & are unremarkable except as noted in HPI & below Physical Exam Constitutional: well developed, well nourished and + morbidly obese; no acute distress Eyes: + anicteric sclerae; normal pupil size ENMT: external ear and nose normal, oropharynx normal Neck: trachea midline, no thyromegaly Respiratory: normal respiratory effort and able to speak in complete sen tences; no respiratory distress, does not use accessory muscles and not tachypneic Auscultation: + diminished lung sounds (bibasal) and + rales (thorughout); no wheezes Cardiovascular: Rate/Rhythm: regular rate and regular rhythm Heart Sounds: no murmur Extremities: normal capillary refill and + pedal edema (1+ pre- tibial equal bilaterally); no calf tenderness Gastrointestinal (Abdomen): normal bowel sounds, soft, nontender, no hep atosplenomegaly Musculoskeletal: no cyanosis or clubbing, extremities motor strength 5/5 Skin: no rashes, warm and dry Neurologic: moves all extremities and awake; no focal motor deficits and not confused Psychiatric: A+Ox3, euthymic affect Genitourinary: no CVA tenderness Results & Data Results & Data ([facility]) Vital Signs (Past 12 Hours) Vital Signs Temp Pulse Resp BP Pulse Ox 11/22/20 16:00 79 17 74/59 L 90 11/22/20 15:30 81 25 H 95/63 L 92 11/22/20 15:00 86 25 H 93/72 L 89 L 11/22/20 14:30 89 25 H 99/58 L 11/22/20 14:12 93 H 23 108/61 92 11/22/20 13:51 36.4 C L 94 H 18 101/63 86 L Diagnostic Findings SINGLE VIEW CHEST CLINICAL HISTORY: Dyspnea FINDINGS: An AP, portable, upright chest radiograph is compared to study dated 09/01/2020. The examination is degraded by portable technique and apical lordotic positioning. A 2-lead cardiac AICD is unchanged in position. The heart is enlarged noting atherosclerotic calcification of the thoracic aorta. There is pulmonary vascular congestion with evidence of interstitial edema. Small pleural effusions are noted with bibasilar consolidation. No pneumothorax is seen. The skeletal structures are osteopenic. The bony thorax is grossly intact. IMPRESSION: 1. Cardiomegaly and AICD with evidence of congestive failure and interstitial edema. 2. Small pleural effusions with bibasilar consolidation. Medications Administered ER Medications Given: Dexamethasone 10mg IV Magnesium sulphate 2g IV ECG Indication: SOB/dyspnea Rate (beats per minute): 89 Findings: + paced rhythm (ventricular) Comparison ECG Date: from (August 31, 2020) Change: no significant change Code Status & VTE Plan Code Status Full - as discussed with the patient VTE Prophylaxis Plan VTE Prophylaxis will be ordered: Yes PG Care Time/CCT Total # of Minutes Spent Total Time Spent with Patient: Total time spent is greater than 50% in coordination of care (as documented) at patient's floor/unit and/or counseling patient: Coding Level of Care Code 23864 Initial Inpt Care Lvl 3 Diagnoses Pneumonia due to COVID-19 virus U07.1; J12.82 Acute and chronic respiratory failure with hypoxia J96.21 Diabetes type 2, uncontrolled E11.65 Severe obstructive sleep apnea G47.33 Atrial fibrillation I48.91 BPH (benign prostatic hyperplasia) N40.0 CAD, multiple vessel I25.10 Gout M10.9 Acute on chronic combined systolic (congestive) and diastolic (congestive) heart failure I50.43 Ischemic cardiomyopathy I25.5 Hypertension I10
[2020-11-22 17:07] LABS: C Reactive Protein 8.7 mg/dl (0-0.29)
[2020-11-22] MEDS ORDERED: GABAPENTIN 100 MG CAP PO PRN (18:42)
[2020-11-22] MEDS ORDERED: ACETAMINOPHEN 325 MG TAB PO PRN (18:42)
[2020-11-22] MEDS ORDERED: BENZONATATE 100 MG CAPSULE PO PRN (18:42)
[2020-11-22] MEDS ORDERED: HYDROCODONE HOMATROPINE PO PRN (18:42)
[2020-11-22] MEDS ORDERED: LORATADINE 10 MG TAB PO PRN (18:42)
[2020-11-22] MEDS ORDERED: ONDANSETRON INJ 2 MG/ML 2 ML VIAL IV PRN (18:42)
[2020-11-22] MEDS ORDERED: PHARMACY GLYCEMIC MGMT CONSULT PRN (18:42)
[2020-11-22] MEDS ORDERED: DEXTROSE 50% 50 ML SYRINGE IV PRN (19:30)
[2020-11-22] MEDS ORDERED: CARBOHYDRATES FOR HYPOGLYCEMIA PO PRN (19:30)
[2020-11-22] MEDS ORDERED: GLUCOSE 10 TABS/TUBE PO PRN (19:30)
[2020-11-22] MEDS ORDERED: GLUCOSE 40% GEL 15 GM TUBE PO PRN (19:30)
[2020-11-22] MEDS ORDERED: GLUCAGON FOR INJ 1 MG VIAL IM PRN (19:30)
[2020-11-22] MEDS: ATORVASTATIN 40 MG TAB PO SCH (20:44)
[2020-11-22] MEDS: APIXABAN 5 MG TABLET PO SCH (20:45)
[2020-11-22] MEDS: METOPROLOL SUCC 25MG EXT REL TAB PO SCH (20:45)
[2020-11-22] MEDS: INSULIN ASPART 100 UNITS/ML 3 ML PEN SC SCH (22:24)
[2020-11-22] MEDS: INSULIN GLARGINE 100 UNIT/ML VIAL SC SCH (22:26)
[2020-11-22] MEDS: HYDROcodone/HOMATROPINE SYRUP 5MG/1.5MG 5ML UDP PO PRN (23:03)
[2020-11-22] MEDS ORDERED: SODIUM BICARB 8.4% INJ 50 MEQ/50 ML SYR IV ONE (23:19)
[2020-11-22] MEDS ORDERED: CALCIUM CHLORIDE 10% 10 ML SYR IV ONE (23:19)
[2020-11-22] MEDS ORDERED: SODIUM CHLORIDE 0.9% 10ML FLUSH IV ONE (23:19)
[2020-11-22 23:37] LABS: Appearance Urine Clear (Clear); Bilirubin Urine Negative (Negative); Blood Urine Negative (Negative); Color Urine Yellow; Glucose Urine UA Negative (Negative); Ketones Urine Negative (Negative); Leukocyte Esterase Urine Negative (Negative); Nitrite Urine Negative (Negative); Protein Urine Negative (Negative); Specific Gravity Urine 1.014 (1.000-1.030); Urobilinogen Urine Negative (Negative)
[2020-11-23] MEDS: INSULIN ASPART 100 UNITS/ML 3 ML PEN SC SCH ×6 (01:11→21:41)
--- NOTE | 2020-11-23 05:48 | Electrocardiogram Report ---
Test Reason : Blood Pressure : / mmHG Vent. Rate : 089 BPM Atrial Rate : 234 BPM P-R Int : 000 ms QRS Dur : 110 ms QT Int : 398 ms P-R-T Axes : 000 -53 166 degrees QTc Int : 484 ms Poor data quality, interpretation may be adversely affected Ventricular-paced rhythm Biventricular pacemaker detected Abnormal ECG When compared with ECG of 31-AUG-2020 15:17, Vent. rate has increased BY 17 BPM Confirmed by Ryan Engle ([id number]) on 11/23/2020 5:48:03 AM Referred By: SELF Confirmed By:Ryan Engle
[2020-11-23] MEDS: HYDROcodone/HOMATROPINE SYRUP 5MG/1.5MG 5ML UDP PO PRN (07:15)
[2020-11-23 07:56] LABS: Basophils # (auto) 0.01 K/uL (0-0.2); Basophils % (auto) 0.1 %; Hematocrit (blood only) 38.1 % (42-52); Hemoglobin 12.6 g/dL (14.0-18.0); Immature Granulocytes # (auto) 0.05 K/uL (0.00-0.02); Immature Granulocytes % (auto) 0.4 %; Lymphocytes # (auto) 1.24 K/uL (1.2-3.4); Lymphocytes % (auto) 9.3 %; Mean Corpuscular Hgb Conc 33.1 g/dL (32-36); Mean Corpuscular Volume 87.6 fL (80-100); Mean Platelet Volume 10.1 fL (7.4-10.4); Monocytes # (auto) 0.61 K/uL (0.11-0.59); Monocytes % (auto) 4.6 %; Neutrophils # (auto) 11.48 K/uL (1.4-6.5); Neutrophils % (auto) 85.6 %; Platelet Count 386 K/uL (130-400); RDW Coefficient of Variation 15.9 % (11.5-14.5); RDW Standard Deviation 51.6 fL (36.4-46.3); Red Blood Count 4.35 M/uL (4.7-6.1); White Blood Count 13.39 K/uL (4.8-10.8)
[2020-11-23 08:08] LABS: Estimated Average Glucose 209 mg/dl; Hemoglobin A1C 8.9 % (4.5-5.6)
[2020-11-23 08:22] LABS: BUN Creatinine Ratio 24.9 (10-20); Calcium 9.1 mg/dl (8.5-10.1); Creatinine Clr Calc Pharmacy 66.4 ml/min; Est GFR (African American) 59.8 ml/min; Est GFR (Non-African American) 51.6 ml/min; Potassium 4.8 mmol/L (3.5-5.1)
[2020-11-23 08:23] LABS: C Reactive Protein 6.96 mg/dl (0-0.29)
[2020-11-23] MEDS: INSULIN HUMAN NPH SC SCH (08:30)
[2020-11-23] MEDS ORDERED: FUROSEMIDE 40 MG/4 ML VIAL IV SCH (09:00)
[2020-11-23] MEDS: dexAMETHasone 6 MG in SYRINGE 0 ML IV SCH (09:19)
[2020-11-23] MEDS: CHOLECALCIFEROL 1,000 UNITS 25 MCG TAB PO SCH (09:20)
[2020-11-23] MEDS: CLOPIDOGREL BISULFATE 75 MG TAB PO SCH (09:20)
[2020-11-23] MEDS: FUROSEMIDE 40 MG in SYRINGE 0 ML IV SCH (09:20)
[2020-11-23] MEDS: METOPROLOL SUCC 50MG EXT REL TAB PO SCH (09:21)
[2020-11-23] MEDS: allopurinoL 100 MG TAB PO SCH (09:21)
[2020-11-23] MEDS: APIXABAN 5 MG TABLET PO SCH ×2 (09:21→20:38)
[2020-11-23] MEDS: MAGNESIUM OXIDE 400 MG TAB PO SCH (09:21)
[2020-11-23] MEDS: traMADol HCL 50 MG TABLET PO SCH (09:32)
[2020-11-23] MEDS ORDERED: FUROSEMIDE 40 MG/4 ML VIAL IV ONE (10:30)
--- NOTE | 2020-11-23 10:30 | Hospitalist Progress Note ---
Date of Service November 23, 2020 Assessment & Plan (1) Pneumonia due to COVID-19 virus: Plan: rapidly worsening this is concerning because he is 15 days into illness, completed a full 10 days of dexamethasone at home CRP is 6.8 continue dexamethasone 6mg IV daily no role for immune therapy appreciate pulmonology input will place on CPAP all day today, work to diurese with Lasix q12 guarded prognosis, at high risk of getting intubated in next 24-48 hours (2) Acute on chronic combined systolic (congestive) and diastolic (congestive) heart failure: Plan: Hold Entresto for now Lasix 40mg IV BID place castillo for accurate output and so he can just rest CPAP all day and night today to help offload heart and diurese Strict I&Os Daily weights Low Na, fluid restricted diet 1500ml (3) Acute and chronic respiratory failure with hypoxia: Plan: chronically on 3L, wears CPAP HS with pressure 12 and 3L right now he is on 40L and 80% with saturations 87-88%, working to breath will place on continuous CPAP today, 100% FiO2 initially Lasix BID to keep lungs dry guarded prognosis discussed plan with Dr. Castorena (4) Diabetes type 2, uncontrolled: Plan: HbA1C 9.4 in July, repeat with AM labs Consult pharmacy for glycemic control monitor for hypo and hyperglycemia (5) Severe obstructive sleep apnea: Plan: CPAP HS [id number] (6) Atrial fibrillation: Plan: Permanent, ventricular paced rhythm on EKG Rate controlled with metoprolol Anticoagulation with Eliquis (7) CAD, multiple vessel: Plan: Continue Eliquis, clopidogrel, metoprolol, atorvastatin Holding Entresto as above (8) Ischemic cardiomyopathy: Plan: Continue metoprolol succinate, holding Entresto as above Lasix BID CPAP to help offload heart (9) Gout: Plan: Continue allopurinol 100mg PO daily (10) Hypertension: Plan: Relative hypotension in the ER. Hold Entresto but will continue metoprolol succinate (11) BPH (benign prostatic hyperplasia): Plan: On no medications for this place castillo with plans for aggressive diuresis Plan: VTE Prophylaxis - Eliquis Diet - Low Na, Heart healthy, fluid restrict 1500ml, T2DM Disposition - admit to PCU, guarded prognosis, will depend on how he does for the next 48 hours Admission and Anticipated Discharge Date Admission Date: November 22, 2020 Subjective patient admitted yesterday he confirms he was sick on 11/08 and completed 10 days of dexamethasone at home he is on 3L NC chronically, wears CPAP at night with 12 pressure and 3L, says he has been wearing the CPAP during the day as well he was admitted on 4.5L but quickly required high flow overnight right now he is 40L and 80% with saturations 87-88% eating okay, making urine after Lasix this morning I discussed with Dr. Castorena, he does not qualify for immune therapy due to duration of illness he wants him on CPAP all day and Lasix BID told RN to place castillo so he can lay in bed and focus on breathing with CPAP reviewed chart reviewed labs from admission Cr 1.4 and K is 4.8 Review of Systems Review of Systems: All systems reviewed & are unremarkable except as noted in Subjective Constitutional: + fatigue and + weakness Respiratory: + dyspnea and + dyspnea on exertion Cardiovascular: + edema (legs bilaterally, chronic); no chest pain Physical Exam Physical Exam: General: well developed, well nourished, obese male, mild distress, ill appearing Neck: supple, trachea midline, normal thyroid Lungs: crackles diffusely, + tachypnea, + accessory muscle use, no distress Heart: regular S1 and S2, no murmur, peripheral pulses normal, capillary refill normal, +1 edema bilaterally, more in left leg Abdomen: soft, NT, ND, + BS, no hepatomegaly, normal to percussion Extremities: normal in appearance, no cyanosis, no petechiae, strength is 5/5 bilaterally Neuro: awake, cooperative, moves all extremities, no focal motor deficits, CN II-XII intact, sensation in extremities intact, normal speech Skin: warm, dry, no rash, normal turgor Psych: Awake, alert oriented x 3, euthymic affect Results & Data Results & Data ([facility]) Vital Signs (Past 12 Hours) Vital Signs Temp Pulse Pulse Resp BP Pulse Ox 11/23/20 08:05 36.7 C 76 18 104/78 89 L 11/23/20 07:48 80 20 93 11/23/20 04:30 26 H 90 11/23/20 03:09 36.7 C 80 22 105/70 86 L 11/23/20 00:26 80 21 91 11/23/20 00:04 96 H 09/29/21 23:58 36.8 C 87 18 114/73 88 L Laboratory Results Laboratory Results - last 24 hr 11/22/20 11/22/20 11/22/20 14:19 14:19 14:19 WBC 12.10 H RBC 4.62 L Hgb 13.4 L Hct 40.4 L MCV 87.4 MCH 29.0 MCHC 33.2 RDW Std Deviation 50.6 H RDW Coeff of Catarina 15.9 H Plt Count 335 MPV 9.9 Immature Gran % (Auto) 0.8 Neut % (Auto) 78.0 Lymph % (Auto) 11.7 Archer % (Auto) 7.7 Eos % (Auto) 1.6 Baso % (Auto) 0.2 Neut # (Auto) 9.45 H Lymph # (Auto) 1.41 Archer # (Auto) 0.93 H Eos # (Auto) 0.19 Baso # (Auto) 0.02 Immature Gran # (Auto) 0.10 H PT 11.0 INR 1.1 APTT 29.1 PTT Ratio 1.1 VBG pH VBG pCO2 VBG pO2 VBG HCO3 VBG O2 Saturation VBG Base Excess Barometric Pressure Sodium 135 L Potassium 4.6 Chloride 101 Carbon Dioxide 27 Anion Gap 7.0 BUN 31 H Creatinine 1.32 Est Cr Clr Drug Dosing 71.4 Est GFR ( Amer) 64.2 Est GFR (Non-Af Amer) 55.4 BUN/Creatinine Ratio 23.8 H Glucose 166 H POC Glucose Estimat Average Glucose Hemoglobin A1c Calcium 9.4 Magnesium 1.7 L Total Bilirubin 0.7 AST 25 ALT 26 Alkaline Phosphatase 108 Troponin I 0.304 H* C-Reactive Protein 8.70 H NT-Pro-B Natriuret Pep 2525 H Total Protein 7.6 Albumin 2.3 L Globulin 5.3 H Albumin/Globulin Ratio 0.4 L Procalcitonin Urine Color Urine Appearance Urine pH Ur Specific [place] Urine Protein Urine Glucose (UA) Urine Ketones Urine Blood Urine Nitrite Urine Bilirubin Urine Urobilinogen Ur Leukocyte Esterase COVID-19 Eval Order SARS-CoV-2 (PCR) 11/22/20 11/22/20 11/22/20 14:19 14:20 14:20 WBC RBC Hgb Hct MCV MCH MCHC RDW Std Deviation RDW Coeff of Catarina Plt Count MPV Immature Gran % (Auto) Neut % (Auto) Lymph % (Auto) Archer % (Auto) Eos % (Auto) Baso % (Auto) Neut # (Auto) Lymph # (Auto) Archer # (Auto) Eos # (Auto) Baso # (Auto) Immature Gran # (Auto) PT INR APTT PTT Ratio VBG pH VBG pCO2 VBG pO2 VBG HCO3 VBG O2 Saturation VBG Base Excess Barometric Pressure Sodium Potassium Chloride Carbon Dioxide Anion Gap BUN Creatinine Est Cr Clr Drug Dosing Est GFR ( Amer) Est GFR (Non-Af Amer) BUN/Creatinine Ratio Glucose POC Glucose Estimat Average Glucose Hemoglobin A1c Calcium Magnesium Total Bilirubin AST ALT Alkaline Phosphatase Troponin I C-Reactive Protein NT-Pro-B Natriuret Pep Total Protein Albumin Globulin Albumin/Globulin Ratio Procalcitonin < 0.05 Urine Color Urine Appearance Urine pH Ur Specific [place] Urine Protein Urine Glucose (UA) Urine Ketones Urine Blood Urine Nitrite Urine Bilirubin Urine Urobilinogen Ur Leukocyte Esterase COVID-19 Eval Order Covid19 at [facility] SARS-CoV-2 (PCR) POSITIVE A* 11/22/20 11/22/20 11/22/20 14:51 21:42 23:10 WBC RBC Hgb Hct MCV MCH MCHC RDW Std Deviation RDW Coeff of Catarina Plt Count MPV Immature Gran % (Auto) Neut % (Auto) Lymph % (Auto) Archer % (Auto) Eos % (Auto) Baso % (Auto) Neut # (Auto) Lymph # (Auto) Archer # (Auto) Eos # (Auto) Baso # (Auto) Immature Gran # (Auto) PT INR APTT PTT Ratio VBG pH 7.42 H VBG pCO2 41 VBG pO2 36 VBG HCO3 26 VBG O2 Saturation 66.7 VBG Base Excess 1.6 Barometric Pressure 732.7 Sodium Potassium Chloride Carbon Dioxide Anion Gap BUN Creatinine Est Cr Clr Drug Dosing Est GFR ( Amer) Est GFR (Non-Af Amer) BUN/Creatinine Ratio Glucose POC Glucose 123 H Estimat Average Glucose Hemoglobin A1c Calcium Magnesium Total Bilirubin AST ALT Alkaline Phosphatase Troponin I C-Reactive Protein NT-Pro-B Natriuret Pep Total Protein Albumin Globulin Albumin/Globulin Ratio Procalcitonin Urine Color Yellow Urine Appearance Clear Urine pH 5.0 Ur Specific [place] 1.014 Urine Protein Negative Urine Glucose (UA) Negative Urine Ketones Negative Urine Blood Negative Urine Nitrite Negative Urine Bilirubin Negative Urine Urobilinogen Negative Ur Leukocyte Esterase Negative COVID-19 Eval Order SARS-CoV-2 (PCR) 11/23/20 11/23/20 11/23/20 01:07 04:01 07:14 WBC 13.39 H RBC 4.35 L Hgb 12.6 L Hct 38.1 L MCV 87.6 MCH 29.0 MCHC 33.1 RDW Std Deviation 51.6 H RDW Coeff of Catarina 15.9 H Plt Count 386 MPV 10.1 Immature Gran % (Auto) 0.4 Neut % (Auto) 85.6 Lymph % (Auto) 9.3 Archer % (Auto) 4.6 Eos % (Auto) 0.0 Baso % (Auto) 0.1 Neut # (Auto) 11.48 H Lymph # (Auto) 1.24 Archer # (Auto) 0.61 H Eos # (Auto) 0.00 Baso # (Auto) 0.01 Immature Gran # (Auto) 0.05 H PT INR APTT PTT Ratio VBG pH VBG pCO2 VBG pO2 VBG HCO3 VBG O2 Saturation VBG Base Excess Barometric Pressure Sodium Potassium Chloride Carbon Dioxide Anion Gap BUN Creatinine Est Cr Clr Drug Dosing Est GFR ( Amer) Est GFR (Non-Af Amer) BUN/Creatinine Ratio Glucose POC Glucose 228 H 190 H Estimat Average Glucose Hemoglobin A1c Calcium Magnesium Total Bilirubin AST ALT Alkaline Phosphatase Troponin I C-Reactive Protein NT-Pro-B Natriuret Pep Total Protein Albumin Globulin Albumin/Globulin Ratio Procalcitonin Urine Color Urine Appearance Urine pH Ur Specific [place] Urine Protein Urine Glucose (UA) Urine Ketones Urine Blood Urine Nitrite Urine Bilirubin Urine Urobilinogen Ur Leukocyte Esterase COVID-19 Eval Order SARS-CoV-2 (PCR) 11/23/20 11/23/20 11/23/20 07:14 07:18 07:31 WBC RBC Hgb Hct MCV MCH MCHC RDW Std Deviation RDW Coeff of Catarina Plt Count MPV Immature Gran % (Auto) Neut % (Auto) Lymph % (Auto) Archer % (Auto) Eos % (Auto) Baso % (Auto) Neut # (Auto) Lymph # (Auto) Archer # (Auto) Eos # (Auto) Baso # (Auto) Immature Gran # (Auto) PT INR APTT PTT Ratio VBG pH VBG pCO2 VBG pO2 VBG HCO3 VBG O2 Saturation VBG Base Excess Barometric Pressure Sodium 135 L Potassium 4.8 Chloride 102 Carbon Dioxide 24 Anion Gap 9.0 BUN 35 H Creatinine 1.40 Est Cr Clr Drug Dosing 66.4 Est GFR ( Amer) 59.8 Est GFR (Non-Af Amer) 51.6 BUN/Creatinine Ratio 24.9 H Glucose 212 H POC Glucose Estimat Average Glucose 209 Hemoglobin A1c 8.9 H Calcium 9.1 Magnesium Total Bilirubin AST ALT Alkaline Phosphatase Troponin I C-Reactive Protein 6.96 H NT-Pro-B Natriuret Pep Pending Total Protein Albumin Globulin Albumin/Globulin Ratio Procalcitonin Urine Color Urine Appearance Urine pH Ur Specific [place] Urine Protein Urine Glucose (UA) Urine Ketones Urine Blood Urine Nitrite Urine Bilirubin Urine Urobilinogen Ur Leukocyte Esterase COVID-19 Eval Order SARS-CoV-2 (PCR) 11/23/20 08:02 WBC RBC Hgb Hct MCV MCH MCHC RDW Std Deviation RDW Coeff of Catarina Plt Count MPV Immature Gran % (Auto) Neut % (Auto) Lymph % (Auto) Archer % (Auto) Eos % (Auto) Baso % (Auto) Neut # (Auto) Lymph # (Auto) Archer # (Auto) Eos # (Auto) Baso # (Auto) Immature Gran # (Auto) PT INR APTT PTT Ratio VBG pH VBG pCO2 VBG pO2 VBG HCO3 VBG O2 Saturation VBG Base Excess Barometric Pressure Sodium Potassium Chloride Carbon Dioxide Anion Gap BUN Creatinine Est Cr Clr Drug Dosing Est GFR ( Amer) Est GFR (Non-Af Amer) BUN/Creatinine Ratio Glucose POC Glucose 201 H Estimat Average Glucose Hemoglobin A1c Calcium Magnesium Total Bilirubin AST ALT Alkaline Phosphatase Troponin I C-Reactive Protein NT-Pro-B Natriuret Pep Total Protein Albumin Globulin Albumin/Globulin Ratio Procalcitonin Urine Color Urine Appearance Urine pH Ur Specific [place] Urine Protein Urine Glucose (UA) Urine Ketones Urine Blood Urine Nitrite Urine Bilirubin Urine Urobilinogen Ur Leukocyte Esterase COVID-19 Eval Order SARS-CoV-2 (PCR) Medications Administered Current Inpatient Medications Acetaminophen (Acetaminophen 325 Mg Tab) 650 mg PO Q4H PRN PRN Reason: Pain or Fever Stop: 12/22/20 18:41 Allopurinol (Allopurinol 100 Mg Tab) 100 mg PO DAILY PABLO Stop: 12/23/20 08:59 Last Admin: 11/23/20 09:21 Dose: 100 mg Documented by: Apixaban (Apixaban 5 Mg Tablet) 5 mg PO BID PABLO Stop: 12/22/20 20:59 Last Admin: 11/23/20 09:21 Dose: 5 mg Documented by: Atorvastatin Calcium (Atorvastatin 40 Mg Tab) 40 mg PO HS PABLO Stop: 12/22/20 20:59 Last Admin: 11/22/20 20:44 Dose: 40 mg Documented by: Benzonatate (Benzonatate 100 Mg Capsule) 200 mg PO TID PRN PRN Reason: cough Stop: 12/22/20 18:41 Last Admin: 11/23/20 07:15 Dose: 200 mg Documented by: Clopidogrel Bisulfate (Clopidogrel Bisulfate 75 Mg Tab) 75 mg PO QAM PABLO Stop: 12/23/20 08:59 Last Admin: 11/23/20 09:20 Dose: 75 mg Documented by: Dextrose (Dextrose 50% 50 Ml Syringe) 25 - 50 ml IV UD PRN; Protocol PRN Reason: Hypoglycemia Protocol Stop: 12/22/20 19:29 Gabapentin (Gabapentin 100 Mg Cap) 100 mg PO HS PRN PRN Reason: RLS Stop: 12/22/20 18:41 Last Admin: 11/23/20 09:20 Dose: 100 mg Documented by: Glucagon (Glucagon For Inj 1 Mg Vial) 1 mg IM UD PRN; Protocol PRN Reason: Hypoglycemia Protocol Stop: 12/22/20 19:29 Glucose (Glucose 40% Gel 15 Gm Tube) 15 - 30 gm PO UD PRN; Protocol PRN Reason: Hypoglycemia Protocol Stop: 12/22/20 19:29 Glucose (Glucose 10 Tabs/Tube) 4 - 8 tabs PO UD PRN; Protocol PRN Reason: Hypoglycemia Protocol Stop: 12/22/20 19:29 Hydrocodone Bit/Homatropine Methylb (Hydrocodone/Homatropine Syrup 5mg/1.5mg 5ml Udp) 5 ml PO Q6H PRN PRN Reason: Cough Stop: 12/06/20 19:27 Last Admin: 11/23/20 07:15 Dose: 5 ml Documented by: Furosemide 40 mg/ Syringe 4 mls @ 4 mls/min IV QAM PABLO Stop: 12/23/20 08:59 Last Admin: 11/23/20 09:20 Dose: 4 mls/min Documented by: Dexamethasone 6 mg/ Syringe 1.5 mls @ 1 mls/min IV QAM [facility] Stop: 12/23/20 08:59 Last Admin: 11/23/20 09:19 Dose: 1 mls/min Documented by: Insulin Aspart (Insulin Aspart 100 Units/Ml 3 Ml Pen) 0 units SC ACHS [facility]; Protocol Stop: 12/22/20 20:59 Last Admin: 11/23/20 08:30 Dose: 19 units Documented by: Insulin Glargine (Insulin Glargine 100 Unit/Ml Vial) 100 units SC HS [facility]; Protocol Stop: 12/22/20 20:59 Last Admin: 11/22/20 22:26 Dose: 100 units Documented by: Insulin Human NPH (Insulin Human Nph) 35 units SC DAILY [facility]; Protocol Stop: 12/23/20 08:59 Last Admin: 11/23/20 08:30 Dose: 35 units Documented by: Loratadine (Loratadine 10 Mg Tab) 10 mg PO DAILY PRN PRN Reason: Allergy Symptoms Stop: 12/22/20 18:41 Last Admin: 11/23/20 09:21 Dose: 10 mg Documented by: Magnesium Oxide (Magnesium Oxide 400 Mg Tab) 400 mg PO DAILY [facility] Stop: 12/23/20 08:59 Last Admin: 11/23/20 09:21 Dose: 400 mg Documented by: Metoprolol Succinate (Metoprolol Succ 50mg Ext Rel Tab) 100 mg PO DAILY [facility] Stop: 12/23/20 08:59 Last Admin: 11/23/20 09:21 Dose: 100 mg Documented by: Metoprolol Succinate (Metoprolol Succ 25mg Ext Rel Tab) 25 mg PO PM [facility] Stop: 12/22/20 20:59 Last Admin: 11/22/20 20:45 Dose: 25 mg Documented by: Miscellaneous (Carbohydrates For Hypoglycemia ) 15 - 30 gm PO UD PRN PRN Reason: Hypoglycemia Treatment Stop: 12/22/20 19:29 Miscellaneous Information (Pharmacy Glycemic Mgmt Consult) 1 ea N/A UD PRN PRN Reason: Consult Stop: 12/22/20 18:41 Ondansetron HCl (Ondansetron Inj 2 Mg/Ml 2 Ml Vial) 4 mg IV Q6H PRN PRN Reason: Nausea Stop: 12/22/20 18:41 Tramadol HCl (Tramadol Hcl 50 Mg Tablet) 100 mg PO DAILY PABLO Stop: 12/23/20 08:59 Last Admin: 11/23/20 09:32 Dose: 100 mg Documented by: Vitamin D (Cholecalciferol 1,000 Units 25 Mcg Tab) 2,000 units PO DAILY PABLO Stop: 12/23/20 08:59 Last Admin: 11/23/20 09:20 Dose: 2,000 units Documented by: PG Care Time/CCT Total # of Minutes Spent Total Time Spent with Patient: Total time spent is greater than 50% in coordination of care (as documented) at patient's floor/unit and/or counseling patient: Coding Level of Care Code 95872 Subseq Hosp Care Lvl 3 Diagnoses Pneumonia due to COVID-19 virus U07.1; J12.82 Acute on chronic combined systolic (congestive) and diastolic (congestive) heart failure I50.43 Acute and chronic respiratory failure with hypoxia J96.21 Diabetes type 2, uncontrolled E11.65 Severe obstructive sleep apnea G47.33 Atrial fibrillation I48.91 CAD, multiple vessel I25.10 Ischemic cardiomyopathy I25.5 Gout M10.9 Hypertension I10 BPH (benign prostatic hyperplasia) N40.0
--- NOTE | 2020-11-23 11:22 | Pharmacy Report ---
Pharmacy Glycemic Short Note 2 - Date of Service November 23, 2020 - Glycemic Short BSG Results (Last 24 hours): 11/22/20 11/22/20 11/23/20 14:19 21:42 01:07 Glucose 166 H POC Glucose 123 H 228 H 11/23/20 11/23/20 11/23/20 04:01 07:31 08:02 Glucose 212 H POC Glucose 190 H 201 H OUTPATIENT ANTIDIABETIC REGIMEN: * Tresiba (insulin degludec) 100 units SQ HS * NovoLog 26 units SQ TIDM + SSI * Metformin 1,000 mg PO BIDM * A1c = 8.9% on 11/23/20 ASSESSMENT: * 65yo T2DM male admitted with COVID-19. Pt with poor baseline glycemic control despite high doses of insulin as an outpatient. * Sustained hyperglycemia inpatient secondary to infection and steroids * Will continue with outpatient basal insulin needs and add NPH for steroid induced hyperglycemia with dexamethasone * Will start with 0.4 units/kg adjusted body weight NPH and titrate based on BSG trends. PLAN FOR INPATIENT GLYCEMIC CONTROL: * Hold outpatient oral diabetes medications * Basal insulin * Lantus 100 units SQ HS (therapeutic sub for Tresiba) * Steroid induced hyperglycemia * NPH 35 units (0.4 units/kg adjusted body weight) SQ daily with Dexamethasone * HOLD NPH if dexamethasone held/dc * Bolus insulin * NovoLog per scale ACHS or Q6hrs while NPO * Goal Range: Low 110 mg/dL - High 140 mg/dL * Correction Factor: 10 mg/dL/unit * Nutritional / Prandial insulin per carb ratio of 1 unit per 4 grams CHO consumed PLAN FOR DISCHARGE: * A1c = 8.9 % on 11/23/20 * Goal A1c = <7 % based on age and comorbidities * Will assess outpatient insulin dosing vs compliance * Support Patient Self-Management o Healthy Lifestyle (diet, exercise, and smoking cessation) o Disease self-management (SMBG) o Prevention of complications (BP, Lipid goals, Immunizations) o Consider outpatient Diabetes Self-Management Education & Support
[2020-11-23] MEDS ORDERED: FUROSEMIDE 40 MG in SYRINGE 0 ML IV ONE (15:00)
--- NOTE | 2020-11-23 19:10 | Pulmonary Consultation ---
Date of Consultation November 23, 2020 Assessment & Plan (1) Pneumonia due to 2019 novel coronavirus: (2) Acute and chronic respiratory failure with hypoxia: (3) CHF (congestive heart failure): Heart failure chronicity: acute on chronic Heart failure type: unspecified Qualified Code(s): I50.9 - Heart failure, unspecified (4) Nocturnal hypoxia: (5) Severe obstructive sleep apnea: Attending: Dr. Castorena Impression: This is a 65-year-old male with multiple comorbidities and limited compliance as an outpatient. He presents with 11 days of Covid symptoms. He reports that he had positive Covid test as an outpatient and completed 10 days of outpatient dexamethasone. Patient had worsening hypoxia over the last 24 hours. Continues on dexamethasone and CPAP for support. Recommendations: 1. COVID-19 positive: * Patient with worsening hypoxia last 24 hours. * Multifocal pneumonia on chest x-ray * Continue with dexamethasone 6 mg IV * Hypoxia complicated by CHF - p-BNP * Continue with CPAP as tolerated with voluntary proning * Repeat chest x-ray in the morning * No indication for remdesivir due to close to 2 weeks of symptoms. No indication for convalescent plasma * Continue supportive care * Maintain negative fluid balance with diuresis as tolerated -follow serial labs to follow creatinine -currently receiving furosemide 40 mg IV twice daily * Cumulative balance since admission is negative 1096 mL 2. Obstructive sleep apnea with nocturnal hypoxemia * Follows with Dr. Cunningham and Josefa Amaral PA-C * CPAP 12 cm water pressure, C. flex setting 2 with oxygen 3 L/min. through DME provider [facility]. * No recent compliance report * Continue CPAP for COVID-19 pneumonia and obstructive sleep apnea 3. Nocturnal hypoxia: * Patient with chronic supplemental oxygen at home * Continue to maintain SaO2 greater than 90% * Continue continuous pulse oximetry Thank you for including us in the care of this patient. We will continue to follow along with you Supervising Physician Co-Signing Physician Notes I saw and evaluated the patient with Howard Porter, and agree with findings and plan as documented in the note. 65-year-old male past medical history of cardiomyopathy status post AICD, A. fib on apixaban, coronary artery disease, DEANDRE on CPAP of 12 Presented to the hospital with complaints of worsening shortness of breath. Patient was found to have COVID-19 pneumonia Pulmonary consulted because of increasing oxygen demand At the time of examination patient was on CPAP of 12, 80% saturating 92-93% He said that he is feeling good. He was breathing in the high 20s I spoke with the nurse and as per the nurse patient is able to have food on high flow and then he goes back to CPAP He denies any chest pain, no headache, no nausea, no vomiting. Constitutional: No acute distress HEENT: EOMI, PERRLA Respiratory system: Decreased air entry bilaterally, no wheeze, rhonchi, positive crackles bilaterally CVS: S1-S2 positive, no murmurs or gallops, distant heart sounds Abdomen: Soft, nontender, nondistended, positive bowel sounds x4, obese Extremities: +2 pulses bilaterally radialis/ dorsalis pedis, no cyanosis, +2 pitting edema bilateral lower extremity Neuro: Awake alert oriented x3 Psych: Normal mood and affect G/U: Positive Estrella Plan: Patient CRP is trending down Unfortunately he will not be a candidate for immunomodulators like baricitinib. Patient's BNP is elevated I do think a large component of his shortness of breath is underlying CHF as well Continue with diuretics to keep the patient negative balance Continue with CPAP support Awake proning will help the patient if he is able to do it Please note the above document was generated using voice recognition software. It may contain grammatical, syntax or spelling errors.Any formal questions or concerns about the content, text or information contained within the body of this dictation should be directly addressed to the provider for clarification. History of Present Illness Reason for Consultation: COVID-19 with Acute Pneumonia ,Hypoxia Attending Physician: Lennox Soto DO History of Present Illness Attending: Dr. Castorena This is a 65-year-old male with a past medical history of acute and chronic combined systolic and diastolic heart failure, tubular adenoma of colon, nocturnal hypoxia, diabetes mellitus type 2, severe obstructive sleep apnea, MSSA bacteremia history, anemia, arthritis, atrial fibrillation, BPH, multilevel vessel CAD, carpal tunnel syndrome, gout, lung nodule, peripheral neuropathy, pulmonary hypertension, history of stroke syndrome, tremor of both hands, ischemic cardiomyopathy, dyslipidemia, morbid obesity with a BMI of 44.9 kg/m. Patient reports that he began having respiratory difficulty approximately 11 days ago. Had cough and low-grade fever. He has had progressive shortness of breath since that time. Patient's convinced him to go for Covid test outpatient. He was found to be positive. He was referred to [facility] emergency department for further evaluation and treatment. Covid testing performed in the emergency department was also positive on 11/22/2020. Patient reports that he completed a full 10 days of dexamethasone as an outpatient. He denies loss of taste or smell. He has no chest pain or tightness. He denies hemoptysis. Patient had a small episode of diarrhea earlier today. Prior to this he has had formed stools. He has had some nausea but no vomiting. He denies any rigors or nighttime sweats. Patient is not vaccinated. He denies any desire at all to be vaccinated post infection with Covid at this time. 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 Denies tobacco abuse history. Allergies Allergy/AdvReac Type Severity Reaction Status Date / Time No Known Drug Allergies Allergy Unknown Verified 11/22/20 16:30 Home Medications Medication Instructions Recorded Confirmed Type albuterol sulfate 90 mcg/actuation 2 puffs INH Q4H PRN gm 09/22/18 11/22/20 History aerosol inhaler (ProAir HFA) apixaban 5 mg tablet (Eliquis) 5 mg PO BID 09/22/18 11/22/20 History atorvastatin 40 mg tablet 40 mg PO HS #90 tab 09/22/18 11/22/20 History cholecalciferol (vitamin D3) 50 2,000 units PO DAILY #30 cap 09/22/18 11/22/20 History mcg (2,000 unit) capsule clopidogrel 75 mg tablet 75 mg PO QAM #1 tab 09/22/18 11/22/20 History loratadine 10 mg tablet 10 mg PO DAILY PRN tab 09/22/18 11/22/20 History magnesium oxide 400 mg PO DAILY cap 09/22/18 11/22/20 History metoprolol succinate 100 mg 100 mg PO DAILY #30 tab 09/22/18 11/22/20 History tablet,extended release 24 hr nitroglycerin 0.4 mg sublingual 0.4 mg SL .COMPLEX #25 tab 10/29/18 11/22/20 Rx tablet sacubitril 97 mg-valsartan 103 mg 1 tab PO BID 10/29/18 11/22/20 History tablet (Entresto) CPAP Supplies #1 ea 12/17/18 11/22/20 Rx gabapentin 100 mg capsule 100 mg PO HS PRN #30 cap 03/26/19 11/22/20 History furosemide 40 mg tablet 40 mg PO DAILY #90 tab 12/20/19 11/22/20 Rx metoprolol succinate 25 mg 25 mg PO PM tab 03/09/20 11/22/20 History tablet,extended release 24 hr blood sugar diagnostic (OneTouch #400 ea 03/24/20 11/22/20 Rx Ultra Blue Test Strip) furosemide 20 mg tablet 20 mg PO DAILY PRN #30 tab 04/03/20 11/22/20 Rx insulin degludec 200 unit/mL (3 100 unit SQ HS 90 Days #45 ml 04/10/20 11/22/20 Rx mL) subcutaneous pen (Tresiba FlexTouch U-200 insulin) BD Ultra-Fine Short Pen Needle 31 #400 ea NS 04/11/20 10/09/20 Rx gauge x 5/16" (pen needle, diabetic) metformin 1,000 mg tablet 1,000 mg PO BID #180 tab 05/29/20 11/22/20 Rx lancets (OneTouch UltraSoft #400 ea 06/29/20 11/22/20 Rx Lancets) insulin aspart U-100 100 unit/mL 90 unit SQ .COMPLEX ml 08/03/20 11/22/20 History (3 mL) subcutaneous pen (Novolog Flexpen U-100 Insulin aspart) tramadol 100 mg tablet 100 mg PO DAILY 08/03/20 11/22/20 History Oxygen Home 09/14/20 11/22/20 History mupirocin 2 % topical ointment 1 applic TOPICAL BID #30 g 10/09/20 11/22/20 Rx benzonatate 200 mg capsule 200 mg PO TID PRN #30 cap 11/10/20 11/22/20 Rx hydrocodone-homatropine 5 mg-1.5 5 ml PO Q6H PRN #200 ml 11/17/20 11/22/20 Rx mg/5 mL (5 mL) oral syrup (Hycodan) allopurinol 100 mg tablet 100 mg PO DAILY 11/22/20 11/22/20 History Patient History Medical History Acute coronary syndrome MSSA bacteremia Surgical History History of cardiac catheterization History of colonoscopy (01/25/16) Dr Quintana, 2 tubular adenomas in cecum History of tonsillectomy and adenoidectomy Family History Father Prostate cancer Other Diabetes Hypertension Nephrolithiasis Denies family history of Ovarian cancer Breast cancer Colorectal cancer Social History Smoking Status: Never smoker Second Hand Exposure: No; Hx Alcohol Use: No Hx Substance Use: No Preferred Language: Lao Communication Ability: Effective Hearing Ability: Normal Code Clerk Required: No Beliefs That Will Affect Care: None marital status: Current Living Situation: Spouse Other Information That Helps Us Care for You: No Feels Safe at Home: Yes Safety Concerns: Feels Safe At This Time caffeine: Yes Seatbelt Use: always Assistive Devices: Cane and Walker Review of Systems Review of Systems: All systems reviewed & are unremarkable except as noted in Subjective Physical Exam Physical Exam: GENERAL : No acute distress. Pleasant. EYES: No icterus, gaze conjugate. Pupils equal round and reactive to light NOSE: No evidence of epistaxis. Patient with CPAP in place MOUTH: No lesions or candidiasis. Mucosa moist. CPAP in place and secure with minimal leak NECK: Supple LUNGS: Bibasilar Rales. No appreciation of rhonchi or bronchospasm HEART: Irregular, irregular rate controlled in the 80s ABDOMEN: Soft, NT, ND, BS Present EXTREMITIES: Bilateral LE edema, pedal pulses intact intact and equal bilaterally. Tibial tendon rupture with muscle around ankle. Patient states that this is been like this for years NEURO: A&OX3 Results & Data Results & Data ([facility]) Vital Signs (Past 12 Hours) Vital Signs Temp Pulse Pulse Resp BP Pulse Ox Pulse Ox 11/23/20 18:44 36.8 C 90 22 124/99 91 11/23/20 18:03 89 L 11/23/20 16:22 36.6 C 84 22 132/91 90 11/23/20 14:45 86 21 92 11/23/20 10:51 36.7 C 96 H 24 124/82 92 11/23/20 08:05 36.7 C 76 18 104/78 89 L 11/23/20 07:48 80 20 93 Laboratory Results 11/23/20 07:14 11/23/20 07:31 Diagnostic Findings Chest X-Ray 11/22/20 14:10 SINGLE VIEW CHEST CLINICAL HISTORY: Dyspnea FINDINGS: An AP, portable, upright chest radiograph is compared to study dated 09/01/2020. The examination is degraded by portable technique and apical lordotic positioning. A 2-lead cardiac AICD is unchanged in position. The heart is enlarged noting atherosclerotic calcification of the thoracic aorta. There is pulmonary vascular congestion with evidence of interstitial edema. Small pleural effusions are noted with bibasilar consolidation. No pneumothorax is seen. The skeletal structures are osteopenic. The bony thorax is grossly intact. IMPRESSION: 1. Cardiomegaly and AICD with evidence of congestive failure and interstitial edema. 2. Small pleural effusions with bibasilar consolidation. ACT 112: Negative or not required by law. Electronically signed by: Howard Conrad M.D. 11/22/2020 2:32 PM Medications Administered Current Inpatient Medications Acetaminophen (Acetaminophen 325 Mg Tab) 650 mg PO Q4H PRN PRN Reason: Pain or Fever Stop: 12/22/20 18:41 Allopurinol (Allopurinol 100 Mg Tab) 100 mg PO DAILY PABLO Stop: 12/23/20 08:59 Last Admin: 11/23/20 09:21 Dose: 100 mg Documented by: Apixaban (Apixaban 5 Mg Tablet) 5 mg PO BID PABLO Stop: 12/22/20 20:59 Last Admin: 11/23/20 09:21 Dose: 5 mg Documented by: Atorvastatin Calcium (Atorvastatin 40 Mg Tab) 40 mg PO HS PABLO Stop: 12/22/20 20:59 Last Admin: 11/22/20 20:44 Dose: 40 mg Documented by: Benzonatate (Benzonatate 100 Mg Capsule) 200 mg PO TID PRN PRN Reason: cough Stop: 12/22/20 18:41 Last Admin: 11/23/20 07:15 Dose: 200 mg Documented by: Clopidogrel Bisulfate (Clopidogrel Bisulfate 75 Mg Tab) 75 mg PO QAM PABLO Stop: 12/23/20 08:59 Last Admin: 11/23/20 09:20 Dose: 75 mg Documented by: Dextrose (Dextrose 50% 50 Ml Syringe) 25 - 50 ml IV UD PRN; Protocol PRN Reason: Hypoglycemia Protocol Stop: 12/22/20 19:29 Gabapentin (Gabapentin 100 Mg Cap) 100 mg PO HS PRN PRN Reason: RLS Stop: 12/22/20 18:41 Last Admin: 11/23/20 09:20 Dose: 100 mg Documented by: Glucagon (Glucagon For Inj 1 Mg Vial) 1 mg IM UD PRN; Protocol PRN Reason: Hypoglycemia Protocol Stop: 12/22/20 19:29 Glucose (Glucose 40% Gel 15 Gm Tube) 15 - 30 gm PO UD PRN; Protocol PRN Reason: Hypoglycemia Protocol Stop: 12/22/20 19:29 Glucose (Glucose 10 Tabs/Tube) 4 - 8 tabs PO UD PRN; Protocol PRN Reason: Hypoglycemia Protocol Stop: 12/22/20 19:29 Hydrocodone Bit/Homatropine Methylb (Hydrocodone/Homatropine Syrup 5mg/1.5mg 5ml Udp) 5 ml PO Q6H PRN PRN Reason: Cough Stop: 12/06/20 19:27 Last Admin: 11/23/20 07:15 Dose: 5 ml Documented by: Furosemide 40 mg/ Syringe 4 mls @ 4 mls/min IV QAM PABLO Stop: 12/23/20 08:59 Last Admin: 11/23/20 09:20 Dose: 4 mls/min Documented by: Dexamethasone 6 mg/ Syringe 1.5 mls @ 1 mls/min IV QAM PABLO Stop: 12/23/20 08:59 Last Admin: 11/23/20 09:19 Dose: 1 mls/min Documented by: Insulin Aspart (Insulin Aspart 100 Units/Ml 3 Ml Pen) 0 units SC ACHS PABLO; Protocol Stop: 12/22/20 20:59 Last Admin: 11/23/20 17:25 Dose: 16 units Documented by: Insulin Glargine (Insulin Glargine 100 Unit/Ml Vial) 100 units SC HS PABLO; Protocol Stop: 12/22/20 20:59 Last Admin: 11/22/20 22:26 Dose: 100 units Documented by: Insulin Human NPH (Insulin Human Nph) 35 units SC DAILY PABLO; Protocol Stop: 12/23/20 08:59 Last Admin: 11/23/20 08:30 Dose: 35 units Documented by: Loratadine (Loratadine 10 Mg Tab) 10 mg PO DAILY PRN PRN Reason: Allergy Symptoms Stop: 12/22/20 18:41 Last Admin: 11/23/20 09:21 Dose: 10 mg Documented by: Magnesium Oxide (Magnesium Oxide 400 Mg Tab) 400 mg PO DAILY [facility] Stop: 12/23/20 08:59 Last Admin: 11/23/20 09:21 Dose: 400 mg Documented by: Metoprolol Succinate (Metoprolol Succ 50mg Ext Rel Tab) 100 mg PO DAILY PABLO Stop: 12/23/20 08:59 Last Admin: 11/23/20 09:21 Dose: 100 mg Documented by: Metoprolol Succinate (Metoprolol Succ 25mg Ext Rel Tab) 25 mg PO PM [facility] Stop: 12/22/20 20:59 Last Admin: 11/22/20 20:45 Dose: 25 mg Documented by: Miscellaneous (Carbohydrates For Hypoglycemia ) 15 - 30 gm PO UD PRN PRN Reason: Hypoglycemia Treatment Stop: 12/22/20 19:29 Miscellaneous Information (Pharmacy Glycemic Mgmt Consult) 1 ea N/A UD PRN PRN Reason: Consult Stop: 12/22/20 18:41 Ondansetron HCl (Ondansetron Inj 2 Mg/Ml 2 Ml Vial) 4 mg IV Q6H PRN PRN Reason: Nausea Stop: 12/22/20 18:41 Tramadol HCl (Tramadol Hcl 50 Mg Tablet) 100 mg PO DAILY [facility] Stop: 12/23/20 08:59 Last Admin: 11/23/20 09:32 Dose: 100 mg Documented by: Vitamin D (Cholecalciferol 1,000 Units 25 Mcg Tab) 2,000 units PO DAILY [facility] Stop: 12/23/20 08:59 Last Admin: 11/23/20 09:20 Dose: 2,000 units Documented by: PG Care Time/CCT Total # of Minutes Spent Total Time Spent with Patient: Total time spent is greater than 50% in coordination of care (as documented) at patient's floor/unit and/or counseling patient: 65 minutes Coding Level of Care Code 00991 Initial Inpt Care Lvl 3 Diagnoses Pneumonia due to 2019 novel coronavirus U07.1; J12.82 Acute and chronic respiratory failure with hypoxia J96.21 CHF (congestive heart failure) I50.9 Heart failure chronicity: acute on chronic Heart failure type: unspecified Nocturnal hypoxia G47.34 Severe obstructive sleep apnea G47.33 Time Spent (min) 65
--- NOTE | 2020-11-23 19:48 | XRay Report ---
XR chest 1V portable INDICATION: [place] ^Covid multifocal pneumonia. TECHNIQUE: Single frontal radiograph of the chest was obtained. Comparison: Comparison is made to chest one view 11/22/2020 FINDINGS: Unchanged appearance of pacemaker defibrillator. Cardiomegaly is noted. Lungs are underinflated. Agai n noted are bilateral airspace opacities, slightly improved from prior exam. No pneumothorax is seen. Bilateral pleural effusions cannot be excluded. IMPRESSION: Bilateral airspace opacities are slightly improved from prior exam. ACT 112: Negative or not required by law. Electronically signed by: Lennox Huerta M.D. 11/23/2020 7:47 PM
[2020-11-23] MEDS: ATORVASTATIN 40 MG TAB PO SCH (20:37)
[2020-11-23] MEDS: METOPROLOL SUCC 25MG EXT REL TAB PO SCH (20:39)
[2020-11-23] MEDS: INSULIN GLARGINE 100 UNIT/ML VIAL SC SCH (21:41)
[2020-11-24] MEDS ORDERED: FUROSEMIDE 40 MG/4 ML VIAL IV ONE (06:40)
[2020-11-24] MEDS ORDERED: FUROSEMIDE 80 MG in SYRINGE 0 ML IV ONE ×2 (06:45→15:00)
--- NOTE | 2020-11-24 08:09 | XRay Report ---
XR chest 1V portable HISTORY: Desaturation. Hypoxia. Covid pneumonia. COMPARISON: Chest 11/23/2020. FINDINGS: No pneumothorax. The heart remains enlarged. Bilateral mid to lower lung zone airspace opac ities persist. There may be small bilateral pleural fusions. Left-sided pacemaker is again noted. IMPRESSION: No change in the bilateral mid to lower lung zone airspace opacities consistent with a viral pneumoni a. ACT 112: Negative or not required by law. Electronically signed by: Vinicius Gaitan M.D. 11/24/2020 8:07 AM
[2020-11-24] MEDS: MAGNESIUM OXIDE 400 MG TAB PO SCH (08:38)
[2020-11-24] MEDS: CLOPIDOGREL BISULFATE 75 MG TAB PO SCH (08:38)
[2020-11-24] MEDS: METOPROLOL SUCC 50MG EXT REL TAB PO SCH (08:38)
[2020-11-24] MEDS: CHOLECALCIFEROL 1,000 UNITS 25 MCG TAB PO SCH (08:38)
[2020-11-24] MEDS: allopurinoL 100 MG TAB PO SCH (08:38)
[2020-11-24] MEDS: APIXABAN 5 MG TABLET PO SCH ×2 (08:39→19:58)
[2020-11-24 09:01] LABS: Hematocrit (blood only) 39.6 % (42-52); Mean Corpuscular Hgb Conc 32.8 g/dL (32-36); Mean Corpuscular Volume 88.2 fL (80-100); Platelet Count 384 K/uL (130-400); RDW Coefficient of Variation 15.8 % (11.5-14.5); RDW Standard Deviation 50.9 fL (36.4-46.3); Red Blood Count 4.49 M/uL (4.7-6.1); White Blood Count 22.63 K/uL (4.8-10.8)
[2020-11-24] MEDS: traMADol HCL 50 MG TABLET PO SCH (09:20)
[2020-11-24 09:35] LABS: BUN Creatinine Ratio 30.5 (10-20); C Reactive Protein 3.47 mg/dl (0-0.29); Calcium 9.2 mg/dl (8.5-10.1); Creatinine Clr Calc Pharmacy 70.9 ml/min; Est GFR (African American) 64.8 ml/min; Est GFR (Non-African American) 55.9 ml/min; Potassium 4.4 mmol/L (3.5-5.1)
[2020-11-24] MEDS: dexAMETHasone 6 MG in SYRINGE 0 ML IV SCH (09:41)
[2020-11-24] MEDS: INSULIN HUMAN NPH SC SCH (09:45)
[2020-11-24] MEDS: INSULIN ASPART 100 UNITS/ML 3 ML PEN SC SCH ×2 (09:46→14:50)
--- NOTE | 2020-11-24 10:52 | Hospitalist Progress Note ---
Date of Service November 24, 2020 Assessment & Plan (1) Pneumonia due to COVID-19 virus: Plan: rapidly worsening since admission this is concerning because he is 16 days into illness, completed a full 10 days of dexamethasone at home CRP was 6.8 continue dexamethasone 6mg IV daily no role for immune therapy appreciate pulmonology input desaturating on CPAP and high flow, working harder to breathe today diuresing well with Lasix unfortunately he needs intubated, move to ICU, plan for intubation today will contact his family to update them about plan (2) Acute on chronic combined systolic (congestive) and diastolic (congestive) heart failure: Plan: Lasix 40mg IV BID, worked well yesterday increased to 80mg IV this morning, repeat that dose this afternoon placed castillo for accurate output and so he can just rest Strict I&Os Daily weights (3) Acute and chronic respiratory failure with hypoxia: Plan: chronically on 3L, wears CPAP HS with pressure 12 and 3L right now he is on 60L and 100% with saturations 83%, working hard to breath needs intubated, will move to ICU discussed plan with Dr. Castorena (4) Diabetes type 2, uncontrolled: Plan: HbA1C 9.4 in July, repeat with AM labs Consult pharmacy for glycemic control monitor for hypo and hyperglycemia (5) Severe obstructive sleep apnea: Plan: CPAP HS [id number] when at home (6) Atrial fibrillation: Plan: Permanent, ventricular paced rhythm on EKG Rate controlled with metoprolol Anticoagulation with Eliquis (7) CAD, multiple vessel: Plan: Continue Eliquis, clopidogrel, metoprolol, atorvastatin Holding Entresto as above (8) Ischemic cardiomyopathy: Plan: Continue metoprolol succinate, holding Entresto as above Lasix BID CPAP to help offload heart (9) Gout: Plan: Continue allopurinol 100mg PO daily (10) Hypertension: Plan: Relative hypotension in the ER. continue to hold Entresto but will continue metoprolol succinate (11) BPH (benign prostatic hyperplasia): Plan: On no medications for this place castillo with plans for aggressive diuresis Plan: VTE Prophylaxis - Eliquis Diet - NPO with plans to intubate Disposition - worsening condition, move to ICU, plan for intubation and ventilation Admission and Anticipated Discharge Date Admission Date: November 22, 2020 Subjective patient decompensating this morning, could not tolerate the CPAP with pressure 14 and 100% FiO2 sats dropped to 78%, placed on 60L and 100% FiO2, sats eventually came up to 90% now he is desaturating again, 83%, have him laying prone discussed that he needs intubated and mechanical ventilation, he understands and agrees spoke with Dr. Castorena, will move to an ICU room reviewed chart, diuresing well with Lasix, Cr is stable, got Lasix 80mg IV this morning, give another dose this afternoon, large component of heart failure he is coughing a lot, harsh cough, no sputum no fever Review of Systems Review of Systems: All systems reviewed & are unremarkable except as noted in Subjective Constitutional: + fatigue and + weakness; no fever Respiratory: + cough, + dyspnea and + dyspnea on exertion Cardiovascular: + edema; no chest pain Physical Exam Physical Exam: General: well developed, well nourished, obese male, moderate distress, ill appearing Neck: supple, trachea midline, normal thyroid Lungs: crackles diffusely, + tachypnea, + accessory muscle use, developing respiratory distress Heart: regular S1 and S2, no murmur, peripheral pulses normal, capillary refill normal, +1 edema bilaterally, more in left leg Abdomen: soft, NT, ND, + BS, no hepatomegaly, normal to percussion Extremities: normal in appearance, no cyanosis, no petechiae, strength is 5/5 bilaterally Neuro: awake, cooperative, moves all extremities, no focal motor deficits, CN II-XII intact, sensation in extremities intact, normal speech Skin: warm, dry, no rash, normal turgor Psych: Awake, alert oriented x 3, euthymic affect Results & Data Results & Data ([facility]) Vital Signs (Past 12 Hours) Vital Signs Temp Pulse Pulse Resp BP Pulse Ox 11/24/20 09:02 87 22 88 L 11/24/20 07:20 36.7 C 83 119/86 93 11/24/20 05:13 29 H 11/24/20 04:51 28 H 11/24/20 04:34 36.9 C 82 24 116/79 94 11/24/20 04:00 28 H 92 11/23/20 23:50 85 24 91 11/23/20 23:02 36.8 C 85 24 132/83 90 Laboratory Results Laboratory Results - last 24 hr 11/23/20 11/23/20 11/23/20 07:18 11:38 16:56 WBC RBC Hgb Hct MCV MCH MCHC RDW Std Deviation RDW Coeff of Catarina Plt Count MPV Sodium Potassium Chloride Carbon Dioxide Anion Gap BUN Creatinine Est Cr Clr Drug Dosing Est GFR ( Amer) Est GFR (Non-Af Amer) BUN/Creatinine Ratio Glucose POC Glucose 275 H 116 H Calcium C-Reactive Protein NT-Pro-B Natriuret Pep 2854 H 11/23/20 11/24/20 11/24/20 20:26 07:23 08:25 WBC 22.63 H RBC 4.49 L Hgb 13.0 L Hct 39.6 L MCV 88.2 MCH 29.0 MCHC 32.8 RDW Std Deviation 50.9 H RDW Coeff of Catarina 15.8 H Plt Count 384 MPV 10.0 Sodium Potassium Chloride Carbon Dioxide Anion Gap BUN Creatinine Est Cr Clr Drug Dosing Est GFR ( Amer) Est GFR (Non-Af Amer) BUN/Creatinine Ratio Glucose POC Glucose 126 H 149 H Calcium C-Reactive Protein NT-Pro-B Natriuret Pep 11/24/20 08:25 WBC RBC Hgb Hct MCV MCH MCHC RDW Std Deviation RDW Coeff of Catarina Plt Count MPV Sodium 135 L Potassium 4.4 Chloride 102 Carbon Dioxide 26 Anion Gap 8.0 BUN 40 H Creatinine 1.31 Est Cr Clr Drug Dosing 70.9 Est GFR ( Amer) 64.8 Est GFR (Non-Af Amer) 55.9 BUN/Creatinine Ratio 30.5 H Glucose 123 H POC Glucose Calcium 9.2 C-Reactive Protein 3.47 H NT-Pro-B Natriuret Pep Medications Administered Current Inpatient Medications Acetaminophen (Acetaminophen 325 Mg Tab) 650 mg PO Q4H PRN PRN Reason: Pain or Fever Stop: 12/22/20 18:41 Allopurinol (Allopurinol 100 Mg Tab) 100 mg PO DAILY PABLO Stop: 12/23/20 08:59 Last Admin: 11/24/20 08:38 Dose: 100 mg Documented by: Apixaban (Apixaban 5 Mg Tablet) 5 mg PO BID PABLO Stop: 12/22/20 20:59 Last Admin: 11/24/20 08:39 Dose: 5 mg Documented by: Atorvastatin Calcium (Atorvastatin 40 Mg Tab) 40 mg PO HS PABLO Stop: 12/22/20 20:59 Last Admin: 11/23/20 20:37 Dose: 40 mg Documented by: Benzonatate (Benzonatate 100 Mg Capsule) 200 mg PO TID PRN PRN Reason: cough Stop: 12/22/20 18:41 Last Admin: 11/23/20 07:15 Dose: 200 mg Documented by: Clopidogrel Bisulfate (Clopidogrel Bisulfate 75 Mg Tab) 75 mg PO QAM PABLO Stop: 12/23/20 08:59 Last Admin: 11/24/20 08:38 Dose: 75 mg Documented by: Dextrose (Dextrose 50% 50 Ml Syringe) 25 - 50 ml IV UD PRN; Protocol PRN Reason: Hypoglycemia Protocol Stop: 12/22/20 19:29 Gabapentin (Gabapentin 100 Mg Cap) 100 mg PO HS PRN PRN Reason: RLS Stop: 12/22/20 18:41 Last Admin: 11/23/20 09:20 Dose: 100 mg Documented by: Glucagon (Glucagon For Inj 1 Mg Vial) 1 mg IM UD PRN; Protocol PRN Reason: Hypoglycemia Protocol Stop: 12/22/20 19:29 Glucose (Glucose 40% Gel 15 Gm Tube) 15 - 30 gm PO UD PRN; Protocol PRN Reason: Hypoglycemia Protocol Stop: 12/22/20 19:29 Glucose (Glucose 10 Tabs/Tube) 4 - 8 tabs PO UD PRN; Protocol PRN Reason: Hypoglycemia Protocol Stop: 12/22/20 19:29 Hydrocodone Bit/Homatropine Methylb (Hydrocodone/Homatropine Syrup 5mg/1.5mg 5ml Udp) 5 ml PO Q6H PRN PRN Reason: Cough Stop: 12/06/20 19:27 Last Admin: 11/23/20 07:15 Dose: 5 ml Documented by: Furosemide 40 mg/ Syringe 4 mls @ 4 mls/min IV QAM PABLO Stop: 12/23/20 08:59 Last Admin: 11/23/20 09:20 Dose: 4 mls/min Documented by: Dexamethasone 6 mg/ Syringe 1.5 mls @ 1 mls/min IV QAM PABLO Stop: 12/23/20 08:59 Last Admin: 11/24/20 09:41 Dose: 1 mls/min Documented by: Pantoprazole Sodium 40 mg/ (Syringe) 10 mls @ 5 mls/min IV DAILY@1100 [facility] Stop: 12/24/20 10:59 Insulin Aspart (Insulin Aspart 100 Units/Ml 3 Ml Pen) 0 units SC ACHS [facility]; Protocol Stop: 12/22/20 20:59 Last Admin: 11/23/20 21:41 Dose: Not Given Documented by: Insulin Glargine (Insulin Glargine 100 Unit/Ml Vial) 100 units SC HS [facility]; Protocol Stop: 12/22/20 20:59 Last Admin: 11/23/20 21:41 Dose: 100 units Documented by: Insulin Human NPH (Insulin Human Nph) 35 units SC DAILY [facility]; Protocol Stop: 12/23/20 08:59 Last Admin: 11/23/20 08:30 Dose: 35 units Documented by: Loratadine (Loratadine 10 Mg Tab) 10 mg PO DAILY PRN PRN Reason: Allergy Symptoms Stop: 12/22/20 18:41 Last Admin: 11/23/20 09:21 Dose: 10 mg Documented by: Magnesium Oxide (Magnesium Oxide 400 Mg Tab) 400 mg PO DAILY [facility] Stop: 12/23/20 08:59 Last Admin: 11/24/20 08:38 Dose: 400 mg Documented by: Metoprolol Succinate (Metoprolol Succ 50mg Ext Rel Tab) 100 mg PO DAILY [facility] Stop: 12/23/20 08:59 Last Admin: 11/24/20 08:38 Dose: 100 mg Documented by: Metoprolol Succinate (Metoprolol Succ 25mg Ext Rel Tab) 25 mg PO PM [facility] Stop: 12/22/20 20:59 Last Admin: 11/23/20 20:39 Dose: 25 mg Documented by: Miscellaneous (Carbohydrates For Hypoglycemia ) 15 - 30 gm PO UD PRN PRN Reason: Hypoglycemia Treatment Stop: 12/22/20 19:29 Miscellaneous Information (Pharmacy Glycemic Mgmt Consult) 1 ea N/A UD PRN PRN Reason: Consult Stop: 12/22/20 18:41 Ondansetron HCl (Ondansetron Inj 2 Mg/Ml 2 Ml Vial) 4 mg IV Q6H PRN PRN Reason: Nausea Stop: 12/22/20 18:41 Tramadol HCl (Tramadol Hcl 50 Mg Tablet) 100 mg PO DAILY [facility] Stop: 12/23/20 08:59 Last Admin: 11/24/20 09:20 Dose: 100 mg Documented by: Vitamin D (Cholecalciferol 1,000 Units 25 Mcg Tab) 2,000 units PO DAILY PABLO Stop: 12/23/20 08:59 Last Admin: 11/24/20 08:38 Dose: 2,000 units Documented by: PG Care Time/CCT Total # of Minutes Spent Total Time Spent: 36 Total Time Spent with Patient: Total time spent is greater than 50% in coordination of care (as documented) at patient's floor/unit and/or counseling patient: Critical Care Time: Yes Total Critical Care Time: 36 This case had a high probability of a clinically significant, sudden, or life threatening deterioration of this patient's condition which required my full and direct attention, intervention and personal management. Coding Level of Care Code 40664 Subseq Hosp Care Lvl 3 (25 - SIGNIFICANT, SEPARATELY IDENTIFIABLE ) Diagnoses Pneumonia due to COVID-19 virus U07.1; J12.82 Acute on chronic combined systolic (congestive) and diastolic (congestive) heart failure I50.43 Acute and chronic respiratory failure with hypoxia J96.21 Diabetes type 2, uncontrolled E11.65 Severe obstructive sleep apnea G47.33 Atrial fibrillation I48.91 CAD, multiple vessel I25.10 Ischemic cardiomyopathy I25.5 Gout M10.9 Hypertension I10 BPH (benign prostatic hyperplasia) N40.0 Additional Codes Critical Care Time - Critical Care Time: Yes ([id number])
[2020-11-24] MEDS ORDERED: PANTOprazole 40 MG in SYRINGE 0 ML IV SCH (11:00)
[2020-11-24] MEDS: FUROSEMIDE 40 MG in SYRINGE 0 ML IV SCH (11:24)
[2020-11-24] MEDS ORDERED: RAPID SEQUENCE INDUCTION BAG ONE (12:45)
[2020-11-24] MEDS ORDERED: LIDOCAINE 1% LOCAL 20 ML VIAL ONE (12:48)
[2020-11-24] MEDS ORDERED: NOREPINEPHRINE/D5W 8 MG/508 ML IV ONE (12:56)
[2020-11-24] MEDS ORDERED: STAT IV Infusion **Titration per Protocol STA ×6 (13:21→15:22)
[2020-11-24] MEDS ORDERED: LIDOCAINE 1% LOCAL 20 ML VIAL INJ ONE (13:21)
[2020-11-24] MEDS ORDERED: PROPOFOL BOLUS FROM BAG IV PRN (13:26)
[2020-11-24] MEDS ORDERED: fentaNYL DRIP 1,250 MCG/250 ML BAG IV SCH (13:30)
[2020-11-24] MEDS ORDERED: DEXMEDETOMIDINE HCL 200 MCG in SODIUM CHLORIDE 0.9% 48 ML IV SCH (13:30)
[2020-11-24] MEDS ORDERED: propofoL 1,000 MG/100 ML VIAL IV SCH (13:30)
[2020-11-24] MEDS ORDERED: CISATRACURIUM BESYLATE 40 MG in 0.9 % SODIUM CHLORIDE 80 ML IV SCH (13:30)
--- NOTE | 2020-11-24 14:06 | Critical Care Progress Note ---
Date of Service November 24, 2020 Assessment & Plan (1) Pneumonia due to 2019 novel coronavirus: (2) Acute and chronic respiratory failure with hypoxia: (3) CHF (congestive heart failure): (4) Nocturnal hypoxia: (5) Severe obstructive sleep apnea: Plan: Impression: This is a 65-year-old male with multiple comorbidities and limited compliance as an outpatient. He presents with 11 days of Covid symptoms. He reports that he had positive Covid test as an outpatient and completed 10 days of outpatient dexamethasone. Recommendations: --Acute hypoxic respiratory failure Multifactorial Secondary to multilobar COVID-19 pneumonia along with acute systolic plus diastolic CHF COVID-19 PCR positive * Multifocal pneumonia on chest x-ray * Continue with dexamethasone 6 mg IV * Hypoxia complicated by CHF - p-BNP * No indication for remdesivir due to close to 2 weeks of symptoms. No indication for convalescent plasma * Maintain negative fluid balance with diuresis as tolerated -follow serial labs to follow creatinine -currently receiving furosemide 40 mg IV twice daily * Cumulative balance since admission is negative 1096 mL --Obstructive sleep apnea with nocturnal hypoxemia * Follows with Dr. Cunningham and Josefa Amaral PA-C * CPAP 12 cm water pressure, C. flex setting 2 with oxygen 3 L/min. through DME provider [facility]. --Acute systolic plus diastolic CHF I think this is playing a significant role in his current hypoxia on top of pneumonia Continue with diuretics to keep the patient negative balance --A. fib On apixaban --Diabetes type 2 Continue with hypoglycemia ICU protocol --Coronary artery disease/dyslipidemia Continue with statin --Gout Continue with allopurinol --Prophylaxis VTE: Apixaban GI: Protonix Plan: We will plan to intubate the patient and start ARDS net protocol I have personally spent 60 minutes of critical care time in the direct management of this patient. This is a life/limb threatening event. This includes time spent evaluating patient, direct bedside care, chart review, placing orders, interpretation of diagnostic studies, discussion with consultants, patient, and family members, as well as other required patient management activities. This time is exclusive of all separately billable procedures, and teaching time and separate from and in addition to any other critical care service time. Please note the above document was generated using voice recognition software. It may contain grammatical, syntax or spelling errors. Admission and Anticipated Discharge Date Admission Date: November 22, 2020 Subjective Patient seen and examined at bedside. In respiratory distress He was 100% FiO2 CPAP at 12. Saturating 14 unfortunately no change in O2 saturation He was breathing in the 30s I spoke with the patient that he will need to be intubated there is significant low oxygen I did tell him that given his underlying cardiac history it will be risky He understood and wanted to go ahead with intubation if need be Review of Systems Review of Systems: All systems reviewed & are unremarkable except as noted in Subjective Physical Exam Physical Exam: Constitutional: In respiratory distress HEENT: EOMI, PERRLA Respiratory system: Decreased air entry bilaterally, no wheeze, rhonchi, positive crackles bilaterally CVS: S1-S2 positive, no murmurs or gallops, distant heart sounds Abdomen: Soft, nontender, nondistended, positive bowel sounds x4, obese Extremities: +2 pulses bilaterally radialis/ dorsalis pedis, no cyanosis, +3 pitting edema bilateral lower extremity Neuro: Awake alert oriented x3 Psych: Normal mood and affect G/U: Positive Estrella Skin: no rashes, warm and dry Lymphatic: no cervical or axillary lymphadenopathy Results & Data Results & Data ([facility]) Vital Signs (Past 12 Hours) Vital Signs Temp Pulse Pulse Resp BP BP Pulse Ox 11/24/20 13:31 140 H 28 H 89 L 11/24/20 12:00 92 H 34 H 120/88 88 L 11/24/20 11:33 90 26 H 87 L 11/24/20 11:15 36.9 C 11/24/20 11:00 97 H 21 11/24/20 09:02 87 22 88 L 11/24/20 07:20 36.7 C 83 119/86 93 11/24/20 05:13 29 H 11/24/20 04:51 28 H 11/24/20 04:34 36.9 C 82 24 116/79 94 11/24/20 04:00 28 H 92 Pulse Ox Pulse Ox 11/24/20 13:31 11/24/20 12:00 11/24/20 11:33 11/24/20 11:15 90 90 11/24/20 11:00 11/24/20 09:02 11/24/20 07:20 11/24/20 05:13 11/24/20 04:51 11/24/20 04:34 11/24/20 04:00 11/24/20 08:25 11/24/20 08:25 Coding Level of Care Code Critical Care 1st 30-74 mins Diagnoses Pneumonia due to 2019 novel coronavirus U07.1; J12.82 Acute and chronic respiratory failure with hypoxia J96.21 CHF (congestive heart failure) I50.9 Heart failure chronicity: acute on chronic Heart failure type: unspecified Nocturnal hypoxia G47.34 Severe obstructive sleep apnea G47.33 Time Spent (min) 60 (1) CHF (congestive heart failure) Heart failure chronicity: acute on chronic Heart failure type: unspecified Qualified Code(s): I50.9 - Heart failure, unspecified
--- NOTE | 2020-11-24 14:06 | Procedure Note ---
Procedure Note Date of Service November 24, 2020 Note Procedure: Inserting ultrasound-guided central fryer line helper: Dr. Gabriella Castorena Indication: ARDS Consent: Emergent consent was applied Anesthesia: 1% lidocaine without epinephrine local. Procedure: Consent was verified and timeout performed. Appropriate imaging studies were reviewed prior to the procedure. Under aseptic and sterile condition, right IJ vein was accessed under direct ultrasound guidance. Guidewire was confirmed to be within the lumen of vein with the help of ultrasound. Catheter was introduced via Seldinger technique. Guide a wire was removed. Good non-pulsatile blood flow was appreciated from all the ports. The catheter was placed at 16 cm and sutured in place. BioPatch was applied to the catheter and a sterile Tegaderm dressing was applied over the catheter with careful attention to sterility. Lung sliding was appreciated post procedure with the help ultrasound. Chest x-ray to follow Patient tolerated the procedure well. Blood loss: Less than 2 cc Complications: None Coding CPT Codes Tubes, Drains, and Vasc Access - Tubes, Drains, and Vasc Access: [id number] Place catheter in vein superior or inferior vena cava ([id number]) Tubes, Drains, and Vasc Access - Tubes, Drains, and Vasc Access: [id number] Ultrasound Guidance For Vascular ([id number]) [facility] [place] Procedure Codes (Charges) Tubes, Drains, and Vasc Access Procedure 1: Tubes, Drains, and Vasc Access: [id number] Place catheter in vein superior or inferior vena cava Procedure 2: Tubes, Drains, and Vasc Access: [id number] Ultrasound Guidance For Vascular
--- NOTE | 2020-11-24 14:06 | Procedure Note ---
Procedure Note Date of Service November 24, 2020 Note INTUBATION PROCEDURE NOTE: Attending: Dr Gabriella Castorena MD Patient was evaluated and plan to intubate was made for ventilatory failure. Sedative agent used: 20 mg of etomidate, 100 mg of lidocaine Paralysis agent used: 80 mg of rocuronium Emergent consent was implied given patients rapidly declining clinical status and need for airway protection. The patient was prepared in the appropriate fashion. The patient was easily pr e-oxygenated by using [id number] ventilation. With help of CMAC grade 2 vocal cords were visualized and 7.5 [place] ETT was introduced on first attempt to 24 cm at the lip. The stylette was removed and balloon was inflated with 10mL of air. Appropriate Colorimetric change was appreciated for at least 10 breaths. Bilateral chest rise and breath sounds were appreciated without air sounds in the epigastrium. Patient tolerated the procedure well and there were no immediate complications. Chest Xray to follow for confirming placement. Coding CPT Codes Resuscitation - Resuscitation: 53347 Endotracheal Intubation, emergency ([id number]) [facility] Codes (Charges) Resuscitation Resuscitation: 39950 Endotracheal Intubation, emergency
--- NOTE | 2020-11-24 14:07 | Procedure Note ---
Procedure Note Date of Service November 24, 2020 Note ARTERIAL LINE PROCEDURE NOTE: Procedure: Arterial Line Placement Attending: Dr. Gabriella Castorena MD Indication: Monitoring on Pressors Anesthesia: General anesthesia Emergent consent was applied A time-out was completed verifying correct patient, procedure, site, positioning, and implant(s) or special equipment if applicable. Allens test was performed to ensure adequate perfusion. Patients right wrist was prepped and draped in the usual sterile fashion. Ultrasound guidance was used to aid needle placement. A 20g Arrow arterial line was introduced into the right radial artery. Catheter was threaded, and the needle was removed with appropriate pulsatile blood return. Good waveform was observed on the monitor. The patient tolerated the procedure well. Confirmation of placement with ultrasound. Images saved to medical record. Complications: None Blood Loss: Less than 2 cc Coding CPT Codes Tubes, Drains, and Vasc Access - Tubes, Drains, and Vasc Access: [id number] Insertion Catheter, Artery ([id number]) Tubes, Drains, and Vasc Access - Tubes, Drains, and Vasc Access: [id number] Ultrasound Guidance For Vascular ([id number]) [facility] [place] Procedure Codes (Charges) Tubes, Drains, and Vasc Access Procedure 1: Tubes, Drains, and Vasc Access: [id number] Insertion Catheter, Artery Procedure 2: Tubes, Drains, and Vasc Access: [id number] Ultrasound Guidance For Vascular
--- NOTE | 2020-11-24 14:13 | Pharmacy Report ---
Pharmacy Glycemic Short Note 2 - Date of Service November 24, 2020 - Glycemic Short BSG Results (Last 24 hours): 11/23/20 11/23/20 11/24/20 16:56 20:26 07:23 Glucose POC Glucose 116 H 126 H 149 H 11/24/20 11/24/20 08:25 12:17 Glucose 123 H POC Glucose 130 H OUTPATIENT ANTIDIABETIC REGIMEN: * Tresiba (insulin degludec) 100 units SQ HS * NovoLog 26 units SQ TIDM + SSI * Metformin 1,000 mg PO BIDM * A1c = 8.9% on 11/23/20 ASSESSMENT: 11/24 * Patient received total of 206 units of insulin yesterday, of which 35 units NPH for steroids and 100 units Lantus * Fasting BSG 123 mg/dL - patient having issues with breathing/resp status declining this AM therefore intubated and transferred to MICU * Will change to Q4 hr checks. As patient now NPO will cut back home basal insulin for HS by ~50% 11/23 * 65yo T2DM male admitted with COVID-19. Pt with poor baseline glycemic control despite high doses of insulin as an outpatient. * Sustained hyperglycemia inpatient secondary to infection and steroids * Will continue with outpatient basal insulin needs and add NPH for steroid induced hyperglycemia with dexamethasone * Will start with 0.4 units/kg adjusted body weight NPH and titrate based on BSG trends. PLAN FOR INPATIENT GLYCEMIC CONTROL: * Hold outpatient oral diabetes medications * Basal insulin - decrease for NPO status * Lantus 40-50 units SQ HS (therapeutic sub for Tresiba) * Steroid induced hyperglycemia * NPH 35 units (0.4 units/kg adjusted body weight) SQ daily with Dexamethasone * HOLD NPH if dexamethasone held/dc * Bolus insulin * NovoLog per scale ACHS or Q6hrs while NPO * Goal Range: Low 110 mg/dL - High 140 mg/dL * Correction Factor: 10 mg/dL/unit * Nutritional / Prandial insulin per carb ratio of 1 unit per 3 grams CHO consumed PLAN FOR DISCHARGE: * A1c = 8.9 % on 11/23/20 * Goal A1c = <7 % based on age and comorbidities * Will assess outpatient insulin dosing vs compliance * Support Patient Self-Management o Healthy Lifestyle (diet, exercise, and smoking cessation) o Disease self-management (SMBG) o Prevention of complications (BP, Lipid goals, Immunizations) o Consider outpatient Diabetes Self-Management Education & Support
[2020-11-24] MEDS ORDERED: PHENYLEPHRINE 100MCG/ML 5ML SYR ONE ×2 (14:23→15:59)
--- NOTE | 2020-11-24 14:32 | XRay Report ---
XR chest 1V portable HISTORY: 65 years-old Male post intubation and central line insert acute respiratory failure COMPARISON: Chest radiograph of same day at 6:36 AM TECHNIQUE: Portable AP view of the chest FINDINGS: Cardiac silhouette is enlarged. Left subclavian pacer/AICD. Right IJ central venous catheter distal t ip terminates in the expected location of the mid to inferior SVC. Endotracheal tube overlies the mid line approximately 3.3 cm superior to the fadumo. Pulmonary vascular congestion. Interstitial coarsen ing with bibasilar and left midlung airspace opacities. Layering pleural effusions. No pneumothorax. Degenerative changes of the shoulders and spine. IMPRESSION: 1. Lines and tubes as above. 2. Cardiomegaly with persistent multifocal bilateral airspace opacities compatible with pneumonia. ACT 112: Negative or not required by law. The above report was generated using voice recognition software. It may contain grammatical, syntax o r spelling errors. Electronically signed by: Edil Zhang M.D. 11/24/2020 2:31 PM
[2020-11-24] MEDS: ARTIFICIAL TEARS OP OINT 3.5 GM TUBE OP SCH ×2 (14:52→17:54)
[2020-11-24] MEDS ORDERED: FUROSEMIDE 10 MG/ML 10 ML VIAL IV ONE (15:00)
[2020-11-24 15:23] LABS: Allen Test Pos (Pos); Base Excess ABG 2.4 mEq/L (-9-1.8); HCO3 ABG 29 mmol/L (19-24); Oxygen Saturation ABG 94.2 % (90-95); PCO2 ABG 53 mmHg (35-46); PO2 ABG 72 mmHg (80-95); pH ABG 7.36 (7.35-7.45)
[2020-11-24 15:24] LABS: Hematocrit (blood only) 38.7 % (42-52); Hemoglobin 12.7 g/dL (14.0-18.0); Mean Corpuscular Hemoglobin 28.9 pg (25-34); Mean Corpuscular Volume 88.2 fL (80-100); Mean Platelet Volume 10.2 fL (7.4-10.4); Platelet Count 458 K/uL (130-400); RDW Standard Deviation 51.9 fL (36.4-46.3); Red Blood Count 4.39 M/uL (4.7-6.1); White Blood Count 24.13 K/uL (4.8-10.8)
[2020-11-24] MEDS ORDERED: VASOPRESSIN 20 UNITS in 0.9 % SODIUM CHLORIDE 100 ML IV SCH (15:30)
[2020-11-24 15:38] LABS: Mean Corpuscular Hgb Conc 32.8 g/dL (32-36)
[2020-11-24 15:47] LABS: BUN Creatinine Ratio 26.5 (10-20); Calcium 10.3 mg/dl (8.5-10.1); Creatinine Clr Calc Pharmacy 57.7 ml/min; Est GFR (African American) 50.5 ml/min; Est GFR (Non-African American) 43.6 ml/min; Potassium 4.6 mmol/L (3.5-5.1)
[2020-11-24] MEDS ORDERED: INSULIN ASPART 100 UNITS/ML 3 ML PEN SC SCH (16:00)
[2020-11-24] MEDS ORDERED: AMIODARONE 150MG / 100ML D5W IV ONE (16:23)
[2020-11-24] MEDS ORDERED: AMIODARONE 360MG / 200ML D5W IV ONE (16:23)
[2020-11-24] MEDS: Standard 16mcg/mL; 4 MG in 250 mL for BRADYCARDIA IV SCH ×2 (16:34→18:48)
[2020-11-24] MEDS: NOREPINEPHRINE/D5W 8 MG/508 ML BAG IV SCH ×3 (16:34→21:00)
[2020-11-24 16:36] LABS: iSTAT Allen Test Pass; iSTAT Art Bld Gas pCO2 Correct 63 mmHg (35-46); iSTAT Art Bld Gas pH Corrected 7.271 (7.35-7.45); iSTAT Arterial Blood Gas HCO3 29 meg/L (19-24); iSTAT Arterial Blood Gas pCO2 63 mmHg (35-46); iSTAT Arterial Blood Gas pH 7.27 (7.35-7.45); iSTAT Arterial Blood Gas pO2 75 mmHg (80-95); iSTAT Arterial Blood Gas pO2 C 75; iSTAT Carbon Dioxide 31 mmol/L (24-31); iSTAT Hematocrit 40 % (42-52); iSTAT Hemoglobin 13.6 g/dl (14.0-18.0); iSTAT Potassium 4.9 mmol/L (3.3-5.0); iSTAT Site R Radial; iSTAT Sodium 140 mmol/L (135-144)
--- NOTE | 2020-11-24 16:49 | XRay Report ---
XR chest 1V portable HISTORY: 65 years-old Male hypoxia acute hypoxia COMPARISON: Chest radiograph of same day TECHNIQUE: Portable AP view of the chest FINDINGS: Cardiac silhouette is enlarged. Left subclavian pacer/AICD. Endotracheal tube overlies the midline, 3 .1 cm superior to the fadumo. Right IJ central venous catheter is unchanged. Enteric tube is noted wh ich appears to course below the diaphragm outside the [id number]. Possible trace pleural effusions . Persistent multifocal bilateral airspace opacities. Persistent mild pulmonary vascular congestion. Degenerative changes of the shoulders and spine. IMPRESSION: 1. Lines and tubes as above. 2. Cardiomegaly with unchanged multifocal bilateral airspace opacities compatible with multifocal pne umonia. ACT 112: Negative or not required by law. The above report was generated using voice recognition software. It may contain grammatical, syntax o r spelling errors. Electronically signed by: Edil Zhang M.D. 11/24/2020 4:48 PM
[2020-11-24] MEDS ORDERED: MIDAZOLAM HCL 1 MG/ML 2ML VIAL IV PRN (17:06)
[2020-11-24] MEDS ORDERED: fentaNYL citrate 100 MCG/2 ML VIAL IV PRN ×2 (17:06→17:51)
[2020-11-24] MEDS ORDERED: MIDAZOLAM HCL 1 MG/ML 2ML VIAL ONE (17:11)
[2020-11-24] MEDS ORDERED: fentaNYL citrate 100 MCG/2 ML VIAL ONE (17:11)
[2020-11-24] MEDS ORDERED: fentaNYL citrate 100 MCG/2 ML VIAL IV STA (17:48)
--- NOTE | 2020-11-24 18:17 | Communication Note ---
Date of Service: November 24, 2020 Critical CARE addendum: After intubation and putting central line and A-line. Chest x-ray showed good positioning of the ETT as well as central line Patient was started on propofol and fentanyl for sedation Plan was to prone the patient but I was called at bedside the patient was getting very hypotensive His systolic blood pressure from the A-line was in the 50s Levophed has been ordered but there was an issue with the pump Phenylephrine 150 MCG was pushed with no improvement in the blood pressure Pulse was still palpable throughout. 1 dose of epinephrine was given to the patient which improved her blood pressure significantly. Patient was also started on Levophed during this time Patient went into SVT with aberrancy. 6 mg of adenosine was given to the patient with broke the rhythm. 2 A of bicarb as well as 1 amp of calcium chloride were given during this process. All throughout patient saturation was in the mid 80s. Even the patient was on 100% FiO2 and PEEP of 14 I gave a call to patient's and updated her regarding the patient's condition. I did tell her that patient is very critical and given the underlying significant comorbidities overall prognosis is very guarded. Later on patient had similar episode for which CODE ERICH was called. Patient was given 2 doses of epi. He was in A. fib with RVR. Amiodarone bolus followed by amiodarone drip was started Epi drip was started along with Levophed Patient is very sensitive to propofol. Propofol was discontinued and fentanyl pushes will be given to keep him comfortable Overall prognosis is again very guarded. Patient is currently on 3 vasopressors epi, Levophed as well as vasopressin. If the patient goes into cardiac arrest while being on 3 vasopressors and 100% FiO2, compressing the chest would not be appropriate and cause more suffering. Case was discussed with Dr. Soto. Coding Level of Care Code Critical Care ea addt'l 30 min Time Spent (min) 55
[2020-11-24] MEDS: ATORVASTATIN 40 MG TAB PO SCH (19:58)
[2020-11-24] MEDS: METOPROLOL SUCC 25MG EXT REL TAB PO SCH (19:59)
[2020-11-24] MEDS ORDERED: PIPERACILL/TAZOBAC CONSULT ACTIVE PRN (20:21)
[2020-11-24] MEDS ORDERED: VANCOMYCIN CONSULT ACTIVE PRN (20:23)
[2020-11-24] MEDS ORDERED: VANCOMYCIN HCL 1,000 MG in SODIUM CHLORIDE 0.9% 250 ML IV SCH (20:30)
[2020-11-24] MEDS ORDERED: PIPERACILLIN/TAZOBACTAM 4.5 GM in DEXTROSE 5% 100 ML IV SCH (20:30)
--- NOTE | 2020-11-24 20:30 | Communication Note ---
Date of Service: November 24, 2020
[2020-11-24] MEDS ORDERED: INSULIN GLARGINE 100 UNIT/ML VIAL SC SCH (21:00)
--- NOTE | 2020-11-24 21:14 | Communication Note ---
Date of Service: November 24, 2020 Shortly after change of shift I was alerted the patient's had presented to bedside at the approval of both Dr. Soto and Dr. Ortiz. I did contact nursing staff and they do request that I present at bedside as the patient is continuing to decline and felt it appropriate for provider conversation with for ongoing management. Upon my arrival at bedside, the patient was noted to have systolics ranging from the 70s to 80s while maxed on 3 pressors. I did have a lengthy discussion with the patient's at bedside regarding patient's ongoing decline and maximized therapies at this point. She understands his decline, however she is not willing to proceed with DNR/DNI measures and/or comfort discussion at this point. Unfortunately, during our conversation, the patient continued to drop his pressures and eventually lost a pulse. CODE BLUE was activated immediately. Please see separate resuscitation note. After return of spontaneous circulation, I again had a lengthy discussion with the patient's and discussed ongoing management and continued decline, particularly in the setting of repeat cardiac arrest episodes. I explained that the patient is now maxed on 3 pressors, is maxed on ventilator settings with saturations in the 70s, his baseline chronic diseases contributing to current illness, and likelihood of poor neurologic outcome after resting x2. Despite this, she states that she is unable to make any further decisions. I did return to patient's bedside as he was noted to drop his pressure again on the monitor. When presented at bedside, again, I discussed with the patient's if she wished for us to proceed with chest compressions and resuscitative efforts again as he was about ready to arrest for the third time. She was unable to make a decision, and unfortunately, the patient became pulseless and required resuscitation again. Please see separate resuscitation note. After third round of CPR, patient's asked us to "please stop" during resuscitative effort. At that point, I did confirm with the patient's the patient would not be DNR/DNI in the event of return of cardiac arrest. We will continue with vasopressor support as well as ventilator support at this point. I did explain to the patient's that he will likely in the next several minutes. She was able to sit with him at bedside. Patient was noticed on the monitor to become bradycardic and hypotensive. Upon my assessment at bedside, the patient had . Time of noted to be 2200. Patient's provided support. She has family in the parking lot who will take her home at this time. I have personally spent 75 minutes of critical care time in the direct management of this patient. This is a life/limb threatening event. This includes time spent evaluating patient, direct bedside care, chart review, placing orders, interpretation of diagnostic studies, discussion with consultants, p atient, and family members, as well as other required patient management activities. This time is exclusive of all separately billable procedures, and teaching time and separate from and in addition to any other critical care service time. Coding Level of Care Code Critical Care yvan addt'l 30 min Time Spent (min) 75
--- NOTE | 2020-11-24 21:36 | Procedure Note ---
Procedure Note Date of Service November 24, 2020 Note I was present at bedside when the patient became pulseless. Patient's is present as well. CODE ERICH was called overhead and I personally started chest compressions while we gathered further support. Verbal orders were provided to provide 1 amp of epinephrine and 2 A of bicarb. As we were getting ready to administer the second amp of epinephrine, pulse check noted that the patient was in an organized paced rhythm and had return of spontaneous circulation with systolic blood pressures in the 100s. Unfortunately, the patient remained significantly hypoxic despite aggressive bagging and being placed back on the ventilator with significant settings. The patient's was escorted back at bedside where discussions were had with ongoing care. Total arrest time noted to be 6 minutes. Coding CPT Codes Resuscitation - Resuscitation: 36870 Heart/lung resuscitation CPR ([id number]) [facility] Procedure Codes (Charges) Resuscitation Resuscitation: [id number] Heart/lung resuscitation CPR
--- NOTE | 2020-11-24 21:36 | Procedure Note ---
Procedure Note Date of Service November 24, 2020 Note Again, I was present at bedside when the patient became pulseless at 2106. Nursing staff began chest compressions. Patient was administered 1 mg epinephrine. During compressions, did appear as though the patient received 1 shock from his AICD. As we were readying to administer additional dose of epinephrine and performed pulse check, the patient's asked us to stop with resuscitation efforts. When chest compressions were stopped, the patient was noted to have a paced rhythm with systolic blood pressures in the 90s to low 100s. At this point, after further conversation with the patient's , the patient will be made DNR/DNI in the event of return of cardiac arrest. Total resuscitation time 4 minutes. Coding CPT Codes Resuscitation - Resuscitation: 23073 Heart/lung resuscitation CPR ([id number]) [facility]odes (Charges) Resuscitation Resuscitation: 21368 Heart/lung resuscitation CPR
--- NOTE | 2020-11-24 23:25 | Death Pronouncement Note ---
Date of Service November 24, 2020 Pronouncement Note Admission Date Admission Date: November 22, 2020 Date and Time of Date of : 11/24/20 Time of : 22:00 PCOD Preliminary cause of : Cardiogenic shock Contributing Factors (1) Pneumonia due to 2019 novel coronavirus: (2) Acute and chronic respiratory failure with hypoxia: (3) CHF (congestive heart failure): (4) Nocturnal hypoxia: (5) Severe obstructive sleep apnea: Hospital Course Hospital Course: Patient diagnosed with COVID-19 in the outpatient setting and eventually required admission for increasing hypoxia. Patient eventually required intubation for airway management. In addition, the patient has ischemic cardiomyopathy at baseline with poor EF. Patient had 3 separate episodes of cardiopulmonary arrest with pulselessness requiring CPR and medicat ions. Eventually, the patient's made the patient a DNR/DNI. Patient had been maxed on 3 pressors and despite this, was unable to obtain perfusion pressures adequate to sustain life. Patient at 2200. Additional Data Confirmation of : no pulse, no respirations, no heart sounds and pupils fixed and dilated Family: at bedside Attending physician: Lennox Soto, DO Was code activated?: No Autopsy requested?: No passport application examiner notified?: No Organ bank notified?: Yes Advance directives: No Coding Level of Care Code None Diagnoses Pneumonia due to 2019 novel coronavirus U07.1; J12.82 Acute and chronic respiratory failure with hypoxia J96.21 CHF (congestive heart failure) I50.9 Heart failure chronicity: acute on chronic Heart failure type: unspecified Nocturnal hypoxia G47.34 Severe obstructive sleep apnea G47.33 Time Spent (min) 20
--- NOTE | 2020-11-26 14:54 | Discharge Summary ---
Date of Service November 24, 2020 Admission HPI Per Admitting Provider Chris Davis chronic hypoxic respiratory failure, severe sleep apnea, pulmonary hypertension, sever nocturnal hypoxia who presents to the ER with known COVID-19 pneumonia and shortness of breath on advice of his PCP office. His initial symptoms started November 08 (diagnosed the following day). Currently on day 15. No prior treatment with monoclonal antibodies but he has been on steroids prescribed by her PCP (although unclear dose or duration). Initially he reports him and his were very sick but he feels he has been slowly improving. Initial symptoms of fever, chills, shortness of breath, cough, mild diarrhea. The nurse from his PCP office called him today and he appeared to be more labored in his breathing therefore was advised to come to the ER. However the patient feels he has been getting better every day. In the ER his CXR is concerning for bilateral viral pneumonia. He is currently requing 4.5LPM O2 to maintain O2 sats (usually on 3LPM at home). He was given 10mg IV dexamethasone. He was referred to Medicine for admission and ongoing management of COVID-19, CHF and hypoxia. Principal Diagnosis COVID 19 pneumonia Acute hypoxic respiratory failure Discharge Exam no pulse, no respirations, pupils fixed, no heart sounds, no breath sounds Discharge Data Allergies Allergy/AdvReac Type Severity Reaction Status Date / Time No Known Drug Allergies Allergy Unknown Verified 11/22/20 16:30 Consultations 11/22/20 15:51 ED Decision to Admit Stat 11/23/20 10:08 Consult Pulmonology Routine Ordered Studies 11/24/20 11:02 US point of care ultrasound Urgent Hospital Course (1) Pneumonia due to COVID-19 virus: rapidly worsening breathing over the 2 days after he was admitted this is concerning because he is 16 days into illness, completed a full 10 days of dexamethasone at home CRP was 6.8 treated with dexamethasone 6mg IV daily no role for immune therapy appreciate pulmonology input on 11/24 he was desaturating on CPAP and high flow, working harder to breathe diuresing well with Lasix unfortunately he needed intubated in the afternoon on 11/24 patient with bradycardia and profound hypotension after being intubated was given a dose of Epinephrine because Levophed was not yet running this happened early in the afternoon around 1600 a code blue was called because the patient lost a pulse despite being on Levophed and Vasopressin he received compressions, two doses of Epinephrine, Sodium Bicarbonate, on pulse check he was in SVT with rates 160-180 and he had a strong pulse he was hypoxic with saturations in the 70's, PEEP turned up to 14, 100% FiO2 d/w Dr. Castorena, he had plans to prone the patient and paralyze him but then he had the first episode requiring Epinephrine, then he had the code blue he is too hemodynamically unstable to turn prone, he remains hypoxic on the ventilator requiring three pressors to keep HR and blood pressure stable, Epinephrine, Levophed, Vasopressin he is on Amiodarone bolus and drip for afib with RVR, do not want his rates in the 160's again, he does have a pacemaker spent total of 45 minutes at the bedside with the patient spent an additional 40 minutes total on the phone with the patient's Janine called her during the code blue, discussed that we got a pulse back but very concerned that this will happen again discussed that he is on three pressors, hypoxic despite maximum ventilator support and oxygen discussed that he would need prone to raise oxygen saturations but this was impossible due to his heart, essentially he was going to , cannot save him discussed that if he would lose a pulse again doing CPR would really be futile as we cannot fix the cause of the code, his profound hypoxemia and his cardiomyopathy she kept saying she cannot let him go, she is praying for a miracle, she just wants to see him we left that conversation with full code as the plan I called her again to let her know that he was waking up, needing Fentanyl and Versed could not really give a lot of Versed and could not give Propofol due to his hypotension discussed that it would be difficult to keep him comfortable without causing him to potentially code again again, asked her if we could continue current measures but if his heart would stop, for his own comfort, it would be best to not do CPR and let him pass peacefully she again wanted him to be full code blaming herself for giving him COVID, he would still be okay if she had not caused his illness says she should have never brought him to the hospital, told her that he would have certainly at home due to his hypoxemia she said he got worse after we placed the castillo and gave him Lasix, explained that his oxygen levels were low 80's on CPAP, needed the Lasix I called her a final time around 1829, assured her that her distant relative Beck was there, an RN on the unit, holding his hand and talking with him discussed again my concerns about his hypoxemia on the ventilator told her bluntly that I do not think he will live through the night she still wants us to try CPR if his heart stops I got permission for her to come into the hospital for a 30 minute visit in full PPE so she can see him and hold his hand, try to get here before he codes told the RN that she would be coming in patient coded again but could not be resuscitated as was expected his was able to see him prior to the code night resident and ICU team were present and pronounced the patient total time with patient on 11/24 was 36 minutes in the morning which was critical care, 85 minutes this afternoon, 40 of which was outside of the room speaking with family 121 minutes total spent with this patient (2) Acute on chronic combined systolic (congestive) and diastolic (congestive) heart failure: Lasix 40mg IV BID, worked well on 11/23 increased to 80mg IV on 11/24 placed castillo for accurate output and so he can just rest Strict I&Os Daily weights unfortunately he developed cardiac circulatory shock after he was intubated required three pressors just to keep SBP at 90 (3) Acute and chronic respiratory failure with hypoxia: chronically on 3L, wears CPAP HS with pressure 12 and 3L rapidly deteriorated on 60L and 100% and could not keep saturations > 87% on BIPAP intubated afternoon 11/24, he coded several times in afternoon and evening and then (4) Diabetes type 2, uncontrolled: HbA1C 9.4 in July, repeat with AM labs Consult pharmacy for glycemic control monitor for hypo and hyperglycemia (5) Severe obstructive sleep apnea: CPAP HS [id number] when at home (6) Atrial fibrillation: Permanent, ventricular paced rhythm on EKG Rate controlled with metoprolol Anticoagulation with Eliquis (7) CAD, multiple vessel: Continue Eliquis, clopidogrel, metoprolol, atorvastatin Holding Entresto as above (8) Ischemic cardiomyopathy: Continue metoprolol succinate, holding Entresto as above Lasix BID (9) Gout: Continue allopurinol 100mg PO daily (10) Hypertension: Relative hypotension in the ER. continue to hold Entresto but will continue metoprolol succinate (11) BPH (benign prostatic hyperplasia): On no medications for this place castillo with plans for aggressive diuresis patient Total Time Total Time Spent Total Time Spent (In Minutes): 121 minutes Total Time Includes: Examination of the Patient, Communication With Other Providers and Other Discharge Plan Discharge Items Patient Disposition: Other Date/Time: 11/24/20 22:00 Coding Level of Care Code D/C DAY MANAGEMENT >30 MINS (25 - SIGNIFICANT, SEPARATELY IDENTIFIABLE ) Diagnoses Pneumonia due to COVID-19 virus U07.1; J12.82 Acute on chronic combined systolic (congestive) and diastolic (congestive) heart failure I50.43 Acute and chronic respiratory failure with hypoxia J96.21 Diabetes type 2, uncontrolled E11.65 Severe obstructive sleep apnea G47.33 Atrial fibrillation I48.91 CAD, multiple vessel I25.10 Ischemic cardiomyopathy I25.5 Gout M10.9 Hypertension I10 BPH (benign prostatic hyperplasia) N40.0
--- NOTE | 2020-11-30 13:10 | Electrocardiogram Report ---
Test Reason : Blood Pressure : / mmHG Vent. Rate : 165 BPM Atrial Rate : 159 BPM P-R Int : 000 ms QRS Dur : 120 ms QT Int : 318 ms P-R-T Axes : 000 -73 062 degrees QTc Int : 526 ms Atrial fibrillation with rapid ventricular response with premature ventricular or aberrantly conducte d complexes Low voltage QRS Right bundle branch block Left anterior fascicular block Bifascicular block Possible Lateral infarct , age undetermined Abnormal ECG When compared with ECG of 22-NOV-2020 14:31, Atrial fibrillation has replaced Electronic ventricular pacemaker Vent. rate has increased BY 76 BPM Confirmed by Tristen Monte ([id number]) on 11/27/2020 4:57:01 PM Referred By: REFERRED SELF Confirmed By:Bryan Monte
== END 2020-11-24 23:20 | disposition expired | DRG 208 ==
LOC: ED 13:33 → SUATTDRO 16:36 → 2S 16:36 → 2E 11-24 10:54